=== PATIENT | male | born 1970 | race Two or more races ===

== ENCOUNTER 2016-09-02 17:13 | Inpatient (IN) | payer MEDICAID ==
[~2016-09-02] VITALS: Ht 170.2 cm; Wt 108.9 kg
[2016-09-02] MEDS ORDERED: NKM (17:30)
[2016-09-02] MEDS ORDERED: Albuterol ud Inhalation HHN ONE (17:30)
[2016-09-02] MEDS ORDERED: Nitroglycerin Subl 0.4mg tab (Bottle Of 25) SL ONE (17:45)
[2016-09-02 17:46] LABS: MEAN CORPUSCULAR HEMOGLOBIN 17.6 PG (27.0-31.0); MEAN CORPUSCULAR HGB CONC 27.9 G/DL (32.0-36.0); MEAN CORPUSCULAR VOLUME 63 FL (80-99); MEAN PLATELET VOLUME 7.3 FL (6.5-10.1); PLATELET COUNT 69 K/UL (150-450); RED BLOOD COUNT 3.93 M/UL (4.70-6.10); RED CELL DISTRIBUTION WIDTH 18.4 % (11.6-14.8); WHITE BLOOD COUNT 4.8 K/UL (4.8-10.8)
[2016-09-02] MEDS ORDERED: LORazepam Inj 2mg/ml 1ml IV ONE (18:00)
[2016-09-02 18:04] VITALS: BP 121/67
[2016-09-02 18:06] LABS: TROPONIN I < 0.30 ng/mL (<=0.30)
[2016-09-02 18:09] LABS: ALANINE AMINOTRANSFERASE 22 U/L (3-41); ALBUMIN/GLOBULIN RATIO 0.8 (1.0-2.7); ANION GAP 13 (5-15); ASPARTATE AMINO TRANSFERASE 83 U/L (5-40); CALCIUM 7.7 mg/dL (8.6-10.2); CARBON DIOXIDE 25 mEQ/L (20-30); CHLORIDE 103 mEQ/L (98-107); CREATININE 0.6 mg/dL (0.7-1.2); GLOMERULAR FILTRATION RATE > 60 mL/min (>60); HEMOLYSIS 0; POTASSIUM 3.7 mEQ/L (3.4-4.9); SODIUM 141 mEQ/L (135-145); TOTAL PROTEIN 7.1 g/dL (6.6-8.7)
[2016-09-02 18:19] LABS: CKMB 3.8 ng/mL (< 6.7)
--- NOTE | 2016-09-02 18:38 | Emergency Room Report ---
History of Present Illness General Chief Complaint: Chest Pain Source: Patient Present Illness HPI 46 y/o male c/o chest pain / tightness x 5 hours. States he was at home and started having heart palpitations, chest pressure, SOB, sweating and bilateral hand numbness. States that prior to onset of sxs he has been having blood from his rectum when he defecates. States there are no modifying factors and that he tried to relax at home w/o improvement of sxs. Patient admits he has hx of DMII that he was taking medication for but was told his A1C was normal and that he could stop using medication several months ago. Denies any cardiac hx or other comorbid conditions. Denies asthma. Currently not on medications of kind. Denies any current n/v/f/c/d, abd pain, back pain, neck pain, photophobia, phonophobia or headache. Allergies: Coded Allergies: NO KNOWN ALLERGIES (Verified Allergy, Unknown, 09/02/16) Patient History Limited by: language barrier Past Medical History: see triage record Pertinent Family History: none Immunizations: UTD Reviewed Nursing Documentation: PMH: Agreed, PSxH: Agreed Nursing Documentation-PMH Past Medical History: No History, Except For Hx Asthma: No - blood clot rt lung /anemia Hx Diabetes: Yes Review of Systems All Other Systems: negative except mentioned in HPI Physical Exam Vital Signs Date Time Temp Pulse Resp B/P Pulse Ox O2 Delivery O2 Flow Rate FiO2 09/02/16 17:20 98.8 93 12 154/81 99 Room Air 09/02/16 17:32 21 Sp02 EP Interpretation: reviewed, normal General Appearance: alert, GCS 15, non-toxic, moderate distress, obese Head: normocephalic, atraumatic Eyes: bilateral eye PERRL, bilateral eye normal inspection ENT: hearing grossly normal, normal pharynx, no angioedema, normal voice, other - oral mucosa pale Neck: full range of motion, supple/symm/no masses Respiratory: chest non-tender, crackles - left side, rales - left side, speaking full sentences Cardiovascular #1: regular rate, rhythm, no edema, normal capillary refill Gastrointestinal: non tender, soft Rectal: hemorrhoids - multiple large thrombosed hemorrhoids. no gross blood present Neurologic: alert, oriented x3, responsive, motor strength/tone normal, sensory intact, speech normal Psychiatric: judgement/insight normal, memory normal, no suicidal/homicidal ideation, anxious Skin: normal color, no rash, warm/dry, well hydrated Lymphatic: no adenopathy Medical Decision Making PA Attestation Dr. Vogel my supervising physician with whom patient management has been discussed with. Diagnostic Impression: Primary Impression: GI bleeding Qualified Codes: K92.2 - Gastrointestinal hemorrhage, unspecified Additional Impressions: Hemorrhoid thrombosis Chest pain at rest ANEMIA, UNSPECIFIED ER Course Pt. presents to the ED c/o chest pain Ddx considered but are not limited to Vital signs: are WNL, pt. is afebrile H&PE are most consistent with GI bleed with severe anemia secondary to blood loss ORDERS/ ED INTERVENTIONS: My Orders - ENMANUEL GIBSON Procedure Category Date Status Time Vital Signs CARE 09/02/16 Transmitted 17:23 Ekg Tracing Only CARD 09/02/16 Complete 17:23 Cardiac Monitoring CARE 09/02/16 Transmitted 17:23 Oxygen (Er Only) CARE 09/02/16 Transmitted 17:23 Ed Pulse Oximetry CARE 09/02/16 Transmitted 17:23 Iv Access / Saline CARE 09/02/16 Transmitted Lock 17:23 Activity / Weight CARE 09/02/16 Transmitted Bearing 17:23 Cbc W/ Differential LAB 09/02/16 Complete 17:23 CK MB LAB 09/02/16 Complete 17:23 CK LAB 09/02/16 Complete 17:23 CMP LAB 09/02/16 Complete 17:23 Troponin I LAB 09/02/16 Complete 17:23 Xray Chest 1v RAD 09/02/16 Resulted 17:23 Rhythm Strip CARE 09/02/16 Transmitted 17:23 Saline 10ml Flush PHA 09/02/16 In Process (Saline 10ml Flush) 17:30 Albuterol Hhn PHA 09/02/16 Complete (Proventil) 17:30 Hand Held Nebulizer RESP 09/02/16 Transmitted 17:23 B-Type Natriuretic LAB 09/02/16 Complete Peptide 17:42 Nitroglycerin (Ntg) PHA 09/02/16 Complete 17:45 Lorazepam (Ativan PHA 09/02/16 Complete 2mg/Ml 1ml) 18:00 Type (Abo/Rh) & Screen BBK 09/02/16 In Process 18:04 Packed Red Cells BBK 6/10/17 In Process 18:04 PTT LAB 09/02/16 Complete 18:04 PT LAB 09/02/16 Complete 18:04 Type (Abo/Rh) BBK 09/02/16 In Process 18:04 Ferritin LAB 09/02/16 Complete 18:06 Morphine Sulfate PHA 09/02/16 Complete (Morphine Sulfate) 20:15 Risks and benefits discussed with patient regarding blood transfusion and written consent form was signed by patient prior to administration of transfusion.Patient was then transfused with Packed RBCs. ADMISSION: Patient was admitted to Dr. Sauer who was on Panel for further evaluation of severe anemia and GI bleed. Laboratory Tests Test 09/02/16 17:25 09/02/16 17:55 09/03/16 07:08 09/03/16 10:30 White Blood Count 4.8 K/UL (4.8-10.8) 3.3 K/UL (4.8-10.8) L Red Blood Count 3.93 M/UL (4.70-6.10) L 4.44 M/UL (4.70-6.10) L Hemoglobin 6.9 G/DL (14.2-18.0) *L 7.9 G/DL (14.2-18.0) L Hematocrit 24.9 % (42.0-52.0) L 28.3 % (42.0-52.0) L Mean Corpuscular Volume 63 FL (80-99) L 64 FL (80-99) L Mean Corpuscular Hemoglobin 17.6 PG (27.0-31.0) L 17.7 PG (27.0-31.0) L Mean Corpuscular Hemoglobin Concent 27.9 G/DL (32.0-36.0) L 27.9 G/DL (32.0-36.0) L Red Cell Distribution Width 18.4 % (11.6-14.8) H 19.7 % (11.6-14.8) H Platelet Count 69 K/UL (150-450) L 68 K/UL (150-450) L Mean Platelet Volume 7.3 FL (6.5-10.1) 9.8 FL (6.5-10.1) Neutrophils (%) (Auto) % (45.0-75.0) % (45.0-75.0) Lymphocytes (%) (Auto) % (20.0-45.0) % (20.0-45.0) Monocytes (%) (Auto) % (1.0-10.0) % (1.0-10.0) Eosinophils (%) (Auto) % (0.0-3.0) % (0.0-3.0) Basophils (%) (Auto) % (0.0-2.0) % (0.0-2.0) Differential Total Cells Counted 100 100 Neutrophils % (Manual) 59 % (45-75) 76 % (45-75) H Lymphocytes % (Manual) 32 % (20-45) 14 % (20-45) L Monocytes % (Manual) 8 % (1-10) 9 % (1-10) Eosinophils % (Manual) 1 % (0-3) 1 % (0-3) Basophils % (Manual) 0 % (0-2) 0 % (0-2) Band Neutrophils 0 % (0-8) 0 % (0-8) Platelet Estimate Decreased L Decreased L Platelet Morphology Normal Normal Hypochromasia 2+ 1+ Poikilocytosis 1+ Anisocytosis 1+ 1+ Microcytosis 1+ 1+ Target Cells 1+ Occasional Ovalocytes 1+ Sodium Level 141 mEQ/L (135-145) Potassium Level 3.7 mEQ/L (3.4-4.9) Chloride Level 103 mEQ/L (98-107) Carbon Dioxide Level 25 mEQ/L (20-30) Anion Gap 13 (5-15) Blood Urea Nitrogen 6 mg/dL (7-23) L Creatinine 0.6 mg/dL (0.7-1.2) L Estimate Glomerular Filtration Rate > 60 mL/min (>60) Glucose Level 96 mg/dL (74-106) Calcium Level 7.7 mg/dL (8.6-10.2) L Total Bilirubin 0.8 mg/dL (0.0-1.2) Aspartate Amino Transferase (AST) 83 U/L (5-40) H Alanine Aminotransferase (ALT) 22 U/L (3-41) Alkaline Phosphatase 140 U/L (40-129) H Total Creatine Kinase 193 U/L (38-174) H Creatine Kinase MB 3.8 ng/mL (< 6.7) Creatine Kinase MB Relative Index 1.9 Troponin I < 0.30 ng/mL (<=0.30) < 0.30 ng/mL (<=0.30) Pro-B-Type Natriuretic Peptide 24 pg/mL (0-125) 20 pg/mL (0-125) 32 pg/mL (0-125) Total Protein 7.1 g/dL (6.6-8.7) Albumin 3.3 g/dL (3.5-5.2) L Globulin 3.8 g/dL Albumin/Globulin Ratio 0.8 (1.0-2.7) L Prothrombin Time 11.9 SEC (9.30-11.50) H Pending Prothrombin Time INR 1.1 (0.9-1.1) Pending PTT 32 SEC (23-33) Pending Ferritin 14 ng/mL (10-230) Iron Level 30 ug/dL (59-158) L Total Iron Binding Capacity 422 ug/dL (250-400) H Percent Iron Saturation 7 % (15-50) L Unsaturated Iron Binding 392 ug/dL (112-346) H Vitamin B12 Level 633 pg/mL (211-946) Folate Pending Thyroid Stimulating Hormone (TSH) 3.450 uIU/mL (0.300-4.500) EKG Diagnostic Results Rate: normal Rhythm: NSR ST Segments: no acute changes ASA given to the pt in ED: No Chest X-Ray Diagnostic Results Chest X-Ray Ordered: Yes # of Views/Limited/Complete: 1 View Interpretation: no consolidation, no effusion, no pneumothorax, no acute cardiopulmonary disease Indication: Chest Pain Impression: No acute disease Date Electronically Signed: Sep 02, 2016 Time Electronically Signed: 17:00 Other X-Ray Diagnostic Results # of Views/Limited Vs Complete: 1 View Last Vital Signs Date Time Temp Pulse Resp B/P Pulse Ox O2 Delivery O2 Flow Rate FiO2 09/03/16 11:20 78 09/03/16 08:00 98.1 18 152/97 Nasal Cannula 2.0 93 09/02/16 20:55 99 Status: unchanged Reevaluation Impression Patient sleeping comfortably at bedside with improvement of chest pain. Disposition: ADMITTED INPATIENT Condition: Stable Signed Out To: Dr. Sauer Referrals: NOT CHOSEN IPA/,REFERRING (PCP) ENMANUEL GIBSON Sep 02, 2016 18:38
[2016-09-02 18:40] LABS: ANISOCYTOSIS 1+; EOSINOPHILS % (MANUAL) 1 % (0-3); LYMPHOCYTES % (MANUAL) 32 % (20-45); NEUTROPHILS % (MANUAL) 59 % (45-75); TOTAL CELLS COUNTED 100
[2016-09-02 18:41] LABS: HYPOCHROMASIA 2+; MICROCYTES 1+; TARGET CELLS 1+
[2016-09-02 18:42] LABS: OVALOCYTES 1+; PLATELET MORPHOLOGY NORMAL; POIKILOCYTOSIS 1+
[2016-09-02 18:43] LABS: BAND NEUTROPHILS % (MANUAL) 0 % (0-8); BASOPHILS % (MANUAL) 0 % (0-2); PLATELET ESTIMATE DECREASED
[2016-09-02 18:53] LABS: INR 1.1 (0.9-1.1); PROTHROMBIN TIME 11.9 SEC (9.30-11.50)
[2016-09-02 19:30] VITALS: BP 122/69
[2016-09-02 19:38] LABS: FERRITIN 14 ng/mL (10-230)
[2016-09-02] MEDS ORDERED: Morphine Sulfate 4mg/ml Inj IVP ONE (20:15)
[2016-09-02 20:55] VITALS: BP 148/84
[2016-09-03] MEDS: LORazepam Inj 2mg/ml 1ml IV PRN ×2 (02:53→23:52)
--- NOTE | 2016-09-03 03:30 | History and Physical Report ---
DATE OF ADMISSION: 09/02/2016 REASON FOR ADMISSION: Severe anemia due to gastrointestinal bleeding. HISTORY OF PRESENT ILLNESS: This is a 46-year-old male. He is homeless and has been living in his car for the past two years. He states that he has had chest tightness and shortness of breath. He has had bleeding from his rectum for the past five days. He was seen in the emergency room significantly anemic. Troponin level was negative and the EKG repeated x2 reveals sinus rhythm with no acute abnormalities. The patient notes that he had GI bleeding about a year and a half ago. He was seen in [place] and had some kind of diagnostic studies, but does not know what was found. He notes that he has leg swelling, because he lives in the car and does not have any way to elevate his extremity. PAST MEDICAL HISTORY: Type 2 diabetes mellitus, now diet controlled, history of DVT, and clot to the right lung in 2004. MEDICATIONS: None. ALLERGIES: None. SOCIAL HISTORY: Moderate alcohol use of six beers a day. Nonsmoker. No substance abuse. FAMILY HISTORY: Noncontributory. REVIEW OF SYSTEMS: A 10-point review of systems performed. All systems negative other than noted above. PHYSICAL EXAMINATION: GENERAL: Awake and alert, no distress. VITAL SIGNS: Blood pressure is 165/90, pulse 93, respiratory rate 12, and afebrile. HEENT: Conjunctivae are pink. Sclerae are anicteric. Oropharynx is clear. NECK: Supple. LUNGS: Clear. CARDIAC: Regular rhythm and rate. Normal S1 and S2. ABDOMEN: Soft. No palpable ascites. EXTREMITIES: With 1 to 2+ dependent edema. LABORATORY AND DIAGNOSTIC STUDIES: Potassium is 3.7, BUN 6, and creatinine 0.6. Natriuretic peptide is 24. Troponin is negative. Albumin is 3.3. AST and ALT are 83 and 22. Alkaline phosphatase is 140. White count 4.8, hemoglobin 6.9, and platelet count 69,000. IMPRESSION: 1. Gastrointestinal bleeding. 2. Severe anemia. 3. Thrombocytopenia. 4. Alcohol abuse. 5. Transaminitis. 6. Angina precipitated by severe anemia. 7. History of pulmonary embolus. 8. Lower extremity edema. PLAN: 1. Cardiac monitoring. 2. Serial troponins. 3. Nasal oxygen. 4. Transfuse packed red blood cells. 5. No anti-platelet or anticoagulant therapy at this time. 6. Withdrawal precautions. 7. Abdominal ultrasound. 8. Venous Duplex scan of lower extremities. 9. Bedrest. Derrick Sauer M.D. DR: Kishor JOB#: [id number] CC:
[2016-09-03 08:00] VITALS: BP 152/97
[2016-09-03 08:19] LABS: MEAN CORPUSCULAR HEMOGLOBIN 17.7 PG (27.0-31.0); MEAN CORPUSCULAR HGB CONC 27.9 G/DL (32.0-36.0); MEAN CORPUSCULAR VOLUME 64 FL (80-99); MEAN PLATELET VOLUME 9.8 FL (6.5-10.1); PLATELET COUNT 68 K/UL (150-450); RED BLOOD COUNT 4.44 M/UL (4.70-6.10); RED CELL DISTRIBUTION WIDTH 19.7 % (11.6-14.8); WHITE BLOOD COUNT 3.3 K/UL (4.8-10.8)
[2016-09-03 08:44] LABS: TROPONIN I < 0.30 ng/mL (<=0.30)
[2016-09-03 08:48] LABS: ANISOCYTOSIS 1+; BAND NEUTROPHILS % (MANUAL) 0 % (0-8); BASOPHILS % (MANUAL) 0 % (0-2); EOSINOPHILS % (MANUAL) 1 % (0-3); HYPOCHROMASIA 1+; LYMPHOCYTES % (MANUAL) 14 % (20-45); MICROCYTES 1+; NEUTROPHILS % (MANUAL) 76 % (45-75); PLATELET ESTIMATE DECREASED; PLATELET MORPHOLOGY NORMAL; TOTAL CELLS COUNTED 100
[2016-09-03 08:49] LABS: TARGET CELLS OCCASIONAL
[2016-09-03] MEDS: cefTRIAXone 1 GM in D5W 55 ML IVPB SCH (09:30)
[2016-09-03] MEDS: Octreotide Acetate 500 MCG in Sodium Chloride 499 ML IV SCH ×2 (09:30→19:42)
[2016-09-03] MEDS: Pantoprazole Inj IVP SCH (09:30)
[2016-09-03 09:54] LABS: THYROID STIMULATING HORMONE 3.45 uIU/mL (0.300-4.500)
--- NOTE | 2016-09-03 10:50 | Diagnostic Imaging Report ---
Indication: Chest Pain Comparison: None A single view chest radiograph was obtained. Findings: Cardiomediastinal appearance is within normal limits for age. Pulmonary vascularity is appropriate. The diaphragmatic contour is smooth and costophrenic angles are sharp. No pleural effusions are identified. The bones are unremarkable. Impression: No acute findings
[2016-09-03 12:00] VITALS: BP 137/73
[2016-09-03 12:04] LABS: INR 1.1 (0.9-1.1)
[2016-09-03 16:00] VITALS: BP 129/80
[2016-09-03 20:07] VITALS: BP 129/85
[2016-09-03] MEDS: Iron Sucrose 100 MG in NS 55 ML IVPB SCH (21:44)
--- NOTE | 2016-09-03 23:00 | Consultation ---
DATE OF CONSULTATION: 09/03/2016 CHIEF COMPLAINT: Gastrointestinal bleeding. HISTORY OF PRESENT ILLNESS: This a 46-year-old male, came to the hospital having heart palpitation and chest pain. The patient was found to be profoundly anemic. The patient was thrombocytopenic. The patient is alcoholic and suspicious for liver disease and gastrointestinal bleeding. PAST MEDICAL HISTORY: Significant for history of alcoholic problems, history of asthma, diabetes, and anemia. MEDICATIONS: Please see medication reconciliation list. ALLERGIES: Unknown. SOCIAL HISTORY: The patient drinks heavily. Denies any IV drug abuse. FAMILY HISTORY: Noncontributory. REVIEW OF SYSTEMS: A 10-point review of systems was performed and pertinent positives in history of present illness. PHYSICAL EXAMINATION: VITAL SIGNS: Temperature 98.2 degrees, pulse is 107, respirations 20, and blood pressure is 140/84. HEENT: Normocephalic and atraumatic. Sclerae anicteric. NECK: Supple. No lymphadenopathy. CARDIOVASCULAR: Regular rhythm plus S1 and S2. No murmurs. LUNGS: Decreased breath sounds bilaterally based on the supine exam. ABDOMEN: Soft. Mildly distended. No rebound. No guarding. EXTREMITIES: No cyanosis. No clubbing. Trace edema. LABORATORY AND DIAGNOSTIC DATA: White count is 4.8, hemoglobin 6.9, hematocrit 24 and pleasant 69,000. INR is 1.1. BUN is 6 and creatinine 0.6. ASSESSMENT: This is a 46-year-old male with possible alcoholic liver disease with thrombocytopenia, anemia suspicious for variceal bleeding. PLAN: The patient to be NPO after midnight. Start on octreotide. Start on intravenous antibiotics for SBP prophylaxis. The patient to be scheduled for endoscopy tomorrow. The patient needs a blood transfusion. The patient to get an endoscopy tomorrow. Also, abdominal ultrasound has been ordered, which is pending. Ricardo Weber M.D. DR: EARNESTINE JOB#: [id number] CC:
[2016-09-04] VITALS (10 sets, daily range): BP systolic 115–146; BP diastolic 78–92
--- NOTE | 2016-09-04 03:30 | Progress Note ---
DATE: 09/03/2016 INTERNAL MEDICINE PROGRESS NOTE SUBJECTIVE: The patient is status post 2 units of packed red blood cells. He had an episode of hematemesis early this morning. OBJECTIVE: VITAL SIGNS: Blood pressure 137/73, pulse 79, and respirations 18. Afebrile. LUNGS: With diminished breath sounds. CARDIAC: Regular rhythm rate. Normal S1 and S2. ABDOMEN: Distended, but mildly tender. No ascites. EXTREMITIES: With 1+ edema. LABORATORY DATA: White count 3.3 and hemoglobin 7.9. Iron saturation is 7%. Troponin negative. B12 and TSH are normal. Folate level pending. IMPRESSION: 1. Acute gastrointestinal bleeding. 2. Severe anemia. 3. Acute myocardial ischemia. 4. Severe iron deficiency. 5. Chronic venous insufficiency. 6. History of pulmonary embolism. 7. Alcoholism. PLAN: 1. IV Venofer. 2. Transfuse for hemoglobin less than 8 g. 3. GI consultation for panendoscopy. 4. Venous duplex to assess for possible source of pulmonary emboli. 5. Alcohol withdrawal precautions. Derrick Sauer M.D. DR: RICO JOB#: [id number] CC:
[2016-09-04] MEDS: Octreotide Acetate 500 MCG in Sodium Chloride 499 ML IV SCH ×2 (04:44→17:02)
[2016-09-04 07:35] LABS: MEAN CORPUSCULAR HEMOGLOBIN 19.4 PG (27.0-31.0); MEAN CORPUSCULAR HGB CONC 29.7 G/DL (32.0-36.0); MEAN CORPUSCULAR VOLUME 65 FL (80-99); MEAN PLATELET VOLUME 10.1 FL (6.5-10.1); PLATELET COUNT 60 K/UL (150-450); RED BLOOD COUNT 4.19 M/UL (4.70-6.10); RED CELL DISTRIBUTION WIDTH 19.2 % (11.6-14.8); WHITE BLOOD COUNT 3.2 K/UL (4.8-10.8)
[2016-09-04 08:00] LABS: ALANINE AMINOTRANSFERASE 35 U/L (3-41); ALBUMIN/GLOBULIN RATIO 0.7 (1.0-2.7); ANION GAP 15 (5-15); ASPARTATE AMINO TRANSFERASE 174 U/L (5-40); CALCIUM 8.1 mg/dL (8.6-10.2); CARBON DIOXIDE 25 mEQ/L (20-30); CHLORIDE 96 mEQ/L (98-107); CREATININE 0.6 mg/dL (0.7-1.2); GLOMERULAR FILTRATION RATE > 60 mL/min (>60); HEMOLYSIS 4; POTASSIUM 4.1 mEQ/L (3.4-4.9); SODIUM 136 mEQ/L (135-145); TOTAL PROTEIN 7.5 g/dL (6.6-8.7)
[2016-09-04 08:05] LABS: INR 1.2 (0.9-1.1)
[2016-09-04 08:17] LABS: BILIRUBIN,DIRECT 0.8 mg/dL (0.1-0.3)
[2016-09-04] MEDS: Pantoprazole Inj IVP SCH (08:55)
[2016-09-04] MEDS: cefTRIAXone 1 GM in D5W 55 ML IVPB SCH (08:57)
[2016-09-04 09:36] LABS: BAND NEUTROPHILS % (MANUAL) 0 % (0-8); BASOPHILS % (MANUAL) 0 % (0-2); EOSINOPHILS % (MANUAL) 2 % (0-3); LYMPHOCYTES % (MANUAL) 19 % (20-45); NEUTROPHILS % (MANUAL) 77 % (45-75); NUCLEATED RED BLOOD CELLS 1 /100 WBC; PLATELET ESTIMATE DECREASED; TOTAL CELLS COUNTED 100
[2016-09-04 09:37] LABS: ANISOCYTOSIS 1+; HYPOCHROMASIA 1+; MICROCYTES 2+; PLATELET MORPHOLOGY NORMAL
[2016-09-04] MEDS ORDERED: NS 275ml ONE (11:03)
[2016-09-04] MEDS ORDERED: Tubing Blood Filter IV ONE (11:03)
[2016-09-04] MEDS ORDERED: 1/2 NS 1000ml IV ONE (11:03)
[2016-09-04] MEDS ORDERED: Propofol 10mg/ml 20ml IV ONE (11:30)
[2016-09-04] MEDS ORDERED: NS 550ML IV ONE (11:30)
[2016-09-04] MEDS ORDERED: Lidocaine 1% MPF 10mg/ml 5ml ONE (11:30)
--- NOTE | 2016-09-04 11:45 | Anethesia Preoperative Eval ---
Anesthesia Pre-op PMH/ROS General Date of Evaluation: Sep 04, 2016 Anesthesiologist: Wilfred ASA Score: ASA 4 Mallampati Score Class I : Soft palate, uvula, fauces, pillars visible Class II: Soft palate, uvula, fauces visible Class III: Soft palate, base of uvula visible Class IV: Only hard plate visible Mallampati Classification: Class IV Surgeon: Luh Diagnosis: GI bleed Surgical Procedure: EGD Anesthesia History: none Social History: alcohol use - alcohol abuse Family History: no anesthesia problems Allergies: Coded Allergies: NO KNOWN ALLERGIES (Verified Allergy, Unknown, 09/02/16) Medications: see eMAR Past Medical History Cardiovascular: Reports: HTN, Denies: CAD, MA, arrhythmia, other, valve dz Pulmonary: Reports: COURTNEY, asthma, other - h/o PE, Denies: COPD Gastrointestinal/Genitourinary: Reports: GERD, other - likely esophageal varices and portal hypertension, Denies: CRI, ESRD Neurologic/Psychiatric: Denies: CVA, TIA, dementia, depression/anxiety, other Endocrine: Reports: DM, Denies: hypothyroidism, other, steroids HEENT: Denies: S[place]ANE (L), S[place]ANE (R), cataract (L), cataract (R), glaucoma, other Hematology/Immune: Reports: anemia - acute on chronic, bleeding disorder - thrombocytopenia, Denies: DVT, other Musculoskeletal/Integumentary: Denies: DDD, DJD, OA, RA, edema, other Other: obesity - morbid PSxH Narrative: Denies Anesthesia Pre-op Phys. Exam Physician Exam Last Vital Signs Date Time Temp Pulse Resp B/P Pulse Ox O2 Delivery O2 Flow Rate FiO2 09/04/16 11:32 98.2 85 20 141/88 97 Room Air 09/03/16 12:00 2.0 93 Constitutional: NAD, other - bilateral lower extremity swelling Cardiovascular: RRR Respiratory: other - bilateral crackles Gastrointestinal: other - distended Airway Exam Mallampati Score: Class III MO: limited ROM: limited Teeth: missing, intact, loose Anesthesia Pre-op A/P Labs Hematology Test 09/04/16 06:00 White Blood Count 3.2 K/UL (4.8-10.8) L Red Blood Count 4.19 M/UL (4.70-6.10) L Hemoglobin 8.1 G/DL (14.2-18.0) L Hematocrit 27.3 % (42.0-52.0) L Mean Corpuscular Volume 65 FL (80-99) L Mean Corpuscular Hemoglobin 19.4 PG (27.0-31.0) L Mean Corpuscular Hemoglobin Concent 29.7 G/DL (32.0-36.0) L Red Cell Distribution Width 19.2 % (11.6-14.8) H Platelet Count 60 K/UL (150-450) L Mean Platelet Volume 10.1 FL (6.5-10.1) Neutrophils (%) (Auto) % (45.0-75.0) Lymphocytes (%) (Auto) % (20.0-45.0) Monocytes (%) (Auto) % (1.0-10.0) Eosinophils (%) (Auto) % (0.0-3.0) Basophils (%) (Auto) % (0.0-2.0) Differential Total Cells Counted 100 Neutrophils % (Manual) 77 % (45-75) H Lymphocytes % (Manual) 19 % (20-45) L Monocytes % (Manual) 2 % (1-10) Eosinophils % (Manual) 2 % (0-3) Basophils % (Manual) 0 % (0-2) Band Neutrophils 0 % (0-8) Nucleated Red Blood Cells 1 /100 WBC Platelet Estimate Decreased L Platelet Morphology Normal Hypochromasia 1+ Anisocytosis 1+ Microcytosis 2+ Coagulation Test 09/04/16 06:00 Prothrombin Time 13.0 SEC (9.30-11.50) H Prothromb Time International Ratio 1.2 (0.9-1.1) H Activated Partial Thromboplast Time 34 SEC (23-33) H Chemistry Test 09/04/16 06:00 Sodium Level 136 mEQ/L (135-145) Potassium Level 4.1 mEQ/L (3.4-4.9) Chloride Level 96 mEQ/L (98-107) L Carbon Dioxide Level 25 mEQ/L (20-30) Anion Gap 15 (5-15) Blood Urea Nitrogen 7 mg/dL (7-23) Creatinine 0.6 mg/dL (0.7-1.2) L Estimat Glomerular Filtration Rate > 60 mL/min (>60) Glucose Level 97 mg/dL (74-106) Calcium Level 8.1 mg/dL (8.6-10.2) L Total Bilirubin 2.2 mg/dL (0.0-1.2) H Direct Bilirubin 0.8 mg/dL (0.1-0.3) H Aspartate Amino Transf (AST/SGOT) 174 U/L (5-40) H Alanine Aminotransferase (ALT/SGPT) 35 U/L (3-41) Alkaline Phosphatase 126 U/L (40-129) Total Protein 7.5 g/dL (6.6-8.7) Albumin 3.3 g/dL (3.5-5.2) L Globulin 4.2 g/dL Albumin/Globulin Ratio 0.7 (1.0-2.7) L Studies Pre-op Studies: EKG Risk Assessment & Plan Assessment: ASA III Plan: MAC Status Change Before Surgery: No Pre-Antibiotics Drug: N/A SHYANN TERAN M.D. Sep 04, 2016 11:45
--- NOTE | 2016-09-04 11:51 | General Progress Note ---
Assessment/Plan Assessment/Plan Assessment - EtOH cirrhosis - EtOH hepatitis - coagulopathy / portal HTN - UGIB Recommendations - NPO IVF - PPI - octreotide - EGD today Subjective Allergies: Coded Allergies: NO KNOWN ALLERGIES (Verified Allergy, Unknown, 09/02/16) Subjective Feels OK NPO no abdominal pain Objective Last 24 Hour Vital Signs Date Time Temp Pulse Resp B/P Pulse Ox O2 Delivery O2 Flow Rate FiO2 09/04/16 11:32 98.2 85 20 141/88 97 Room Air 09/04/16 08:00 68 09/04/16 08:00 98.2 74 20 115/81 96 Room Air 09/04/16 04:37 99.3 74 20 130/78 93 Room Air 09/04/16 04:00 76 09/04/16 00:38 98.2 72 20 135/85 97 Room Air 09/04/16 00:00 68 09/03/16 20:07 99.0 76 20 129/85 94 Room Air 09/03/16 20:00 72 09/03/16 16:00 76 18 129/80 99 Room Air 09/03/16 16:00 72 09/03/16 12:00 79 18 137/73 Nasal Cannula 2.0 93 Intake and Output 09/03/16 09/04/16 19:00 07:00 Intake Total 1330 ml 1560 ml Output Total 1500 ml 1700 ml Balance -170 ml -140 ml IV Total 1330 ml 1560 ml Output Urine Total 1500 ml 1700 ml # Voids 1 3 Laboratory Tests 09/04/16 06:00: White Blood Count 3.2L, Red Blood Count 4.19L, Hemoglobin 8.1L, Hematocrit 27.3L , Mean Corpuscular Volume 65L, Mean Corpuscular Hemoglobin 19.4L, Mean Corpuscular Hemoglobin Concent 29.7L, Red Cell Distribution Width 19.2H, Platelet Count 60L, Mean Platelet Volume 10.1, Neutrophils (%) (Auto) , Lymphocytes (%) (Auto) , Monocytes (%) (Auto) , Eosinophils (%) (Auto) , Basophils (%) (Auto) , Differential Total Cells Counted 100, Neutrophils % ( Manual) 77H, Lymphocytes % (Manual) 19L, Monocytes % (Manual) 2, Eosinophils % ( Manual) 2, Basophils % (Manual) 0, Band Neutrophils 0, Nucleated Red Blood Cells 1, Platelet Estimate DecreasedL, Platelet Morphology Normal, Hypochromasia 1+, Anisocytosis 1+, Microcytosis 2+, Prothrombin Time 13.0H, Prothromb Time International Ratio 1.2H, Activated Partial Thromboplast Time 34H , Sodium Level 136, Potassium Level 4.1, Chloride Level 96L, Carbon Dioxide Level 25, Anion Gap 15, Blood Urea Nitrogen 7, Creatinine 0.6L, Estimat Glomerular Filtration Rate > 60, Glucose Level 97, Calcium Level 8.1L, Total Bilirubin 2.2H, Direct Bilirubin 0.8H, Aspartate Amino Transf (AST/SGOT) 174H, Alanine Aminotransferase (ALT/SGPT) 35, Alkaline Phosphatase 126, Total Protein 7.5, Albumin 3.3L, Globulin 4.2, Albumin/Globulin Ratio 0.7L, Hepatitis A IgM Antibody [Pending], Hepatitis B Surface Antigen [Pending], Hepatitis B Core IgM Antibody [Pending], Hepatitis C Antibody [Pending] Height (Feet): 5 Height (Inches): 7.00 Weight (Pounds): 240 Objective WD Obese WM NCAT supple CTA RRR soft NT ND no edema VERNON MARTI Sep 04, 2016 11:51
--- NOTE | 2016-09-04 11:52 | Pre-Procedure Note/Attestation ---
Pre-Procedure Note/Attestation Complete Prior to Procedure Planned Procedure: not applicable Procedure Narrative: EGD Indications for Procedure Pre-Operative Diagnosis: GIB Attestation I attest that I discussed the nature of the procedure; its benefits; risks and complications; and alternatives (and the risks and benefits of such alternatives ), prior to the procedure, with the patient (or the patient's legal phone representative). I attest that, if there was a reasonable possibility of needing a blood transfusion, the patient (or the patient's legal phone representative) was given the [facility] standardized written summary, pursuant to the [place] Blood Safety Act ([place] Health and Safety Code # 1645, as amended). I attest that I re-evaluated the patient just prior to the surgery and that there has been no change in the patient's H&P, except as documented below: VERNON MARTI Sep 04, 2016 11:52
--- NOTE | 2016-09-04 12:08 | Endoscopy Procedure Note ---
Endoscopy Procedure Note Indication for Procedure: GI Bleed Procedures Performed: EGD, PEG Operative Findings/Diagnosis: large varicies - s/p banding x 5 Specimen: none Pt Tolerated Procedure Well: Yes Estimated Blood Loss: none Anesthesiologist: see report Anesthesia: MAC Medication Given: see anesthesia record 50 yrs or older w/o bx or poly: Not Applicable 10yrs. F/U not recommended: Not Applicable If not recommended, why?: VERNON MARTI Sep 04, 2016 12:08
--- NOTE | 2016-09-04 12:09 | Brief Operative Note ---
Immediate Post Operative Note Operative Note Chief Complaint: GIB Pre-op Diagnosis: GIB Procedure: EGD - s/p banding x 5 Post-op Diagnosis: esophageal varicies - banded Surgeon: robinson Anesthesia: MAC Specimen: none Complications: none Condition: stable Estimated Blood Loss: none Drains: none Implant(s) used?: No VERNON MARTI Sep 04, 2016 12:09
--- NOTE | 2016-09-04 12:24 | Immediate Post-Op Evaluation ---
Immediate Post-Op Evalulation Immediate Post-Op Evalulation Procedure: EGD, clipping esophageal varices Date of Evaluation: Sep 04, 2016 Time of Evaluation: 12:23 IV Fluids: 200 Blood Products: 0 Estimated Blood Loss: 0 Urinary Output: 0 Blood Pressure Systolic: 143 Blood Pressure Diastolic: 92 Pulse Rate: 85 Respiratory Rate: 16 O2 Sat by Pulse Oximetry: 98 Temperature (Fahrenheit): 98 Pain Score (1-10): 0 Nausea: No Vomiting: No Complications 0 Patient Status: awake, reacts, patent, none Hydration Status: adequate Drug: N/A SHYANN TERAN M.D. Sep 04, 2016 12:24
[2016-09-04] MEDS: LORazepam Inj 2mg/ml 1ml IV PRN (21:31)
[2016-09-04] MEDS: Iron Sucrose 100 MG in NS 55 ML IVPB SCH (21:31)
[2016-09-05 00:07] VITALS: BP 140/80
[2016-09-05] MEDS ORDERED: Octreotide Acetate 500 MCG in Sodium Chloride 499 ML IV SCH ×2 (01:30→10:00)
[2016-09-05] MEDS ORDERED: LORazepam Inj 2mg/ml 1ml IV PRN (02:15)
[2016-09-05 04:00] VITALS: BP 139/80
--- NOTE | 2016-09-05 06:15 | Progress Note ---
DATE: 09/04/2016 INTERNAL MEDICINE PROGRESS NOTE SUBJECTIVE: The patient is status post endoscopy. He underwent banding x5 for varices bleeding and hemoptysis. His abdominal pain has diminished. OBJECTIVE: VITAL SIGNS: Stable. HEENT: Oropharynx is clear. NECK: Supple. LUNGS: Clear. CARDIAC: Regular. Normal S1 and S2. EXTREMITIES: Trace edema. LABORATORY AND DIAGNOSTIC DATA: Notable for hemoglobin of 8.1. Venous duplex scan is negative for DVT. IMPRESSION: 1. Alcoholism. 2. Upper gastrointestinal bleeding due to varices. 3. Anemia. 4. Iron deficiency. PLAN: NPO pending GI clearance for diet. Continue proton pump inhibitors, withdrawal precautions. Followup hemoglobin and transfuse if less than 8 g. Continue iron replacement. Derrick Sauer M.D. DR: Lyndsay JOB#: [id number] CC:
[2016-09-05 07:29] LABS: MEAN CORPUSCULAR HGB CONC 28.2 G/DL (32.0-36.0); MEAN CORPUSCULAR VOLUME 64 FL (80-99); MEAN PLATELET VOLUME 9.9 FL (6.5-10.1); PLATELET COUNT 69 K/UL (150-450); RED BLOOD COUNT 4.55 M/UL (4.70-6.10); RED CELL DISTRIBUTION WIDTH 20.2 % (11.6-14.8); WHITE BLOOD COUNT 3.2 K/UL (4.8-10.8)
[2016-09-05 07:54] LABS: ALANINE AMINOTRANSFERASE 38 U/L (3-41); ALBUMIN/GLOBULIN RATIO 0.7 (1.0-2.7); ANION GAP 15 (5-15); ASPARTATE AMINO TRANSFERASE 148 U/L (5-40); CALCIUM 7.9 mg/dL (8.6-10.2); CARBON DIOXIDE 24 mEQ/L (20-30); CHLORIDE 96 mEQ/L (98-107); CREATININE 0.6 mg/dL (0.7-1.2); GLOMERULAR FILTRATION RATE > 60 mL/min (>60); HEMOLYSIS 12; POTASSIUM 3.8 mEQ/L (3.4-4.9); SODIUM 135 mEQ/L (135-145); TOTAL PROTEIN 7.2 g/dL (6.6-8.7)
[2016-09-05 08:00] VITALS: BP 132/88
[2016-09-05 08:11] LABS: BILIRUBIN,DIRECT 0.8 mg/dL (0.1-0.3)
[2016-09-05 08:36] LABS: ANISOCYTOSIS 2+; BAND NEUTROPHILS % (MANUAL) 0 % (0-8); BASOPHILS % (MANUAL) 2 % (0-2); EOSINOPHILS % (MANUAL) 2 % (0-3); HYPOCHROMASIA 2+; LYMPHOCYTES % (MANUAL) 27 % (20-45); MICROCYTES 3+; NEUTROPHILS % (MANUAL) 61 % (45-75); NUCLEATED RED BLOOD CELLS 3 /100 WBC; PLATELET ESTIMATE DECREASED; PLATELET MORPHOLOGY NORMAL; POIKILOCYTOSIS 2+; POLYCHROMASIA 1+; TOTAL CELLS COUNTED 100
[2016-09-05] MEDS: Pantoprazole Inj IVP SCH (08:59)
[2016-09-05] MEDS ORDERED: cefTRIAXone 1 GM in D5W 55 ML IVPB SCH (09:00)
--- NOTE | 2016-09-05 09:31 | 48 Hour Post Anesthesia Eval ---
Post Anesthesia Evaluation Procedure: EGD, clipping esophageal varices Date of Evaluation: Sep 05, 2016 Time of Evaluation: 07:00 Blood Pressure Systolic: 139 0: 80 Pulse Rate: 71 Respiratory Rate: 20 Temperature (Fahrenheit): 98.4 O2 Sat by Pulse Oximetry: 93 Airway: patent Nausea: No Vomiting: No Pain Intensity: 0 Hydration Status: adequate Cardiopulmonary Status: at baseline Mental Status/LOC: patient returned to baseline Post-Anesthesia Complications: 0 Follow-up care needed: N/A - further care as per primary team SHYANN TERAN M.D. Sep 05, 2016 09:31
--- NOTE | 2016-09-05 11:49 | Diagnostic Imaging Report ---
Indication: Pain, vomiting, abnormal labs Technique: Rich-scale and duplex images of the upper abdomen were obtained Comparison: Findings: Gallbladder is unremarkable, without stones, wall thickening, nor pericholecystic fluid. Sonographic Schaffer's sign is negative. Common bile duct measures 5 mm in diameter. No intrahepatic biliary ductal dilatation. Liver demonstrates diffusely increased echogenicity, consistent with diffuse hepatocellular disease, most likely fatty change. Is diffusely enlarged. No focal abnormality. Portal vein and hepatic veins are patent. Pancreas is obscured by bowel gas. Spleen is enlarged, measuring 18.6 cm long axis dimension Left kidney measures 14.2 cm in length. Right kidney measures 14.1 cm length. Both kidneys demonstrate normal echogenicity. There is no hydronephrosis. No focal abnormality . Abdominal aorta is partially obscured by bowel gas, visualized portions are non-aneurysmal . Impression: Hepatosplenomegaly Liver demonstrates diffusely increased echogenicity, consistent with diffuse hepatocellular disease, most likely fatty change. Negative for gallstones or dilated ducts Note nonvisualization of the pancreas, suboptimal visualization of the abdominal aorta
[2016-09-05 12:30] VITALS: BP 117/80
[2016-09-05 13:59] LABS: OTHERS PATHOLOGIST COMMENT
[2016-09-05 16:00] VITALS: BP 125/74
[2016-09-05] MEDS ORDERED: LORazepam 1mg tab ORAL PRN (18:00)
[2016-09-05] MEDS ORDERED: OCTREOTIDE ACETATE IV SCH (18:00)
[2016-09-05] MEDS ORDERED: NS IV SCH (18:00)
--- NOTE | 2016-09-05 18:44 | General Progress Note ---
Assessment/Plan Assessment/Plan Assessment - EtOH cirrhosis - EtOH hepatitis - coagulopathy / portal HTN - UGIB - s/p EGD/EBL Recommendations - pureed diet today - soft diet tomorrow - d/c octreotide tonight - trental x 30 days - PPI x 60 days - d/c planning for tomorrow if stable Subjective Allergies: Coded Allergies: NO KNOWN ALLERGIES (Verified Allergy, Unknown, 09/02/16) Subjective Feels OK on pureed diet Objective Last 24 Hour Vital Signs Date Time Temp Pulse Resp B/P Pulse Ox O2 Delivery O2 Flow Rate FiO2 09/05/16 17:53 125/74 09/05/16 16:00 98.4 76 18 125/74 94 Room Air 76 09/05/16 13:55 118/78 09/05/16 12:30 76.0 76 20 117/80 94 Room Air 76 09/05/16 09:31 71 20 93 09/05/16 08:59 125/74 09/05/16 08:00 96.6 93 20 132/88 96 Room Air 09/05/16 04:00 98.4 71 20 139/80 93 Room Air 09/05/16 00:07 98.2 80 18 140/80 97 Room Air 09/04/16 20:08 98.1 75 18 146/86 95 Room Air 09/04/16 20:00 72 Intake and Output 09/04/16 09/05/16 19:00 07:00 Intake Total 1255 ml 600 ml Output Total 2100 ml 1000 ml Balance -845 ml -400 ml IV Total 1255 ml 600 ml Output Urine Total 2100 ml 1000 ml # Voids 2 Laboratory Tests 09/05/16 05:00: White Blood Count 3.2L, Red Blood Count 4.55L, Hemoglobin 8.2L, Hematocrit 29.1L , Mean Corpuscular Volume 64L, Mean Corpuscular Hemoglobin 18.0L, Mean Corpuscular Hemoglobin Concent 28.2L, Red Cell Distribution Width 20.2H, Platelet Count 69L, Mean Platelet Volume 9.9, Neutrophils (%) (Auto) , Lymphocytes (%) (Auto) , Monocytes (%) (Auto) , Eosinophils (%) (Auto) , Basophils (%) (Auto) , Differential Total Cells Counted 100, Neutrophils % ( Manual) 61, Lymphocytes % (Manual) 27, Monocytes % (Manual) 8, Eosinophils % ( Manual) 2, Basophils % (Manual) 2, Band Neutrophils 0, Nucleated Red Blood Cells 3, Platelet Estimate DecreasedL, Platelet Morphology Normal, Polychromasia 1+, Hypochromasia 2+, Poikilocytosis 2+, Anisocytosis 2+, Microcytosis 3+, Sodium Level 135, Potassium Level 3.8, Chloride Level 96L, Carbon Dioxide Level 24, Anion Gap 15, Blood Urea Nitrogen 8, Creatinine 0.6L, Estimat Glomerular Filtration Rate > 60, Glucose Level 82, Calcium Level 7.9L, Total Bilirubin 1.8H, Direct Bilirubin 0.8H, Aspartate Amino Transf (AST/SGOT) 148H, Alanine Aminotransferase (ALT/SGPT) 38, Alkaline Phosphatase 112, Total Protein 7.2, Albumin 3.1L, Globulin 4.1, Albumin/Globulin Ratio 0.7L Height (Feet): 5 Height (Inches): 7.00 Weight (Pounds): 240 Objective WD Obese WM NCAT supple CTA RRR soft NT ND no edema VERNON MARTI Sep 05, 2016 18:44
[2016-09-05 20:25] VITALS: BP 118/76
[2016-09-05] MEDS ORDERED: Iron Sucrose 100 MG in NS 55 ML IVPB SCH (21:00)
[2016-09-06] VITALS: BP 120/81
--- NOTE | 2016-09-06 00:15 | Progress Note ---
DATE: 09/05/2016 INTERNAL MEDICINE PROGRESS NOTE SUBJECTIVE: Diet has been initiated. No vomiting. Some hemoptysis, but decreased. Abdominal pain, diminished. OBJECTIVE: VITAL SIGNS: Stable. Afebrile. ABDOMEN: Slightly distended, but without focal tenderness. LABORATORY DATA: White count is 3.2 and hemoglobin 8.2. Chemistry panel within normal limits. Albumin 3.1. IMPRESSION: 1. Alcoholism. 2. Gastrointestinal bleeding secondary to varices, now status post banding. 3. Iron deficiency anemia due to gastrointestinal bleeding. 4. Mild protein-calorie malnutrition. PLAN: 1. Advance diet as tolerated. 2. Iron replacement. 3. Continue proton pump inhibitor. 4. Complete octreotide infusion today. 5. Maintain pentoxifylline for 30 days total. 6. Discharge planning in progress. Derrick Sauer M.D. DR: RICO JOB#: [id number] CC:
[2016-09-06 04:08] VITALS: BP 121/58
[2016-09-06 07:12] LABS: MEAN CORPUSCULAR HEMOGLOBIN 18.4 PG (27.0-31.0); MEAN CORPUSCULAR HGB CONC 29.4 G/DL (32.0-36.0); MEAN CORPUSCULAR VOLUME 63 FL (80-99); PLATELET COUNT 70 K/UL (150-450); RED BLOOD COUNT 4.79 M/UL (4.70-6.10); RED CELL DISTRIBUTION WIDTH 20.4 % (11.6-14.8); WHITE BLOOD COUNT 3.9 K/UL (4.8-10.8)
[2016-09-06 08:00] VITALS: BP 131/68
[2016-09-06] MEDS: Pantoprazole Inj IVP SCH (08:36)
[2016-09-06 08:38] VITALS: BP 131/68
[2016-09-06 08:54] LABS: ANISOCYTOSIS 2+; BAND NEUTROPHILS % (MANUAL) 0 % (0-8); BASOPHILS % (MANUAL) 1 % (0-2); EOSINOPHILS % (MANUAL) 3 % (0-3); HYPOCHROMASIA 2+; LYMPHOCYTES % (MANUAL) 18 % (20-45); MICROCYTES 4+; NEUTROPHILS % (MANUAL) 69 % (45-75); PLATELET ESTIMATE DECREASED; PLATELET MORPHOLOGY NORMAL; TOTAL CELLS COUNTED 100
[2016-09-06] MEDS ORDERED: PROTONIX40 MG ORAL (10:11)
[2016-09-06] MEDS ORDERED: PENTOXIFYLLINE400 MG ORAL (10:12)
[2016-09-06] MEDS ORDERED: FERROUS SULFAT325 MG ORAL (10:12)
[2016-09-06] MEDS ORDERED: 1/2 NS 1000ml IV ONE (12:39)
--- NOTE | 2016-09-06 17:44 | General Progress Note ---
Assessment/Plan Assessment/Plan Assessment - EtOH cirrhosis - EtOH hepatitis - coagulopathy / portal HTN - UGIB - s/p EGD/EBL Recommendations - soft diet - trental x 30 days - PPI x 60 days - d/c planning - pt advised to f/u with PMD w/i 1 week Subjective Allergies: Coded Allergies: NO KNOWN ALLERGIES (Verified Allergy, Unknown, 09/02/16) Subjective Feels OK tolerating po for d/c today Objective Last 24 Hour Vital Signs Date Time Temp Pulse Resp B/P Pulse Ox O2 Delivery O2 Flow Rate FiO2 09/06/16 08:38 131/68 09/06/16 08:00 98.0 84 20 131/68 96 Room Air 09/06/16 04:08 97.8 66 20 121/58 98 Room Air 09/06/16 00:00 98.1 72 19 120/81 94 Room Air 09/05/16 20:25 98.2 72 20 118/76 100 Room Air 09/05/16 17:53 125/74 Intake and Output 09/05/16 09/06/16 19:00 07:00 Intake Total 600 ml 420 ml Balance 600 ml 420 ml Intake Oral 600 ml 360 ml IV Total 60 ml # Voids 1 2 Laboratory Tests 09/06/16 06:20: White Blood Count 3.9L, Red Blood Count 4.79, Hemoglobin 8.8L, Hematocrit 29.9L , Mean Corpuscular Volume 63L, Mean Corpuscular Hemoglobin 18.4L, Mean Corpuscular Hemoglobin Concent 29.4L, Red Cell Distribution Width 20.4H, Platelet Count 70L, Mean Platelet Volume 7.0, Neutrophils (%) (Auto) , Lymphocytes (%) (Auto) , Monocytes (%) (Auto) , Eosinophils (%) (Auto) , Basophils (%) (Auto) , Differential Total Cells Counted 100, Neutrophils % ( Manual) 69, Lymphocytes % (Manual) 18L, Monocytes % (Manual) 9, Eosinophils % ( Manual) 3, Basophils % (Manual) 1, Band Neutrophils 0, Platelet Estimate DecreasedL, Platelet Morphology Normal, Hypochromasia 2+, Anisocytosis 2+, Microcytosis 4+ Height (Feet): 5 Height (Inches): 7.00 Weight (Pounds): 240 Objective WD Obese WM NCAT supple CTA RRR soft NT ND no edema KHORRAMI,PAYMAN Sep 06, 2016 17:44
--- NOTE | 2016-09-07 09:30 | Discharge Summary ---
Discharge Summary Hospital Course Date of Admission Sep 02, 2016 at 19:07 Date of Discharge Sep 06, 2016 at 12:40 Admitting Diagnosis anemia/chest pain YOVANNY Gleason is a 46 year old male who was admitted on Sep 02, 2016 at 19:07 for Anemia/Chest Pain Hospital Course [id number] Discharge Discharge Disposition Patient was discharged to Home (01) Discharge Diagnoses: Ansley Laughlin NP Sep 07, 2016 09:30
--- NOTE | 2016-09-07 22:15 | Discharge Summary 2 SIG ---
DATE OF ADMISSION: 09/02/2016 DATE OF DISCHARGE: 09/06/2016 STUDENT UNION CONSULTANT: Rajani Arvizu M.D. BRIEF HOSPITAL COURSE: The patient is a 46-year-old male who is homeless and has been living in his car for the past two years, presented with chest tightness and shortness of breath and bleeding from his rectum for the past five days. On evaluation at ED, he was significantly anemic, hemoglobin 6.9, platelet count was 69,000. Troponin level was negative and EKG x2 revealed sinus rhythm with no acute abnormalities. He was admitted for severe anemia, gastrointestinal bleed, and thrombocytopenia. Cardiac enzymes were monitored. He was given one unit packed RBC blood transfusion and was followed by Dr. Arvizu. He was given proton pump inhibitors and octreotide. He underwent esophagogastroduodenoscopy on 09/04/2016 and underwent banding x5 due to esophageal varices. Diet was slowly advanced. Octreotide drip was discontinued and was advised to continue proton pump inhibitors for 60 days and Trental for 30 days and to follow-up with PMD in a week. FINAL DIAGNOSES: 1. Acute gastrointestinal bleed, secondary to esophageal varices, status post banding. 2. Acute anemia requiring blood transfusion. 3. Iron-deficiency anemia due to gastrointestinal bleed. 4. Mild protein-calorie malnutrition. 5. Alcoholism. Derrick Sauer M.D. I have been assigned to dictate discharge summary on this account and I was not involved in the patient's management. Ansley Laughlin N.P. DR: JUANITA JOB#: [id number] CC: KEVIN
== END 2016-09-06 12:40 | disposition home or self-care (01) | DRG 229 ==
LOC: EMR 17:25 → 2E 19:07 → EDBEDREQ 19:21 → 2E 23:37 → 3E 09-05 02:39
PROC: 30230N1 Transfusion of Nonautologous Red Blood Cells into Peripheral Vein, Open Approach (ICD-10-PCS; 2016-09-02)
PROC: 06L34CZ Occlusion of Esophageal Vein with Extraluminal Device, Percutaneous Endoscopic Approach (ICD-10-PCS; principal; 2016-09-04 11:55)
DX: I85.01 Esophageal varices with bleeding (principal); D68.4 Acquired coagulation factor deficiency; K76.6 Portal hypertension; D69.6 Thrombocytopenia, unspecified; E44.1 Mild protein-calorie malnutrition; I51.3 Intracardiac thrombosis, not elsewhere classified; Z86.711 Personal history of pulmonary embolism; R60.9 Edema, unspecified; Z59.0 Homelessness; E11.9 Type 2 diabetes mellitus without complications; Z86.718 Personal history of other venous thrombosis and embolism; I20.8 Other forms of angina pectoris; D62 Acute posthemorrhagic anemia; F10.20 Alcohol dependence, uncomplicated; K70.30 Alcoholic cirrhosis of liver without ascites; K70.10 Alcoholic hepatitis without ascites
CPT/HCPCS: 36415; 71010; 76700; 80053; 82248; 82550; 82553; 82607; 82728; 82746; 82962; 83540; 83550; 83880; 84443; 84484; 85007; 85025; 85610; 85730; 86705; 86709; 86803; 86850; 86900; 86901; 86920; 87340; 93005; 93970; 94003; 94150; 94640; 94664; J2405

== ENCOUNTER 2016-11-29 02:33 | Inpatient (IN) | payer MEDICAID ==
[~2016-11-29] VITALS: Ht 170.2 cm; Wt 113.4 kg
[2016-11-29] VITALS (10 sets, daily range): BP systolic 131–158; BP diastolic 72–99
[~2016-11-29 02:33] MED LIST: FERROUS SULFAT325 MG ORAL; NKM; PENTOXIFYLLINE400 MG ORAL; PROTONIX40 MG ORAL
[2016-11-29 03:38] LABS: MEAN CORPUSCULAR HEMOGLOBIN 19.3 PG (27.0-31.0); MEAN CORPUSCULAR HGB CONC 28.2 G/DL (32.0-36.0); MEAN CORPUSCULAR VOLUME 68 FL (80-99); MEAN PLATELET VOLUME 7.1 FL (6.5-10.1); PLATELET COUNT 59 K/UL (150-450); RED BLOOD COUNT 5.09 M/UL (4.70-6.10); RED CELL DISTRIBUTION WIDTH 18.6 % (11.6-14.8); WHITE BLOOD COUNT 5.1 K/UL (4.8-10.8)
[2016-11-29] MEDS ORDERED: Dicyclomine HCl 10mg/5ml oral soln ORAL ONE (04:00)
[2016-11-29] MEDS ORDERED: Mylanta II UD 30ml ORAL ONE (04:00)
[2016-11-29] MEDS ORDERED: Famotidine 20 MG/ 2ML VIAL IVP ONE (04:00)
[2016-11-29 04:01] LABS: INR 1.1 (0.9-1.1)
[2016-11-29 04:09] LABS: ALANINE AMINOTRANSFERASE 27 U/L (3-41); ALBUMIN/GLOBULIN RATIO 0.7 (1.0-2.7); ANION GAP 16 (5-15); ASPARTATE AMINO TRANSFERASE 86 U/L (5-40); CALCIUM 7.7 mg/dL (8.6-10.2); CARBON DIOXIDE 21 mEQ/L (20-30); CHLORIDE 99 mEQ/L (98-107); CREATININE 0.7 mg/dL (0.7-1.2); GLOMERULAR FILTRATION RATE > 60 mL/min (>60); LIPASE 44 U/L (< 60); POTASSIUM 3.5 mEQ/L (3.4-4.9); SODIUM 136 mEQ/L (135-145)
[2016-11-29 04:12] LABS: TROPONIN I < 0.30 ng/mL (<=0.30)
[2016-11-29 04:20] LABS: CKMB 5.8 ng/mL (< 6.7)
[2016-11-29 04:40] LABS: BILIRUBIN,DIRECT 0.5 mg/dL (0.1-0.3); HEMOLYSIS 0
[2016-11-29] MEDS ORDERED: LORazepam Inj 2mg/ml 1ml IV ONE (05:00)
--- NOTE | 2016-11-29 05:55 | Emergency Room Report ---
History of Present Illness General Chief Complaint: Chest Pain Source: Patient Present Illness HPI Patient presents with complaints of midsternal chest pain However upon initial evaluation also complains of epigastric discomfort patient has had a cough feel generally weak Patient [facility], prior to arrival here he reports having blood drawn however was waiting in the waiting room for a long time and therefore presented here after calling 911 Pain is 6/10 midsternal is also burning radiation Denies any diarrhea however the patient has been nauseated and vomiting Patient did not provide much history and is a poor historian, however on review of medical records appears the patient was here this past year with significant GI bleeding, requiring banding and blood transfusions Allergies: Coded Allergies: NO KNOWN ALLERGIES (Verified Allergy, Unknown, 09/02/16) Patient History Past Medical History: see triage record Pertinent Family History: none Reviewed Nursing Documentation: PMH: Agreed, PSxH: Agreed Nursing Documentation-PMH Hx Cardiac Problems: No Hx Asthma: No - blood clot rt lung /anemia Hx Diabetes: Yes Hx Cancer: No Hx Gastrointestinal Problems: No Hx Neurological Problems: No Review of Systems All Other Systems: negative except mentioned in HPI Physical Exam Vital Signs Date Time Temp Pulse Resp B/P (MAP) Pulse Ox O2 Delivery O2 Flow Rate FiO2 11/29/16 02:50 98.1 95 16 158/82 99 Room Air Sp02 EP Interpretation: reviewed, normal General Appearance: mild distress - Actively nauseated Head: normocephalic, atraumatic, other - However the patient has a general edematous finding to his facial area including eyelids Eyes: bilateral eye PERRL, bilateral eye EOMI ENT: normal pharynx, no angioedema - However as noted above diffuse swelling nonspecific including eyelids Neck: full range of motion, supple Respiratory: crackles - Left lower lobe Cardiovascular #1: regular rate, rhythm, no murmur Gastrointestinal: non tender, soft Genitourinary: no CVA tenderness Musculoskeletal: normal inspection, back normal Neurologic: alert, oriented x3, responsive Skin: jaundice Lymphatic: no adenopathy Medical Decision Making Diagnostic Impression: Primary Impression: ACS (acute coronary syndrome) ER Course Patient is a fairly complex patient with multiple differential to consideration including but not limited to cardiac cardiopulmonary and vascular emergencies Patient's x-ray reveals a poor inspiratory efforts, poor technique Left lower lobe has atelectasis versus infiltrate versus other Patient's hemoglobin is better than previous not require any emergency transfusion Patient was not given aspirin at this time by is given his previous GI pathology And at this time pending further inpatient care Labs Test 11/29/16 02:52 11/29/16 03:25 11/29/16 04:30 White Blood Count 5.1 K/UL (4.8-10.8) Red Blood Count 5.09 M/UL (4.70-6.10) Hemoglobin 9.8 G/DL (14.2-18.0) Hematocrit 34.9 % (42.0-52.0) Mean Corpuscular Volume 68 FL (80-99) Mean Corpuscular Hemoglobin 19.3 PG (27.0-31.0) Mean Corpuscular Hemoglobin Concent 28.2 G/DL (32.0-36.0) Red Cell Distribution Width 18.6 % (11.6-14.8) Platelet Count 59 K/UL (150-450) Mean Platelet Volume 7.1 FL (6.5-10.1) Neutrophils (%) (Auto) % (45.0-75.0) Lymphocytes (%) (Auto) % (20.0-45.0) Monocytes (%) (Auto) % (1.0-10.0) Eosinophils (%) (Auto) % (0.0-3.0) Basophils (%) (Auto) % (0.0-2.0) Prothrombin Time 12.0 SEC (9.30-11.50) Prothromb Time International Ratio 1.1 (0.9-1.1) Activated Partial Thromboplast Time 31 SEC (23-33) Sodium Level 136 mEQ/L (135-145) Potassium Level 3.5 mEQ/L (3.4-4.9) Chloride Level 99 mEQ/L (98-107) Carbon Dioxide Level 21 mEQ/L (20-30) Anion Gap 16 (5-15) Blood Urea Nitrogen 9 mg/dL (7-23) Creatinine 0.7 mg/dL (0.7-1.2) Estimat Glomerular Filtration Rate > 60 mL/min (>60) Glucose Level 169 mg/dL (74-106) Calcium Level 7.7 mg/dL (8.6-10.2) Total Bilirubin 1.2 mg/dL (0.0-1.2) Direct Bilirubin 0.5 mg/dL (0.1-0.3) Aspartate Amino Transf (AST/SGOT) 86 U/L (5-40) Alanine Aminotransferase (ALT/SGPT) 27 U/L (3-41) Alkaline Phosphatase 179 U/L (40-129) Total Creatine Kinase 428 U/L (38-174) Creatine Kinase MB 5.8 ng/mL (< 6.7) Creatine Kinase MB Relative Index 1.3 Troponin I < 0.30 ng/mL (<=0.30) Pro-B-Type Natriuretic Peptide 25 pg/mL (0-125) Total Protein 8.0 g/dL (6.6-8.7) Albumin 3.4 g/dL (3.5-5.2) Globulin 4.6 g/dL Albumin/Globulin Ratio 0.7 (1.0-2.7) Lipase 44 U/L (< 60) EKG Diagnostic Results Rate: normal Rhythm: NSR ST Segments: other - Nonspecific ST and T-wave changes Rhythm Strip Diag. Results EP Interpretation: yes Rate: 66 Rhythm: NSR, no PVC's, no ectopy Chest X-Ray Diagnostic Results Chest X-Ray Diagnostic Results : Chest X-Ray Ordered: Yes # of Views/Limited/Complete: 1 View Indication: Chest Pain EP Interpretation: Yes Interpretation: no pneumothorax, other - Respiratory effort, left lower lobe atelectasis/effusion/infiltrate Impression: Other - Left lower lobe atelectasis versus infiltrate Electronically Signed by: Etta Johnson DO Last Vital Signs Date Time Temp Pulse Resp B/P (MAP) Pulse Ox O2 Delivery O2 Flow Rate FiO2 11/29/16 03:37 88 20 156/90 97 Room Air 11/29/16 03:30 98.1 Status: improved Disposition: ADMITTED INPATIENT Condition: Serious Referrals: NON PHYSICIAN (PCP) ETTA JOHNSON D.O. Nov 29, 2016 05:55
[2016-11-29 08:30] LABS: EOSINOPHILS % (MANUAL) 1 % (0-3); HYPOCHROMASIA 2+; LYMPHOCYTES % (MANUAL) 10 % (20-45); MICROCYTES 2+; NEUTROPHILS % (MANUAL) 87 % (45-75); TOTAL CELLS COUNTED 100
[2016-11-29 08:31] LABS: ANISOCYTOSIS 1+; BAND NEUTROPHILS % (MANUAL) 0 % (0-8); BASOPHILS % (MANUAL) 0 % (0-2); PLATELET ESTIMATE DECREASED; PLATELET MORPHOLOGY NORMAL
[2016-11-29 09:20] LABS: MEAN CORPUSCULAR HEMOGLOBIN 19.7 PG (27.0-31.0); MEAN CORPUSCULAR HGB CONC 28.7 G/DL (32.0-36.0); MEAN CORPUSCULAR VOLUME 69 FL (80-99); MEAN PLATELET VOLUME 5.5 FL (6.5-10.1); PLATELET COUNT 45 K/UL (150-450); RED BLOOD COUNT 4.54 M/UL (4.70-6.10); RED CELL DISTRIBUTION WIDTH 19.2 % (11.6-14.8); WHITE BLOOD COUNT 3.7 K/UL (4.8-10.8)
[2016-11-29 09:30] LABS: ALANINE AMINOTRANSFERASE 24 U/L (3-41); ALBUMIN/GLOBULIN RATIO 0.7 (1.0-2.7); ANION GAP 17 (5-15); ASPARTATE AMINO TRANSFERASE 82 U/L (5-40); CALCIUM 7.6 mg/dL (8.6-10.2); CARBON DIOXIDE 22 mEQ/L (20-30); CHLORIDE 100 mEQ/L (98-107); CREATININE 0.8 mg/dL (0.7-1.2); GLOMERULAR FILTRATION RATE > 60 mL/min (>60); HEMOLYSIS 0; POTASSIUM 3.7 mEQ/L (3.4-4.9); SODIUM 139 mEQ/L (135-145); TOTAL PROTEIN 7.8 g/dL (6.6-8.7)
[2016-11-29 09:47] LABS: BILIRUBIN,DIRECT 0.5 mg/dL (0.1-0.3)
--- NOTE | 2016-11-29 10:18 | Pre-Procedure Note/Attestation ---
Pre-Procedure Note/Attestation Complete Prior to Procedure Planned Procedure: not applicable Procedure Narrative: egd Indications for Procedure Pre-Operative Diagnosis: esoph varices Attestation I attest that I discussed the nature of the procedure; its benefits; risks and complications; and alternatives (and the risks and benefits of such alternatives ), prior to the procedure, with the patient (or the patient's legal outside dealer sales representative). I attest that, if there was a reasonable possibility of needing a blood transfusion, the patient (or the patient's legal outside dealer sales representative) was given the [facility] standardized written summary, pursuant to the Ignacio Bier Blood Safety Act ([place] Health and Safety Code # 1645, as amended). I attest that I re-evaluated the patient just prior to the surgery and that there has been no change in the patient's H&P, except as documented below: KAUR YUNG Nov 29, 2016 10:18
--- NOTE | 2016-11-29 10:19 | Short Stay Surgery H&P ---
History of Present Illness History of Present Illness Chief Complaint esoph varices HPI Darryl Gleason is a 46 year old male who was admitted on Nov 29, 2016 at 04:39 for Acute Coronary Syndrome Patient History Allergies: Coded Allergies: NO KNOWN ALLERGIES (Verified Allergy, Unknown, 09/02/16) PAST MEDICAL HISTORY: (1) Cirrhosis (2) ETOH abuse (3) Anemia Past Surgeries: Social History: Medication History Scheduled Ferrous Sulfate* (Ferrous Sulfate*), 325 MG ORAL THREE TIMES A DAY, (Reported) No Known Medications* (NKM - No Known Medications*), 0 ., (Reported) Pantoprazole* (Protonix*), 40 MG ORAL DAILY, (Reported) Pentoxifylline* (Trental*), 400 MG ORAL THREE TIMES A DAY, (Reported) Review of Systems Cardiovascular: Reports: no symptoms Gastrointestinal: Reports: gastro esophageal reflux disease Genitourinary: Reports: no symptoms Neurologic: Reports: no symptoms Endocrine: Reports: no symptoms Hematologic: Reports: anemia Physical Exam Vital Signs Last Vital Signs Date Time Temp Pulse Resp B/P (MAP) Pulse Ox O2 Delivery O2 Flow Rate FiO2 11/29/16 08:31 97.5 120 18 142/99 95 Room Air Labs Laboratory Tests Test 11/29/16 02:52 11/29/16 03:25 11/29/16 04:30 11/29/16 09:05 White Blood Count 5.1 K/UL (4.8-10.8) 3.7 K/UL (4.8-10.8) L Red Blood Count 5.09 M/UL (4.70-6.10) 4.54 M/UL (4.70-6.10) L Hemoglobin 9.8 G/DL (14.2-18.0) L 8.9 G/DL (14.2-18.0) L Hematocrit 34.9 % (42.0-52.0) L 31.2 % (42.0-52.0) L Mean Corpuscular Volume 68 FL (80-99) L 69 FL (80-99) L Mean Corpuscular Hemoglobin 19.3 PG (27.0-31.0) L 19.7 PG (27.0-31.0) L Mean Corpuscular Hemoglobin Concent 28.2 G/DL (32.0-36.0) L 28.7 G/DL (32.0-36.0) L Red Cell Distribution Width 18.6 % (11.6-14.8) H 19.2 % (11.6-14.8) H Platelet Count 59 K/UL (150-450) L 45 K/UL (150-450) L Mean Platelet Volume 7.1 FL (6.5-10.1) 5.5 FL (6.5-10.1) L Neutrophils (%) (Auto) % (45.0-75.0) % (45.0-75.0) Lymphocytes (%) (Auto) % (20.0-45.0) % (20.0-45.0) Monocytes (%) (Auto) % (1.0-10.0) % (1.0-10.0) Eosinophils (%) (Auto) % (0.0-3.0) % (0.0-3.0) Basophils (%) (Auto) % (0.0-2.0) % (0.0-2.0) Differential Total Cells Counted 100 Neutrophils % (Manual) 87 % (45-75) H Pending Lymphocytes % (Manual) 10 % (20-45) L Pending Monocytes % (Manual) 2 % (1-10) Eosinophils % (Manual) 1 % (0-3) Basophils % (Manual) 0 % (0-2) Band Neutrophils 0 % (0-8) Platelet Estimate Decreased L Pending Platelet Morphology Normal Pending Hypochromasia 2+ Anisocytosis 1+ Microcytosis 2+ Prothrombin Time 12.0 SEC (9.30-11.50) H Prothromb Time International Ratio 1.1 (0.9-1.1) Activated Partial Thromboplast Time 31 SEC (23-33) Sodium Level 136 mEQ/L (135-145) 139 mEQ/L (135-145) Potassium Level 3.5 mEQ/L (3.4-4.9) 3.7 mEQ/L (3.4-4.9) Chloride Level 99 mEQ/L (98-107) 100 mEQ/L (98-107) Carbon Dioxide Level 21 mEQ/L (20-30) 22 mEQ/L (20-30) Anion Gap 16 (5-15) H 17 (5-15) H Blood Urea Nitrogen 9 mg/dL (7-23) 9 mg/dL (7-23) Creatinine 0.7 mg/dL (0.7-1.2) 0.8 mg/dL (0.7-1.2) Estimat Glomerular Filtration Rate > 60 mL/min (>60) > 60 mL/min (>60) Glucose Level 169 mg/dL (74-106) H 130 mg/dL (74-106) H Calcium Level 7.7 mg/dL (8.6-10.2) L 7.6 mg/dL (8.6-10.2) L Total Bilirubin 1.2 mg/dL (0.0-1.2) 1.4 mg/dL (0.0-1.2) H Direct Bilirubin 0.5 mg/dL (0.1-0.3) H 0.5 mg/dL (0.1-0.3) H Aspartate Amino Transf (AST/SGOT) 86 U/L (5-40) H 82 U/L (5-40) H Alanine Aminotransferase (ALT/SGPT) 27 U/L (3-41) 24 U/L (3-41) Alkaline Phosphatase 179 U/L (40-129) H 167 U/L (40-129) H Total Creatine Kinase 428 U/L (38-174) H Creatine Kinase MB 5.8 ng/mL (< 6.7) Creatine Kinase MB Relative Index 1.3 Troponin I < 0.30 ng/mL (<=0.30) Pro-B-Type Natriuretic Peptide 25 pg/mL (0-125) Total Protein 8.0 g/dL (6.6-8.7) 7.8 g/dL (6.6-8.7) Albumin 3.4 g/dL (3.5-5.2) L 3.3 g/dL (3.5-5.2) L Globulin 4.6 g/dL 4.5 g/dL Albumin/Globulin Ratio 0.7 (1.0-2.7) L 0.7 (1.0-2.7) L Lipase 44 U/L (< 60) Urine Opiates Screen Negative (NEGATIVE) Urine Barbiturates Screen Negative (NEGATIVE) Phencyclidine (PCP) Screen Negative (NEGATIVE) Urine Amphetamines Screen Negative (NEGATIVE) Urine Benzodiazepines Screen Negative (NEGATIVE) Urine Cocaine Screen Negative (NEGATIVE) Urine Marijuana (THC) Screen Negative (NEGATIVE) Skin: normal HENT: normal Heart: normal Lungs: normal Abdomen: normal Extremities: normal Plan Plan of Care egd Final Diagnosis: Attestation Are the patient's medical conditions optimized for surgery? Attestation Response: yes KAUR YUNG Nov 29, 2016 10:19
[2016-11-29] MEDS ORDERED: NS 550ML IV ONE (10:20)
[2016-11-29] MEDS ORDERED: Lidocaine 1% MPF 10mg/ml 5ml ONE (10:30)
[2016-11-29] MEDS ORDERED: Propofol 200mg/20ml IV ONE (10:30)
--- NOTE | 2016-11-29 10:39 | Endoscopy Procedure Note ---
Endoscopy Procedure Note Indication for Procedure: esoph varices Procedures Performed: EGD Operative Findings/Diagnosis: same Specimen: yes Pt Tolerated Procedure Well: Yes Estimated Blood Loss: none Anesthesiologist: quoc Anesthesia: MAC Implant(s) used?: No 50 yrs or older w/o bx or poly: Not Applicable 10yrs. F/U not recommended: Not Applicable KAUR YUNG Nov 29, 2016 10:39
[2016-11-29 10:51] LABS: ANISOCYTOSIS 2+; BAND NEUTROPHILS % (MANUAL) 0 % (0-8); BASOPHILS % (MANUAL) 0 % (0-2); EOSINOPHILS % (MANUAL) 1 % (0-3); HYPOCHROMASIA 2+; LYMPHOCYTES % (MANUAL) 16 % (20-45); NEUTROPHILS % (MANUAL) 78 % (45-75); PLATELET ESTIMATE DECREASED; TOTAL CELLS COUNTED 100
[2016-11-29 10:52] LABS: MICROCYTES 2+; PLATELET MORPHOLOGY NORMAL; TARGET CELLS 1+
[2016-11-29] MEDS ORDERED: DiphenhydrAMINE 50mg/ml Inj IVP PRN (11:00)
[2016-11-29] MEDS ORDERED: Hydromorphone 0.5mg/0.5ml inj IVP PRN (11:00)
[2016-11-29] MEDS ORDERED: Midazolam 2mg/2ml Inj IVP PRN (11:00)
[2016-11-29] MEDS ORDERED: Atropine Inj 1mg/10ml Syr IV PRN (11:00)
--- NOTE | 2016-11-29 11:05 | Diagnostic Imaging Report ---
Indication: Chest pain Technique: One view of the chest Comparison: 09/02/2016 Findings: Body habitus limits evaluation. Heart is upper limits of normal in size. There is some atelectasis projected at the left lung base. The lungs and pleural spaces are otherwise clear. Impression: Left basilar atelectasis No acute process otherwise This agrees with the preliminary interpretation provided by the emergency room physician
[2016-11-29] MEDS ORDERED: Acetaminophen 500mg (ES) tab ORAL PRN (13:00)
--- NOTE | 2016-11-29 13:40 | Anethesia Preoperative Eval ---
Anesthesia Pre-op PMH/ROS General Date of Evaluation: Nov 29, 2016 Time of Evaluation: 10:30 Anesthesiologist: phuong ASA Score: ASA 3 Mallampati Score Class I : Soft palate, uvula, fauces, pillars visible Class II: Soft palate, uvula, fauces visible Class III: Soft palate, base of uvula visible Class IV: Only hard plate visible Mallampati Classification: Class II Surgeon: jeanne Diagnosis: ugib, anemia Surgical Procedure: egd w/banding Anesthesia History: none Family History: no anesthesia problems Allergies: Coded Allergies: NO KNOWN ALLERGIES (Verified Allergy, Unknown, 09/02/16) Medications: see eMAR Past Medical History Pulmonary: Reports: asthma Neurologic/Psychiatric: Reports: other - alcohol use Endocrine: Reports: DM Other: obesity Anesthesia Pre-op Phys. Exam Physician Exam Last Vital Signs Date Time Temp Pulse Resp B/P (MAP) Pulse Ox O2 Delivery O2 Flow Rate FiO2 11/29/16 12:00 100 11/29/16 08:31 97.5 18 142/99 95 Room Air Constitutional: NAD Neurologic: CN 2-12 intact Cardiovascular: RRR Respiratory: CTA Gastrointestinal: S/NT/ND Airway Exam Mallampati Score: Class II MO: full Neck: supple TMD: 2fb ROM: limited Teeth: missing Anesthesia Pre-op A/P Labs Hematology Test 11/29/16 02:52 11/29/16 09:05 White Blood Count 5.1 K/UL (4.8-10.8) 3.7 K/UL (4.8-10.8) L Red Blood Count 5.09 M/UL (4.70-6.10) 4.54 M/UL (4.70-6.10) L Hemoglobin 9.8 G/DL (14.2-18.0) L 8.9 G/DL (14.2-18.0) L Hematocrit 34.9 % (42.0-52.0) L 31.2 % (42.0-52.0) L Mean Corpuscular Volume 68 FL (80-99) L 69 FL (80-99) L Mean Corpuscular Hemoglobin 19.3 PG (27.0-31.0) L 19.7 PG (27.0-31.0) L Mean Corpuscular Hemoglobin Concent 28.2 G/DL (32.0-36.0) L 28.7 G/DL (32.0-36.0) L Red Cell Distribution Width 18.6 % (11.6-14.8) H 19.2 % (11.6-14.8) H Platelet Count 59 K/UL (150-450) L 45 K/UL (150-450) L Mean Platelet Volume 7.1 FL (6.5-10.1) 5.5 FL (6.5-10.1) L Neutrophils (%) (Auto) % (45.0-75.0) % (45.0-75.0) Lymphocytes (%) (Auto) % (20.0-45.0) % (20.0-45.0) Monocytes (%) (Auto) % (1.0-10.0) % (1.0-10.0) Eosinophils (%) (Auto) % (0.0-3.0) % (0.0-3.0) Basophils (%) (Auto) % (0.0-2.0) % (0.0-2.0) Differential Total Cells Counted 100 100 Neutrophils % (Manual) 87 % (45-75) H 78 % (45-75) H Lymphocytes % (Manual) 10 % (20-45) L 16 % (20-45) L Monocytes % (Manual) 2 % (1-10) 5 % (1-10) Eosinophils % (Manual) 1 % (0-3) 1 % (0-3) Basophils % (Manual) 0 % (0-2) 0 % (0-2) Band Neutrophils 0 % (0-8) 0 % (0-8) Platelet Estimate Decreased L Decreased L Platelet Morphology Normal Normal Hypochromasia 2+ 2+ Anisocytosis 1+ 2+ Microcytosis 2+ 2+ Target Cells 1+ Coagulation Test 11/29/16 03:25 Prothrombin Time 12.0 SEC (9.30-11.50) H Prothromb Time International Ratio 1.1 (0.9-1.1) Activated Partial Thromboplast Time 31 SEC (23-33) Chemistry Test 11/29/16 03:25 11/29/16 09:05 Sodium Level 136 mEQ/L (135-145) 139 mEQ/L (135-145) Potassium Level 3.5 mEQ/L (3.4-4.9) 3.7 mEQ/L (3.4-4.9) Chloride Level 99 mEQ/L (98-107) 100 mEQ/L (98-107) Carbon Dioxide Level 21 mEQ/L (20-30) 22 mEQ/L (20-30) Anion Gap 16 (5-15) H 17 (5-15) H Blood Urea Nitrogen 9 mg/dL (7-23) 9 mg/dL (7-23) Creatinine 0.7 mg/dL (0.7-1.2) 0.8 mg/dL (0.7-1.2) Estimat Glomerular Filtration Rate > 60 mL/min (>60) > 60 mL/min (>60) Glucose Level 169 mg/dL (74-106) H 130 mg/dL (74-106) H Calcium Level 7.7 mg/dL (8.6-10.2) L 7.6 mg/dL (8.6-10.2) L Total Bilirubin 1.2 mg/dL (0.0-1.2) 1.4 mg/dL (0.0-1.2) H Direct Bilirubin 0.5 mg/dL (0.1-0.3) H 0.5 mg/dL (0.1-0.3) H Aspartate Amino Transf (AST/SGOT) 86 U/L (5-40) H 82 U/L (5-40) H Alanine Aminotransferase (ALT/SGPT) 27 U/L (3-41) 24 U/L (3-41) Alkaline Phosphatase 179 U/L (40-129) H 167 U/L (40-129) H Total Creatine Kinase 428 U/L (38-174) H Creatine Kinase MB 5.8 ng/mL (< 6.7) Creatine Kinase MB Relative Index 1.3 Troponin I < 0.30 ng/mL (<=0.30) Pro-B-Type Natriuretic Peptide 25 pg/mL (0-125) Total Protein 8.0 g/dL (6.6-8.7) 7.8 g/dL (6.6-8.7) Albumin 3.4 g/dL (3.5-5.2) L 3.3 g/dL (3.5-5.2) L Globulin 4.6 g/dL 4.5 g/dL Albumin/Globulin Ratio 0.7 (1.0-2.7) L 0.7 (1.0-2.7) L Lipase 44 U/L (< 60) Risk Assessment & Plan Assessment: [email or web address] Plan: mac Status Change Before Surgery: No Pre-Antibiotics Drug: RADHA Reeder Nov 29, 2016 13:40
--- NOTE | 2016-11-29 13:42 | Immediate Post-Op Evaluation ---
Immediate Post-Op Evalulation Immediate Post-Op Evalulation Procedure: egd w/ banding Date of Evaluation: Nov 29, 2016 Time of Evaluation: 11:12 IV Fluids: 300ml 0.9ns Blood Products: none Estimated Blood Loss: negligible Blood Pressure Systolic: 131 Blood Pressure Diastolic: 72 Pulse Rate: 100 Respiratory Rate: 18 O2 Sat by Pulse Oximetry: 100 Temperature (Fahrenheit): 00.2 Pain Score (1-10): 0 Nausea: No Vomiting: No Complications none Patient Status: awake, reacts, patent Hydration Status: adequate Drug: RADHA Reeder Nov 29, 2016 13:42
--- NOTE | 2016-11-29 13:43 | 48 Hour Post Anesthesia Eval ---
Post Anesthesia Evaluation Procedure: egd w/ banding Date of Evaluation: Nov 29, 2016 Time of Evaluation: 13:42 Blood Pressure Systolic: 155 0: 74 Pulse Rate: 102 Respiratory Rate: 18 Temperature (Fahrenheit): 99.2 O2 Sat by Pulse Oximetry: 100 Airway: patent Nausea: No Vomiting: No Pain Intensity: 0 Hydration Status: adequate Cardiopulmonary Status: stable Mental Status/LOC: patient returned to baseline Post-Anesthesia Complications: none Follow-up care needed: N/A RADHA SCANLON Nov 29, 2016 13:43
--- NOTE | 2016-11-29 15:49 | Cardiology Report ---
APPROVED REPORT EKG Measurement Heart [id number] Normal sinus rhythm Prolonged QT Abnormal ECG
--- NOTE | 2016-11-29 19:09 | Cardiology Progress Note ---
Assessment/Plan Assessment/Plan The patient is seen and examined, full consult note will be dictated. Objective Last 24 Hour Vital Signs Date Time Temp Pulse Resp B/P (MAP) Pulse Ox O2 Delivery O2 Flow Rate FiO2 11/29/16 16:03 99.7 92 18 145/87 95 Room Air 11/29/16 16:00 92 11/29/16 13:43 102 18 100 11/29/16 13:42 100 18 100 11/29/16 12:00 100 11/29/16 11:30 98.2 98 17 139/98 98 Room Air 11/29/16 11:15 99 18 142/96 98 Room Air 11/29/16 11:00 105 20 145/99 98 Room Air 11/29/16 10:55 97.2 100 17 131/72 98 Room Air 11/29/16 08:31 97.5 120 18 142/99 95 Room Air 11/29/16 08:00 93 11/29/16 06:47 101 13 145/85 99 Room Air 11/29/16 06:35 97.8 101 13 145/85 99 Room Air 11/29/16 03:37 88 20 156/90 97 Room Air 11/29/16 03:30 98.1 16 158/82 99 Room Air 11/29/16 03:20 95 16 Room Air 11/29/16 02:50 98.1 95 16 158/82 99 Room Air Intake and Output 11/29/16 11/30/16 19:00 07:00 Intake Total 240 ml Balance 240 ml Intake Oral 240 ml # Voids 2 Laboratory Tests Test 11/29/16 02:52 11/29/16 03:25 11/29/16 04:30 11/29/16 09:05 White Blood Count 5.1 K/UL (4.8-10.8) 3.7 K/UL (4.8-10.8) L Red Blood Count 5.09 M/UL (4.70-6.10) 4.54 M/UL (4.70-6.10) L Hemoglobin 9.8 G/DL (14.2-18.0) L 8.9 G/DL (14.2-18.0) L Hematocrit 34.9 % (42.0-52.0) L 31.2 % (42.0-52.0) L Mean Corpuscular Volume 68 FL (80-99) L 69 FL (80-99) L Mean Corpuscular Hemoglobin 19.3 PG (27.0-31.0) L 19.7 PG (27.0-31.0) L Mean Corpuscular Hemoglobin Concent 28.2 G/DL (32.0-36.0) L 28.7 G/DL (32.0-36.0) L Red Cell Distribution Width 18.6 % (11.6-14.8) H 19.2 % (11.6-14.8) H Platelet Count 59 K/UL (150-450) L 45 K/UL (150-450) L Mean Platelet Volume 7.1 FL (6.5-10.1) 5.5 FL (6.5-10.1) L Neutrophils (%) (Auto) % (45.0-75.0) % (45.0-75.0) Lymphocytes (%) (Auto) % (20.0-45.0) % (20.0-45.0) Monocytes (%) (Auto) % (1.0-10.0) % (1.0-10.0) Eosinophils (%) (Auto) % (0.0-3.0) % (0.0-3.0) Basophils (%) (Auto) % (0.0-2.0) % (0.0-2.0) Differential Total Cells Counted 100 100 Neutrophils % (Manual) 87 % (45-75) H 78 % (45-75) H Lymphocytes % (Manual) 10 % (20-45) L 16 % (20-45) L Monocytes % (Manual) 2 % (1-10) 5 % (1-10) Eosinophils % (Manual) 1 % (0-3) 1 % (0-3) Basophils % (Manual) 0 % (0-2) 0 % (0-2) Band Neutrophils 0 % (0-8) 0 % (0-8) Platelet Estimate Decreased L Decreased L Platelet Morphology Normal Normal Hypochromasia 2+ 2+ Anisocytosis 1+ 2+ Microcytosis 2+ 2+ Prothrombin Time 12.0 SEC (9.30-11.50) H Prothromb Time International Ratio 1.1 (0.9-1.1) Activated Partial Thromboplast Time 31 SEC (23-33) Sodium Level 136 mEQ/L (135-145) 139 mEQ/L (135-145) Potassium Level 3.5 mEQ/L (3.4-4.9) 3.7 mEQ/L (3.4-4.9) Chloride Level 99 mEQ/L (98-107) 100 mEQ/L (98-107) Carbon Dioxide Level 21 mEQ/L (20-30) 22 mEQ/L (20-30) Anion Gap 16 (5-15) H 17 (5-15) H Blood Urea Nitrogen 9 mg/dL (7-23) 9 mg/dL (7-23) Creatinine 0.7 mg/dL (0.7-1.2) 0.8 mg/dL (0.7-1.2) Estimat Glomerular Filtration Rate > 60 mL/min (>60) > 60 mL/min (>60) Glucose Level 169 mg/dL (74-106) H 130 mg/dL (74-106) H Calcium Level 7.7 mg/dL (8.6-10.2) L 7.6 mg/dL (8.6-10.2) L Total Bilirubin 1.2 mg/dL (0.0-1.2) 1.4 mg/dL (0.0-1.2) H Direct Bilirubin 0.5 mg/dL (0.1-0.3) H 0.5 mg/dL (0.1-0.3) H Aspartate Amino Transf (AST/SGOT) 86 U/L (5-40) H 82 U/L (5-40) H Alanine Aminotransferase (ALT/SGPT) 27 U/L (3-41) 24 U/L (3-41) Alkaline Phosphatase 179 U/L (40-129) H 167 U/L (40-129) H Total Creatine Kinase 428 U/L (38-174) H Creatine Kinase MB 5.8 ng/mL (< 6.7) Creatine Kinase MB Relative Index 1.3 Troponin I < 0.30 ng/mL (<=0.30) Pro-B-Type Natriuretic Peptide 25 pg/mL (0-125) Total Protein 8.0 g/dL (6.6-8.7) 7.8 g/dL (6.6-8.7) Albumin 3.4 g/dL (3.5-5.2) L 3.3 g/dL (3.5-5.2) L Globulin 4.6 g/dL 4.5 g/dL Albumin/Globulin Ratio 0.7 (1.0-2.7) L 0.7 (1.0-2.7) L Lipase 44 U/L (< 60) Urine Opiates Screen Negative (NEGATIVE) Urine Barbiturates Screen Negative (NEGATIVE) Phencyclidine (PCP) Screen Negative (NEGATIVE) Urine Amphetamines Screen Negative (NEGATIVE) Urine Benzodiazepines Screen Negative (NEGATIVE) Urine Cocaine Screen Negative (NEGATIVE) Urine Marijuana (THC) Screen Negative (NEGATIVE) Target Cells 1+ JUAN BONE Nov 29, 2016 19:09
--- NOTE | 2016-11-29 21:45 | Procedure Note ---
DATE OF PROCEDURE: 11/29/2016 SURGEON: Ricardo Weber M.D. PROCEDURE: Upper endoscopy with biopsy and banding of esophageal varices. ANESTHESIOLOGIST: Kathy Parker M.D. INSTRUMENT: Olympus adult flexible upper endoscope. INDICATION: History of esophageal varices. REASON FOR PROCEDURE: The procedure, risks, benefits, and possible consequences, including hemorrhage, aspiration, perforation and infection, and alternative treatments, were explained to the patient/legal guardian by Dr. Ricardo Weber and the patient/legal guardian understood and accepted these risks. DESCRIPTION OF PROCEDURE: After informed consent was obtained and the patient was adequately sedated, Olympus upper endoscope was advanced from mouth into the second portion of the duodenum and retroflexion was performed in the stomach. The patient had evidence of four columns of grade 4 distal esophageal varices. In the stomach, there was evidence of portal hypertensive gastropathy. Random biopsy from antrum was obtained to rule out H. pylori infection. The patient had no evidence of gastric varices. At this time, the upper endoscope was retrieved. Banding device was placed and a total of five bands were placed in the distal esophagus. The patient tolerated procedure very well without any complication. SUMMARY OF FINDINGS: 1. Esophageal varices status post banding x5. 2. Portal hypertensive gastropathy, status post biopsy. RECOMMENDATIONS: Monitor laboratories. The patient needs another endoscopy in two weeks for banding the rest of the varices. The patient to be NPO until later tonight. We can start clear liquid diet if stable tonight. I want to thank, Dr. Etta Fang for this kind referral. Ricardo Weber M.D. DR: DIONY JOB#: [id number] CC: Etta Fang M.D.; Fax#: [phone]
[2016-11-29] MEDS ORDERED: Morphine Sulfate 4mg/ml Inj IVP PRN (22:45)
[2016-11-29] MEDS ORDERED: Esomeprazole sodium 40mg vial IVP ONE (23:00)
[2016-11-30] VITALS: BP 142/77
[2016-11-30 04:00] VITALS: BP 133/83
--- NOTE | 2016-11-30 04:00 | Consultation ---
DATE OF CONSULTATION: 11/29/2016 CARDIOLOGY CONSULTATION CONSULTING PHYSICIAN: Fred Arvizu M.D. REFERRING PHYSICIAN: Etta Fang M.D. REASON FOR CONSULTATION: Management of chest pain. HISTORY OF PRESENT ILLNESS: The patient is a very pleasant 46-year-old gentleman, who presents to the hospital with epigastric pain with some radiation to chest area. The patient had associated hematemesis. He decided to come to this hospital for further evaluation and management. He was initially seen at [facility] where he waited in the room to be seen. He called 911 and was brought into this facility. The pain is concerned about 6/10 burning and nausea as well. He has trouble with alcohol for many, many years and had been drinking more heavily in the past month. PAST MEDICAL HISTORY: 1. Portal hypertension due to liver cirrhosis. 2. Alcohol hepatitis. 3. Coagulopathy. 4. History of upper GI bleed. 5. History of esophageal varices, status post banding x5 varices, done in month of August [address] Arvizu. 6. Iron deficiency anemia due to GI bleed, status post blood transfusion. 7. Pulmonary embolism on the right in 2004. 8. Diabetes mellitus. ALLERGIES: No known drug allergies. FAMILY HISTORY: No premature coronary artery disease in first-degree relatives. REVIEW OF SYSTEMS: HEENT: Denies any headache, diplopia, or blurred vision. Constitutional: He is complaining of generalized weakness, but no fever, chills, or night sweats. Cardiovascular: Chest pain, which is a radiation from epigastric pain and not associated with shortness of breath. No PND or orthopnea. He has been having bilateral lower extremity edema, but no syncope or palpitation. Pulmonary: Denies any cough or hemoptysis. Gastrointestinal: Nausea and vomiting as well as hematemesis. History of GI bleed in the past. History of esophageal varices, status post banding x5 varices in August 2016. Genitourinary: Denies any hematuria, dysuria, or incontinence. Neurologic: Denies any motor dysfunction, sensory deficit, or altered speech. Musculoskeletal: Bilateral lower extremity edema with no arthritis or arthralgia. Hematology: History of low platelet counts. History of iron-deficiency anemia, status post blood transfusion. MEDICATIONS: List of medications at home includes ferrous sulfate 325 mg three times a day, Protonix 40 mg p.o. daily, and Trental 400 mg three times a day. PHYSICAL EXAMINATION: VITAL SIGNS: Blood pressure was 158/82, respirations 16, pulse 95, temperature 98.1 degrees Fahrenheit, and O2 saturation 99%. GENERAL: The patient is a very unfortunate 46-year-old gentleman, who was seen in Cardiology consultation in no apparent respiratory distress. HEENT: Atraumatic and normocephalic. Periorbital edema. Pupils are equal, round, and reactive to light and accommodation. Conjunctival pallor is seen. NECK: JVP is less than 5 cm. No carotid bruits. Carotid upstrokes 2+ bilaterally. CARDIOVASCULAR: Normal S1 and S2. Regular rate and rhythm. No murmurs, gallops, or rubs. PMI is at fourth intercostal space in the midclavicular line. LUNGS: Clear to auscultation bilaterally. ABDOMEN: Soft, nontender, and nondistended. No hepatosplenomegaly. Positive bowel sounds. EXTREMITIES: There is 1 to 2+ bilateral lower extremity edema. LABORATORY FINDINGS: WBC was 5.1, hemoglobin 9.8, hematocrit 34.9, and platelet count 59,000. Sodium 136, potassium 3.5, chloride 99, bicarbonate 21, BUN 9, creatinine 0.7, glucose 169, and calcium is 7.7. Troponin I less than 0.3. ProBNP was 25. Toxicology was negative. INR is 1.1. A 12-lead electrocardiogram shows sinus rhythm at a rate of 93 with normal axis, no acute prolonged QT interval, and no ST and T-wave abnormalities. ASSESSMENT AND PLAN: The patient is a very unfortunate 46-year-old gentleman, who is admitted to the hospital predominantly for upper GI bleed and history of chronic liver disease, most likely liver cirrhosis with portal hypertension including esophageal varices, status post banding. This patient's chest pain is noncardiac in origin and mostly a radiation from epigastric pain. A 12-lead electrocardiogram is benign and with no ischemic features. Beta-natriuretic peptide is normal. There is no heart failure clinically. The first troponin level is also negative. 1. The patient can be safely transferred to a non-telemetry bed. 2. Prolongation of QT interval on the EKG requires magnesium sulfate administration. We will check magnesium level on this patient. I would like to thank, Dr. Fang, for the courtesy of this consultation. Fred Arvizu M.D. DR: SUHAS JOB#: [id number] CC:
[2016-11-30] MEDS: Morphine Sulfate 4mg/ml Inj IVP PRN ×4 (04:33→20:09)
[2016-11-30 07:30] LABS: MEAN CORPUSCULAR HEMOGLOBIN 20.7 PG (27.0-31.0); MEAN CORPUSCULAR VOLUME 69 FL (80-99); PLATELET COUNT 41 K/UL (150-450); RED BLOOD COUNT 4.56 M/UL (4.70-6.10); RED CELL DISTRIBUTION WIDTH 18.4 % (11.6-14.8); WHITE BLOOD COUNT 4.3 K/UL (4.8-10.8)
[2016-11-30 07:56] LABS: ALANINE AMINOTRANSFERASE 24 U/L (3-41); ALBUMIN/GLOBULIN RATIO 0.7 (1.0-2.7); ANION GAP 9 (5-15); ASPARTATE AMINO TRANSFERASE 74 U/L (5-40); CARBON DIOXIDE 26 mEQ/L (20-30); CHLORIDE 96 mEQ/L (98-107); GLOMERULAR FILTRATION RATE > 60 mL/min (>60); POTASSIUM 3.6 mEQ/L (3.4-4.9); SODIUM 131 mEQ/L (135-145); TOTAL PROTEIN 7.7 g/dL (6.6-8.7)
[2016-11-30 08:08] LABS: HEMOLYSIS 0; IRON 117 ug/dL (59-158); TOTAL IRON BINDING CAPACITY 377 ug/dL (250-400)
[2016-11-30 08:10] LABS: FERRITIN 26 ng/mL (10-230)
[2016-11-30 08:11] LABS: THYROID STIMULATING HORMONE 1.06 uIU/mL (0.300-4.500)
[2016-11-30 08:24] VITALS: BP 131/79
[2016-11-30 08:27] LABS: BAND NEUTROPHILS % (MANUAL) 0 % (0-8); BASOPHILS % (MANUAL) 1 % (0-2); EOSINOPHILS % (MANUAL) 0 % (0-3); LYMPHOCYTES % (MANUAL) 8 % (20-45); NEUTROPHILS % (MANUAL) 86 % (45-75); PLATELET ESTIMATE DECREASED; PLATELET MORPHOLOGY NORMAL; TOTAL CELLS COUNTED 100
[2016-11-30 08:29] LABS: ANISOCYTOSIS 2+; HYPOCHROMASIA 3+
[2016-11-30 08:30] LABS: MICROCYTES 1+; TARGET CELLS OCCASIONAL
[2016-11-30 08:31] LABS: POLYCHROMASIA 1+
[2016-11-30] MEDS ORDERED: Thiamine 100mg tab ORAL SCH (09:00)
[2016-11-30] MEDS ORDERED: Propranolol 10mg tab ORAL SCH ×2 (09:00→22:00)
[2016-11-30] MEDS: Thiamine 100mg tab ORAL SCH (09:01)
[2016-11-30] MEDS: Propranolol 10mg tab ORAL SCH ×2 (09:01→20:08)
[2016-11-30 10:02] LABS: RETICULOCYTE COUNT 2.4 % (0.0-2.0)
[2016-11-30 10:44] LABS: PATH BLOOD SMEAR/OMC SENT TO PATHOLOGIST
--- NOTE | 2016-11-30 11:29 | GI Progress Note ---
Assessment/Plan Problems: (1) Esophageal varices determined by endoscopy ICD Codes: I85.00 - Esophageal varices without bleeding SNOMED: 53514527, 790739908 (2) Anemia ICD Codes: D64.9 - Anemia, unspecified SNOMED: 562212688 (3) Cirrhosis ICD Codes: K74.60 - Unspecified cirrhosis of liver SNOMED: 36087296 Status: progressing Status Narrative Discussed with Dr. Weber. Assessment/Plan s/p EGD - SUMMARY OF FINDINGS: 1. Esophageal varices status post banding x5. 2. Portal hypertensive gastropathy, status post biopsy. RECOMMENDATIONS: patient will require another EGD x 2 weeks for additional banding of varices propranolol 10mg BID, titrate as necessary ppi BID FLD, adv as tolerated monitor H&H, prn transfusion fu biopsy fu labs alcohol avoidance education given to patient Subjective Subjective c/o of esophageal pain hunger Objective Last 24 Hour Vital Signs Date Time Temp Pulse Resp B/P (MAP) Pulse Ox O2 Delivery O2 Flow Rate FiO2 11/30/16 09:01 88 131/79 11/30/16 08:24 99.0 88 20 131/79 96 Room Air 11/30/16 05:03 98.9 11/30/16 04:00 99.9 84 20 133/83 95 Room Air 11/30/16 00:00 98.9 83 20 142/77 95 Room Air 11/29/16 20:12 98.1 92 20 153/95 97 Room Air 11/29/16 16:03 99.7 92 18 145/87 95 Room Air 11/29/16 16:00 92 11/29/16 13:43 102 18 100 11/29/16 13:42 100 18 100 11/29/16 12:00 100 11/29/16 11:30 98.2 98 17 139/98 98 Room Air Intake and Output 11/30/16 12/01/16 19:00 07:00 Intake Total 320 ml Balance 320 ml Intake Oral 320 ml Laboratory Tests Test 11/30/16 06:50 White Blood Count 4.3 K/UL (4.8-10.8) L Red Blood Count 4.56 M/UL (4.70-6.10) L Hemoglobin 9.4 G/DL (14.2-18.0) L Hematocrit 31.5 % (42.0-52.0) L Mean Corpuscular Volume 69 FL (80-99) L Mean Corpuscular Hemoglobin 20.7 PG (27.0-31.0) L Mean Corpuscular Hemoglobin Concent 30.0 G/DL (32.0-36.0) L Red Cell Distribution Width 18.4 % (11.6-14.8) H Platelet Count 41 K/UL (150-450) L Mean Platelet Volume 9.0 FL (6.5-10.1) Neutrophils (%) (Auto) % (45.0-75.0) Lymphocytes (%) (Auto) % (20.0-45.0) Monocytes (%) (Auto) % (1.0-10.0) Eosinophils (%) (Auto) % (0.0-3.0) Basophils (%) (Auto) % (0.0-2.0) Differential Total Cells Counted 100 Neutrophils % (Manual) 86 % (45-75) H Lymphocytes % (Manual) 8 % (20-45) L Monocytes % (Manual) 5 % (1-10) Eosinophils % (Manual) 0 % (0-3) Basophils % (Manual) 1 % (0-2) Band Neutrophils 0 % (0-8) Platelet Estimate Decreased L Platelet Morphology Normal Polychromasia 1+ Hypochromasia 3+ Anisocytosis 2+ Microcytosis 1+ Target Cells Occasional Reticulocyte Count 2.4 % (0.0-2.0) H Sodium Level 131 mEQ/L (135-145) L Potassium Level 3.6 mEQ/L (3.4-4.9) Chloride Level 96 mEQ/L (98-107) L Carbon Dioxide Level 26 mEQ/L (20-30) Anion Gap 9 (5-15) Blood Urea Nitrogen 9 mg/dL (7-23) Creatinine 1.0 mg/dL (0.7-1.2) Estimat Glomerular Filtration Rate > 60 mL/min (>60) Glucose Level 124 mg/dL (74-106) H Calcium Level 8.0 mg/dL (8.6-10.2) L Iron Level 117 ug/dL (59-158) Total Iron Binding Capacity 377 ug/dL (250-400) Percent Iron Saturation 31 % (15-50) Unsaturated Iron Binding 260 ug/dL (112-346) Ferritin 26 ng/mL (10-230) Total Bilirubin 2.8 mg/dL (0.0-1.2) H Direct Bilirubin 1.0 mg/dL (0.1-0.3) H Aspartate Amino Transf (AST/SGOT) 74 U/L (5-40) H Alanine Aminotransferase (ALT/SGPT) 24 U/L (3-41) Alkaline Phosphatase 132 U/L (40-129) H Lactate Dehydrogenase 312 U/L (135-230) H Total Protein 7.7 g/dL (6.6-8.7) Albumin 3.3 g/dL (3.5-5.2) L Globulin 4.4 g/dL Albumin/Globulin Ratio 0.7 (1.0-2.7) L Carcinoembryonic Antigen 6.1 ng/mL H Vitamin B12 Level 762 pg/mL (211-946) Folate Pending Homocystine Pending Thyroid Stimulating Hormone (TSH) 1.060 uIU/mL (0.300-4.500) Height (Feet): 5 Height (Inches): 7.00 Weight (Pounds): 250 General Appearance: no apparent distress, alert, obese Cardiovascular: normal rate Respiratory/Chest: normal breath sounds, no respiratory distress Abdominal Exam: normal bowel sounds, non tender, soft Lorna Ridley N.P. Nov 30, 2016 11:29
[2016-11-30 11:41] VITALS: BP 144/81
--- NOTE | 2016-11-30 14:42 | Diagnostic Imaging Report ---
APPROVED REPORT CPT Code: 00200 Present Symptoms Lower Extremity Pain: Bilateral Lower Extremity Edema: Right Shortness of breath Comments: Hx chest pain, diabetes, ACS. Prior P.E. 2005. Prior venous duplex 09/03/2016. BILATERAL: Imaging reveals a patent deep venous system bilaterally. There is no evidence of thrombus within the femoral, popliteal or tibial segments. The greater saphenous veins are also within normal limits. Doppler indicates normal spontaneous flow within these segments.
--- NOTE | 2016-11-30 15:30 | Consultation ---
DATE OF CONSULTATION: 11/29/2016 HEMATOLOGY/ONCOLOGY CONSULTATION CONSULTING PHYSICIAN: Clark Cooper M.D. REQUESTING PHYSICIAN: Etta Fang M.D. REASON FOR CONSULTATION: Evaluation of pancytopenia as well as coagulopathy. IDENTIFICATION DATA: Dear Dr. Etta Fang, The patient is a pleasant 46-year-old male with past medical history significant for history of alcohol-induced cirrhosis, anemia, esophageal varices, has been here before as well. the patient's records from before in the past noted to have thrombocytopenia as well as anemia, which was worse 6.9 on prior admission in August and leukopenia, at this time presents with esophageal varices, had EGD with banding performed today. Hematology service was consulted for further evaluation and treatment. PAST MEDICAL HISTORY: Cirrhosis, alcohol abuse, and anemia. PAST SURGICAL HISTORY: None noted. MEDICATIONS: Ferrous sulfate, pantoprazole, and Trental. ALLERGIES: No known drug allergies. REVIEW OF SYSTEMS: Constitutional: No fever, chills, or night sweats. Skin: No rashes, bumps, or itching. HEENT: No headache, hearing or vision changes. Breasts: No lumps, pain, or discharge. Pulmonary: No cough, sputum, or shortness of breath. Gastrointestinal: Some GERD symptoms. Genitourinary: No dysuria, frequency, or urgency. Musculoskeletal: No joint swelling, muscle pain, or trauma. PHYSICAL EXAMINATION: GENERAL: The patient is in no acute distress. VITAL SIGNS: Temperature is 98 degrees Fahrenheit, pulse of 82, respiratory rate 12, and blood pressure 142/99. PULMONARY: Decreased breath sounds. CARDIOVASCULAR: Regular rate. No S3 or S4. ABDOMEN: Soft, nontender, and nondistended. EXTREMITIES: There is 1+ edema. LABORATORY DATA: WBC of 5.1, hemoglobin 9.8, hematocrit 35, and platelet count 59,000. ASSESSMENT AND PLAN: 1. Pancytopenia. We will get patient's from before as well. On prior admission a few months ago, pancytopenia stable. He does not require bone marrow biopsy. Hemoglobin goal above 7 and platelets goal above 20,000. 2. gastrointestinal bleed, occult blood is pending at this time. 3. Coagulopathy, likely secondary to underlying cirrhosis as well. Continue to closely monitor and administer vitamin K if the patient is bleeding. 4. Esophageal varices, status post banding. Ferritin is pending, consider to continue iron if ferritin low. I appreciate the consultation. Clark Cooper M.D. DR: RENNY JOB#: [id number] CC:
--- NOTE | 2016-11-30 15:30 | History and Physical Report ---
DATE OF ADMISSION: 11/29/2016 HISTORY OF PRESENT ILLNESS: The patient is admitted for chest pain. He has history of GI bleed. The patient also had low platelets and low potassium and elevated LFTs as well and likely rule out acute coronary syndrome. The patient is complaining of abdominal pain severe for one day and vomiting and sweating. The patient is consulted by Dr. Weber and has already had an EGD and the patient has esophageal varices and Dr. Weber banded the patient. The patient has alcoholic cirrhosis and is morbidly obese and complaining of vomiting, abdominal pain, diaphoresis, and chest pain since 1 day. Denies heartburn. Denies palpitations. Denies shortness of breath. Denies cough. Denies chills. PAST MEDICAL HISTORY: Significant for CAD, iron-deficiency anemia, GERD, peripheral vascular disease, as well as cirrhosis, alcohol abuse, and morbid obesity. PAST SURGICAL HISTORY: Status post esophageal banding today by Dr. Weber. MEDICATIONS: As mentioned, ferrous sulfate, . ALLERGIES: No known allergies. SOCIAL HISTORY: The patient has history of alcohol abuse. Denies history of drugs. Denies history of smoking. FAMILY HISTORY: Noncontributory. REVIEW OF SYSTEMS: HEENT: Denies headaches. Respiratory: Denies shortness of breath. Denies cough. Cardiovascular: He does have chest pain for 1 day. Denies radiation of chest pain. Denies orthopnea. Gastrointestinal: Denies nausea, vomiting, or diarrhea. Extremities: Denies . Central Nervous System: Denies change in vision or speech pattern. PHYSICAL EXAMINATION: VITAL SIGNS: Temperature is 97.5 degrees, pulse is 120, and blood pressure 132/99. HEENT: PERRLA. NECK: Supple. No lymphadenopathy. CHEST: Clear to auscultation. ABDOMEN: Soft and nontender. No organomegaly. The patient is morbidly obese. EXTREMITIES: Reflexes are equal on both sides. Moves all four extremities. NEUROLOGIC: Sensory intact to light touch. LABORATORY DATA: WBC of 5.1, hemoglobin 9.8, and platelets of 59,000. Sodium 136, potassium 3.5, BUN of 9, creatinine 0.7, and glucose of 169. AST of 186, ALT of 27, and alkaline phosphatase of 179. ASSESSMENT: 1. Chest pain. 2. History of gastrointestinal bleed. 3. Low platelets. 4. Low potassium. 5. Elevated liver function tests. 6. Alcohol abuse. 7. Cirrhosis. 8. Status post banding by Dr. Weber. 9. Status post abdominal pain and vomiting. PLAN: I have asked Dr. Weber, Dr. Arvizu, Dr. Modi, Dr. Rust, and Dr. Cooper to see the patient for the above-mentioned diagnoses and treatment as well as the GI bleeding, rule out pneumonia . Etta Fang M.D. DR: BLANCA JOB#: [id number] CC:
[2016-11-30 15:58] VITALS: BP 139/87
[2016-11-30] MEDS: Acetaminophen 500mg (ES) tab ORAL PRN (20:08)
[2016-11-30 20:14] VITALS: BP 157/91
--- NOTE | 2016-11-30 21:42 | General Progress Note ---
Assessment/Plan Problem List: (1) ACS (acute coronary syndrome) ICD Codes: I24.9 - Acute ischemic heart disease, unspecified SNOMED: 123190952 (2) Cirrhosis ICD Codes: K74.60 - Unspecified cirrhosis of liver SNOMED: 18615191 (3) Anemia ICD Codes: D64.9 - Anemia, unspecified SNOMED: 271126695 (4) Esophageal varices determined by endoscopy ICD Codes: I85.00 - Esophageal varices without bleeding SNOMED: 29831120, 501015577 Status: progressing Assessment/Plan cirrhosis s/p egd and banding for esophageal varices anemia no chest pain today Subjective ROS Limited/Unobtainable: Yes Constitutional: Reports: no symptoms Allergies: Coded Allergies: NO KNOWN ALLERGIES (Verified Allergy, Unknown, 09/02/16) Objective Last 24 Hour Vital Signs Date Time Temp Pulse Resp B/P (MAP) Pulse Ox O2 Delivery O2 Flow Rate FiO2 11/30/16 21:24 99.1 11/30/16 20:14 102.1 87 18 157/91 99 Room Air 11/30/16 20:08 87 157/91 11/30/16 15:58 98.1 79 20 139/87 98 Room Air 11/30/16 11:41 98.9 72 20 144/81 95 Room Air 11/30/16 09:01 88 131/79 11/30/16 08:24 99.0 88 20 131/79 96 Room Air 11/30/16 05:03 98.9 11/30/16 04:00 99.9 84 20 133/83 95 Room Air 11/30/16 00:00 98.9 83 20 142/77 95 Room Air Intake and Output 11/30/16 12/01/16 19:00 07:00 Intake Total 1110 ml Balance 1110 ml Intake Oral 1110 ml # Voids 2 Laboratory Tests 11/30/16 06:50: White Blood Count 4.3L, Red Blood Count 4.56L, Hemoglobin 9.4L, Hematocrit 31.5L , Mean Corpuscular Volume 69L, Mean Corpuscular Hemoglobin 20.7L, Mean Corpuscular Hemoglobin Concent 30.0L, Red Cell Distribution Width 18.4H, Platelet Count 41L, Mean Platelet Volume 9.0, Neutrophils (%) (Auto) , Lymphocytes (%) (Auto) , Monocytes (%) (Auto) , Eosinophils (%) (Auto) , Basophils (%) (Auto) , Differential Total Cells Counted 100, Neutrophils % ( Manual) 86H, Lymphocytes % (Manual) 8L, Monocytes % (Manual) 5, Eosinophils % ( Manual) 0, Basophils % (Manual) 1, Band Neutrophils 0, Platelet Estimate DecreasedL, Platelet Morphology Normal, Polychromasia 1+, Hypochromasia 3+, Anisocytosis 2+, Microcytosis 1+, Target Cells Occasional, Reticulocyte Count 2.4H, Sodium Level 131L, Potassium Level 3.6, Chloride Level 96L, Carbon Dioxide Level 26, Anion Gap 9, Blood Urea Nitrogen 9, Creatinine 1.0, Estimat Glomerular Filtration Rate > 60, Glucose Level 124H, Calcium Level 8.0L, Iron Level 117, Total Iron Binding Capacity 377, Percent Iron Saturation 31, Unsaturated Iron Binding 260, Ferritin 26, Total Bilirubin 2.8H, Direct Bilirubin 1.0H, Aspartate Amino Transf (AST/SGOT) 74H, Alanine Aminotransferase (ALT/SGPT) 24, Alkaline Phosphatase 132H, Lactate Dehydrogenase 312H, Total Protein 7.7, Albumin 3.3L, Globulin 4.4, Albumin/Globulin Ratio 0.7L, Carcinoembryonic Antigen 6.1H, Vitamin B12 Level 762, Folate [Pending], Homocystine [Pending], Thyroid Stimulating Hormone (TSH) 1.060 Height (Feet): 5 Height (Inches): 7.00 Weight (Pounds): 250 Cardiovascular: normal rate Respiratory/Chest: lungs clear, no accessory muscle use Etta Fang MD Nov 30, 2016 21:42
--- NOTE | 2016-11-30 21:49 | Cardiology Progress Note ---
Assessment/Plan Assessment/Plan 1. Non-cardiac chest pain, continue monitoring hemodynamics. Not a suitable candidate for ASA therapy. 2. HTN, increase propranolol. 3. Portal HTN. 4. GI bleed. 5. Alcohol liver disease Subjective Subjective Transferred to the med-surg unit. Denies chest pain or SOB. Objective Last 24 Hour Vital Signs Date Time Temp Pulse Resp B/P (MAP) Pulse Ox O2 Delivery O2 Flow Rate FiO2 11/30/16 21:24 99.1 11/30/16 20:14 102.1 87 18 157/91 99 Room Air 11/30/16 20:08 87 157/91 11/30/16 15:58 98.1 79 20 139/87 98 Room Air 11/30/16 11:41 98.9 72 20 144/81 95 Room Air 11/30/16 09:01 88 131/79 11/30/16 08:24 99.0 88 20 131/79 96 Room Air 11/30/16 05:03 98.9 11/30/16 04:00 99.9 84 20 133/83 95 Room Air 11/30/16 00:00 98.9 83 20 142/77 95 Room Air Intake and Output 11/30/16 12/01/16 19:00 07:00 Intake Total 1110 ml Balance 1110 ml Intake Oral 1110 ml # Voids 2 Laboratory Tests Test 11/30/16 06:50 White Blood Count 4.3 K/UL (4.8-10.8) L Red Blood Count 4.56 M/UL (4.70-6.10) L Hemoglobin 9.4 G/DL (14.2-18.0) L Hematocrit 31.5 % (42.0-52.0) L Mean Corpuscular Volume 69 FL (80-99) L Mean Corpuscular Hemoglobin 20.7 PG (27.0-31.0) L Mean Corpuscular Hemoglobin Concent 30.0 G/DL (32.0-36.0) L Red Cell Distribution Width 18.4 % (11.6-14.8) H Platelet Count 41 K/UL (150-450) L Mean Platelet Volume 9.0 FL (6.5-10.1) Neutrophils (%) (Auto) % (45.0-75.0) Lymphocytes (%) (Auto) % (20.0-45.0) Monocytes (%) (Auto) % (1.0-10.0) Eosinophils (%) (Auto) % (0.0-3.0) Basophils (%) (Auto) % (0.0-2.0) Differential Total Cells Counted 100 Neutrophils % (Manual) 86 % (45-75) H Lymphocytes % (Manual) 8 % (20-45) L Monocytes % (Manual) 5 % (1-10) Eosinophils % (Manual) 0 % (0-3) Basophils % (Manual) 1 % (0-2) Band Neutrophils 0 % (0-8) Platelet Estimate Decreased L Platelet Morphology Normal Polychromasia 1+ Hypochromasia 3+ Anisocytosis 2+ Microcytosis 1+ Target Cells Occasional Reticulocyte Count 2.4 % (0.0-2.0) H Sodium Level 131 mEQ/L (135-145) L Potassium Level 3.6 mEQ/L (3.4-4.9) Chloride Level 96 mEQ/L (98-107) L Carbon Dioxide Level 26 mEQ/L (20-30) Anion Gap 9 (5-15) Blood Urea Nitrogen 9 mg/dL (7-23) Creatinine 1.0 mg/dL (0.7-1.2) Estimat Glomerular Filtration Rate > 60 mL/min (>60) Glucose Level 124 mg/dL (74-106) H Calcium Level 8.0 mg/dL (8.6-10.2) L Iron Level 117 ug/dL (59-158) Total Iron Binding Capacity 377 ug/dL (250-400) Percent Iron Saturation 31 % (15-50) Unsaturated Iron Binding 260 ug/dL (112-346) Ferritin 26 ng/mL (10-230) Total Bilirubin 2.8 mg/dL (0.0-1.2) H Direct Bilirubin 1.0 mg/dL (0.1-0.3) H Aspartate Amino Transf (AST/SGOT) 74 U/L (5-40) H Alanine Aminotransferase (ALT/SGPT) 24 U/L (3-41) Alkaline Phosphatase 132 U/L (40-129) H Lactate Dehydrogenase 312 U/L (135-230) H Total Protein 7.7 g/dL (6.6-8.7) Albumin 3.3 g/dL (3.5-5.2) L Globulin 4.4 g/dL Albumin/Globulin Ratio 0.7 (1.0-2.7) L Carcinoembryonic Antigen 6.1 ng/mL H Vitamin B12 Level 762 pg/mL (211-946) Folate Pending Homocystine Pending Thyroid Stimulating Hormone (TSH) 1.060 uIU/mL (0.300-4.500) Microbiology Date/Time Source Procedure Growth Status 11/29/16 04:50 Blood Blood Culture - Preliminary NO GROWTH AFTER 24 HOURS Resulted 11/29/16 04:35 Blood Blood Culture - Preliminary NO GROWTH AFTER 24 HOURS Resulted Objective HEENT: Atraumatic and normocephalic. Periorbital edema. Pupils are equal, round, and reactive to light and accommodation. Conjunctival pallor is seen. NECK: JVP is less than 5 cm. No carotid bruits. Carotid upstrokes 2+ bilaterally. CARDIOVASCULAR: Normal S1 and S2. Regular rate and rhythm. No murmurs, gallops, or rubs. PMI is at fourth intercostal space in the midclavicular line. LUNGS: Clear to auscultation bilaterally. ABDOMEN: Soft, nontender, and nondistended. No hepatosplenomegaly. Positive bowel sounds. EXTREMITIES: There is 1 to 2+ bilateral lower extremity edema. JUAN BONE Nov 30, 2016 21:49
[2016-12-01] MEDS: Morphine Sulfate 4mg/ml Inj IVP PRN ×2 (00:09→05:04)
[2016-12-01 00:47] VITALS: BP 157/98
[2016-12-01 04:41] VITALS: BP 135/81
[2016-12-01] MEDS: Propranolol 10mg tab ORAL SCH ×3 (05:03→21:26)
[2016-12-01 05:46] LABS: MEAN CORPUSCULAR HEMOGLOBIN 20.3 PG (27.0-31.0); MEAN CORPUSCULAR HGB CONC 29.4 G/DL (32.0-36.0); MEAN CORPUSCULAR VOLUME 69 FL (80-99); MEAN PLATELET VOLUME 9.9 FL (6.5-10.1); PLATELET COUNT 92 K/UL (150-450); WHITE BLOOD COUNT 7.2 K/UL (4.8-10.8)
[2016-12-01 05:58] LABS: ALANINE AMINOTRANSFERASE 23 U/L (3-41); ALBUMIN/GLOBULIN RATIO 0.6 (1.0-2.7); ANION GAP 11 (5-15); ASPARTATE AMINO TRANSFERASE 67 U/L (5-40); CALCIUM 8.5 mg/dL (8.6-10.2); CARBON DIOXIDE 26 mEQ/L (20-30); CHLORIDE 95 mEQ/L (98-107); CREATININE 0.8 mg/dL (0.7-1.2); GLOMERULAR FILTRATION RATE > 60 mL/min (>60); HEMOLYSIS 0; POTASSIUM 3.8 mEQ/L (3.4-4.9); SODIUM 132 mEQ/L (135-145); TOTAL PROTEIN 8.6 g/dL (6.6-8.7)
--- NOTE | 2016-12-01 08:07 | General Progress Note ---
Assessment/Plan Assessment/Plan ASSESSMENT AND PLAN: 1. Pancytopenia. ---> Does not require bone marrow biopsy at this time. --->Hemoglobin goal above 7 and platelets goal above 20,000. 2. Rule out gastrointestinal bleed, occult blood is pending at this time. 3. Coagulopathy, likely secondary to underlying cirrhosis --->Continue to closely monitor and administer vitamin K if the patient is bleeding. 4. Esophageal varices, status post banding. --> Iron panel has been reviewed, pt's ferritin is low. Will start IV Iron. Subjective Date patient seen: Nov 30, 2016 Constitutional: Reports: no symptoms HEENT: Reports: no symptoms Cardiovascular: Reports: no symptoms Respiratory: Reports: no symptoms Gastrointestinal/Abdominal: Reports: no symptoms Genitourinary: Reports: no symptoms Neurologic/Psychiatric: Reports: no symptoms Endocrine: Reports: no symptoms Hematologic/Lymphatic: Reports: anemia Allergies: Coded Allergies: NO KNOWN ALLERGIES (Verified Allergy, Unknown, 09/02/16) Subjective abdominal pain Objective Last 24 Hour Vital Signs Date Time Temp Pulse Resp B/P (MAP) Pulse Ox O2 Delivery O2 Flow Rate FiO2 12/01/16 05:03 73 135/81 12/01/16 04:41 98.1 73 17 135/81 95 Room Air 12/01/16 00:47 98.5 76 18 157/98 94 Room Air 11/30/16 21:24 99.1 11/30/16 20:14 102.1 87 18 157/91 99 Room Air 11/30/16 20:08 87 157/91 11/30/16 15:58 98.1 79 20 139/87 98 Room Air 11/30/16 11:41 98.9 72 20 144/81 95 Room Air 11/30/16 09:01 88 131/79 11/30/16 08:24 99.0 88 20 131/79 96 Room Air Laboratory Tests 12/01/16 05:15: White Blood Count 7.2#, Red Blood Count 5.10, Hemoglobin 10.4L, Hematocrit 35.2L , Mean Corpuscular Volume 69L, Mean Corpuscular Hemoglobin 20.3L, Mean Corpuscular Hemoglobin Concent 29.4L, Red Cell Distribution Width 19.0H, Platelet Count 92#L, Mean Platelet Volume 9.9, Neutrophils (%) (Auto) , Lymphocytes (%) (Auto) , Monocytes (%) (Auto) , Eosinophils (%) (Auto) , Basophils (%) (Auto) , Sodium Level 132L, Potassium Level 3.8, Chloride Level 95L, Carbon Dioxide Level 26, Anion Gap 11, Blood Urea Nitrogen 14, Creatinine 0.8, Estimat Glomerular Filtration Rate > 60, Glucose Level 115H, Calcium Level 8.5L, Total Bilirubin 2.5H, Direct Bilirubin 1.0H, Aspartate Amino Transf (AST/ SGOT) 67H, Alanine Aminotransferase (ALT/SGPT) 23, Alkaline Phosphatase 141H, Total Protein 8.6, Albumin 3.5, Globulin 5.1, Albumin/Globulin Ratio 0.6L 12/01/16 07:25: Ammonia 39 Height (Feet): 5 Height (Inches): 7.00 Weight (Pounds): 250 General Appearance: no apparent distress EENT: normal ENT inspection Neck: normal alignment Abdomen: no organomegaly, no mass Edema: 1+ Pedal (L), 1+ Pedal (R) 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
[2016-12-01] MEDS: Lactulose 20gm/30ml UDC ORAL SCH ×3 (08:53→17:35)
[2016-12-01] MEDS: Thiamine 100mg tab ORAL SCH (08:54)
[2016-12-01 09:23] LABS: OTHERS PATHOLOGIST COMMENT
--- NOTE | 2016-12-01 11:10 | GI Progress Note ---
Assessment/Plan Problems: (1) Esophageal varices determined by endoscopy ICD Codes: I85.00 - Esophageal varices without bleeding SNOMED: 26000271, 014293577 (2) Anemia ICD Codes: D64.9 - Anemia, unspecified SNOMED: 591895649 (3) Cirrhosis ICD Codes: K74.60 - Unspecified cirrhosis of liver SNOMED: 55909107 Status: progressing Status Narrative Discussed with Dr. Weber. Assessment/Plan s/p EGD 11/29/16- SUMMARY OF FINDINGS: 1. Esophageal varices status post banding x5. 2. Portal hypertensive gastropathy, status post biopsy. RECOMMENDATIONS: patient will require another EGD x 2 weeks for additional banding of varices propranolol 10mg TID, titrate as necessary ppi BID soft cardiac diet monitor H&H, prn transfusion fu biopsy fu labs alcohol avoidance education given to patient Subjective Subjective c/o of esophageal pain hunger sleepy Objective Last 24 Hour Vital Signs Date Time Temp Pulse Resp B/P (MAP) Pulse Ox O2 Delivery O2 Flow Rate FiO2 12/01/16 05:03 73 135/81 12/01/16 04:41 98.1 73 17 135/81 95 Room Air 12/01/16 00:47 98.5 76 18 157/98 94 Room Air 11/30/16 21:24 99.1 11/30/16 20:14 102.1 87 18 157/91 99 Room Air 11/30/16 20:08 87 157/91 11/30/16 15:58 98.1 79 20 139/87 98 Room Air 11/30/16 11:41 98.9 72 20 144/81 95 Room Air Intake and Output 12/01/16 12/02/16 19:00 07:00 Intake Total 240 ml Balance 240 ml Intake Oral 240 ml # Voids 2 Laboratory Tests Test 12/01/16 05:15 12/01/16 07:25 White Blood Count 7.2 K/UL (4.8-10.8) # Red Blood Count 5.10 M/UL (4.70-6.10) Hemoglobin 10.4 G/DL (14.2-18.0) L Hematocrit 35.2 % (42.0-52.0) L Mean Corpuscular Volume 69 FL (80-99) L Mean Corpuscular Hemoglobin 20.3 PG (27.0-31.0) L Mean Corpuscular Hemoglobin Concent 29.4 G/DL (32.0-36.0) L Red Cell Distribution Width 19.0 % (11.6-14.8) H Platelet Count 92 K/UL (150-450) #L Mean Platelet Volume 9.9 FL (6.5-10.1) Neutrophils (%) (Auto) % (45.0-75.0) Lymphocytes (%) (Auto) % (20.0-45.0) Monocytes (%) (Auto) % (1.0-10.0) Eosinophils (%) (Auto) % (0.0-3.0) Basophils (%) (Auto) % (0.0-2.0) Sodium Level 132 mEQ/L (135-145) L Potassium Level 3.8 mEQ/L (3.4-4.9) Chloride Level 95 mEQ/L (98-107) L Carbon Dioxide Level 26 mEQ/L (20-30) Anion Gap 11 (5-15) Blood Urea Nitrogen 14 mg/dL (7-23) Creatinine 0.8 mg/dL (0.7-1.2) Estimat Glomerular Filtration Rate > 60 mL/min (>60) Glucose Level 115 mg/dL (74-106) H Calcium Level 8.5 mg/dL (8.6-10.2) L Total Bilirubin 2.5 mg/dL (0.0-1.2) H Direct Bilirubin 1.0 mg/dL (0.1-0.3) H Aspartate Amino Transf (AST/SGOT) 67 U/L (5-40) H Alanine Aminotransferase (ALT/SGPT) 23 U/L (3-41) Alkaline Phosphatase 141 U/L (40-129) H Total Protein 8.6 g/dL (6.6-8.7) Albumin 3.5 g/dL (3.5-5.2) Globulin 5.1 g/dL Albumin/Globulin Ratio 0.6 (1.0-2.7) L Ammonia 39 umol/L (16-60) Height (Feet): 5 Height (Inches): 7.00 Weight (Pounds): 250 General Appearance: no apparent distress, alert, obese Cardiovascular: normal rate Respiratory/Chest: normal breath sounds, no respiratory distress Abdominal Exam: normal bowel sounds, non tender, soft Extremities: normal range of motion Lorna Ridley N.P. Dec 01, 2016 11:10
[2016-12-01 12:00] VITALS: BP 124/77
--- NOTE | 2016-12-01 14:32 | Consultation ---
History of Present Illness General Chief Complaint: Chest Pain Present Illness HPI 46-year-old male with hx of alcohol dependence who presents to the hospital with epigastric pain with some radiation to chest area. The patient had associated hematemesis. the pt pw new onset of avh. the pt has been agitated and is delusional. this is was in the context of taking morphine. the pt was motivate to stop using. the pt was educated regarding Antabuse. Allergies: Coded Allergies: NO KNOWN ALLERGIES (Verified Allergy, Unknown, 09/02/16) Medication History Scheduled Ferrous Sulfate* (Ferrous Sulfate*), 325 MG ORAL THREE TIMES A DAY, (Reported) No Known Medications* (NKM - No Known Medications*), 0 ., (Reported) Pantoprazole* (Protonix*), 40 MG ORAL DAILY, (Reported) Pentoxifylline* (Trental*), 400 MG ORAL THREE TIMES A DAY, (Reported) Patient History History Provided By: Patient, Medical Record, PMD Healthcare decision maker Resuscitation status Advanced Directive on File Past Medical/Surgical History Past Medical/Surgical History: (1) Anemia (2) Cirrhosis (3) Esophageal varices determined by endoscopy (4) ACS (acute coronary syndrome) Review of Systems Psychiatric: Reports: prior hx, anxiety, depressed feelings, emotional problems , hallucinations Physical Exam General Appearance: no apparent distress, alert, obese Neurologic: alert, oriented x 3, responsive, normal mood/affect, depressed affect Last 24 Hour Vital Signs Date Time Temp Pulse Resp B/P (MAP) Pulse Ox O2 Delivery O2 Flow Rate FiO2 12/01/16 13:20 73 135/81 12/01/16 12:00 99.0 68 20 124/77 95 Room Air 12/01/16 05:03 73 135/81 12/01/16 04:41 98.1 73 17 135/81 95 Room Air 12/01/16 00:47 98.5 76 18 157/98 94 Room Air 11/30/16 21:24 99.1 11/30/16 20:14 102.1 87 18 157/91 99 Room Air 11/30/16 20:08 87 157/91 11/30/16 15:58 98.1 79 20 139/87 98 Room Air Intake and Output 12/01/16 12/02/16 19:00 07:00 Intake Total 480 ml Balance 480 ml Intake Oral 480 ml # Voids 2 Laboratory Tests Test 12/01/16 05:15 12/01/16 07:25 White Blood Count 7.2 K/UL (4.8-10.8) # Red Blood Count 5.10 M/UL (4.70-6.10) Hemoglobin 10.4 G/DL (14.2-18.0) L Hematocrit 35.2 % (42.0-52.0) L Mean Corpuscular Volume 69 FL (80-99) L Mean Corpuscular Hemoglobin 20.3 PG (27.0-31.0) L Mean Corpuscular Hemoglobin Concent 29.4 G/DL (32.0-36.0) L Red Cell Distribution Width 19.0 % (11.6-14.8) H Platelet Count 92 K/UL (150-450) #L Mean Platelet Volume 9.9 FL (6.5-10.1) Neutrophils (%) (Auto) % (45.0-75.0) Lymphocytes (%) (Auto) % (20.0-45.0) Monocytes (%) (Auto) % (1.0-10.0) Eosinophils (%) (Auto) % (0.0-3.0) Basophils (%) (Auto) % (0.0-2.0) Sodium Level 132 mEQ/L (135-145) L Potassium Level 3.8 mEQ/L (3.4-4.9) Chloride Level 95 mEQ/L (98-107) L Carbon Dioxide Level 26 mEQ/L (20-30) Anion Gap 11 (5-15) Blood Urea Nitrogen 14 mg/dL (7-23) Creatinine 0.8 mg/dL (0.7-1.2) Estimat Glomerular Filtration Rate > 60 mL/min (>60) Glucose Level 115 mg/dL (74-106) H Calcium Level 8.5 mg/dL (8.6-10.2) L Total Bilirubin 2.5 mg/dL (0.0-1.2) H Direct Bilirubin 1.0 mg/dL (0.1-0.3) H Aspartate Amino Transf (AST/SGOT) 67 U/L (5-40) H Alanine Aminotransferase (ALT/SGPT) 23 U/L (3-41) Alkaline Phosphatase 141 U/L (40-129) H Total Protein 8.6 g/dL (6.6-8.7) Albumin 3.5 g/dL (3.5-5.2) Globulin 5.1 g/dL Albumin/Globulin Ratio 0.6 (1.0-2.7) L Ammonia 39 umol/L (16-60) Height (Feet): 5 Height (Inches): 7.00 Weight (Pounds): 250 Medications Current Medications Medications (Trade) Dose Ordered Sig/Nikhil Route PRN Reason Start Time Stop Time Status Last Admin Dose Admin Acetaminophen (Tylenol) 500 mg Q6H PRN ORAL Pain/Temp > 100.5 11/29/16 23:39 12/29/16 23:38 11/30/16 20:08 Dextrose (Dextrose 50%) STAT PRN IV Hypoglycemia 11/29/16 23:39 12/29/16 23:38 Folic Acid (Folate) 1 mg DAILY ORAL 11/30/16 09:00 12/30/16 08:59 12/01/16 08:54 Lactulose (Cephulac) 30 gm THREE TIMES A DAY ORAL 12/01/16 09:00 12/31/16 08:59 12/01/16 13:20 Multivitamins (Multivitamins) 1 tab DAILY ORAL 11/30/16 09:00 12/30/16 08:59 12/01/16 08:53 Ondansetron HCl (Zofran) 4 mg Q6H PRN IVP Nausea & Vomiting 11/29/16 23:40 12/29/16 23:39 Propranolol HCl (Inderal) 20 mg TID@0600,1400,2200 ORAL 12/01/16 06:00 12/31/16 05:59 12/01/16 13:20 Thiamine HCl (Vitamin B1) 100 mg DAILY ORAL 11/30/16 09:00 12/30/16 08:59 12/01/16 08:54 Assessment/Plan Status: stable, progressing Assessment/Plan Alcohol dependence anxiety d/o -fluoxetine 20mg qam -consider Antabuse after Oliva Leslie M.D. Dec 01, 2016 14:32
[2016-12-01 16:00] VITALS: BP 118/79
[2016-12-01 20:00] VITALS: BP 129/78
[2016-12-01] MEDS ORDERED: Iron Sucrose 100 MG in NS 55 ML IV SCH (21:00)
[2016-12-02] VITALS: BP 120/65
[2016-12-02 04:00] VITALS: BP 136/75
[2016-12-02] MEDS: Propranolol 10mg tab ORAL SCH ×3 (06:06→21:27)
[2016-12-02 07:49] LABS: MEAN CORPUSCULAR HEMOGLOBIN 22.6 PG (27.0-31.0); MEAN CORPUSCULAR HGB CONC 32.6 G/DL (32.0-36.0); MEAN CORPUSCULAR VOLUME 69 FL (80-99); PLATELET COUNT 73 K/UL (150-450); RED CELL DISTRIBUTION WIDTH 19.9 % (11.6-14.8); WHITE BLOOD COUNT 4.6 K/UL (4.8-10.8)
[2016-12-02 08:00] VITALS: BP 124/73
[2016-12-02 08:01] LABS: ALANINE AMINOTRANSFERASE 24 U/L (3-41); ALBUMIN/GLOBULIN RATIO 0.7 (1.0-2.7); ANION GAP 11 (5-15); ASPARTATE AMINO TRANSFERASE 62 U/L (5-40); CALCIUM 8.4 mg/dL (8.6-10.2); CARBON DIOXIDE 27 mEQ/L (20-30); CHLORIDE 99 mEQ/L (98-107); CREATININE 0.8 mg/dL (0.7-1.2); GLOMERULAR FILTRATION RATE > 60 mL/min (>60); HEMOLYSIS 0; PHOSPHORUS 4.6 mg/dL (2.5-4.8); POTASSIUM 3.6 mEQ/L (3.4-4.9); SODIUM 137 mEQ/L (135-145); TOTAL PROTEIN 7.6 g/dL (6.6-8.7)
[2016-12-02 08:34] LABS: BILIRUBIN,DIRECT 0.6 mg/dL (0.1-0.3)
[2016-12-02] MEDS: Thiamine 100mg tab ORAL SCH (08:53)
[2016-12-02] MEDS: Lactulose 20gm/30ml UDC ORAL SCH ×3 (08:54→17:29)
[2016-12-02 09:40] LABS: BAND NEUTROPHILS % (MANUAL) 1 % (0-8); BASOPHILS % (MANUAL) 1 % (0-2); EOSINOPHILS % (MANUAL) 2 % (0-3); LYMPHOCYTES % (MANUAL) 25 % (20-45); NEUTROPHILS % (MANUAL) 58 % (45-75); TOTAL CELLS COUNTED 100
[2016-12-02 09:41] LABS: ANISOCYTOSIS 2+; HYPOCHROMASIA 2+; MICROCYTES 2+; PLATELET ESTIMATE DECREASED; PLATELET MORPHOLOGY NORMAL; POIKILOCYTOSIS 2+
[2016-12-02 09:42] LABS: TARGET CELLS 1+
[2016-12-02 09:43] LABS: OVALOCYTES 1+
[2016-12-02 12:00] VITALS: BP 119/69
--- NOTE | 2016-12-02 13:15 | General Progress Note ---
Assessment/Plan Assessment/Plan ASSESSMENT AND PLAN: 1. Pancytopenia. ---> Does not require bone marrow biopsy at this time. --->Hemoglobin goal above 7 and platelets goal above 20,000. Continue to monitor counts 2. Rule out gastrointestinal bleed, occult blood is pending at this time. --> iron panel has been reviewed 3. Coagulopathy, likely secondary to underlying cirrhosis --->Continue to closely monitor and administer vitamin K if the patient is bleeding. 4. Esophageal varices, status post banding. Subjective Date patient seen: Dec 01, 2016 Constitutional: Reports: no symptoms HEENT: Reports: no symptoms Cardiovascular: Reports: no symptoms Respiratory: Reports: no symptoms Gastrointestinal/Abdominal: Reports: no symptoms Genitourinary: Reports: no symptoms Neurologic/Psychiatric: Reports: no symptoms Endocrine: Reports: no symptoms Hematologic/Lymphatic: Reports: anemia Allergies: Coded Allergies: NO KNOWN ALLERGIES (Verified Allergy, Unknown, 09/02/16) Subjective afebrile, tired Objective Last 24 Hour Vital Signs Date Time Temp Pulse Resp B/P (MAP) Pulse Ox O2 Delivery O2 Flow Rate FiO2 12/02/16 12:00 97.9 65 17 119/69 98 Room Air 12/02/16 08:00 98.8 65 17 124/73 95 Room Air 12/02/16 06:06 71 131/90 12/02/16 04:00 98.0 59 18 136/75 96 Room Air 12/02/16 00:00 98.6 66 18 120/65 94 Room Air 12/01/16 21:26 64 129/78 12/01/16 20:00 98.6 64 18 129/78 96 Room Air 12/01/16 16:00 98.1 74 20 118/79 97 Room Air 12/01/16 13:20 73 135/81 Intake and Output 12/02/16 12/03/16 19:00 07:00 Intake Total 250 ml Balance 250 ml Intake Oral 250 ml # Voids 1 Laboratory Tests 12/02/16 05:55: White Blood Count 4.6L, Red Blood Count 4.50L, Hemoglobin 10.2L, Hematocrit 31.2L, Mean Corpuscular Volume 69L, Mean Corpuscular Hemoglobin 22.6L, Mean Corpuscular Hemoglobin Concent 32.6, Red Cell Distribution Width 19.9H, Platelet Count 73L, Mean Platelet Volume 8.0, Neutrophils (%) (Auto) , Lymphocytes (%) (Auto) , Monocytes (%) (Auto) , Eosinophils (%) (Auto) , Basophils (%) (Auto) , Differential Total Cells Counted 100, Neutrophils % ( Manual) 58, Lymphocytes % (Manual) 25, Monocytes % (Manual) 13H, Eosinophils % ( Manual) 2, Basophils % (Manual) 1, Band Neutrophils 1, Platelet Estimate DecreasedL, Platelet Morphology Normal, Hypochromasia 2+, Poikilocytosis 2+, Anisocytosis 2+, Microcytosis 2+, Target Cells 1+, Ovalocytes 1+, Sodium Level 137, Potassium Level 3.6, Chloride Level 99, Carbon Dioxide Level 27, Anion Gap 11, Blood Urea Nitrogen 14, Creatinine 0.8, Estimat Glomerular Filtration Rate > 60, Glucose Level 86, Calcium Level 8.4L, Phosphorus Level 4.6, Magnesium Level 2.0, Total Bilirubin 1.7H, Direct Bilirubin 0.6H, Aspartate Amino Transf ( AST/SGOT) 62H, Alanine Aminotransferase (ALT/SGPT) 24, Alkaline Phosphatase 133H , Total Protein 7.6, Albumin 3.2L, Globulin 4.4, Albumin/Globulin Ratio 0.7L Height (Feet): 5 Height (Inches): 7.00 Weight (Pounds): 250 General Appearance: no apparent distress EENT: normal ENT inspection Neck: normal alignment Cardiovascular: normal peripheral pulses Edema: no edema noted Pedal (L), no edema noted Pedal (R) 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
[2016-12-02 16:00] VITALS: BP 116/72
--- NOTE | 2016-12-02 16:45 | General Progress Note ---
Assessment/Plan Assessment/Plan Assessment (1) Esophageal varices determined by endoscopy ICD Codes: I85.00 - Esophageal varices without bleeding (2) Anemia ICD Codes: D64.9 - Anemia, unspecified (3) Cirrhosis ICD Codes: K74.60 - Unspecified cirrhosis of liver RECOMMENDATIONS: d/c planning per PMD patient will require another EGD x 2 weeks for additional banding of varices propranolol 10mg TID, titrate as necessary ppi BID soft cardiac diet monitor H&H, prn transfusion fu biopsy fu labs alcohol avoidance education given to patient Subjective Allergies: Coded Allergies: NO KNOWN ALLERGIES (Verified Allergy, Unknown, 09/02/16) Subjective Feels OK notes slight epigastric discomfort after eating POD #3 s/p EGD/EBL Objective Last 24 Hour Vital Signs Date Time Temp Pulse Resp B/P (MAP) Pulse Ox O2 Delivery O2 Flow Rate FiO2 12/02/16 16:00 97.9 65 18 116/72 96 Room Air 12/02/16 13:36 65 119/69 12/02/16 12:00 97.9 65 17 119/69 98 Room Air 12/02/16 08:00 98.8 65 17 124/73 95 Room Air 12/02/16 06:06 71 131/90 12/02/16 04:00 98.0 59 18 136/75 96 Room Air 12/02/16 00:00 98.6 66 18 120/65 94 Room Air 12/01/16 21:26 64 129/78 12/01/16 20:00 98.6 64 18 129/78 96 Room Air Intake and Output 12/02/16 12/03/16 19:00 07:00 Intake Total 550 ml Balance 550 ml Intake Oral 550 ml # Voids 2 Laboratory Tests 12/02/16 05:55: White Blood Count 4.6L, Red Blood Count 4.50L, Hemoglobin 10.2L, Hematocrit 31.2L, Mean Corpuscular Volume 69L, Mean Corpuscular Hemoglobin 22.6L, Mean Corpuscular Hemoglobin Concent 32.6, Red Cell Distribution Width 19.9H, Platelet Count 73L, Mean Platelet Volume 8.0, Neutrophils (%) (Auto) , Lymphocytes (%) (Auto) , Monocytes (%) (Auto) , Eosinophils (%) (Auto) , Basophils (%) (Auto) , Differential Total Cells Counted 100, Neutrophils % ( Manual) 58, Lymphocytes % (Manual) 25, Monocytes % (Manual) 13H, Eosinophils % ( Manual) 2, Basophils % (Manual) 1, Band Neutrophils 1, Platelet Estimate DecreasedL, Platelet Morphology Normal, Hypochromasia 2+, Poikilocytosis 2+, Anisocytosis 2+, Microcytosis 2+, Target Cells 1+, Ovalocytes 1+, Sodium Level 137, Potassium Level 3.6, Chloride Level 99, Carbon Dioxide Level 27, Anion Gap 11, Blood Urea Nitrogen 14, Creatinine 0.8, Estimat Glomerular Filtration Rate > 60, Glucose Level 86, Calcium Level 8.4L, Phosphorus Level 4.6, Magnesium Level 2.0, Total Bilirubin 1.7H, Direct Bilirubin 0.6H, Aspartate Amino Transf ( AST/SGOT) 62H, Alanine Aminotransferase (ALT/SGPT) 24, Alkaline Phosphatase 133H , Total Protein 7.6, Albumin 3.2L, Globulin 4.4, Albumin/Globulin Ratio 0.7L Height (Feet): 5 Height (Inches): 7.00 Weight (Pounds): 250 Objective WDWN NCAT supple CTA RRR soft ND NT no edema non focal VERNON MARTI Dec 02, 2016 16:45
--- NOTE | 2016-12-02 19:04 | Cardiology Progress Note ---
Assessment/Plan Assessment/Plan 1. Non-cardiac chest pain, Not a suitable candidate for ASA therapy. 2. HTN, increase propranolol to 20mg qid. 3. Portal HTN. 4. GI bleed. 5. Alcohol liver disease. Subjective Subjective Denies chest pain or SOB. Objective Last 24 Hour Vital Signs Date Time Temp Pulse Resp B/P (MAP) Pulse Ox O2 Delivery O2 Flow Rate FiO2 12/02/16 16:00 97.9 65 18 116/72 96 Room Air 12/02/16 13:36 65 119/69 12/02/16 12:00 97.9 65 17 119/69 98 Room Air 12/02/16 08:00 98.8 65 17 124/73 95 Room Air 12/02/16 06:06 71 131/90 12/02/16 04:00 98.0 59 18 136/75 96 Room Air 12/02/16 00:00 98.6 66 18 120/65 94 Room Air 12/01/16 21:26 64 129/78 12/01/16 20:00 98.6 64 18 129/78 96 Room Air Intake and Output 12/02/16 12/03/16 19:00 07:00 Intake Total 850 ml Balance 850 ml Intake Oral 850 ml # Voids 3 Laboratory Tests Test 12/02/16 05:55 White Blood Count 4.6 K/UL (4.8-10.8) L Red Blood Count 4.50 M/UL (4.70-6.10) L Hemoglobin 10.2 G/DL (14.2-18.0) L Hematocrit 31.2 % (42.0-52.0) L Mean Corpuscular Volume 69 FL (80-99) L Mean Corpuscular Hemoglobin 22.6 PG (27.0-31.0) L Mean Corpuscular Hemoglobin Concent 32.6 G/DL (32.0-36.0) Red Cell Distribution Width 19.9 % (11.6-14.8) H Platelet Count 73 K/UL (150-450) L Mean Platelet Volume 8.0 FL (6.5-10.1) Neutrophils (%) (Auto) % (45.0-75.0) Lymphocytes (%) (Auto) % (20.0-45.0) Monocytes (%) (Auto) % (1.0-10.0) Eosinophils (%) (Auto) % (0.0-3.0) Basophils (%) (Auto) % (0.0-2.0) Differential Total Cells Counted 100 Neutrophils % (Manual) 58 % (45-75) Lymphocytes % (Manual) 25 % (20-45) Monocytes % (Manual) 13 % (1-10) H Eosinophils % (Manual) 2 % (0-3) Basophils % (Manual) 1 % (0-2) Band Neutrophils 1 % (0-8) Platelet Estimate Decreased L Platelet Morphology Normal Hypochromasia 2+ Poikilocytosis 2+ Anisocytosis 2+ Microcytosis 2+ Target Cells 1+ Ovalocytes 1+ Sodium Level 137 mEQ/L (135-145) Potassium Level 3.6 mEQ/L (3.4-4.9) Chloride Level 99 mEQ/L (98-107) Carbon Dioxide Level 27 mEQ/L (20-30) Anion Gap 11 (5-15) Blood Urea Nitrogen 14 mg/dL (7-23) Creatinine 0.8 mg/dL (0.7-1.2) Estimat Glomerular Filtration Rate > 60 mL/min (>60) Glucose Level 86 mg/dL (74-106) Calcium Level 8.4 mg/dL (8.6-10.2) L Phosphorus Level 4.6 mg/dL (2.5-4.8) Magnesium Level 2.0 mg/dL (1.7-2.5) Total Bilirubin 1.7 mg/dL (0.0-1.2) H Direct Bilirubin 0.6 mg/dL (0.1-0.3) H Aspartate Amino Transf (AST/SGOT) 62 U/L (5-40) H Alanine Aminotransferase (ALT/SGPT) 24 U/L (3-41) Alkaline Phosphatase 133 U/L (40-129) H Total Protein 7.6 g/dL (6.6-8.7) Albumin 3.2 g/dL (3.5-5.2) L Globulin 4.4 g/dL Albumin/Globulin Ratio 0.7 (1.0-2.7) L Objective HEENT: Atraumatic and normocephalic. Periorbital edema. Pupils are equal, round, and reactive to light and accommodation. Conjunctival pallor is seen. NECK: JVP is less than 5 cm. No carotid bruits. Carotid upstrokes 2+ bilaterally. CARDIOVASCULAR: Normal S1 and S2. Regular rate and rhythm. No murmurs, gallops, or rubs. PMI is at fourth intercostal space in the midclavicular line. LUNGS: Clear to auscultation bilaterally. ABDOMEN: Soft, nontender, and nondistended. No hepatosplenomegaly. Positive bowel sounds. EXTREMITIES: There is 1 to 2+ bilateral lower extremity edema. JUAN BONE Dec 02, 2016 19:04
[2016-12-02 20:00] VITALS: BP 114/55
--- NOTE | 2016-12-02 22:42 | General Progress Note ---
Assessment/Plan Problem List: (1) ACS (acute coronary syndrome) ICD Codes: I24.9 - Acute ischemic heart disease, unspecified SNOMED: 406969085 (2) Cirrhosis ICD Codes: K74.60 - Unspecified cirrhosis of liver SNOMED: 97900515 (3) Anemia ICD Codes: D64.9 - Anemia, unspecified SNOMED: 946844352 (4) Esophageal varices determined by endoscopy ICD Codes: I85.00 - Esophageal varices without bleeding SNOMED: 15641389, 556746551 Status: progressing Assessment/Plan cirrhosis s/p egd and banding hallucination is improving psych consulted check ammonia level Subjective ROS Limited/Unobtainable: Yes Constitutional: Reports: no symptoms Allergies: Coded Allergies: NO KNOWN ALLERGIES (Verified Allergy, Unknown, 09/02/16) Objective Last 24 Hour Vital Signs Date Time Temp Pulse Resp B/P (MAP) Pulse Ox O2 Delivery O2 Flow Rate FiO2 12/02/16 21:27 77 112/59 12/02/16 20:00 98.0 78 18 114/55 96 Room Air 12/02/16 16:00 97.9 65 18 116/72 96 Room Air 12/02/16 13:36 65 119/69 12/02/16 12:00 97.9 65 17 119/69 98 Room Air 12/02/16 08:00 98.8 65 17 124/73 95 Room Air 12/02/16 06:06 71 131/90 12/02/16 04:00 98.0 59 18 136/75 96 Room Air 12/02/16 00:00 98.6 66 18 120/65 94 Room Air Intake and Output 12/02/16 12/03/16 19:00 07:00 Intake Total 850 ml Balance 850 ml Intake Oral 850 ml # Voids 3 Laboratory Tests 12/02/16 05:55: White Blood Count 4.6L, Red Blood Count 4.50L, Hemoglobin 10.2L, Hematocrit 31.2L, Mean Corpuscular Volume 69L, Mean Corpuscular Hemoglobin 22.6L, Mean Corpuscular Hemoglobin Concent 32.6, Red Cell Distribution Width 19.9H, Platelet Count 73L, Mean Platelet Volume 8.0, Neutrophils (%) (Auto) , Lymphocytes (%) (Auto) , Monocytes (%) (Auto) , Eosinophils (%) (Auto) , Basophils (%) (Auto) , Differential Total Cells Counted 100, Neutrophils % ( Manual) 58, Lymphocytes % (Manual) 25, Monocytes % (Manual) 13H, Eosinophils % ( Manual) 2, Basophils % (Manual) 1, Band Neutrophils 1, Platelet Estimate DecreasedL, Platelet Morphology Normal, Hypochromasia 2+, Poikilocytosis 2+, Anisocytosis 2+, Microcytosis 2+, Target Cells 1+, Ovalocytes 1+, Sodium Level 137, Potassium Level 3.6, Chloride Level 99, Carbon Dioxide Level 27, Anion Gap 11, Blood Urea Nitrogen 14, Creatinine 0.8, Estimat Glomerular Filtration Rate > 60, Glucose Level 86, Calcium Level 8.4L, Phosphorus Level 4.6, Magnesium Level 2.0, Total Bilirubin 1.7H, Direct Bilirubin 0.6H, Aspartate Amino Transf ( AST/SGOT) 62H, Alanine Aminotransferase (ALT/SGPT) 24, Alkaline Phosphatase 133H , Total Protein 7.6, Albumin 3.2L, Globulin 4.4, Albumin/Globulin Ratio 0.7L Height (Feet): 5 Height (Inches): 7.00 Weight (Pounds): 250 EENT: PERRL/EOMI Cardiovascular: normal rate, no JVD Etta Fang MD Dec 02, 2016 22:42
--- NOTE | 2016-12-02 22:47 | General Progress Note ---
Assessment/Plan Assessment/Plan ASSESSMENT AND PLAN: 1. Pancytopenia. ---> wbc count oscillating ---> Does not require bone marrow biopsy at this time. --->Hemoglobin goal above 7 and platelets goal above 20,000. Continue to monitor counts 2. Rule out gastrointestinal bleed, occult blood is pending at this time. --> iron panel has been reviewed 3. Coagulopathy, likely secondary to underlying cirrhosis --->Continue to closely monitor and administer vitamin K if the patient is bleeding. 4. Esophageal varices, status post banding. --> will require more banding in 2 weeks Subjective Constitutional: Reports: no symptoms HEENT: Reports: no symptoms Cardiovascular: Reports: no symptoms Respiratory: Reports: no symptoms Gastrointestinal/Abdominal: Reports: no symptoms Genitourinary: Reports: no symptoms Neurologic/Psychiatric: Reports: no symptoms Endocrine: Reports: no symptoms Hematologic/Lymphatic: Reports: no symptoms Allergies: Coded Allergies: NO KNOWN ALLERGIES (Verified Allergy, Unknown, 09/02/16) Subjective no major events Objective Last 24 Hour Vital Signs Date Time Temp Pulse Resp B/P (MAP) Pulse Ox O2 Delivery O2 Flow Rate FiO2 12/02/16 21:27 77 112/59 12/02/16 20:00 98.0 78 18 114/55 96 Room Air 12/02/16 16:00 97.9 65 18 116/72 96 Room Air 12/02/16 13:36 65 119/69 12/02/16 12:00 97.9 65 17 119/69 98 Room Air 12/02/16 08:00 98.8 65 17 124/73 95 Room Air 12/02/16 06:06 71 131/90 12/02/16 04:00 98.0 59 18 136/75 96 Room Air 12/02/16 00:00 98.6 66 18 120/65 94 Room Air Intake and Output 12/02/16 12/03/16 19:00 07:00 Intake Total 850 ml Balance 850 ml Intake Oral 850 ml # Voids 3 Laboratory Tests 12/02/16 05:55: White Blood Count 4.6L, Red Blood Count 4.50L, Hemoglobin 10.2L, Hematocrit 31.2L, Mean Corpuscular Volume 69L, Mean Corpuscular Hemoglobin 22.6L, Mean Corpuscular Hemoglobin Concent 32.6, Red Cell Distribution Width 19.9H, Platelet Count 73L, Mean Platelet Volume 8.0, Neutrophils (%) (Auto) , Lymphocytes (%) (Auto) , Monocytes (%) (Auto) , Eosinophils (%) (Auto) , Basophils (%) (Auto) , Differential Total Cells Counted 100, Neutrophils % ( Manual) 58, Lymphocytes % (Manual) 25, Monocytes % (Manual) 13H, Eosinophils % ( Manual) 2, Basophils % (Manual) 1, Band Neutrophils 1, Platelet Estimate DecreasedL, Platelet Morphology Normal, Hypochromasia 2+, Poikilocytosis 2+, Anisocytosis 2+, Microcytosis 2+, Target Cells 1+, Ovalocytes 1+, Sodium Level 137, Potassium Level 3.6, Chloride Level 99, Carbon Dioxide Level 27, Anion Gap 11, Blood Urea Nitrogen 14, Creatinine 0.8, Estimat Glomerular Filtration Rate > 60, Glucose Level 86, Calcium Level 8.4L, Phosphorus Level 4.6, Magnesium Level 2.0, Total Bilirubin 1.7H, Direct Bilirubin 0.6H, Aspartate Amino Transf ( AST/SGOT) 62H, Alanine Aminotransferase (ALT/SGPT) 24, Alkaline Phosphatase 133H , Total Protein 7.6, Albumin 3.2L, Globulin 4.4, Albumin/Globulin Ratio 0.7L Height (Feet): 5 Height (Inches): 7.00 Weight (Pounds): 250 General Appearance: no apparent distress EENT: normal ENT inspection Neck: normal alignment Cardiovascular: normal peripheral pulses Edema: no edema noted Pedal (L), no edema noted Pedal (R) 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
[2016-12-03] VITALS: BP 132/72
--- NOTE | 2016-12-03 00:15 | Progress Note ---
SUBJECTIVE: The patient is alert, oriented to person. The patient was found sitting in bed. No behavior issues. Compliant with medications. The patient is calm, still has episodes of hallucinations, improving. No anxiety. Motivated to self using. We discussed the pros and cons of Antabuse. MENTAL STATUS EXAMINATION: The patient is alert and oriented times self, place, and situation he is in. Mood is neutral. Affect is constricted. Congruent with mood. Thought process is concrete. Thought content, no suicidal or homicidal ideation. ASSESSMENT: 1. Alcohol dependence. 2. Anxiety disorder. PLAN: The patient will be continued on current medication, may need to prescribe Antabuse. Oliva Licona M.D. DR: Lazarus JOB#: [id number] CC:
[2016-12-03 04:00] VITALS: BP 142/71
[2016-12-03 08:10] VITALS: BP 128/85
[2016-12-03] MEDS: Lactulose 20gm/30ml UDC ORAL SCH ×3 (09:03→17:19)
[2016-12-03] MEDS: Propranolol 10mg tab ORAL SCH ×4 (09:05→22:17)
[2016-12-03] MEDS: Thiamine 100mg tab ORAL SCH (09:06)
[2016-12-03 12:00] VITALS: BP 124/70
[2016-12-03 16:00] VITALS: BP 117/69
--- NOTE | 2016-12-03 17:07 | General Progress Note ---
Assessment/Plan Assessment/Plan Assessment (1) Esophageal varices determined by endoscopy ICD Codes: I85.00 - Esophageal varices without bleeding (2) Anemia ICD Codes: D64.9 - Anemia, unspecified (3) Cirrhosis ICD Codes: K74.60 - Unspecified cirrhosis of liver RECOMMENDATIONS: d/c planning per PMD patient will require another EGD x 2 weeks for additional banding of varices propranolol 10mg TID, titrate as necessary ppi BID soft cardiac diet monitor H&H, prn transfusion fu biopsy fu labs alcohol avoidance education given to patient Subjective Allergies: Coded Allergies: NO KNOWN ALLERGIES (Verified Allergy, Unknown, 09/02/16) Subjective Feels OK POD #4 s/p EGD/EBL Objective Last 24 Hour Vital Signs Date Time Temp Pulse Resp B/P (MAP) Pulse Ox O2 Delivery O2 Flow Rate FiO2 12/03/16 16:00 97.7 95 19 117/69 95 Room Air 12/03/16 13:04 72 128/72 12/03/16 12:00 97.6 62 17 124/70 96 Room Air 12/03/16 09:05 72 128/72 12/03/16 08:10 98.8 72 20 128/85 96 Room Air 12/03/16 04:00 98.0 64 18 142/71 98 Room Air 12/03/16 00:00 97.3 61 18 132/72 98 Room Air 12/02/16 21:27 77 112/59 12/02/16 20:00 98.0 78 18 114/55 96 Room Air Intake and Output 12/03/16 12/04/16 19:00 07:00 Intake Total 350 ml Balance 350 ml Intake Oral 350 ml # Voids 1 Height (Feet): 5 Height (Inches): 7.00 Weight (Pounds): 250 Objective WDWN NCAT supple CTA RRR soft ND NT no edema non focal VERNON MARTI Dec 03, 2016 17:07
--- NOTE | 2016-12-03 20:35 | General Progress Note ---
Assessment/Plan Problem List: (1) ACS (acute coronary syndrome) ICD Codes: I24.9 - Acute ischemic heart disease, unspecified SNOMED: 663526952 (2) Cirrhosis ICD Codes: K74.60 - Unspecified cirrhosis of liver SNOMED: 18787402 (3) Anemia ICD Codes: D64.9 - Anemia, unspecified SNOMED: 526850463 (4) Esophageal varices determined by endoscopy ICD Codes: I85.00 - Esophageal varices without bleeding SNOMED: 04889622, 295297177 Status: progressing Assessment/Plan cirrhosis s/p egd and banding hallucination is improving reviewed chart and labs afebrile ams improving Subjective ROS Limited/Unobtainable: Yes Allergies: Coded Allergies: NO KNOWN ALLERGIES (Verified Allergy, Unknown, 09/02/16) Objective Last 24 Hour Vital Signs Date Time Temp Pulse Resp B/P (MAP) Pulse Ox O2 Delivery O2 Flow Rate FiO2 12/03/16 17:19 95 117/69 12/03/16 16:00 97.7 95 19 117/69 95 Room Air 12/03/16 13:04 72 128/72 12/03/16 12:00 97.6 62 17 124/70 96 Room Air 12/03/16 09:05 72 128/72 12/03/16 08:10 98.8 72 20 128/85 96 Room Air 12/03/16 04:00 98.0 64 18 142/71 98 Room Air 12/03/16 00:00 97.3 61 18 132/72 98 Room Air 12/02/16 21:27 77 112/59 Intake and Output 12/03/16 12/04/16 19:00 07:00 Intake Total 800 ml Balance 800 ml Intake Oral 800 ml # Voids 2 Height (Feet): 5 Height (Inches): 7.00 Weight (Pounds): 250 Cardiovascular: regular rhythm Abdomen: soft Etta Fang MD Dec 03, 2016 20:35
[2016-12-03 20:48] VITALS: BP 122/69
--- NOTE | 2016-12-03 22:28 | General Progress Note ---
Assessment/Plan Assessment/Plan ASSESSMENT AND PLAN: 1. Pancytopenia. ---> wbc count oscillating ---> Does not require bone marrow biopsy at this time. --->Hemoglobin goal above 7 and platelets goal above 20,000. Continue to monitor counts 2. Rule out gastrointestinal bleed, occult blood is pending at this time. --> iron panel has been reviewed 3. Coagulopathy, likely secondary to underlying cirrhosis --->Continue to closely monitor and administer vitamin K if the patient is bleeding. 4. Esophageal varices, status post banding. --> will require egd and more banding in 2 weeks Subjective Constitutional: Reports: no symptoms HEENT: Reports: no symptoms Cardiovascular: Reports: no symptoms Respiratory: Reports: no symptoms Gastrointestinal/Abdominal: Reports: no symptoms Genitourinary: Reports: no symptoms Neurologic/Psychiatric: Reports: no symptoms Endocrine: Reports: no symptoms Hematologic/Lymphatic: Reports: anemia Allergies: Coded Allergies: NO KNOWN ALLERGIES (Verified Allergy, Unknown, 09/02/16) Subjective more alert Objective Last 24 Hour Vital Signs Date Time Temp Pulse Resp B/P (MAP) Pulse Ox O2 Delivery O2 Flow Rate FiO2 12/03/16 22:17 71 122/69 12/03/16 20:48 97.9 71 18 122/69 99 Room Air 12/03/16 17:19 95 117/69 12/03/16 16:00 97.7 95 19 117/69 95 Room Air 12/03/16 13:04 72 128/72 12/03/16 12:00 97.6 62 17 124/70 96 Room Air 12/03/16 09:05 72 128/72 12/03/16 08:10 98.8 72 20 128/85 96 Room Air 12/03/16 04:00 98.0 64 18 142/71 98 Room Air 12/03/16 00:00 97.3 61 18 132/72 98 Room Air Intake and Output 12/03/16 12/04/16 19:00 07:00 Intake Total 800 ml Balance 800 ml Intake Oral 800 ml # Voids 2 Height (Feet): 5 Height (Inches): 7.00 Weight (Pounds): 250 General Appearance: no apparent distress EENT: normal ENT inspection Neck: supple Edema: no edema noted Pedal (L), no edema noted Pedal (R) Edema: trace edema Clark Cooper Dec 03, 2016 22:28
--- NOTE | 2016-12-03 22:29 | Cardiology Progress Note ---
Assessment/Plan Assessment/Plan 1. Non-cardiac chest pain, Not a suitable candidate for ASA therapy. 2. HTN, well controlled, continue propranolol. 3. Portal HTN. 4. GI bleed. 5. Alcohol liver disease. Subjective Subjective No cardiac events noted. Objective Last 24 Hour Vital Signs Date Time Temp Pulse Resp B/P (MAP) Pulse Ox O2 Delivery O2 Flow Rate FiO2 12/03/16 22:17 71 122/69 12/03/16 20:48 97.9 71 18 122/69 99 Room Air 12/03/16 17:19 95 117/69 12/03/16 16:00 97.7 95 19 117/69 95 Room Air 12/03/16 13:04 72 128/72 12/03/16 12:00 97.6 62 17 124/70 96 Room Air 12/03/16 09:05 72 128/72 12/03/16 08:10 98.8 72 20 128/85 96 Room Air 12/03/16 04:00 98.0 64 18 142/71 98 Room Air 12/03/16 00:00 97.3 61 18 132/72 98 Room Air Intake and Output 12/03/16 12/04/16 19:00 07:00 Intake Total 800 ml Balance 800 ml Intake Oral 800 ml # Voids 2 Objective HEENT: Atraumatic and normocephalic. Periorbital edema. Pupils are equal, round, and reactive to light and accommodation. Conjunctival pallor is seen. NECK: JVP is less than 5 cm. No carotid bruits. Carotid upstrokes 2+ bilaterally. CARDIOVASCULAR: Normal S1 and S2. Regular rate and rhythm. No murmurs, gallops, or rubs. PMI is at fourth intercostal space in the midclavicular line. LUNGS: Clear to auscultation bilaterally. ABDOMEN: Soft, nontender, and nondistended. No hepatosplenomegaly. Positive bowel sounds. EXTREMITIES: There is 1 to 2+ bilateral lower extremity edema. JUAN BONE Dec 03, 2016 22:29
--- NOTE | 2016-12-03 22:59 | General Progress Note ---
Assessment/Plan Status: stable, progressing Subjective Constitutional: Reports: malaise, weakness Neurologic/Psychiatric: Reports: anxiety, depressed Allergies: Coded Allergies: NO KNOWN ALLERGIES (Verified Allergy, Unknown, 09/02/16) Subjective Denied hallucination, endorses anxiety. Objective Last 24 Hour Vital Signs Date Time Temp Pulse Resp B/P (MAP) Pulse Ox O2 Delivery O2 Flow Rate FiO2 12/03/16 22:17 71 122/69 12/03/16 20:48 97.9 71 18 122/69 99 Room Air 12/03/16 17:19 95 117/69 12/03/16 16:00 97.7 95 19 117/69 95 Room Air 12/03/16 13:04 72 128/72 12/03/16 12:00 97.6 62 17 124/70 96 Room Air 12/03/16 09:05 72 128/72 12/03/16 08:10 98.8 72 20 128/85 96 Room Air 12/03/16 04:00 98.0 64 18 142/71 98 Room Air 12/03/16 00:00 97.3 61 18 132/72 98 Room Air Intake and Output 12/03/16 12/04/16 19:00 07:00 Intake Total 800 ml Balance 800 ml Intake Oral 800 ml # Voids 2 Height (Feet): 5 Height (Inches): 7.00 Weight (Pounds): 250 General Appearance: no apparent distress, alert, obese Neurologic: alert, oriented x 3, responsive, depressed affect Oliva Licona M.D. Dec 03, 2016 22:59
[2016-12-04] VITALS: BP 126/71
[2016-12-04 04:22] VITALS: BP 150/86
[2016-12-04 07:37] VITALS: BP 128/80
[2016-12-04] MEDS: Acetaminophen 500mg (ES) tab ORAL PRN (07:51)
[2016-12-04] MEDS: Lactulose 20gm/30ml UDC ORAL SCH ×2 (09:44→12:41)
[2016-12-04] MEDS: Propranolol 10mg tab ORAL SCH ×2 (09:51→12:45)
[2016-12-04] MEDS: Thiamine 100mg tab ORAL SCH (09:53)
--- NOTE | 2016-12-04 10:54 | GI Progress Note ---
Assessment/Plan Problems: (1) Esophageal varices determined by endoscopy ICD Codes: I85.00 - Esophageal varices without bleeding SNOMED: 13406678, 280345381 (2) Anemia ICD Codes: D64.9 - Anemia, unspecified SNOMED: 060214428 (3) Cirrhosis ICD Codes: K74.60 - Unspecified cirrhosis of liver SNOMED: 31391104 Status: stable Status Narrative Discussed with Dr. Weber. Assessment/Plan s/p EGD 11/29/16- SUMMARY OF FINDINGS: 1. Esophageal varices status post banding x5. 2. Portal hypertensive gastropathy, status post biopsy. RECOMMENDATIONS: d/c planning per PMD patient will require another EGD x 2 weeks for additional banding of varices propranolol 10mg TID, titrate as necessary ppi BID soft cardiac diet monitor H&H, prn transfusion fu biopsy >> negative for H. Pylori and negative for metaplasia fu labs alcohol avoidance education given to patient Subjective Subjective feels better wants to go home Objective Last 24 Hour Vital Signs Date Time Temp Pulse Resp B/P (MAP) Pulse Ox O2 Delivery O2 Flow Rate FiO2 12/04/16 09:51 73 128/80 12/04/16 07:37 98.2 73 18 128/80 95 Room Air 12/04/16 04:22 97.9 65 18 150/86 98 Room Air 12/04/16 00:00 97.7 66 19 126/71 100 Room Air 12/03/16 22:17 71 122/69 12/03/16 20:48 97.9 71 18 122/69 99 Room Air 12/03/16 17:19 95 117/69 12/03/16 16:00 97.7 95 19 117/69 95 Room Air 12/03/16 13:04 72 128/72 12/03/16 12:00 97.6 62 17 124/70 96 Room Air Height (Feet): 5 Height (Inches): 7.00 Weight (Pounds): 250 General Appearance: no apparent distress, alert Cardiovascular: normal rate Respiratory/Chest: normal breath sounds, no respiratory distress Abdominal Exam: normal bowel sounds, non tender, soft Extremities: normal range of motion Lorna Ridley N.P. Dec 04, 2016 10:54
[2016-12-04 12:00] VITALS: BP 129/82
[2016-12-04 12:45] VITALS: BP 129/82
--- NOTE | 2016-12-04 14:43 | General Progress Note ---
Assessment/Plan Status: doing well, stable, progressing Assessment/Plan the pt is stable does not understand the risks of Antabuse. the pt is going to be dc with meds Subjective Neurologic/Psychiatric: Reports: anxiety, depressed, emotional problems Allergies: Coded Allergies: NO KNOWN ALLERGIES (Verified Allergy, Unknown, 09/02/16) Subjective Denied hallucination, endorses anxiety. Objective Last 24 Hour Vital Signs Date Time Temp Pulse Resp B/P (MAP) Pulse Ox O2 Delivery O2 Flow Rate FiO2 12/04/16 12:45 77 129/82 12/04/16 12:00 98.6 77 20 129/82 99 Room Air 12/04/16 09:51 73 128/80 12/04/16 07:37 98.2 73 18 128/80 95 Room Air 12/04/16 04:22 97.9 65 18 150/86 98 Room Air 12/04/16 00:00 97.7 66 19 126/71 100 Room Air 12/03/16 22:17 71 122/69 12/03/16 20:48 97.9 71 18 122/69 99 Room Air 12/03/16 17:19 95 117/69 12/03/16 16:00 97.7 95 19 117/69 95 Room Air Height (Feet): 5 Height (Inches): 7.00 Weight (Pounds): 250 General Appearance: no apparent distress, alert Neurologic: alert, oriented x 3, responsive, depressed affect Oliva Licona M.D. Dec 04, 2016 14:43
--- NOTE | 2016-12-04 16:18 | Cardiology Progress Note ---
Assessment/Plan Assessment/Plan 1. Non-cardiac chest pain. 2. HTN, continue propranolol. 3. Portal HTN. 4. GI bleed. 5. Alcohol liver disease. 6. DC planning Subjective Subjective No cardiac events noted. Denies chest pain or SOB. Objective Last 24 Hour Vital Signs Date Time Temp Pulse Resp B/P (MAP) Pulse Ox O2 Delivery O2 Flow Rate FiO2 12/04/16 12:45 77 129/82 12/04/16 12:00 98.6 77 20 129/82 99 Room Air 12/04/16 09:51 73 128/80 12/04/16 07:37 98.2 73 18 128/80 95 Room Air 12/04/16 04:22 97.9 65 18 150/86 98 Room Air 12/04/16 00:00 97.7 66 19 126/71 100 Room Air 12/03/16 22:17 71 122/69 12/03/16 20:48 97.9 71 18 122/69 99 Room Air 12/03/16 17:19 95 117/69 Objective HEENT: Atraumatic and normocephalic. Periorbital edema. Pupils are equal, round, and reactive to light and accommodation. Conjunctival pallor is seen. NECK: JVP is less than 5 cm. No carotid bruits. Carotid upstrokes 2+ bilaterally. CARDIOVASCULAR: Normal S1 and S2. Regular rate and rhythm. No murmurs, gallops, or rubs. PMI is at fourth intercostal space in the midclavicular line. LUNGS: Clear to auscultation bilaterally. ABDOMEN: Soft, nontender, and nondistended. No hepatosplenomegaly. Positive bowel sounds. EXTREMITIES: There is 1 to 2+ bilateral lower extremity edema. JUAN BONE Dec 04, 2016 16:18
--- NOTE | 2016-12-04 20:53 | General Progress Note ---
Assessment/Plan Assessment/Plan ASSESSMENT AND PLAN: 1. Pancytopenia. ---> wbc count oscillating ---> Does not require bone marrow biopsy at this time. --->Hemoglobin goal above 7 and platelets goal above 20,000. Continue to monitor counts 2. Rule out gastrointestinal bleed, occult blood is pending at this time. --> iron panel has been reviewed 3. Coagulopathy, likely secondary to underlying cirrhosis --->Continue to closely monitor and administer vitamin K if the patient is bleeding. 4. Esophageal varices, status post banding. --> will require egd and more banding in 2 weeks Subjective Constitutional: Reports: no symptoms HEENT: Reports: no symptoms Cardiovascular: Reports: no symptoms Respiratory: Reports: no symptoms Gastrointestinal/Abdominal: Reports: no symptoms Genitourinary: Reports: no symptoms Neurologic/Psychiatric: Reports: no symptoms Endocrine: Reports: no symptoms Hematologic/Lymphatic: Reports: anemia Allergies: Coded Allergies: NO KNOWN ALLERGIES (Verified Allergy, Unknown, 09/02/16) Subjective feels good enough to go home no events overnight ambulating Objective Last 24 Hour Vital Signs Date Time Temp Pulse Resp B/P (MAP) Pulse Ox O2 Delivery O2 Flow Rate FiO2 12/04/16 12:45 77 129/82 12/04/16 12:00 98.6 77 20 129/82 99 Room Air 12/04/16 09:51 73 128/80 12/04/16 07:37 98.2 73 18 128/80 95 Room Air 12/04/16 04:22 97.9 65 18 150/86 98 Room Air 12/04/16 00:00 97.7 66 19 126/71 100 Room Air 12/03/16 22:17 71 122/69 Height (Feet): 5 Height (Inches): 7.00 Weight (Pounds): 250 General Appearance: no apparent distress EENT: normal ENT inspection Neck: normal inspection Cardiovascular: normal peripheral pulses Respiratory/Chest: chest wall non-tender Neurologic: button sewer II-XII grossly normal Skin: warm/dry Clark Cooper Dec 04, 2016 20:53
[2016-12-05] MEDS ORDERED: PROPRANOLOL HCL20 MG ORAL (12:01)
[2016-12-05] MEDS ORDERED: VITAMIN B-1100 MG ORAL (12:01)
--- NOTE | 2016-12-05 12:10 | Discharge Summary ---
Discharge Summary Hospital Course Date of Admission Nov 29, 2016 at 04:39 Date of Discharge Dec 04, 2016 at 15:27 Admitting Diagnosis ACUTE CORONARY SYNDROME HPI Darryl Gleason is a 46 year old male who was admitted on Nov 29, 2016 at 04:39 for Acute Coronary Syndrome Hospital Course dc summary #[id number] Discharge Medications New Medications: Propranolol Hcl* (Inderal*) 20 Mg Tablet 20 MG ORAL QID, #120 TAB 0 Refills Thiamine Hcl* (Vitamin B-1*) 100 Mg Tablet 100 MG ORAL DAILY, #30 TAB 0 Refills Continued Medications: Ferrous Sulfate* (Ferrous Sulfate*) 325 Mg Tablet 325 MG ORAL THREE TIMES A DAY, #90 TAB 0 Refills No Known Medications* (NKM - No Known Medications*) . 0 ., 0 Refills Pantoprazole* (Protonix*) 40 Mg Tablet.dr 40 MG ORAL DAILY, #90 TAB Pentoxifylline* (Trental*) 400 Mg Tablet.er 400 MG ORAL THREE TIMES A DAY, #90 TAB 0 Refills Discharge Condition Upon Discharge: stable Discharge Disposition Patient was discharged to Home () Discharge Diagnoses: Discharge Instructions Discharge Instructions Special Instructions I have been assigned to complete a D/C Summary on this account. I was not involved in the patient management Merna Zamudio NP (Vanchtein) Dec 05, 2016 12:10
--- NOTE | 2016-12-06 12:40 | Discharge Summary 2 SIG ---
DATE OF ADMISSION: 11/29/2016 DATE OF DISCHARGE: 12/04/2016 Reason For Admission: 46-year-old male with known history of alcohol abuse presented with complaints of epigastric pain radiating to midsternum and causing chest pain. The patient had cough and felt weak. He was at [facility] prior to arrival here. He reported waiting for a long time and presented in [place] ED after calling 911. Pain was described as epigastric, midsternal and burning. He denied any diarrhea, but felt nauseous and vomiting. The patient was a poor historian. Workup in the ER revealed stable vital signs. Pulse oximetry was stable on room air. No fever. Slightly elevated blood pressure -158/82. No leukocytosis. Anemia: hemoglobin- 9.8, hematocrit -34.9, and platelets- 59,000. INR -1.1. Electrolytes unremarkable. Total bilirubin -1.2. Direct bilirubin -0.5. AST- 86 and ALT -27. CK -428. Troponin was negative. ProBNP- 25. Lipase -44. EKG revealed normal sinus rhythm with nonspecific ST and T-wave changes. No PVC. No ectopy. Chest x-ray revealed no pneumothorax and left lower lobe atelectasis. The patient was admitted for further management. The patient with known history of alcohol abuse. ADMITTING DIAGNOSES: 1. Chest pain, 2. Epigastric pain 3. Thrombocytopenia. 4. History of gastrointestinal bleeding. 5. Transaminitis. 6. Alcohol abuse. Hospital Course: The patient was admitted. GI consult and Cardiology consult were requested urgently. The patient was initially on telemetry floor. Per Cardiology, chest pain was noncardiac. Pro BNP was within normal limits. No acute ischemic changes on EKG. First troponin was negative. The patient had no clinical evidence of heart failure. Chest pain was radiating from the epigastric area , area where the patient's pain and discomfort was. Cement Despatch Operator stated that the patient could be safely transferred to non-telemetry floor. The patient had some prolongation of QT interval on EKG. Magnesium level was checked and was within normal limits -1.8. GI consult subsequently was called. The patient had undergone upper endoscopy with banding of esophageal varices, which were found during the procedure and biopsy. The procedure findings included: esophageal varices demonstrated by endoscopy with banding of esophageal varices and portal hypertensive gastropathy, status post biopsy. The patient was started on propranolol and titrate further as needed. GI recommended repeat EGD in two weeks for additional banding. The patient was on PPI twice a day . Patient was started on soft diet as tolerated. Thiamine was started. Hemoglobin and hematocrit were closely monitored. Gastric biopsy revealed no evidence of H. pylori. No evidence of metaplasia. The patient was counseled on abstinence form alcohol. Ammonia level -39. CEA was elevated - 6.1. However, at this time, due to the esophageal banding and increased risk for bleeding, the patient was not a candidate for colonoscopy. Colonoscopy was advised in future . Telegraphic Typewriter Operator Chief seen the patient due to the pancytopenia with WBC- 3.7, hemoglobin-8.9, hematocrit -31.2, and platelets -45,000. He concluded that pancytopenia was probably likely due to the alcohol abuse. WBC was trending up. The patient did not require any bone marrow biopsy at that time as per lube technician. The goals were for hemoglobin to be above 7 and platelets above 20,000. The latest hemoglobin -10.2, hematocrit -31.2, and platelets- 73,000. The patient had some coagulopathy and it was likely secondary to underlying cirrhosis. Telegraphic Typewriter Operator Chief recommended to closely monitor and administer vitamin K if bleeding. The latest INR -1.1. Psychiatrist had seen and evaluated the patient, diagnosed him with anxiety disorder, alcohol dependency, and started him on Prozac. Psychiatrist recommended to strongly consider Antabuse after discharge. The patient was stable for discharge. DISCHARGE DIAGNOSES: 1. Esophageal varices, determined by endoscopy. 2. Status post esophagogastroduodenoscopy with biopsy and banding of esophageal varices. 3. Portal hypertensive gastropathy, status post biopsy. 4. Cirrhosis. 5. Anemia. 6. Alcohol dependency. 7. Anxiety disorder. 8. Pancytopenia. 9. Coagulopathy. DISCHARGE MEDICATIONS: See medication reconciliation list. Discharge Instructions: The patient was discharged home. Follow up with the primary medical doctor and GI. Etta Fang M.D. I have been assigned to dictate discharge summary on this account and I was not involved in the patient's management. Merna Zamudio N.P. (Vanchtein) DR: Ignacio JOB#: [id number] CC: KEVIN
== END 2016-12-04 15:27 | disposition home or self-care (01) | DRG 950 ==
LOC: EMR 02:52 → 2E 04:39 → EDBEDREQ 06:20 → 3E 23:13
PROC: 06L34CZ Occlusion of Esophageal Vein with Extraluminal Device, Percutaneous Endoscopic Approach (ICD-10-PCS; principal; 2016-11-29 10:30)
PROC: 0DB78ZX Excision of Stomach, Pylorus, Via Natural or Artificial Opening Endoscopic, Diagnostic (ICD-10-PCS; 2016-11-29 10:30)
DX: K76.6 Portal hypertension (principal); D61.818 Other pancytopenia; D68.4 Acquired coagulation factor deficiency; I85.10 Secondary esophageal varices without bleeding; K31.89 Other diseases of stomach and duodenum; K70.30 Alcoholic cirrhosis of liver without ascites; D64.9 Anemia, unspecified; R07.89 Other chest pain; I10 Essential (primary) hypertension; F10.20 Alcohol dependence, uncomplicated; F41.9 Anxiety disorder, unspecified
CPT/HCPCS: 36415; 71010; 80053; 80300; 82140; 82248; 82378; 82550; 82553; 82607; 82728; 82746; 83090; 83540; 83550; 83615; 83690; 83735; 83880; 84100; 84443; 84484; 85007; 85025; 85044; 85060; 85610; 85730; 87040; 93005; 93970; 94003; 94150; 99285; J2405

== ENCOUNTER 2017-01-25 00:02 | Emergency (ER) | payer MEDICAID ==
[~2017-01-25] VITALS: Ht 170.2 cm; Wt 113.4 kg
[~2017-01-25 00:02] MED LIST changes: +PROPRANOLOL HCL20 MG ORAL; +VITAMIN B-1100 MG ORAL
[2017-01-25 00:16] VITALS: BP 146/85
[2017-01-25] MEDS ORDERED: SILVADENE20 GM TP (00:30)
[2017-01-25] MEDS ORDERED: Norco 5mg/325mg tab ORAL ONE (00:30)
[2017-01-25] MEDS ORDERED: IBUPROFEN600 MG ORAL (00:30)
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
[2017-01-25 00:38] VITALS: BP 146/85
== END 2017-01-25 00:40 | disposition home or self-care (01) ==
LOC: EMR 00:22
DX: T23.231A Burn of second degree of multiple right fingers (nail), not including thumb, initial encounter (principal); X17.XXXA Contact with hot engines, machinery and tools, initial encounter; Y92.89 Other specified places as the place of occurrence of the external cause; E11.9 Type 2 diabetes mellitus without complications; I10 Essential (primary) hypertension
CPT/HCPCS: 16020; 99283; Z7502

== ENCOUNTER 2017-02-06 21:45 | Inpatient (IN) | payer MEDICAID ==
[~2017-02-06] VITALS: Ht 170.2 cm; Wt 112.9 kg
[~2017-02-06 21:45] MED LIST changes: +IBUPROFEN600 MG ORAL; +SILVADENE20 GM TP
[2017-02-06 22:09] VITALS: BP 157/81
[2017-02-06 22:59] LABS: MEAN CORPUSCULAR HEMOGLOBIN 19.8 PG (27.0-31.0); MEAN CORPUSCULAR HGB CONC 27.2 G/DL (32.0-36.0); MEAN CORPUSCULAR VOLUME 73 FL (80-99); MEAN PLATELET VOLUME 7.7 FL (6.5-10.1); PLATELET COUNT 66 K/UL (150-450); RED BLOOD COUNT 4.43 M/UL (4.70-6.10); RED CELL DISTRIBUTION WIDTH 19.4 % (11.6-14.8)
[2017-02-06] MEDS ORDERED: Aspirin Baby 81mg ORAL ONE (23:00)
[2017-02-06 23:05] LABS: ANION GAP 8 mmol/L (5-15); CARBON DIOXIDE 26 MMOL/L (21-32); CHLORIDE 106 MMOL/L (98-107); CREATININE 0.8 MG/DL (0.55-1.30); GLOMERULAR FILTRATION RATE > 60 mL/min (>60); POTASSIUM 3.6 MMOL/L (3.5-5.1); SODIUM 140 MMOL/L (136-145)
[2017-02-06 23:16] LABS: ANISOCYTOSIS 2+; BASOPHILS % (MANUAL) 1 % (0-2); EOSINOPHILS % (MANUAL) 3 % (0-3); HYPOCHROMASIA 2+; LYMPHOCYTES % (MANUAL) 32 % (20-45); NEUTROPHILS % (MANUAL) 53 % (45-75); TOTAL CELLS COUNTED 100
[2017-02-06 23:17] LABS: TARGET CELLS 1+
[2017-02-06 23:18] LABS: ALANINE AMINOTRANSFERASE 43 U/L (12-78); ALBUMIN/GLOBULIN RATIO 0.6 (1.0-2.7); ASPARTATE AMINO TRANSFERASE 90 U/L (15-37); BAND NEUTROPHILS % (MANUAL) 0 % (0-8); CKMB 4.8 NG/ML (0.0-3.6); DIGOXIN < 0.2 NG/ML (0.5-2.0); LIPASE 260 U/L (73-393); MICROCYTES 1+; PLATELET ESTIMATE DECREASED; PLATELET MORPHOLOGY NORMAL; TOTAL PROTEIN 8.2 G/DL (6.4-8.2)
[2017-02-06 23:44] VITALS: BP 143/84
[2017-02-07] VITALS (7 sets, daily range): BP systolic 115–149; BP diastolic 74–96
[2017-02-07] MEDS ORDERED: Pantoprazole Inj IVP ONE (01:15)
--- NOTE | 2017-02-07 03:27 | Emergency Room Report ---
History of Present Illness General Chief Complaint: Chest Pain Source: Patient Present Illness HPI Patient is a 46-year-old male brought in by self after increased chest pain. Patient prior history of cirrhosis. The patient had reportedly been drinking small amount of alcohol earlier in the day. The patient stated that he was having some chest pain associated with some difficulty breathing. He reported having sharp sensation in the center of his chest. He denies any fever or cough. The patient had prior history of esophageal varices as well as alcohol abuse. The patient been previously admitted Dr. Fang Allergies: Coded Allergies: NO KNOWN ALLERGIES (Verified Allergy, Unknown, 01/25/17) Patient History Past Medical History: see triage record Reviewed Nursing Documentation: PMH: Agreed, PSxH: Agreed Nursing Documentation-PMH Hx Cardiac Problems: No Hx Hypertension: Yes Hx Asthma: No - blood clot rt lung /anemia Hx Diabetes: Yes Hx Cancer: No Hx Gastrointestinal Problems: Yes - GI bleed Hx Neurological Problems: No Review of Systems All Other Systems: limited - by poor historian Physical Exam Vital Signs Date Time Temp Pulse Resp B/P (MAP) Pulse Ox O2 Delivery O2 Flow Rate FiO2 02/06/17 21:52 98.2 114 18 140/92 98 Room Air Sp02 EP Interpretation: reviewed, normal General Appearance: normal inspection, alert, GCS 15, mild distress, obese, Chronically Ill Head: atraumatic Eyes: bilateral eye EOMI ENT: normal ENT inspection, hearing grossly normal, normal voice Neck: normal inspection, full range of motion, supple, no bony tend Respiratory: normal inspection, lungs clear, normal breath sounds, no respiratory distress, no retraction, no wheezing Cardiovascular #1: regular rate, rhythm, edema - moderate Gastrointestinal: normal inspection, normal bowel sounds, non tender, soft, no guarding, no hernia Genitourinary: no CVA tenderness Musculoskeletal: normal inspection, back normal, normal range of motion Neurologic: normal inspection, alert, oriented x3, responsive, ruling technician III-XII nml as tested, speech normal Psychiatric: normal inspection, judgement/insight normal, mood/affect normal Skin: normal inspection, normal color, no rash Medical Decision Making Diagnostic Impression: Primary Impression: Cirrhosis Additional Impressions: Anemia Esophageal varices determined by endoscopy ER Course Patient presented for chest pain. Differential diagnosis included but was not limited to acute coronary syndrome, pulmonary embolism, pneumonia, aortic dissection, shingles, pneumothorax, aortic dissection, esophageal rupture, pericarditis. Because of complexity of patient's case laboratory testing and imaging studies were ordered. The patient was given aspirin on initial presentation due to character of chest pain. The patient subsequently noted be thrombocytopenic. laboratory testing was also notable for anemia. Patient recently hospitalized and noted to have hemoglobin which was somewhat higher than current levels. The patient was type and screened for blood. He was given IV Protonix. Dr. Etta Fang was contacted for inpatient management. EKG Diagnostic Results Rate: tachycardiac Rhythm: NSR ST Segments: no acute changes ASA given to the pt in ED: Yes Rhythm Strip Diag. Results EP Interpretation: yes Rhythm: NSR, no PVC's, no ectopy Chest X-Ray Diagnostic Results Chest X-Ray Diagnostic Results : Chest X-Ray Ordered: Yes # of Views/Limited/Complete: 1 View Indication: Chest Pain EP Interpretation: Yes Interpretation: no consolidation, no effusion, no pneumothorax, no acute cardiopulmonary disease Impression: No acute disease Electronically Signed by: Electronically signed by Dr. Jason Guevara M.D. Last Vital Signs Date Time Temp Pulse Resp B/P (MAP) Pulse Ox O2 Delivery O2 Flow Rate FiO2 02/07/17 03:14 98.2 89 19 130/88 99 Room Air Status: unchanged Disposition: ADMITTED INPATIENT Condition: Serious Referrals: NOT CHOSEN RUMA/,REFERRING (PCP) Jason Guevara Feb 07, 2017 03:27
--- NOTE | 2017-02-07 08:49 | Cardiology Progress Note ---
Assessment/Plan Assessment/Plan The patient is seen and examined, full consult note will be dictated. Objective Last 24 Hour Vital Signs Date Time Temp Pulse Resp B/P (MAP) Pulse Ox O2 Delivery O2 Flow Rate FiO2 02/07/17 08:00 97.5 91 20 149/80 96 Room Air 02/07/17 07:27 89 02/07/17 04:40 88 02/07/17 04:03 98.1 95 20 136/75 98 Room Air 02/07/17 03:14 98.2 89 19 130/88 99 Room Air 02/07/17 02:51 98.2 89 19 130/88 99 Room Air 02/07/17 01:47 98.2 84 28 128/75 95 Room Air 02/06/17 23:44 98.2 98 24 143/84 94 Room Air 02/06/17 22:09 98.2 104 18 157/81 96 Room Air 02/06/17 22:09 104 18 Room Air 02/06/17 21:52 98.2 114 18 140/92 98 Room Air Laboratory Tests Test 02/06/17 22:04 02/06/17 23:11 White Blood Count 4.0 K/UL (4.8-10.8) L Red Blood Count 4.43 M/UL (4.70-6.10) L Hemoglobin 8.8 G/DL (14.2-18.0) L Hematocrit 32.3 % (42.0-52.0) L Mean Corpuscular Volume 73 FL (80-99) L Mean Corpuscular Hemoglobin 19.8 PG (27.0-31.0) L Mean Corpuscular Hemoglobin Concent 27.2 G/DL (32.0-36.0) L Red Cell Distribution Width 19.4 % (11.6-14.8) H Platelet Count 66 K/UL (150-450) L Mean Platelet Volume 7.7 FL (6.5-10.1) Neutrophils (%) (Auto) % (45.0-75.0) Lymphocytes (%) (Auto) % (20.0-45.0) Monocytes (%) (Auto) % (1.0-10.0) Eosinophils (%) (Auto) % (0.0-3.0) Basophils (%) (Auto) % (0.0-2.0) Differential Total Cells Counted 100 Neutrophils % (Manual) 53 % (45-75) Lymphocytes % (Manual) 32 % (20-45) Monocytes % (Manual) 11 % (1-10) H Eosinophils % (Manual) 3 % (0-3) Basophils % (Manual) 1 % (0-2) Band Neutrophils 0 % (0-8) Platelet Estimate Decreased L Platelet Morphology Normal Hypochromasia 2+ Anisocytosis 2+ Microcytosis 1+ Target Cells 1+ Sodium Level 140 MMOL/L (136-145) Potassium Level 3.6 MMOL/L (3.5-5.1) Chloride Level 106 MMOL/L (98-107) Carbon Dioxide Level 26 MMOL/L (21-32) Anion Gap 8 mmol/L (5-15) Blood Urea Nitrogen 7 mg/dL (7-18) Creatinine 0.8 MG/DL (0.55-1.30) Estimat Glomerular Filtration Rate > 60 mL/min (>60) Glucose Level 120 MG/DL (74-106) H Calcium Level 8.0 MG/DL (8.5-10.1) L Total Bilirubin 0.5 MG/DL (0.2-1.0) Aspartate Amino Transf (AST/SGOT) 90 U/L (15-37) H Alanine Aminotransferase (ALT/SGPT) 43 U/L (12-78) Alkaline Phosphatase 153 U/L (46-116) H Total Creatine Kinase 497 U/L (26-308) H Creatine Kinase MB 4.8 NG/ML (0.0-3.6) H Creatine Kinase MB Relative Index 0.9 Troponin I 0.008 ng/mL (0.000-0.056) Pro-B-Type Natriuretic Peptide 15 pg/mL (0-125) Total Protein 8.2 G/DL (6.4-8.2) Albumin 3.0 G/DL (3.4-5.0) L Globulin 5.2 g/dL Albumin/Globulin Ratio 0.6 (1.0-2.7) L Lipase 260 U/L (73-393) Digoxin Level < 0.2 NG/ML (0.5-2.0) L Urine Opiates Screen Negative (NEGATIVE) Urine Barbiturates Screen Negative (NEGATIVE) Phencyclidine (PCP) Screen Negative (NEGATIVE) Urine Amphetamines Screen Negative (NEGATIVE) Urine Benzodiazepines Screen Negative (NEGATIVE) Urine Cocaine Screen Negative (NEGATIVE) Urine Marijuana (THC) Screen Negative (NEGATIVE) JUAN BONE Feb 07, 2017 08:49
--- NOTE | 2017-02-07 09:30 | Diagnostic Imaging Report ---
Clinical Indication: Abdominal pain Technique: No oral contrast utilized, per emergency room physician request IV administration nonionic contrast. Venous phase spiral acquisition obtained through the abdomen and pelvis. Multiplanar reconstructions were generated. Total dose length product 1086 mGycm. CTDIvol(s) 18 mGy. Dose reduction achieved using automated exposure control Comparison: None. Reference made to abdominal ultrasound dated 09/02/2016 Findings: The appendix is normal. There is colonic diverticulosis. No evidence of diverticulitis. No small bowel distention. No free or loculated intraperitoneal air or fluid is evident. The liver is hypoattenuating. It also demonstrates surface nodularity. No focal abnormalities. Anterior abdominal small varices are demonstrated, as well as questionable periesophageal varices. The gallbladder is nondistended. No biliary ductal dilatation. The pancreas is unremarkable. The spleen is enlarged, measuring 19 cm long axis dimension. The adrenals and kidneys are unremarkable. There are prominent but not frankly enlarged mesenteric root and retroperitoneal lymph nodes. The bladder is nondistended. No pelvic mass or adenopathy. Normal prostate. There is some scarring at the left lung base. There is a pleural-based 6 mm nodular opacity left lung base. There is some scarring at the right lung base as well. The bones are unremarkable. Impression: No acute abnormality Evidence of hepatic cirrhosis, with hepatomegaly, surface nodularity. Evidence of portal hypertension, with splenomegaly and small varices. Diverticulosis. No evidence of diverticulitis Prominent but not frankly enlarged mesenteric root and retroperitoneal lymph nodes 6 mm left pleural-based nodular opacity, nonspecific. Consider followup CT in 6-12 months Bilateral basilar pulmonary probable scarring This agrees with the preliminary interpretation provided overnight by [facility] teleradiology service. The CT scanner at [facility] is accredited by the [employer] and the scans are performed using protocols designed to limit radiation exposure to as low as reasonably achievable to attain images of sufficient resolution adequate for diagnostic evaluation.
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
[2017-02-07] MEDS: Thiamine 100mg tab ORAL SCH (09:52)
[2017-02-07] MEDS: Propranolol 40mg tab ORAL SCH ×2 (09:52→14:18)
--- NOTE | 2017-02-07 11:45 | Diagnostic Imaging Report ---
Indication: PAIN chest pain Technique: One view of the chest Comparison: 11/29/2016 Findings: Body habitus limits evaluation. The heart is enlarged. Lungs and pleural spaces are grossly clear. Previously demonstrated left lower lung opacity is no longer evident Impression: Cardiomegaly No definite acute process
--- NOTE | 2017-02-07 12:32 | GI Initial Consult Note ---
History of Present Illness General Date patient seen: Feb 07, 2017 Time patient seen: 12:12 Reason for Hospitalization: Chest Pain Referring physician: GEETHA Fang Reason for Consultation: CIRRHOSIS Present Illness HPI Patient is a 46-year-old male brought in by self after increased chest pain. Patient prior history of cirrhosis. The patient had reportedly been drinking small amount of alcohol earlier in the day. The patient stated that he was having some chest pain associated with some difficulty breathing. He reported having sharp sensation in the center of his chest. He denies any fever or cough. The patient had prior history of esophageal varices as well as alcohol abuse. The patient been previously admitted Dr. Fang. GI consulted for cirrhosis/hx of EV. HPI as noted above. Pt seen on floor, awake A&Ox4 NAD with no active s/sx of N/V/D. Patient had original complaint of chest/abdomen pain which has now subsided. Patient had upper endoscopy here at [place] in November with diagnosis of esophageal varices and needed rebanding in two weeks which was never done. He admits to having drank alcohol recently but will not admit to how much. Denies any hematemesis/coffee grounds/ melena or hematochezia. Denies any unintentional weight loss or changes in dietary habits. Home Meds Active Scripts Ibuprofen* (MOTRIN*) 600 Mg Tablet, 600 MG ORAL THREE TIMES A DAY, #30 TAB 0 Refills Prov:ARA NAM M.D. 01/25/17 Silver Sulfadiazine (SILVADENE) 20 Gm Cream..g., 20 GM TP BID, #20 GM Prov:ARA NAM M.D. 01/25/17 Thiamine Hcl* (VITAMIN B-1*) 100 Mg Tablet, 100 MG ORAL DAILY, #30 TAB 0 Refills Prov:Robb (Merna Chen NP 12/05/16 Propranolol Hcl* (INDERAL*) 20 Mg Tablet, 20 MG ORAL QID, #120 TAB 0 Refills Prov:Merna Zamudio NP (Vanchtein) 12/05/16 Reported Medications Ferrous Sulfate* (FERROUS SULFATE*) 325 Mg Tablet, 325 MG ORAL THREE TIMES A DAY , #90 TAB 0 Refills 09/06/16 Pentoxifylline* (TRENTAL*) 400 Mg Tablet.er, 400 MG ORAL THREE TIMES A DAY, #90 TAB 0 Refills 09/06/16 Pantoprazole* (PROTONIX*) 40 Mg Tablet.dr, 40 MG ORAL DAILY, #90 TAB 09/06/16 No Known Medications* (NKM - No Known Medications*) ., 0 ., 0 Refills 09/02/16 Med list reviewed/reconciled: Yes Allergies: Coded Allergies: NO KNOWN ALLERGIES (Verified Allergy, Unknown, 01/25/17) Patient History History Provided By: Patient, Medical Record PMH Narrative Past Medical History: see triage record Reviewed Nursing Documentation: PMH: Agreed, PSxH: Agreed Nursing Documentation-PMH Hx Cardiac Problems: No Hx Hypertension: Yes Hx Asthma: No - blood clot rt lung /anemia Hx Diabetes: Yes Hx Cancer: No Hx Gastrointestinal Problems: Yes - GI bleed Hx Neurological Problems: No Social History: Reports: alcohol use - abuse Review of Systems All Other Systems: limited Physical Exam Vital Signs Date Time Temp Pulse Resp B/P (MAP) Pulse Ox O2 Delivery O2 Flow Rate FiO2 02/06/17 21:52 98.2 114 18 140/92 98 Room Air Sp02 EP Interpretation: reviewed, normal Labs Laboratory Tests Test 02/06/17 22:04 02/06/17 23:11 02/07/17 10:45 White Blood Count 4.0 K/UL (4.8-10.8) L Red Blood Count 4.43 M/UL (4.70-6.10) L Hemoglobin 8.8 G/DL (14.2-18.0) L Hematocrit 32.3 % (42.0-52.0) L Mean Corpuscular Volume 73 FL (80-99) L Mean Corpuscular Hemoglobin 19.8 PG (27.0-31.0) L Mean Corpuscular Hemoglobin Concent 27.2 G/DL (32.0-36.0) L Red Cell Distribution Width 19.4 % (11.6-14.8) H Platelet Count 66 K/UL (150-450) L Mean Platelet Volume 7.7 FL (6.5-10.1) Neutrophils (%) (Auto) % (45.0-75.0) Lymphocytes (%) (Auto) % (20.0-45.0) Monocytes (%) (Auto) % (1.0-10.0) Eosinophils (%) (Auto) % (0.0-3.0) Basophils (%) (Auto) % (0.0-2.0) Differential Total Cells Counted 100 Neutrophils % (Manual) 53 % (45-75) Lymphocytes % (Manual) 32 % (20-45) Monocytes % (Manual) 11 % (1-10) H Eosinophils % (Manual) 3 % (0-3) Basophils % (Manual) 1 % (0-2) Band Neutrophils 0 % (0-8) Platelet Estimate Decreased L Platelet Morphology Normal Hypochromasia 2+ Anisocytosis 2+ Microcytosis 1+ Target Cells 1+ Sodium Level 140 MMOL/L (136-145) Potassium Level 3.6 MMOL/L (3.5-5.1) Chloride Level 106 MMOL/L (98-107) Carbon Dioxide Level 26 MMOL/L (21-32) Anion Gap 8 mmol/L (5-15) Blood Urea Nitrogen 7 mg/dL (7-18) Creatinine 0.8 MG/DL (0.55-1.30) Estimat Glomerular Filtration Rate > 60 mL/min (>60) Glucose Level 120 MG/DL (74-106) H Calcium Level 8.0 MG/DL (8.5-10.1) L Total Bilirubin 0.5 MG/DL (0.2-1.0) Aspartate Amino Transf (AST/SGOT) 90 U/L (15-37) H Alanine Aminotransferase (ALT/SGPT) 43 U/L (12-78) Alkaline Phosphatase 153 U/L (46-116) H Total Creatine Kinase 497 U/L (26-308) H Creatine Kinase MB 4.8 NG/ML (0.0-3.6) H Creatine Kinase MB Relative Index 0.9 Troponin I 0.008 ng/mL (0.000-0.056) 0.006 ng/mL (0.000-0.056) Pro-B-Type Natriuretic Peptide 15 pg/mL (0-125) Total Protein 8.2 G/DL (6.4-8.2) Albumin 3.0 G/DL (3.4-5.0) L Globulin 5.2 g/dL Albumin/Globulin Ratio 0.6 (1.0-2.7) L Lipase 260 U/L (73-393) Digoxin Level < 0.2 NG/ML (0.5-2.0) L Urine Opiates Screen Negative (NEGATIVE) Urine Barbiturates Screen Negative (NEGATIVE) Phencyclidine (PCP) Screen Negative (NEGATIVE) Urine Amphetamines Screen Negative (NEGATIVE) Urine Benzodiazepines Screen Negative (NEGATIVE) Urine Cocaine Screen Negative (NEGATIVE) Urine Marijuana (THC) Screen Negative (NEGATIVE) General Appearance: well appearing, no apparent distress, alert, obese Head: normocephalic EENT: PERRL/EOMI, normal ENT inspection Neck: supple Respiratory: normal breath sounds, no respiratory distress Cardiovascular: normal rate Gastrointestinal: normal inspection, non tender, soft, normal bowel sounds, non -distended Rectal: deferred Genitourinary: deferred Musculoskeletal: normal inspection, back normal Neurologic: normal inspection, alert, oriented x3, responsive Psychiatric: normal inspection, judgement/insight normal, memory normal Skin: normal inspection, normal color, no rash, warm/dry, palpation normal, well hydrated Lymphatic: normal inspection, no adenopathy Current Medications Current Medications Medications (Trade) Dose Ordered Sig/Nikhil Route PRN Reason Start Time Stop Time Status Last Admin Dose Admin Ferrous Sulfate (Feosol) 325 mg THREE TIMES A DAY ORAL 02/07/17 09:00 03/09/17 08:59 02/07/17 09:52 Ibuprofen (Advil) 600 mg THREE TIMES A DAY ORAL 02/07/17 09:00 03/09/17 08:59 Ondansetron HCl (Zofran) 4 mg EVERY 8 HOURS PRN IVP Nausea & Vomiting 02/07/17 09:15 03/09/17 09:14 Pantoprazole (Protonix) 40 mg DAILY ORAL 02/07/17 09:00 03/09/17 08:59 02/07/17 09:52 Pentoxifylline (TRENtal) 400 mg THREE TIMES A DAY ORAL 02/07/17 09:00 03/09/17 08:59 02/07/17 09:52 Propranolol HCl (Inderal) 20 mg QID ORAL 02/07/17 09:00 03/09/17 08:59 02/07/17 09:52 Thiamine HCl (Vitamin B1) 100 mg DAILY ORAL 02/07/17 09:00 03/09/17 08:59 02/07/17 09:52 GI: Plan Problems: (1) Chest pain (2) Cirrhosis (3) Esophageal varices determined by endoscopy (4) Anemia (5) ETOH abuse Plan SUMMARY OF FINDINGS: 1. Esophageal varices status post banding x5. 2. Portal hypertensive gastropathy, status post biopsy. RECOMMENDATIONS: EGD once cleared by cardiology monitor H&H, prn transfusions ppi propranolol, monitor parameters OB stool r/o GI bleed bowel regime adv to cardiac diet fu labs Discussed with Dr. Weber. Thank you for this patient referral, we will follow. Lorna Nam N.P. Feb 07, 2017 12:32
--- NOTE | 2017-02-07 15:56 | Cardiology Report ---
APPROVED REPORT EXAM: Two-dimensional and M-mode echocardiogram with Doppler and color Doppler. INDICATION Congestive Heart Failure M-Mode DIMENSIONS IVSd1.4 (0.7-1.1cm)Left Atrium (MM)4.1 (1.6-4.0cm) LVDd3.2 (3.5-5.6cm)Aortic Root3.5 (2.0-3.7cm) PWd1.2 (0.7-1.1cm)Aortic Cusp Exc.2.4 (1.5-2.0cm) LVDs1.1 (2.5-4.0cm) PWs1.8 cm Technically difficult study due to poor parasternal acoustical windows. Study quality precludes accurate assessment of regional wall motion. Normal left ventricular chamber size, systolic function and wall motion. Left ventricular ejection fraction estimated to be 55 %. Mild left ventricular hypertrophy. Anterior Echo-free space, may be due to pericardial fat or effusion. Moderate left atrial enlargement. Mild right atrial enlargement. Mild right ventricular enlargement. Mild focal aortic valve sclerosis with adequate cusp excursion. Thickened mitral valve leaflets with normal excursion. Mild mitral annulus and aortic root calcification. Pulmonic valve not well visualized. Normal tricuspid valve structure. Subcostal views not obtainable due to patient body habitus. A color flow and spectral Doppler study was performed and revealed: No aortic regurgitation. Mild mitral regurgitation. Mitral diastolic velocities suggest reduced left ventricular relaxation c/w mild LV diastolic dysfunction (Grade I ). Trace tricuspid regurgitation. Tricuspid systolic velocities suggests peak right ventricular systolic pressure of 11 mmHg. Trace pulmonic regurgitation present.
--- NOTE | 2017-02-07 16:24 | Cardiology Report ---
APPROVED REPORT EKG Measurement Heart [id number] Sinus tachycardia Otherwise normal ECG
[2017-02-07] MEDS: Propranolol 10mg tab ORAL SCH ×2 (17:54→20:56)
--- NOTE | 2017-02-07 21:00 | Consultation ---
Consult Note Consult Note DATE OF CONSULTATION: 02/07/17 HEMATOLOGY/ONCOLOGY CONSULTATION CONSULTING PHYSICIAN: Clark Cooper M.D. REQUESTING PHYSICIAN: Etta Fang M.D. REASON FOR CONSULTATION: Evaluation of pancytopenia as well as coagulopathy. IDENTIFICATION DATA: Dear Dr. Etta Fang, The patient is a pleasant 46-year-old male with past medical history significant for history of alcohol-induced cirrhosis, anemia, esophageal varices, has been here before as well. Here 2 mo ago, the patient's records from before in the past noted to have thrombocytopenia as well as anemia, which was worse 6.9 on prior admission in August and leukopenia, at this time presents with esophageal varices, had EGD with banding performed today. Hematology service was consulted for further evaluation and treatment. PAST MEDICAL HISTORY: Cirrhosis, alcohol abuse, and anemia. PAST SURGICAL HISTORY: None noted. MEDICATIONS: Ferrous sulfate, pantoprazole, and Trental. ALLERGIES: No known drug allergies. REVIEW OF SYSTEMS: Constitutional: No fever, chills, or night sweats. Skin: No rashes, bumps, or itching. HEENT: No headache, hearing or vision changes. Breasts: No lumps, pain, or discharge. Pulmonary: No cough, sputum, or shortness of breath. Gastrointestinal: Some GERD symptoms. Genitourinary: No dysuria, frequency, or urgency. Musculoskeletal: No joint swelling, muscle pain, or trauma. PHYSICAL EXAMINATION: GENERAL: The patient is in no acute distress. VITAL SIGNS: Temperature is 98 degrees Fahrenheit, pulse of 82, respiratory rate 12, and blood pressure 142/99. PULMONARY: Decreased breath sounds. CARDIOVASCULAR: Regular rate. No S3 or S4. ABDOMEN: Soft, nontender, and nondistended. EXTREMITIES: There is 1+ edema. LABORATORY DATA: WBC of 5.1, hemoglobin 9.8, hematocrit 35, and platelet count 59,000. ASSESSMENT AND PLAN: 1. Pancytopenia. Related to history of cirrhosis, may have iron deficiency component --> anemia w/u has been ordered --> does not require a bone marrow biopsy --> reviewed historical labs --> recommend alcohol cessation 2. Lower gastrointestinal bleed, occult blood is pending at this time. 3. Coagulopathy, likely secondary to underlying cirrhosis as well. Continue to closely monitor and administer vitamin K if the patient is bleeding. 4. Esophageal varices, status post banding. Ferritin is pending, consider to continue iron if ferritin low. --> Gi eval with egd/o Clark Cooper Feb 07, 2017 21:00
[2017-02-07 21:58] LABS: FOLIC ACID 8.3 NG/ML (3.1-17.5)
[2017-02-07 22:02] LABS: THYROID STIMULATING HORMONE 0.756 uiU/mL (0.360-3.740)
[2017-02-08] VITALS: BP 151/90
--- NOTE | 2017-02-08 00:27 | Consultation ---
History of Present Illness General Chief Complaint: Chest Pain Referring physician: GEETHA Martinez Reason for Consultation: CIRRHOSIS Present Illness HPI 46-year-old male with past medical history significant for history of alcohol- induced cirrhosis, anemia, esophageal varices, has been here before as well. the pt has alcohol dependence. His [place] is poor was unable to answer questions appropriately Allergies: Coded Allergies: NO KNOWN ALLERGIES (Verified Allergy, Unknown, 01/25/17) Medication History Scheduled Ferrous Sulfate* (Ferrous Sulfate*), 325 MG ORAL THREE TIMES A DAY, (Reported) Ibuprofen* (Motrin*), 600 MG ORAL THREE TIMES A DAY No Known Medications* (NKM - No Known Medications*), 0 ., (Reported) Pantoprazole* (Protonix*), 40 MG ORAL DAILY, (Reported) Pentoxifylline* (Trental*), 400 MG ORAL THREE TIMES A DAY, (Reported) Propranolol Hcl* (Inderal*), 20 MG ORAL QID Silver Sulfadiazine (Silvadene), 20 GM TP BID Thiamine Hcl* (Vitamin B-1*), 100 MG ORAL DAILY Patient History Limited by: language barrier History Provided By: Medical Record, PMD Healthcare decision maker Resuscitation status Full Code Advanced Directive on File No Past Medical/Surgical History Past Medical/Surgical History: (1) Anemia (2) Cirrhosis (3) Chest pain (4) ETOH abuse (5) Esophageal varices determined by endoscopy Review of Systems Psychiatric: Reports: prior hx, anxiety, depressed feelings, emotional problems Physical Exam General Appearance: no apparent distress, alert Neurologic: alert, oriented x 3, responsive, normal mood/affect Last 24 Hour Vital Signs Date Time Temp Pulse Resp B/P (MAP) Pulse Ox O2 Delivery O2 Flow Rate FiO2 02/07/17 20:56 68 146/96 02/07/17 20:00 58 02/07/17 20:00 96.8 64 20 146/96 97 Room Air 02/07/17 17:54 66 115/74 02/07/17 17:54 115/74 02/07/17 16:21 59 02/07/17 16:00 97.0 66 18 115/74 96 Room Air 02/07/17 14:18 74 140/84 02/07/17 14:18 140/84 02/07/17 12:00 97.2 74 18 140/84 96 Room Air 02/07/17 11:36 72 02/07/17 09:52 91 149/80 02/07/17 09:52 149/80 02/07/17 08:00 97.5 91 20 149/80 96 Room Air 02/07/17 07:27 89 02/07/17 04:40 88 02/07/17 04:03 98.1 95 20 136/75 98 Room Air 02/07/17 03:14 98.2 89 19 130/88 99 Room Air 02/07/17 02:51 98.2 89 19 130/88 99 Room Air 02/07/17 01:47 98.2 84 28 128/75 95 Room Air Laboratory Tests Test 02/07/17 10:43 02/07/17 10:45 02/07/17 12:10 Reticulocyte Count Pending Ferritin 10 NG/ML (8-388) Lactate Dehydrogenase 248 U/L (81-234) H Vitamin B12 Level 409 PG/ML (193-986) Folate 8.3 NG/ML (3.1-17.5) Thyroid Stimulating Hormone (TSH) 0.756 uiU/mL (0.360-3.740) Troponin I 0.006 ng/mL (0.000-0.056) Stool Occult Blood Pending Microbiology Date/Time Source Procedure Growth Status 02/07/17 03:40 Finger Left Middle Gram Stain - Final Resulted 02/07/17 03:40 Finger Left Middle Wound Culture Pending Resulted Height (Feet): 5 Height (Inches): 7.00 Weight (Pounds): 250 Medications Current Medications Medications (Trade) Dose Ordered Sig/Nikhil Route PRN Reason Start Time Stop Time Status Last Admin Dose Admin Ferrous Sulfate (Feosol) 325 mg THREE TIMES A DAY ORAL 02/07/17 09:00 03/09/17 08:59 02/07/17 17:54 Ibuprofen (Motrin) 600 mg THREE TIMES A DAY ORAL 02/07/17 14:30 03/09/17 14:29 02/07/17 17:54 Ondansetron HCl (Zofran) 4 mg EVERY 8 HOURS PRN IVP Nausea & Vomiting 02/07/17 09:15 03/09/17 09:14 02/07/17 13:20 Pantoprazole (Protonix) 40 mg DAILY ORAL 02/07/17 09:00 03/09/17 08:59 02/07/17 09:52 Pentoxifylline (TRENtal) 400 mg THREE TIMES A DAY ORAL 02/07/17 09:00 03/09/17 08:59 02/07/17 17:54 Propranolol HCl (Inderal) 20 mg QID ORAL 02/07/17 18:00 03/09/17 17:59 02/07/17 20:56 Thiamine HCl (Vitamin B1) 100 mg DAILY ORAL 02/07/17 09:00 03/09/17 08:59 02/07/17 09:52 Assessment/Plan Status: stable Assessment/Plan alcohol dependence -folate -thiamine -valium -prozac Oliva Licona M.D. Feb 08, 2017 00:27
--- NOTE | 2017-02-08 00:45 | Consultation ---
DATE OF CONSULTATION: 02/07/2017 CARDIOLOGY CONSULTATION CONSULTING PHYSICIAN: Fred Arvizu M.D. REFERRING PHYSICIAN: Etta Fang M.D. REASON FOR CONSULTATION: Management of shortness of breath. HISTORY OF PRESENT ILLNESS: The patient is a very unfortunate 46-year-old gentleman, who was brought in after complaining of chest pain and worsening of shortness of breath. The patient has a history of liver cirrhosis and recently underwent esophageal banding by Dr. Weber. The patient apparently had some small amount of alcohol intake earlier today and started to feel chest pain with shortness of breath. Chest pain was sharp, midsternal, and not associated with diaphoresis, nausea, and vomiting. Cardiology consultation was made at the request of Dr. Fang for evaluation and management of this condition. PAST MEDICAL HISTORY: Diabetes mellitus, liver cirrhosis, gastrointestinal bleed, status post esophageal varices banding, history of anemia, history of pulmonary embolism in the right lung in 2004, and history of hypertension. PAST SURGICAL HISTORY: Esophageal varices banding. MEDICATIONS: Ferrous sulfate 325 mg three times daily, ibuprofen 600 mg three times daily, Protonix 40 mg p.o. daily, Trental 400 mg three times daily, Inderal 20 mg p.o. four times daily, silver sulfadiazine 20 g to apply topically twice daily, and thiamine 100 mg p.o. daily. ALLERGIES: No known drug allergies. SOCIAL HISTORY: The patient is a heavy alcohol drinker. Denies any tobacco or illicit drug use. FAMILY HISTORY: No premature coronary artery disease in the first-degree relatives. REVIEW OF SYSTEMS: A 12-system review done is essentially negative except what is mentioned in the history of present illness. PHYSICAL EXAMINATION: VITAL SIGNS: Blood pressure is 140/92, respirations of 18, pulse of 114, temperature 98.2 degrees Fahrenheit, and O2 saturation 98% on room air. GENERAL: The patient is a very unfortunate 46-year-old gentleman, in no apparent respiratory distress, lying supine in bed, and obese. HEENT: Atraumatic and normocephalic. Anicteric. Pupils are equal, round, and reactive to light and accommodation. Conjunctival pallor present. NECK: JVP cannot be assessed due to obesity. No carotid bruit. Carotid upstroke is 2+ bilaterally. CARDIOVASCULAR: Normal S1 and S2. Regular rate and rhythm. No murmurs, gallops, or rubs. PMI is at fourth intercostal space at the midclavicular line. LUNGS: Clear to auscultation bilaterally. ABDOMEN: Distended. No hepatosplenomegaly. Positive bowel sounds. EXTREMITIES: No evidence of edema, clubbing, or cyanosis. LABORATORY DATA: WBC is 4.0, hemoglobin of 8.8, hematocrit 32.3, and platelet count 66,000. Chemistry showed sodium 140, potassium 3.6, chloride 106, bicarbonate 26, BUN 7, creatinine 0.8, glucose 120, and calcium is 8.0. AST 90. CK-MB was 498. Troponin I x2 negative. ProBNP was 15. A 12-lead electrocardiogram shows sinus tachycardia at the rate of 113, otherwise, no ST and T-wave abnormalities. Chest x-ray showed no acute cardiopulmonary disease and a large cardiac silhouette. ASSESSMENT AND PLAN: The patient is a very unfortunate 46-year-old gentleman seen in Cardiology consultation at the request of Dr. Fang. 1. Dyspnea. Possible etiologies would be interstitial edema/pulmonary edema due to heart failure, although the patient may have hypervolemia due to alcohol. 2. Sinus tachycardia, likely due to decreased intravascular oncotic pressure. 3. Liver cirrhosis. 4. Esophageal banding. I would like to thank, Dr. Fang, for the courtesy of this consultation. Fred Arvizu M.D. DR: DEON JOB#: [id number] CC:
--- NOTE | 2017-02-08 03:46 | History and Physical Report ---
DATE OF ADMISSION: 02/07/2017 REASON FOR ADMISSION: The patient is admitted for chest pain, alcohol abuse, and anemia. The patient also has a history of alcohol abuse, complains of chest pain, rule out acute coronary syndrome. The patient also has history of esophageal varices and had banding in the past. EKG normal sinus. Abdomen shows liver cirrhosis. The patient also has occasional heartburn. The patient also complained of chest pain for one day and mild abdominal pain, diaphoresis, and vomiting. The patient also has a history of alcohol abuse. Denies drug abuse. Denies constipation. Denies chills. Denies cough. Denies orthopnea. PAST MEDICAL HISTORY: Alcoholic cirrhosis, history of esophageal varices, history of anemia, history of GERD, and history of CVD. PAST SURGICAL HISTORY: None. MEDICATIONS: Protonix, Trental, . ALLERGIES: No known allergies. FAMILY HISTORY: Noncontributory. SOCIAL HISTORY: He does have a history of alcohol abuse. Denies drug abuse. Denies history of smoking. REVIEW OF SYSTEMS: HEENT: Denies headaches. RESPIRATORY: Denies shortness of breath. Denies cough. CARDIOVASCULAR: Denies chest pain. GASTROINTESTINAL: Did have vomiting x2 yesterday. There is no hematemesis. No constipation and no rectal bleeding. Mild abdominal pain. EXTREMITIES: Denies pain in the lower extremities. CENTRAL NERVOUS SYSTEM: No change in vision or speech pattern. PHYSICAL EXAMINATION: VITAL SIGNS: Temperature 97.6, pulse is 74, blood pressure 138/84. HEENT: PERRLA. NECK: Supple. No lymphadenopathy. CHEST: Clear to auscultation. GASTROINTESTINAL: Soft. Distended. Abdomen is soft, positive bowel sounds. No organomegaly. EXTREMITIES: There is 1+ edema. Reflexes are equal on both sides. Moves all four extremities. LABORATORY DATA: WBC of 4, hemoglobin 8.8, and platelets of 66,000. Sodium 140, potassium 3.6, BUN of 7, creatinine 0.8, and glucose of 120. Alkaline phosphatase of 153, AST of 90 and ALT of 43. Total albumin of 0.5. ASSESSMENT AND PLAN: 1. Hypokalemia. I have asked Dr. Modi to see the patient for that reason. 2. History of gastrointestinal bleed. I have asked Dr. Weber to see the patient status post banding. 3. Rule out alcohol DT. I have asked Dr. Licona to see the patient. I . The patient also has a history of chest pain and I have asked Dr. Arvizu to see the patient to rule out coronary syndrome. 4. Pancytopenia due to alcoholic cirrhosis most typically. 5. Low borderline potassium. I have asked Dr. Modi to see the patient. Etta Fang M.D. DR: BLANCA JOB#: [id number] CC:
[2017-02-08 04:00] VITALS: BP 144/88
[2017-02-08] MEDS ORDERED: Propofol 200mg/20ml IV ONE (07:00)
[2017-02-08] MEDS ORDERED: Lidocaine 1% MPF 10mg/ml 5ml ONE (07:00)
[2017-02-08 07:46] LABS: MEAN CORPUSCULAR HEMOGLOBIN 21.1 PG (27.0-31.0); MEAN CORPUSCULAR HGB CONC 29.3 G/DL (32.0-36.0); MEAN CORPUSCULAR VOLUME 72 FL (80-99); PLATELET COUNT 69 K/UL (150-450); RED BLOOD COUNT 4.78 M/UL (4.70-6.10); RED CELL DISTRIBUTION WIDTH 18.9 % (11.6-14.8); WHITE BLOOD COUNT 2.9 K/UL (4.8-10.8)
[2017-02-08 08:06] LABS: INR 1.2 (0.9-1.1); PROTHROMBIN TIME 12.7 SEC (9.30-11.50)
[2017-02-08 08:26] LABS: ALANINE AMINOTRANSFERASE 44 U/L (12-78); ALBUMIN/GLOBULIN RATIO 0.6 (1.0-2.7); ANION GAP 8 mmol/L (5-15); ASPARTATE AMINO TRANSFERASE 70 U/L (15-37); CALCIUM 8.2 MG/DL (8.5-10.1); CARBON DIOXIDE 26 MMOL/L (21-32); CHLORIDE 104 MMOL/L (98-107); CREATININE 0.7 MG/DL (0.55-1.30); GLOMERULAR FILTRATION RATE > 60 mL/min (>60); POTASSIUM 3.7 MMOL/L (3.5-5.1); SODIUM 138 MMOL/L (136-145); TOTAL PROTEIN 8.2 G/DL (6.4-8.2)
[2017-02-08 08:30] VITALS: BP 120/77
[2017-02-08 08:40] LABS: BAND NEUTROPHILS % (MANUAL) 0 % (0-8); BASOPHILS % (MANUAL) 0 % (0-2); EOSINOPHILS % (MANUAL) 3 % (0-3); LYMPHOCYTES % (MANUAL) 39 % (20-45); NEUTROPHILS % (MANUAL) 46 % (45-75); PLATELET ESTIMATE DECREASED; TOTAL CELLS COUNTED 100
[2017-02-08 08:41] LABS: ANISOCYTOSIS 2+; HYPOCHROMASIA 2+; MICROCYTES 1+; PLATELET MORPHOLOGY NORMAL
[2017-02-08 08:43] LABS: BILIRUBIN,DIRECT 0.5 MG/DL (0.0-0.3)
[2017-02-08] MEDS: Propranolol 10mg tab ORAL SCH ×4 (08:45→21:39)
[2017-02-08] MEDS: Thiamine 100mg tab ORAL SCH (08:45)
[2017-02-08 08:54] LABS: PATH BLOOD SMEAR/OMC SENT TO PATHOLOGIST
[2017-02-08 11:26] VITALS: BP 129/78
--- NOTE | 2017-02-08 11:40 | GI Progress Note ---
Assessment/Plan Problems: (1) Esophageal varices determined by endoscopy ICD Codes: I85.00 - Esophageal varices without bleeding SNOMED: 96390624, 277585920 (2) ETOH abuse ICD Codes: F10.10 - Alcohol abuse, uncomplicated SNOMED: 82957237 (3) Cirrhosis ICD Codes: K74.60 - Unspecified cirrhosis of liver SNOMED: 80655561 (4) Anemia ICD Codes: D64.9 - Anemia, unspecified SNOMED: 276021271 (5) ETOH abuse ICD Codes: F10.10 - Alcohol abuse, uncomplicated SNOMED: 32676736 Status: stable Status Narrative Discussed with Dr. Weber. Assessment/Plan EGD SUMMARY OF FINDINGS / 11-29-16: 1. Esophageal varices status post banding x5. 2. Portal hypertensive gastropathy, status post biopsy. stable H&H OB stool negative RECOMMENDATIONS: EGD scheduled for tomorrow pending clearance from cardiology, patient must be re -banded even if there are no s/sx of active bleed. - diet now, NPO @ CA. - hold all blood thinners ronight. monitor H&H, prn transfusions ppi propranolol, monitor parameters bowel regime adv to cardiac diet fu labs Subjective Gastrointestinal/Abdominal: Reports: no symptoms Subjective feels better Objective Last 24 Hour Vital Signs Date Time Temp Pulse Resp B/P (MAP) Pulse Ox O2 Delivery O2 Flow Rate FiO2 02/08/17 11:26 98.1 51 20 129/78 96 Room Air 02/08/17 09:45 98.1 02/08/17 08:45 69 120/77 02/08/17 08:45 120/77 02/08/17 08:30 98.1 69 20 120/77 96 Room Air 02/08/17 07:30 65 02/08/17 04:00 65 02/08/17 04:00 97.5 55 20 144/88 97 Room Air 02/08/17 00:00 52 02/08/17 00:00 97.0 60 20 151/90 95 Room Air 02/07/17 20:56 68 146/96 02/07/17 20:00 58 02/07/17 20:00 96.8 64 20 146/96 97 Room Air 02/07/17 17:54 66 115/74 02/07/17 17:54 115/74 02/07/17 16:21 59 02/07/17 16:00 97.0 66 18 115/74 96 Room Air 02/07/17 14:18 74 140/84 02/07/17 14:18 140/84 02/07/17 12:00 97.2 74 18 140/84 96 Room Air 02/07/17 11:36 72 Intake and Output 02/08/17 02/09/17 19:00 07:00 Intake Total 300 ml Output Total 375 ml Balance -75 ml Intake Oral 300 ml Output Urine Total 375 ml # Bowel Movements 1 Laboratory Tests Test 02/07/17 12:10 02/08/17 06:45 Stool Occult Blood Negative (NEGATIVE) White Blood Count 2.9 K/UL (4.8-10.8) L Red Blood Count 4.78 M/UL (4.70-6.10) Hemoglobin 10.1 G/DL (14.2-18.0) L Hematocrit 34.5 % (42.0-52.0) L Mean Corpuscular Volume 72 FL (80-99) L Mean Corpuscular Hemoglobin 21.1 PG (27.0-31.0) L Mean Corpuscular Hemoglobin Concent 29.3 G/DL (32.0-36.0) L Red Cell Distribution Width 18.9 % (11.6-14.8) H Platelet Count 69 K/UL (150-450) L Mean Platelet Volume 9.0 FL (6.5-10.1) Neutrophils (%) (Auto) % (45.0-75.0) Lymphocytes (%) (Auto) % (20.0-45.0) Monocytes (%) (Auto) % (1.0-10.0) Eosinophils (%) (Auto) % (0.0-3.0) Basophils (%) (Auto) % (0.0-2.0) Differential Total Cells Counted 100 Neutrophils % (Manual) 46 % (45-75) Lymphocytes % (Manual) 39 % (20-45) Monocytes % (Manual) 12 % (1-10) H Eosinophils % (Manual) 3 % (0-3) Basophils % (Manual) 0 % (0-2) Band Neutrophils 0 % (0-8) Platelet Estimate Decreased L Platelet Morphology Normal Hypochromasia 2+ Anisocytosis 2+ Microcytosis 1+ Reticulocyte Count 2.0 % (0.0-2.0) Prothrombin Time 12.7 SEC (9.30-11.50) H Prothromb Time International Ratio 1.2 (0.9-1.1) H Activated Partial Thromboplast Time 33 SEC (23-33) Sodium Level 138 MMOL/L (136-145) Potassium Level 3.7 MMOL/L (3.5-5.1) Chloride Level 104 MMOL/L (98-107) Carbon Dioxide Level 26 MMOL/L (21-32) Anion Gap 8 mmol/L (5-15) Blood Urea Nitrogen 8 mg/dL (7-18) Creatinine 0.7 MG/DL (0.55-1.30) Estimat Glomerular Filtration Rate > 60 mL/min (>60) Glucose Level 99 MG/DL (74-106) Calcium Level 8.2 MG/DL (8.5-10.1) L Total Bilirubin 1.4 MG/DL (0.2-1.0) H Direct Bilirubin 0.5 MG/DL (0.0-0.3) H Aspartate Amino Transf (AST/SGOT) 70 U/L (15-37) H Alanine Aminotransferase (ALT/SGPT) 44 U/L (12-78) Alkaline Phosphatase 121 U/L (46-116) H Total Protein 8.2 G/DL (6.4-8.2) Albumin 3.0 G/DL (3.4-5.0) L Globulin 5.2 g/dL Albumin/Globulin Ratio 0.6 (1.0-2.7) L Height (Feet): 5 Height (Inches): 7.00 Weight (Pounds): 250 General Appearance: no apparent distress, alert Cardiovascular: normal rate Respiratory/Chest: normal breath sounds, no respiratory distress Abdominal Exam: normal bowel sounds, non tender, soft Extremities: normal range of motion Lorna Ridley NKristin Feb 08, 2017 11:40
[2017-02-08 15:44] VITALS: BP 119/71
--- NOTE | 2017-02-08 16:16 | General Progress Note ---
Assessment/Plan Assessment/Plan 1. Pancytopenia. Related to history of cirrhosis --> anemia w/u has been reviewed, c/w iron deficiency. has been started on ferrous sulfate --> does not require a bone marrow biopsy --> reviewed historical labs --> recommend alcohol cessation 2. Lower gastrointestinal bleed, occult blood is pending at this time. 3. Coagulopathy, likely secondary to underlying cirrhosis as well. Continue to closely monitor and administer vitamin K if the patient is bleeding. 4. Esophageal varices, status post banding. --> Gi eval with egd/colo Subjective Allergies: Coded Allergies: NO KNOWN ALLERGIES (Verified Allergy, Unknown, 01/25/17) All Systems: reviewed and negative except above Subjective no complaints, awake Objective Last 24 Hour Vital Signs Date Time Temp Pulse Resp B/P (MAP) Pulse Ox O2 Delivery O2 Flow Rate FiO2 02/08/17 15:44 97.9 56 20 119/71 98 Room Air 02/08/17 14:16 98.1 02/08/17 13:17 51 129/78 02/08/17 13:17 129/78 02/08/17 11:39 56 02/08/17 11:26 98.1 51 20 129/78 96 Room Air 02/08/17 08:45 69 120/77 02/08/17 08:45 120/77 02/08/17 08:30 98.1 69 20 120/77 96 Room Air 02/08/17 07:30 65 02/08/17 04:00 65 02/08/17 04:00 97.5 55 20 144/88 97 Room Air 02/08/17 00:00 52 02/08/17 00:00 97.0 60 20 151/90 95 Room Air 02/07/17 20:56 68 146/96 02/07/17 20:00 58 02/07/17 20:00 96.8 64 20 146/96 97 Room Air 02/07/17 17:54 66 115/74 02/07/17 17:54 115/74 02/07/17 16:21 59 Intake and Output 02/08/17 02/09/17 19:00 07:00 Intake Total 540 ml Output Total 375 ml Balance 165 ml Intake Oral 540 ml Output Urine Total 375 ml # Voids 1 # Bowel Movements 2 Laboratory Tests 11/16/17 06:45: White Blood Count 2.9L, Red Blood Count 4.78, Hemoglobin 10.1L, Hematocrit 34.5L , Mean Corpuscular Volume 72L, Mean Corpuscular Hemoglobin 21.1L, Mean Corpuscular Hemoglobin Concent 29.3L, Red Cell Distribution Width 18.9H, Platelet Count 69L, Mean Platelet Volume 9.0, Neutrophils (%) (Auto) , Lymphocytes (%) (Auto) , Monocytes (%) (Auto) , Eosinophils (%) (Auto) , Basophils (%) (Auto) , Differential Total Cells Counted 100, Neutrophils % ( Manual) 46, Lymphocytes % (Manual) 39, Monocytes % (Manual) 12H, Eosinophils % ( Manual) 3, Basophils % (Manual) 0, Band Neutrophils 0, Platelet Estimate DecreasedL, Platelet Morphology Normal, Hypochromasia 2+, Anisocytosis 2+, Microcytosis 1+, Reticulocyte Count 2.0, Prothrombin Time 12.7H, Prothromb Time International Ratio 1.2H, Activated Partial Thromboplast Time 33, Sodium Level 138, Potassium Level 3.7, Chloride Level 104, Carbon Dioxide Level 26, Anion Gap 8, Blood Urea Nitrogen 8, Creatinine 0.7, Estimat Glomerular Filtration Rate > 60, Glucose Level 99, Calcium Level 8.2L, Total Bilirubin 1.4H, Direct Bilirubin 0.5H, Aspartate Amino Transf (AST/SGOT) 70H, Alanine Aminotransferase (ALT/SGPT) 44, Alkaline Phosphatase 121H, Total Protein 8.2, Albumin 3.0L, Globulin 5.2, Albumin/Globulin Ratio 0.6L Height (Feet): 5 Height (Inches): 7.00 Weight (Pounds): 250 General Appearance: no apparent distress EENT: normal ENT inspection Neck: normal alignment Cardiovascular: normal peripheral pulses Respiratory/Chest: chest wall non-tender Abdomen: non tender Extremities: non-tender Clark Cooper Feb 08, 2017 16:16
--- NOTE | 2017-02-08 16:48 | Diagnostic Imaging Report ---
APPROVED REPORT CPT Code: 21808 Present Symptoms Comments: R/O DVT RIGHT LEG: Venous imaging reveals a patent deep venous system. There is no evidence of thrombus within the femoral, popliteal or tibial segments. The greater saphenous vein is also within normal limits. Doppler indicates normal spontaneous flow within these segments. LEFT LEG: Venous imaging reveals a patent deep venous system. There is no evidence of thrombus within the femoral, popliteal or tibial segments. The greater saphenous vein is also within normal limits. Doppler indicates normal spontaneous flow within these segments.
[2017-02-08 19:57] VITALS: BP 132/85
--- NOTE | 2017-02-08 20:43 | General Progress Note ---
Assessment/Plan Problem List: (1) Cirrhosis ICD Codes: K74.60 - Unspecified cirrhosis of liver SNOMED: 73865612 (2) ETOH abuse ICD Codes: F10.10 - Alcohol abuse, uncomplicated SNOMED: 34543656 (3) Esophageal varices determined by endoscopy ICD Codes: I85.00 - Esophageal varices without bleeding SNOMED: 50684103, 088861758 (4) Anemia ICD Codes: D64.9 - Anemia, unspecified SNOMED: 054499330 Status: progressing Assessment/Plan afebrile vitals stable cirrhosis anemia etoh abuse Subjective Constitutional: Reports: no symptoms Allergies: Coded Allergies: NO KNOWN ALLERGIES (Verified Allergy, Unknown, 01/25/17) Objective Last 24 Hour Vital Signs Date Time Temp Pulse Resp B/P (MAP) Pulse Ox O2 Delivery O2 Flow Rate FiO2 02/08/17 19:57 98.4 64 20 132/85 96 Room Air 02/08/17 18:52 97.9 02/08/17 17:52 56 119/71 02/08/17 17:52 119/71 02/08/17 15:44 97.9 56 20 119/71 98 Room Air 02/08/17 15:22 58 02/08/17 13:17 51 129/78 02/08/17 13:17 129/78 02/08/17 11:39 56 02/08/17 11:26 98.1 51 20 129/78 96 Room Air 02/08/17 08:45 69 120/77 02/08/17 08:45 120/77 02/08/17 08:30 98.1 69 20 120/77 96 Room Air 02/08/17 07:30 65 02/08/17 04:00 65 02/08/17 04:00 97.5 55 20 144/88 97 Room Air 02/08/17 00:00 52 02/08/17 00:00 97.0 60 20 151/90 95 Room Air 02/07/17 20:56 68 146/96 Intake and Output 02/08/17 02/09/17 19:00 07:00 Intake Total 780 ml Output Total 375 ml Balance 405 ml Intake Oral 780 ml Output Urine Total 375 ml # Voids 2 # Bowel Movements 2 Laboratory Tests 02/08/17 06:45: White Blood Count 2.9L, Red Blood Count 4.78, Hemoglobin 10.1L, Hematocrit 34.5L , Mean Corpuscular Volume 72L, Mean Corpuscular Hemoglobin 21.1L, Mean Corpuscular Hemoglobin Concent 29.3L, Red Cell Distribution Width 18.9H, Platelet Count 69L, Mean Platelet Volume 9.0, Neutrophils (%) (Auto) , Lymphocytes (%) (Auto) , Monocytes (%) (Auto) , Eosinophils (%) (Auto) , Basophils (%) (Auto) , Differential Total Cells Counted 100, Neutrophils % ( Manual) 46, Lymphocytes % (Manual) 39, Monocytes % (Manual) 12H, Eosinophils % ( Manual) 3, Basophils % (Manual) 0, Band Neutrophils 0, Platelet Estimate DecreasedL, Platelet Morphology Normal, Hypochromasia 2+, Anisocytosis 2+, Microcytosis 1+, Reticulocyte Count 2.0, Prothrombin Time 12.7H, Prothromb Time International Ratio 1.2H, Activated Partial Thromboplast Time 33, Sodium Level 138, Potassium Level 3.7, Chloride Level 104, Carbon Dioxide Level 26, Anion Gap 8, Blood Urea Nitrogen 8, Creatinine 0.7, Estimat Glomerular Filtration Rate > 60, Glucose Level 99, Calcium Level 8.2L, Total Bilirubin 1.4H, Direct Bilirubin 0.5H, Aspartate Amino Transf (AST/SGOT) 70H, Alanine Aminotransferase (ALT/SGPT) 44, Alkaline Phosphatase 121H, Total Protein 8.2, Albumin 3.0L, Globulin 5.2, Albumin/Globulin Ratio 0.6L Height (Feet): 5 Height (Inches): 7.00 Weight (Pounds): 250 Cardiovascular: normal rate Abdomen: soft, no organomegaly Etta Fang MD Feb 08, 2017 20:43
--- NOTE | 2017-02-08 23:36 | Cardiology Progress Note ---
Assessment/Plan Assessment/Plan 1. Dyspnea. Possible etiologies would be interstitial edema/pulmonary edema due to heart failure, although the patient may have hypervolemia due to alcohol. 2. Sinus tachycardia, likely due to decreased intravascular oncotic pressure. 3. Liver cirrhosis. 4. Esophageal banding. Subjective Subjective Denies chest pain or SOB. Sinus rhythm at 67. Objective Last 24 Hour Vital Signs Date Time Temp Pulse Resp B/P (MAP) Pulse Ox O2 Delivery O2 Flow Rate FiO2 02/08/17 21:39 67 132/85 02/08/17 19:57 98.4 64 20 132/85 96 Room Air 02/08/17 18:52 97.9 02/08/17 17:52 56 119/71 02/08/17 17:52 119/71 02/08/17 15:44 97.9 56 20 119/71 98 Room Air 02/08/17 15:22 58 02/08/17 13:17 51 129/78 02/08/17 13:17 129/78 02/08/17 11:39 56 02/08/17 11:26 98.1 51 20 129/78 96 Room Air 02/08/17 08:45 69 120/77 02/08/17 08:45 120/77 02/08/17 08:30 98.1 69 20 120/77 96 Room Air 02/08/17 07:30 65 02/08/17 04:00 65 02/08/17 04:00 97.5 55 20 144/88 97 Room Air 02/08/17 00:00 52 02/08/17 00:00 97.0 60 20 151/90 95 Room Air Intake and Output 02/08/17 02/09/17 19:00 07:00 Intake Total 780 ml Output Total 375 ml Balance 405 ml Intake Oral 780 ml Output Urine Total 375 ml # Voids 2 # Bowel Movements 2 2D Echo: LVEF 55%, Mild LVH, Mild SANDRA/RVE, RVSP 11 mmHg, Mild MR Laboratory Tests Test 02/08/17 06:45 White Blood Count 2.9 K/UL (4.8-10.8) L Red Blood Count 4.78 M/UL (4.70-6.10) Hemoglobin 10.1 G/DL (14.2-18.0) L Hematocrit 34.5 % (42.0-52.0) L Mean Corpuscular Volume 72 FL (80-99) L Mean Corpuscular Hemoglobin 21.1 PG (27.0-31.0) L Mean Corpuscular Hemoglobin Concent 29.3 G/DL (32.0-36.0) L Red Cell Distribution Width 18.9 % (11.6-14.8) H Platelet Count 69 K/UL (150-450) L Mean Platelet Volume 9.0 FL (6.5-10.1) Neutrophils (%) (Auto) % (45.0-75.0) Lymphocytes (%) (Auto) % (20.0-45.0) Monocytes (%) (Auto) % (1.0-10.0) Eosinophils (%) (Auto) % (0.0-3.0) Basophils (%) (Auto) % (0.0-2.0) Differential Total Cells Counted 100 Neutrophils % (Manual) 46 % (45-75) Lymphocytes % (Manual) 39 % (20-45) Monocytes % (Manual) 12 % (1-10) H Eosinophils % (Manual) 3 % (0-3) Basophils % (Manual) 0 % (0-2) Band Neutrophils 0 % (0-8) Platelet Estimate Decreased L Platelet Morphology Normal Hypochromasia 2+ Anisocytosis 2+ Microcytosis 1+ Reticulocyte Count 2.0 % (0.0-2.0) Prothrombin Time 12.7 SEC (9.30-11.50) H Prothromb Time International Ratio 1.2 (0.9-1.1) H Activated Partial Thromboplast Time 33 SEC (23-33) Sodium Level 138 MMOL/L (136-145) Potassium Level 3.7 MMOL/L (3.5-5.1) Chloride Level 104 MMOL/L (98-107) Carbon Dioxide Level 26 MMOL/L (21-32) Anion Gap 8 mmol/L (5-15) Blood Urea Nitrogen 8 mg/dL (7-18) Creatinine 0.7 MG/DL (0.55-1.30) Estimat Glomerular Filtration Rate > 60 mL/min (>60) Glucose Level 99 MG/DL (74-106) Calcium Level 8.2 MG/DL (8.5-10.1) L Total Bilirubin 1.4 MG/DL (0.2-1.0) H Direct Bilirubin 0.5 MG/DL (0.0-0.3) H Aspartate Amino Transf (AST/SGOT) 70 U/L (15-37) H Alanine Aminotransferase (ALT/SGPT) 44 U/L (12-78) Alkaline Phosphatase 121 U/L (46-116) H Total Protein 8.2 G/DL (6.4-8.2) Albumin 3.0 G/DL (3.4-5.0) L Globulin 5.2 g/dL Albumin/Globulin Ratio 0.6 (1.0-2.7) L Microbiology Date/Time Source Procedure Growth Status 02/07/17 03:40 Finger Left Middle Gram Stain - Final Resulted 02/07/17 03:40 Finger Left Middle Wound Culture - Preliminary Resulted Objective HEENT: Atraumatic and normocephalic. Anicteric. Pupils are equal, round, and reactive to light and accommodation. Conjunctival pallor present. NECK: JVP cannot be assessed due to obesity. No carotid bruit. Carotid upstroke is 2+ bilaterally. CARDIOVASCULAR: Normal S1 and S2. Regular rate and rhythm. No murmurs, gallops, or rubs. PMI is at fourth intercostal space at the midclavicular line. LUNGS: Clear to auscultation bilaterally. ABDOMEN: Distended. No hepatosplenomegaly. Positive bowel sounds. EXTREMITIES: No evidence of edema, clubbing, or cyanosis. JUAN BONE Feb 08, 2017 23:36
[2017-02-09] VITALS (9 sets, daily range): BP systolic 97–126; BP diastolic 56–79
[2017-02-09] MEDS ORDERED: NS 500ML IV ONE (06:45)
--- NOTE | 2017-02-09 07:09 | Pre-Procedure Note/Attestation ---
Pre-Procedure Note/Attestation Complete Prior to Procedure Planned Procedure: not applicable Procedure Narrative: egd Indications for Procedure Pre-Operative Diagnosis: cirrhosis Attestation I attest that I discussed the nature of the procedure; its benefits; risks and complications; and alternatives (and the risks and benefits of such alternatives ), prior to the procedure, with the patient (or the patient's legal financial representative). I attest that, if there was a reasonable possibility of needing a blood transfusion, the patient (or the patient's legal financial representative) was given the [facility] standardized written summary, pursuant to the Ignacio Crugers Blood Safety Act ([place] Health and Safety Code # 1645, as amended). I attest that I re-evaluated the patient just prior to the surgery and that there has been no change in the patient's H&P, except as documented below: KAUR YUNG Feb 09, 2017 07:09
--- NOTE | 2017-02-09 07:17 | Endoscopy Procedure Note ---
Endoscopy Procedure Note Indication for Procedure: cirrhosis Procedures Performed: EGD Operative Findings/Diagnosis: gastritis Specimen: yes Pt Tolerated Procedure Well: Yes Estimated Blood Loss: none Anesthesiologist: celeste Anesthesia: MAC Implant(s) used?: No 50 yrs or older w/o bx or poly: Not Applicable 10yrs. F/U not recommended: Not Applicable KAUR YUNG Feb 09, 2017 07:17
--- NOTE | 2017-02-09 08:04 | 48 Hour Post Anesthesia Eval ---
Post Anesthesia Evaluation Procedure: EGD Date of Evaluation: Feb 09, 2017 Time of Evaluation: 08:04 Blood Pressure Systolic: 126 0: 67 Pulse Rate: 64 Respiratory Rate: 14 O2 Sat by Pulse Oximetry: 99 Airway: patent Nausea: No Vomiting: No Hydration Status: adequate Cardiopulmonary Status: stable Mental Status/LOC: patient returned to baseline Follow-up Care/Observations: na Post-Anesthesia Complications: none Follow-up care needed: N/A LAVINIA CONTEH CRNA Feb 09, 2017 08:04
--- NOTE | 2017-02-09 08:05 | Immediate Post-Op Evaluation ---
Immediate Post-Op Evalulation Immediate Post-Op Evalulation Procedure: EGD Date of Evaluation: Feb 09, 2017 Time of Evaluation: 07:25 IV Fluids: 500 Blood Pressure Systolic: 124 Blood Pressure Diastolic: 73 Pulse Rate: 71 Respiratory Rate: 14 O2 Sat by Pulse Oximetry: 100 Temperature (Fahrenheit): 99.0 Pain Score (1-10): 0 Nausea: No Vomiting: No Complications none Patient Status: awake, reacts, patent Hydration Status: adequate Drug: none LAVINIA CONTEH CRNA Feb 09, 2017 08:05
--- NOTE | 2017-02-09 08:08 | Anethesia Preoperative Eval ---
Anesthesia Pre-op PMH/ROS General Date of Evaluation: Feb 09, 2017 Time of Evaluation: 07:00 Anesthesiologist: gardenia ASA Score: ASA 3 Mallampati Score Class I : Soft palate, uvula, fauces, pillars visible Class II: Soft palate, uvula, fauces visible Class III: Soft palate, base of uvula visible Class IV: Only hard plate visible Mallampati Classification: Class II Surgeon: jeanne Diagnosis: anemia Surgical Procedure: egd Anesthesia History: none Social History: alcohol use Family History: no anesthesia problems Allergies: Coded Allergies: NO KNOWN ALLERGIES (Verified Allergy, Unknown, 01/25/17) Medications: see eMAR Past Medical History Cardiovascular: Reports: HTN, CAD Gastrointestinal/Genitourinary: Reports: GERD, other - esophageal varcies Neurologic/Psychiatric: Denies: dementia, CVA, depression/anxiety, TIA, other Endocrine: Denies: DM, hypothyroidism, steroids, other HEENT: Denies: cataract (L), cataract (R), glaucoma, TORRES MARTINEZ (L), TORRES MARTINEZ (R), other Hematology/Immune: Reports: anemia PMH Narrative: The patient is admitted for chest pain, alcohol abuse, and anemia. The patient also has a history of alcohol abuse, complains of chest pain, rule out acute coronary syndrome. The patient also has history of esophageal varices and had banding in the past. PSxH Narrative: EGD banding Anesthesia Pre-op Phys. Exam Physician Exam Last Vital Signs Date Time Temp Pulse Resp B/P (MAP) Pulse Ox O2 Delivery O2 Flow Rate FiO2 02/09/17 07:37 98.8 61 18 126/67 96 Room Air Constitutional: NAD Neurologic: CN 2-12 intact Cardiovascular: RRR Respiratory: CTA Gastrointestinal: S/NT/ND Airway Exam Mallampati Score: Class III MO: full Neck: thick ROM: full Dentures: no upper, no lower Anesthesia Pre-op A/P Studies Pre-op Studies: EKG - sr Risk Assessment & Plan Assessment: denies cp/sob/vss Plan: mac Status Change Before Surgery: No Pre-Antibiotics Drug: none LAVINIA CONTEH [employer] Feb 09, 2017 08:08
--- NOTE | 2017-02-09 09:03 | General Progress Note ---
Assessment/Plan Status: stable, progressing Assessment/Plan alcohol dependence anxiety cont current meds cont Valium prn Subjective Date patient seen: Feb 08, 2017 Neurologic/Psychiatric: Reports: anxiety, depressed, emotional problems Allergies: Coded Allergies: NO KNOWN ALLERGIES (Verified Allergy, Unknown, 01/25/17) Objective Last 24 Hour Vital Signs Date Time Temp Pulse Resp B/P (MAP) Pulse Ox O2 Delivery O2 Flow Rate FiO2 02/09/17 08:05 71 14 100 02/09/17 08:04 64 14 99 02/09/17 07:37 98.8 61 18 126/67 96 Room Air 02/09/17 07:30 59 17 123/72 97 Room Air 02/09/17 07:25 68 18 116/72 96 Room Air 02/09/17 07:21 99.0 71 22 124/73 96 Room Air 02/09/17 04:00 97.5 58 18 121/79 98 Room Air 02/09/17 04:00 63 02/09/17 00:00 98.2 56 20 124/74 97 Room Air 02/09/17 00:00 54 02/08/17 21:39 67 132/85 02/08/17 20:00 53 02/08/17 19:57 98.4 64 20 132/85 96 Room Air 02/08/17 18:52 97.9 02/08/17 17:52 56 119/71 02/08/17 17:52 119/71 02/08/17 15:44 97.9 56 20 119/71 98 Room Air 02/08/17 15:22 58 02/08/17 13:17 51 129/78 02/08/17 13:17 129/78 02/08/17 11:39 56 02/08/17 11:26 98.1 51 20 129/78 96 Room Air Intake and Output 02/09/17 02/10/17 19:00 07:00 Intake Total 250 ml Output Total 0 ml Balance 250 ml IV Total 250 ml Estimated Blood Loss 0 ml Height (Feet): 5 Height (Inches): 7.00 Weight (Pounds): 249 General Appearance: WD/WN, no apparent distress, alert Neurologic: alert, oriented x 3, responsive, depressed affect Oliva Licona M.D. Feb 09, 2017 09:03
[2017-02-09] MEDS: Thiamine 100mg tab ORAL SCH (09:15)
[2017-02-09] MEDS: Propranolol 10mg tab ORAL SCH ×3 (09:16→17:02)
--- NOTE | 2017-02-09 17:00 | Procedure Note ---
DATE OF PROCEDURE: 02/09/2017 SURGEON: Ricardo Weber M.D. REFERRING PHYSICIAN: Etta Fang M.D. PROCEDURE: Upper endoscopy with biopsy. ANESTHESIA: Per PLANISHER, Claudia Tarrillion INSTRUMENT: Olympus adult flexible upper endoscope. INDICATION: Prior history of esophageal varices with banding, here for followup. The procedure, risks, benefits, and possible consequences, including hemorrhage, aspiration, perforation and infection, and alternative treatments, were explained to the patient/legal guardian by Dr. Ricardo Weber and the patient/legal guardian understood and accepted these risks. DESCRIPTION OF PROCEDURE: After informed consent was obtained and the patient was adequately sedated, Olympus upper endoscope was advanced from mouth into the second portion of the duodenum and retroflexion was performed in the stomach. The patient had multiple scars in the distal esophagus from prior bandings. May be there was one or two small varices, but not big enough to be banded at this time. There were no more columns of large varices at this time, so no more banding was performed. In the stomach, there was diffuse gastritis. Random biopsies from antrum were obtained to rule out H. pylori infection. Also in the peripyloric region, there was a streak erythema looking like the watermelon shape, questionable for GAVE. The rest of the exam grossly within normal limits. The patient tolerated the procedure very well without complication. SUMMARY OF FINDINGS: 1. Prior history of esophageal banding with scar tissue in the distal esophagus without any significant large varices at this time. 2. Gastritis, status post biopsy. 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 RECOMMENDATIONS: Follow up biopsies and treat accordingly. I want to thank, Dr. Etta Fang, for this kind referral. Ricardo Weber M.D. DR: EARNESTINE JOB#: [id number] CC: Etta Fang M.D.; Fax#: [phone]
--- NOTE | 2017-02-09 17:08 | General Progress Note ---
Assessment/Plan Assessment/Plan 1. Pancytopenia. Related to history of cirrhosis --> anemia w/u has been reviewed, c/w iron deficiency. has been started on ferrous sulfate --> does not require a bone marrow biopsy --> reviewed historical labs --> recommend alcohol cessation 2. Lower gastrointestinal bleed, occult blood is pending at this time. 3. Coagulopathy, likely secondary to underlying cirrhosis as well. Continue to closely monitor and administer vitamin K if the patient is bleeding. 4. Esophageal varices, status post banding. --> GI eval with egd/colo Subjective Allergies: Coded Allergies: NO KNOWN ALLERGIES (Verified Allergy, Unknown, 01/25/17) All Systems: reviewed and negative except above Subjective no labs for today, egd today Objective Last 24 Hour Vital Signs Date Time Temp Pulse Resp B/P (MAP) Pulse Ox O2 Delivery O2 Flow Rate FiO2 02/09/17 17:02 60 97/64 02/09/17 16:00 97.8 60 20 97/64 98 Room Air 02/09/17 12:09 71 124/73 02/09/17 12:08 124/73 02/09/17 12:00 97.9 60 20 103/56 97 Room Air 02/09/17 12:00 56 02/09/17 09:16 71 124/73 02/09/17 09:15 124/73 02/09/17 08:05 71 14 100 02/09/17 08:04 64 14 99 02/09/17 07:37 98.8 61 18 126/67 96 Room Air 02/09/17 07:30 59 17 123/72 97 Room Air 02/09/17 07:25 68 18 116/72 96 Room Air 02/09/17 07:21 99.0 71 22 124/73 96 Room Air 02/09/17 04:00 97.5 58 18 121/79 98 Room Air 02/09/17 04:00 63 02/09/17 00:00 98.2 56 20 124/74 97 Room Air 02/09/17 00:00 54 02/08/17 21:39 67 132/85 02/08/17 20:00 53 02/08/17 19:57 98.4 64 20 132/85 96 Room Air 02/08/17 18:52 97.9 02/08/17 17:52 56 119/71 02/08/17 17:52 119/71 Intake and Output 02/09/17 02/10/17 19:00 07:00 Intake Total 250 ml Output Total 0 ml Balance 250 ml IV Total 250 ml Estimated Blood Loss 0 ml Height (Feet): 5 Height (Inches): 7.00 Weight (Pounds): 249 General Appearance: no apparent distress EENT: PERRL/EOMI Neck: normal alignment Cardiovascular: normal rate Respiratory/Chest: chest wall non-tender Abdomen: no organomegaly Extremities: normal range of motion Skin: normal pigmentation Clark Cooper Feb 09, 2017 17:08
--- NOTE | 2017-02-09 17:36 | General Progress Note ---
Assessment/Plan Status: stable Assessment/Plan alcohol dependence anxiety cont current meds cont Valium prn Subjective Date patient seen: Feb 09, 2017 Neurologic/Psychiatric: Reports: anxiety, depressed Allergies: Coded Allergies: NO KNOWN ALLERGIES (Verified Allergy, Unknown, 01/25/17) Objective Last 24 Hour Vital Signs Date Time Temp Pulse Resp B/P (MAP) Pulse Ox O2 Delivery O2 Flow Rate FiO2 02/09/17 17:09 97/64 02/09/17 17:02 60 97/64 02/09/17 16:00 97.8 60 20 97/64 98 Room Air 02/09/17 12:09 71 124/73 02/09/17 12:08 124/73 02/09/17 12:00 97.9 60 20 103/56 97 Room Air 02/09/17 12:00 56 02/09/17 09:16 71 124/73 02/09/17 09:15 124/73 02/09/17 08:05 71 14 100 02/09/17 08:04 64 14 99 02/09/17 07:37 98.8 61 18 126/67 96 Room Air 02/09/17 07:30 59 17 123/72 97 Room Air 02/09/17 07:25 68 18 116/72 96 Room Air 02/09/17 07:21 99.0 71 22 124/73 96 Room Air 02/09/17 04:00 97.5 58 18 121/79 98 Room Air 02/09/17 04:00 63 02/09/17 00:00 98.2 56 20 124/74 97 Room Air 02/09/17 00:00 54 02/08/17 21:39 67 132/85 02/08/17 20:00 53 02/08/17 19:57 98.4 64 20 132/85 96 Room Air 02/08/17 18:52 97.9 02/08/17 17:52 56 119/71 02/08/17 17:52 119/71 Intake and Output 02/09/17 02/10/17 19:00 07:00 Intake Total 250 ml Output Total 0 ml Balance 250 ml IV Total 250 ml Estimated Blood Loss 0 ml Height (Feet): 5 Height (Inches): 7.00 Weight (Pounds): 249 General Appearance: alert Neurologic: alert, oriented x 3, responsive Oliva Licona M.D. Feb 09, 2017 17:36
--- NOTE | 2017-02-09 17:55 | Cardiology Progress Note ---
Assessment/Plan Assessment/Plan 1. Dyspnea. Possible etiologies would be interstitial edema/pulmonary edema due to heart failure, pulmonary shunt, although the patient may have hypervolemia due to alcohol. 2. Sinus tachycardia, resolved, likely due to decreased oncotic pressure. 3. Liver cirrhosis. 4. Hx of portal HTN, s/p EGD revealing gastritis. Subjective Subjective Denies chest pain or SOB. Sinus rhythm at 60.. Objective Last 24 Hour Vital Signs Date Time Temp Pulse Resp B/P (MAP) Pulse Ox O2 Delivery O2 Flow Rate FiO2 02/09/17 17:09 97/64 02/09/17 17:02 60 97/64 02/09/17 16:00 97.8 60 20 97/64 98 Room Air 02/09/17 12:09 71 124/73 02/09/17 12:08 124/73 02/09/17 12:00 97.9 60 20 103/56 97 Room Air 02/09/17 12:00 56 02/09/17 09:16 71 124/73 02/09/17 09:15 124/73 02/09/17 08:05 71 14 100 02/09/17 08:04 64 14 99 02/09/17 07:37 98.8 61 18 126/67 96 Room Air 02/09/17 07:30 59 17 123/72 97 Room Air 02/09/17 07:25 68 18 116/72 96 Room Air 02/09/17 07:21 99.0 71 22 124/73 96 Room Air 02/09/17 04:00 97.5 58 18 121/79 98 Room Air 02/09/17 04:00 63 02/09/17 00:00 98.2 56 20 124/74 97 Room Air 02/09/17 00:00 54 02/08/17 21:39 67 132/85 02/08/17 20:00 53 02/08/17 19:57 98.4 64 20 132/85 96 Room Air 02/08/17 18:52 97.9 Intake and Output 02/09/17 02/10/17 19:00 07:00 Intake Total 250 ml Output Total 0 ml Balance 250 ml IV Total 250 ml Estimated Blood Loss 0 ml 2D Echo: LVEF 55%, Mild LVH, Mild SANDRA/RVE, RVSP 11 mmHg, Mild MR Microbiology Date/Time Source Procedure Growth Status 02/07/17 03:40 Finger Left Middle Gram Stain - Final Resulted 02/07/17 03:40 Finger Left Middle Wound Culture - Preliminary Resulted Objective HEENT: Atraumatic and normocephalic. Anicteric. Pupils are equal, round, and reactive to light and accommodation. Conjunctival pallor present. NECK: JVP cannot be assessed due to obesity. No carotid bruit. Carotid upstroke is 2+ bilaterally. CARDIOVASCULAR: Normal S1 and S2. Regular rate and rhythm. No murmurs, gallops, or rubs. PMI is at fourth intercostal space at the midclavicular line. LUNGS: Clear to auscultation bilaterally. ABDOMEN: Distended. No hepatosplenomegaly. Positive bowel sounds. EXTREMITIES: No evidence of edema, clubbing, or cyanosis. JUAN BONE Feb 09, 2017 17:55
[2017-02-09] MEDS ORDERED: D5 1/2NS 1000ml IV ONE (18:29)
[2017-02-12 09:09] LABS: OTHERS PATHOLOGIST COMMENT
--- NOTE | 2017-02-12 10:45 | Discharge Summary ---
Discharge Summary Hospital Course Date of Admission Feb 07, 2017 at 01:41 Date of Discharge Feb 09, 2017 at 18:30 Admitting Diagnosis chest pain, alcohol abuse anemia, esophageal varic HPI Darryl Gleason is a 46 year old male who was admitted on Feb 07, 2017 at 01:41 for Chest Pain,Alcohol Abuse Anemia,Esophageal Hospital Course dc summary #[id number] Discharge Medications Continued Medications: Ferrous Sulfate* (Ferrous Sulfate*) 325 Mg Tablet 325 MG ORAL THREE TIMES A DAY, #90 TAB 0 Refills Ibuprofen* (Motrin*) 600 Mg Tablet 600 MG ORAL THREE TIMES A DAY, #30 TAB 0 Refills Pantoprazole* (Protonix*) 40 Mg Tablet.dr 40 MG ORAL DAILY, #90 TAB Pentoxifylline* (Trental*) 400 Mg Tablet.er 400 MG ORAL THREE TIMES A DAY, #90 TAB 0 Refills Propranolol Hcl* (Inderal*) 20 Mg Tablet 20 MG ORAL QID, #120 TAB 0 Refills Silver Sulfadiazine (Silvadene) 20 Gm Cream..g. 20 GM TP BID, #20 GM Thiamine Hcl* (Vitamin B-1*) 100 Mg Tablet 100 MG ORAL DAILY, #30 TAB 0 Refills Discontinued Medications: No Known Medications* (NKM - No Known Medications*) . 0 ., 0 Refills Discharge Condition Upon Discharge: stable Discharge Disposition Patient was discharged to Home () Discharge Diagnoses: Discharge Instructions Discharge Instructions Special Instructions I have been assigned to complete a D/C Summary on this account. I was not involved in the patient management Merna Zamudio NP ([place]te[place]) Feb 12, 2017 10:45
--- NOTE | 2017-02-12 18:45 | Discharge Summary 2 SIG ---
DATE OF ADMISSION: 02/07/2017 DATE OF DISCHARGE: 02/09/2017 REASON FOR ADMISSION: 46-year-old male with history of cirrhosis, hypertension, gastrointestinal bleeding, esophageal varices, anemia, and history of alcohol abuse presented to the emergency department with chest pain. The patient reported drinking a small amount of alcohol earlier that day. He reported sharp sensation in the center of his chest, pointing to epigastric area. Epigastric discomfort was associated with shortness of breath. Denied fever. Denied cough, wheezing, and congestion. Vital signs revealed no fever, tachycardia -114, blood pressure- 140/92, and saturation 98% on the room air. Chest x-ray revealed no acute cardiopulmonary disease. EKG revealed sinus tachycardia. No PVC. No ectopy. The patient undergone CT of the abdomen and pelvis, which revealed no acute abnormality but showed evidence of hepatic cirrhosis with hepatomegaly, evidence of portal hypertension with splenomegaly and small varices. Diverticulosis without evidence of diverticulitis. Venous duplex of bilateral lower extremities revealed no evidence of acute DVT. The patient was admitted for further management. HOSPITAL COURSE: The patient was admitted. GI and Cardiology consults along with psychiatric consults were requested. GI seen and evaluated the patient. The patient previously had EGD , status post esophageal varices banding x5 , EGD revealed evidence of portal hypertensive gastropathy, status post biopsy. The patient was scheduled for EGD after clearance by hoe worker. Transcriber seen and evaluated the patient. Serial troponin x2 were negative. EKG revealed no acute ischemic changes. Echocardiogram revealed preserved ejection fraction of 55% and right ventricular systolic pressure of 11.According to hoe worker, dyspnea was possibly due to the hypervolemia secondary to alcohol and sinus tachycardia was likely due to decreased oncotic pressure, both resolved. Transcriber cleared the patient for EGD. The patient subsequently undergone EGD with biopsy on 02/09/2017. The patient was found to have scar tissue in the distal esophagus without any significant large varices at this time. 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 GI recommended to follow up with the biopsy and treat accordingly. Hemoglobin and hematocrit were closely monitored.. Anemia workup revealed iron deficiency anemia. Shipwright Supervisor followed. The patient was started on iron supplement. The patient was on PPI. Stool for OB was negative. Pancytopenia and coagulopathy were likely secondary to cirrhosis. Shipwright Supervisor recommended vitamin K as needed if the patient will bleed. Propranolol and Trental were continued. Bowel regimen instituted. Diet advanced, patient was able to tolerate diet. No further pain. Psychiatrist seen and evaluated the patient. Diagnosed the patient with alcohol dependency. Started the patient on folate and thiamine as well as Valium as needed. The patient was counseled on alcohol cessation. Urine tox screen was negative. The patient was stable for discharge home. FINAL DIAGNOSES: 1. Alcohol-induced cirrhosis. 2. Alcohol dependency. 3. Esophageal varices 4. Status post esophagogastroduodenoscopy with biopsy. 5. Gastritis, status post biopsy. 6. Pancytopenia secondary to cirrhosis. 7. Iron-deficiency anemia. 8. Coagulopathy secondary to underlying cirrhosis. 9. Sinus tachycardia likely secondary to decreased oncotic pressure, resolved. 10. Dyspnea likely secondary to hypervolemia from alcohol abuse, resolved. 11. Anxiety. DISCHARGE MEDICATIONS: See medication reconciliation list. DISCHARGE INSTRUCTIONS: The patient was discharged home. FOLLOWUP: Follow up with the primary medical doctor. Etta Fang M.D. I have been assigned to dictate discharge summary on this account and I was not involved in the patient's management. Merna MazariegosCapital District Psychiatric Centerjolynn N.P. DR: GE JOB#: [id number] CC: KEVIN
== END 2017-02-09 18:30 | disposition home or self-care (01) | DRG 280 ==
LOC: EMR 22:06 → 2W 02-07 01:41 → EDBEDREQ 02-07 02:32 → 2W 02-07 02:57 → 2E 02-07 18:06
PROC: 0DB78ZX Excision of Stomach, Pylorus, Via Natural or Artificial Opening Endoscopic, Diagnostic (ICD-10-PCS; principal; 2017-02-09 07:13)
DX: K70.30 Alcoholic cirrhosis of liver without ascites (principal); D61.818 Other pancytopenia; D68.4 Acquired coagulation factor deficiency; K76.6 Portal hypertension; I85.10 Secondary esophageal varices without bleeding; D50.9 Iron deficiency anemia, unspecified; E11.9 Type 2 diabetes mellitus without complications; I10 Essential (primary) hypertension; I50.9 Heart failure, unspecified; F10.20 Alcohol dependence, uncomplicated; E87.6 Hypokalemia; K31.89 Other diseases of stomach and duodenum; R06.00 Dyspnea, unspecified; R00.0 Tachycardia, unspecified; K29.70 Gastritis, unspecified, without bleeding; K21.9 Gastro-esophageal reflux disease without esophagitis; K57.90 Diverticulosis of intestine, part unspecified, without perforation or abscess without bleeding; R07.89 Other chest pain; F41.9 Anxiety disorder, unspecified; Z86.711 Personal history of pulmonary embolism; K92.2 Gastrointestinal hemorrhage, unspecified
CPT/HCPCS: 36415; 71010; 74177; 80053; 80162; 80307; 82248; 82270; 82550; 82553; 82607; 82728; 82746; 83615; 83690; 83880; 84443; 84484; 85007; 85025; 85044; 85060; 85610; 85730; 86850; 86900; 86901; 87070; 87181; 87205; 93005; 93306; 93970; 94003; 94150; 99285; J2405

== ENCOUNTER 2017-04-01 20:50 | Inpatient (IN) | payer MEDICAID ==
[~2017-04-01] VITALS: Ht 170.2 cm; Wt 113.4 kg
[2017-04-01 20:57] VITALS: BP 120/78
--- NOTE | 2017-04-01 21:34 | Emergency Room Report ---
History of Present Illness General Chief Complaint: Chest Pain Source: Patient Present Illness HPI Patient is a 46-year-old male brought in by self after increased chest discomfort. Patient had prior history of recent alcohol abuse. The patient states he been drinking heavily since March 18. He reports having some rectal bleeding and hematemesis. He reports having some burning epigastric sensation.The patient denies any prior history of cardiac disease. Allergies: Coded Allergies: NO KNOWN ALLERGIES (Verified Allergy, Unknown, 01/25/17) Patient History Past Medical History: see triage record Reviewed Nursing Documentation: PMH: Agreed, PSxH: Agreed Nursing Documentation-PMH Past Medical History: No History, Except For Hx Cardiac Problems: Yes Hx Hypertension: Yes Hx Asthma: No - blood clot rt lung 2005/anemia Hx Diabetes: Yes - Patient denies taking medication for DM Hx Cancer: No Hx Gastrointestinal Problems: Yes - GI bleed Hx Neurological Problems: No Review of Systems All Other Systems: negative except mentioned in HPI Physical Exam Vital Signs Date Time Temp Pulse Resp B/P (MAP) Pulse Ox O2 Delivery O2 Flow Rate FiO2 04/01/17 20:53 98.1 94 17 120/78 99 Room Air Sp02 EP Interpretation: reviewed, normal General Appearance: normal inspection, well appearing, no apparent distress, alert, GCS 15, obese Head: atraumatic ENT: normal ENT inspection, hearing grossly normal, normal voice Neck: normal inspection, full range of motion, supple, no bony tend Respiratory: normal inspection, lungs clear, normal breath sounds, no respiratory distress, no retraction, no wheezing Cardiovascular #1: regular rate, rhythm, no edema Gastrointestinal: normal inspection, normal bowel sounds, non tender, soft, no guarding, no hernia Genitourinary: no CVA tenderness Musculoskeletal: normal inspection, back normal, normal range of motion Neurologic: normal inspection, alert, oriented x3, responsive, general duty nurse III-XII nml as tested, speech normal Psychiatric: normal inspection, judgement/insight normal, mood/affect normal Skin: normal inspection, normal color, no rash Medical Decision Making Diagnostic Impression: Primary Impression: ETOH abuse Additional Impression: Anemia ER Course Patient presented for alcohol abuse. Differential diagnosis included wasn't limited to the GI bleed, anemia, among other. Because of complexity of patient' s case laboratory testing and imaging studies were ordered. Patient was given IV acid blockers as well as type and screen for blood. The patient was given IV thiamine. He was noted to be somewhat thrombocytopenic. The patient's hemoglobin was noted be lower than his baseline have previous visit. Dr. Etta Fang was contacted for inpatient management due to prior admission. Laboratory Tests Test 04/01/17 21:30 04/02/17 02:10 White Blood Count 5.8 K/UL (4.8-10.8) Pending Red Blood Count 4.78 M/UL (4.70-6.10) Pending Hemoglobin 9.1 G/DL (14.2-18.0) L Pending Hematocrit 34.8 % (42.0-52.0) L Pending Mean Corpuscular Volume 73 FL (80-99) L Pending Mean Corpuscular Hemoglobin 19.1 PG (27.0-31.0) L Pending Mean Corpuscular Hemoglobin Concent 26.2 G/DL (32.0-36.0) L Pending Red Cell Distribution Width 22.4 % (11.6-14.8) H Pending Platelet Count 80 K/UL (150-450) L Pending Mean Platelet Volume 8.0 FL (6.5-10.1) Pending Neutrophils (%) (Auto) % (45.0-75.0) Pending Lymphocytes (%) (Auto) % (20.0-45.0) Pending Monocytes (%) (Auto) % (1.0-10.0) Pending Eosinophils (%) (Auto) % (0.0-3.0) Pending Basophils (%) (Auto) % (0.0-2.0) Pending Differential Total Cells Counted 100 Neutrophils % (Manual) 55 % (45-75) Lymphocytes % (Manual) 35 % (20-45) Monocytes % (Manual) 7 % (1-10) Eosinophils % (Manual) 3 % (0-3) Basophils % (Manual) 0 % (0-2) Band Neutrophils 0 % (0-8) Platelet Estimate Decreased L Platelet Morphology Normal Hypochromasia 1+ Anisocytosis 1+ Prothrombin Time 12.2 SEC (9.30-11.50) H Prothrombin Time INR 1.2 (0.9-1.1) H PTT 34 SEC (23-33) H Total Creatine Kinase 420 U/L (26-308) H Troponin I 0.016 ng/mL (0.000-0.056) Pro-B-Type Natriuretic Peptide 64 pg/mL (0-125) Serum Alcohol 355 mg/dL EKG Diagnostic Results Rate: normal - 98 Rhythm: NSR ST Segments: no acute changes Rhythm Strip Diag. Results EP Interpretation: yes Rhythm: NSR, no PVC's, no ectopy Last Vital Signs Date Time Temp Pulse Resp B/P (MAP) Pulse Ox O2 Delivery O2 Flow Rate FiO2 04/01/17 20:53 98.1 94 17 120/78 99 Room Air Status: unchanged Disposition: ADMITTED INPATIENT Condition: Serious Referrals: NON PHYSICIAN (PCP) Jason Guevara Apr 01, 2017 21:34
[2017-04-01 21:49] LABS: HEMATOCRIT 34.8 % (42.0-52.0); HEMOGLOBIN 9.1 G/DL (14.2-18.0); MEAN CORPUSCULAR VOLUME 73 FL (80-99); PLATELET COUNT 80 K/UL (150-450); RED BLOOD COUNT 4.78 M/UL (4.70-6.10); RED CELL DISTRIBUTION WIDTH 22.4 % (11.6-14.8); WHITE BLOOD COUNT 5.8 K/UL (4.8-10.8)
[2017-04-01 22:18] LABS: INR 1.2 (0.9-1.1)
[2017-04-01 22:20] LABS: CREATINE KINASE 420 U/L (26-308)
[2017-04-01] MEDS ORDERED: Thiamine HCl 100 MG in D5W 55 ML IVPB ONE (22:45)
[2017-04-01 22:57] VITALS: BP 130/74
[2017-04-01] MEDS ORDERED: Thiamine HCl 100mg/ml 2 ml Inj ONE (22:59)
[2017-04-01] MEDS ORDERED: UNOBMED (23:17)
[2017-04-02] VITALS (9 sets, daily range): BP systolic 117–156; BP diastolic 61–104
[2017-04-02 02:35] LABS: HEMATOCRIT 31.6 % (42.0-52.0); HEMOGLOBIN 8.9 G/DL (14.2-18.0); MEAN CORPUSCULAR VOLUME 73 FL (80-99); PLATELET COUNT 61 K/UL (150-450); RED BLOOD COUNT 4.32 M/UL (4.70-6.10); RED CELL DISTRIBUTION WIDTH 22.1 % (11.6-14.8); WHITE BLOOD COUNT 3.4 K/UL (4.8-10.8)
[2017-04-02 09:52] LABS: HEMATOCRIT 33.7 % (42.0-52.0); HEMOGLOBIN 9.3 G/DL (14.2-18.0); MEAN CORPUSCULAR VOLUME 74 FL (80-99); PLATELET COUNT 69 K/UL (150-450); RED BLOOD COUNT 4.54 M/UL (4.70-6.10); RED CELL DISTRIBUTION WIDTH 22.8 % (11.6-14.8); WHITE BLOOD COUNT 3.7 K/UL (4.8-10.8)
[2017-04-02 10:04] LABS: ANION GAP 6 mmol/L (5-15); BLOOD UREA NITROGEN 6 mg/dL (7-18); CALCIUM 6.5 MG/DL (8.5-10.1); CARBON DIOXIDE 28 MMOL/L (21-32); CHLORIDE 107 MMOL/L (98-107); CREATININE 0.8 MG/DL (0.55-1.30); POTASSIUM 3.6 MMOL/L (3.5-5.1); SODIUM 141 MMOL/L (136-145)
[2017-04-02 10:21] LABS: ALANINE AMINOTRANSFERASE 36 U/L (12-78); ALBUMIN 2.6 G/DL (3.4-5.0); ALBUMIN/GLOBULIN RATIO 0.4 (1.0-2.7); ALKALINE PHOSPHATASE 172 U/L (46-116); ASPARTATE AMINO TRANSFERASE 104 U/L (15-37); BILIRUBIN,TOTAL 1.2 MG/DL (0.2-1.0); FERRITIN 18 NG/ML (8-388); PHOSPHORUS 3.8 MG/DL (2.5-4.9)
[2017-04-02 10:22] LABS: BILIRUBIN,DIRECT 0.6 MG/DL (0.0-0.3)
[2017-04-02 10:35] LABS: % IRON SATURATION 6 % (15-50); IRON 21 ug/dL (50-175); TOTAL IRON BINDING CAPACITY 362 ug/dL (250-450)
[2017-04-02] MEDS ORDERED: Thiamine HCl 100 MG, Folic Acid 1 MG, Magnesium Sulfate 2,000 MG, Multivitamin - 12 Inj... IV SCH ×5 (11:30)
[2017-04-02] MEDS ORDERED: Morphine Sulfate 2mg/ml Inj IM PRN (11:45)
[2017-04-02] MEDS ORDERED: Flu Vaccine Quadrivalent 0.5ml IM ONE (14:00)
[2017-04-02] MEDS ORDERED: chlordiazePOXIDE 25mg Cap ORAL PRN ×2 (15:30→16:30)
--- NOTE | 2017-04-02 16:50 | GI Initial Consult Note ---
History of Present Illness General Date patient seen: Apr 02, 2017 Time patient seen: 16:45 Reason for Hospitalization: Chest Pain Referring physician: GEETHA Martinez Reason for Consultation: GI BLEED Present Illness HPI Patient is a 46-year-old male brought in by self after increased chest discomfort. Patient had prior history of recent alcohol abuse. The patient states he been drinking heavily since March 18. He reports having some rectal bleeding and hematemesis. He reports having some burning epigastric sensation.The patient denies any prior history of cardiac disease. GI consulted for GI bleed. HPI noted above. Pt seen on floor, awake A&Ox4 NAD with no active s/sx of N/V/D. Per patient, he did not have any hematemesis, but has had recent rectal bleeding. The patient admits to have been drinking heavily, but will not state the amount. He has been admitted for the same condition last year and has had 2 EGD performed to r/o GI bleed, see summary below. The patient presents today with ETOH levels of 355, anemia, and low platelet counts. Endoscopy Procedure Note Indication for Procedure: cirrhosis Procedures Performed: EGD Operative Findings/Diagnosis: gastritis KAUR YUNG - Feb 09, 2017 07:17 Endoscopy Procedure Note Indication for Procedure: esoph varices Procedures Performed: EGD Operative Findings/Diagnosis: same KAUR YUNG - Nov 29, 2016 10:39 Home Meds Active Scripts Ibuprofen* (MOTRIN*) 600 Mg Tablet, 600 MG ORAL THREE TIMES A DAY, #30 TAB 0 Refills Prov:ARA NAM M.D. 01/25/17 Silver Sulfadiazine (SILVADENE) 20 Gm Cream..g., 20 GM TP BID, #20 GM Prov:ARA NAM M.D. 01/25/17 Thiamine Hcl* (VITAMIN B-1*) 100 Mg Tablet, 100 MG ORAL DAILY, #30 TAB 0 Refills Prov:Robb (Merna Chen NP 12/05/16 Propranolol Hcl* (INDERAL*) 20 Mg Tablet, 20 MG ORAL QID, #120 TAB 0 Refills Prov:Merna Zamudio NP (Vanchtein) 12/05/16 Reported Medications Unable to Obtain Medications (UNABLE TO OBTAIN MEDS) 1 Ea Ea 1/7/18 Ferrous Sulfate* (FERROUS SULFATE*) 325 Mg Tablet, 325 MG ORAL THREE TIMES A DAY , #90 TAB 0 Refills 09/06/16 Pentoxifylline* (TRENTAL*) 400 Mg Tablet.er, 400 MG ORAL THREE TIMES A DAY, #90 TAB 0 Refills 09/06/16 Pantoprazole* (PROTONIX*) 40 Mg Tablet.dr, 40 MG ORAL DAILY, #90 TAB 09/06/16 Med list reviewed/reconciled: Yes Allergies: Coded Allergies: NO KNOWN ALLERGIES (Verified Allergy, Unknown, 01/25/17) Patient History History Provided By: Patient, Medical Record PMH Narrative Past Medical History: No History, Except For Hx Cardiac Problems: Yes Hx Hypertension: Yes Hx Asthma: No - blood clot rt lung 2005/anemia Hx Diabetes: Yes - Patient denies taking medication for DM Hx Cancer: No Hx Gastrointestinal Problems: Yes - GI bleed Hx Neurological Problems: No Social History: Reports: alcohol use - abuse Review of Systems All Other Systems: negative except mentioned in HPI Physical Exam Vital Signs Date Time Temp Pulse Resp B/P (MAP) Pulse Ox O2 Delivery O2 Flow Rate FiO2 04/01/17 20:53 98.1 94 17 120/78 99 Room Air Sp02 EP Interpretation: reviewed, normal Labs Laboratory Tests Test 04/01/17 21:30 04/02/17 02:10 04/02/17 09:35 White Blood Count 5.8 K/UL (4.8-10.8) 3.4 K/UL (4.8-10.8) L 3.7 K/UL (4.8-10.8) L Red Blood Count 4.78 M/UL (4.70-6.10) 4.32 M/UL (4.70-6.10) L 4.54 M/UL (4.70-6.10) L Hemoglobin 9.1 G/DL (14.2-18.0) L 8.9 G/DL (14.2-18.0) L 9.3 G/DL (14.2-18.0) L Hematocrit 34.8 % (42.0-52.0) L 31.6 % (42.0-52.0) L 33.7 % (42.0-52.0) L Mean Corpuscular Volume 73 FL (80-99) L 73 FL (80-99) L 74 FL (80-99) L Mean Corpuscular Hemoglobin 19.1 PG (27.0-31.0) L 20.6 PG (27.0-31.0) L 20.5 PG (27.0-31.0) L Mean Corpuscular Hemoglobin Concent 26.2 G/DL (32.0-36.0) L 28.2 G/DL (32.0-36.0) L 27.7 G/DL (32.0-36.0) L Red Cell Distribution Width 22.4 % (11.6-14.8) H 22.1 % (11.6-14.8) H 22.8 % (11.6-14.8) H Platelet Count 80 K/UL (150-450) L 61 K/UL (150-450) L 69 K/UL (150-450) L Mean Platelet Volume 8.0 FL (6.5-10.1) 8.1 FL (6.5-10.1) 8.2 FL (6.5-10.1) Neutrophils (%) (Auto) % (45.0-75.0) % (45.0-75.0) % (45.0-75.0) Lymphocytes (%) (Auto) % (20.0-45.0) % (20.0-45.0) % (20.0-45.0) Monocytes (%) (Auto) % (1.0-10.0) % (1.0-10.0) % (1.0-10.0) Eosinophils (%) (Auto) % (0.0-3.0) % (0.0-3.0) % (0.0-3.0) Basophils (%) (Auto) % (0.0-2.0) % (0.0-2.0) % (0.0-2.0) Differential Total Cells Counted 100 100 Neutrophils % (Manual) 55 % (45-75) 57 % (45-75) Lymphocytes % (Manual) 35 % (20-45) 30 % (20-45) Monocytes % (Manual) 7 % (1-10) 9 % (1-10) Eosinophils % (Manual) 3 % (0-3) 3 % (0-3) Basophils % (Manual) 0 % (0-2) 1 % (0-2) Band Neutrophils 0 % (0-8) 0 % (0-8) Platelet Estimate Decreased L Decreased L Platelet Morphology Normal Normal Hypochromasia 1+ 2+ Anisocytosis 1+ 3+ Prothrombin Time 12.2 SEC (9.30-11.50) H Prothromb Time International Ratio 1.2 (0.9-1.1) H Activated Partial Thromboplast Time 34 SEC (23-33) H Total Creatine Kinase 420 U/L (26-308) H Troponin I 0.016 ng/mL (0.000-0.056) Pro-B-Type Natriuretic Peptide 64 pg/mL (0-125) Serum Alcohol 355 mg/dL Microcytosis 1+ Sodium Level 141 MMOL/L (136-145) Potassium Level 3.6 MMOL/L (3.5-5.1) Chloride Level 107 MMOL/L (98-107) Carbon Dioxide Level 28 MMOL/L (21-32) Anion Gap 6 mmol/L (5-15) Blood Urea Nitrogen 6 mg/dL (7-18) L Creatinine 0.8 MG/DL (0.55-1.30) Estimat Glomerular Filtration Rate > 60 mL/min (>60) Glucose Level 114 MG/DL (74-106) H Uric Acid 4.4 MG/DL (2.6-7.2) Calcium Level 6.5 MG/DL (8.5-10.1) L Phosphorus Level 3.8 MG/DL (2.5-4.9) Magnesium Level 1.8 MG/DL (1.8-2.4) Iron Level 21 ug/dL (50-175) L Total Iron Binding Capacity 362 ug/dL (250-450) Percent Iron Saturation 6 % (15-50) L Unsaturated Iron Binding 341 ug/dL (112-346) Ferritin 18 NG/ML (8-388) Total Bilirubin 1.2 MG/DL (0.2-1.0) H Direct Bilirubin 0.6 MG/DL (0.0-0.3) H Aspartate Amino Transf (AST/SGOT) 104 U/L (15-37) H Alanine Aminotransferase (ALT/SGPT) 36 U/L (12-78) Alkaline Phosphatase 172 U/L (46-116) H C-Reactive Protein, Quantitative 0.8 mg/dL (0.00-0.90) Total Protein 9.4 G/DL (6.4-8.2) H Albumin 2.6 G/DL (3.4-5.0) L Globulin 6.8 g/dL Albumin/Globulin Ratio 0.4 (1.0-2.7) L Vitamin B12 Level 732 PG/ML (193-986) Folate 9.0 NG/ML (8.6-58.9) General Appearance: well appearing, no apparent distress, alert, obese Head: normocephalic EENT: PERRL/EOMI, normal ENT inspection Neck: supple Respiratory: normal breath sounds, no respiratory distress Cardiovascular: normal rate Gastrointestinal: normal inspection, non tender, soft, normal bowel sounds, non -distended Rectal: deferred Genitourinary: deferred Musculoskeletal: normal inspection, back normal Neurologic: normal inspection, alert, oriented x3, responsive Psychiatric: normal inspection, judgement/insight normal, memory normal Skin: normal inspection, normal color, no rash, warm/dry, palpation normal, well hydrated Lymphatic: normal inspection, no adenopathy Current Medications Current Medications Medications (Trade) Dose Ordered Sig/Nikhil Route PRN Reason Start Time Stop Time Status Last Admin Dose Admin Chlordiazepoxide (Librium) 25 mg Q8HR PRN ORAL Agitation 04/02/17 16:30 04/09/17 16:29 UNV Ferrous Sulfate (Feosol) 325 mg THREE TIMES A DAY ORAL 04/02/17 13:00 05/02/17 12:59 04/02/17 13:34 Folic Acid (Folate) 1 mg DAILY ORAL 04/03/17 09:00 05/03/17 08:59 Morphine Sulfate (Morphine Sulfate) 2 mg Q4H PRN IM For Pain 04/02/17 11:45 04/09/17 11:44 Octreotide Acetate 500 mcg/ Sodium Chloride 500 ml @ 50 mls/hr Q10H IV 04/02/17 16:30 05/02/17 16:29 UNV Ondansetron HCl (Zofran) 4 mg Q6H PRN IVP Nausea & Vomiting 04/02/17 15:30 05/02/17 15:29 04/02/17 16:04 Pantoprazole 80 mg/Sodium Chloride 250 ml @ 25 mls/hr Q10H IV 04/02/17 16:30 05/02/17 16:29 UNV Pentoxifylline (TRENtal) 400 mg THREE TIMES A DAY ORAL 04/02/17 13:00 05/02/17 12:59 04/02/17 13:34 Propranolol HCl (Inderal) 20 mg Q6HR ORAL 04/02/17 18:00 05/02/17 17:59 Thiamine HCl (Vitamin B1) 100 mg DAILY ORAL 04/03/17 09:00 05/03/17 08:59 GI: Plan Problems: (1) GI bleed (2) ETOH abuse (3) Anemia (4) Esophageal varices determined by endoscopy (5) Cirrhosis (6) ETOH abuse Plan Endoscopy Procedure Note Indication for Procedure: cirrhosis Procedures Performed: EGD Operative Findings/Diagnosis: gastritis KARU YUNG - Feb 09, 2017 07:17 Endoscopy Procedure Note Indication for Procedure: esoph varices Procedures Performed: EGD Operative Findings/Diagnosis: same KAUR YUNG - Nov 29, 2016 10:39 RECOMMENDATIONS: will consider EGD if necessary given his recent history of multiple procedures. maintain CLD + banana bag octreotide gtt + ppi gtt prn transfusions goal for Hgb > 7. Librium OB stool r/o GI bleed pain mgmt fu labs Discussed with Dr. Yung. Thank you for this patient referral, we will follow. Lorna Nam N.P. Apr 02, 2017 16:50
[2017-04-02] MEDS: Propranolol 10mg tab ORAL SCH ×2 (17:58→23:15)
--- NOTE | 2017-04-02 18:30 | Cardiology Progress Note ---
Assessment/Plan Assessment/Plan The patient is seen and examined, full consult note is dictated. Objective Last 24 Hour Vital Signs Date Time Temp Pulse Resp B/P (MAP) Pulse Ox O2 Delivery O2 Flow Rate FiO2 04/02/17 17:58 100 151/87 04/02/17 17:57 151/87 04/02/17 16:00 98.1 107 20 156/104 96 Room Air 04/02/17 13:34 151/87 04/02/17 12:00 98.2 100 20 151/87 93 Room Air 04/02/17 09:30 97.7 85 20 140/94 94 Room Air 04/02/17 09:10 98.5 98 18 133/71 95 Room Air 04/02/17 06:57 98.5 98 18 133/71 95 Room Air 04/02/17 04:57 97.8 92 18 124/66 97 Room Air 04/02/17 02:57 97.8 99 15 117/61 97 Room Air 04/02/17 00:57 97.9 96 17 133/65 97 Room Air 04/01/17 22:57 98.1 93 15 130/74 97 Room Air 04/01/17 20:57 98.1 94 17 120/78 99 Room Air 04/01/17 20:57 94 17 Room Air 04/01/17 20:53 98.1 94 17 120/78 99 Room Air Intake and Output 04/01/17 04/02/17 19:00 07:00 Intake Total 50 ml Balance 50 ml Intake IV Total 50 ml # Voids 1 Laboratory Tests Test 04/01/17 21:30 04/02/17 02:10 04/02/17 09:35 White Blood Count 5.8 K/UL (4.8-10.8) 3.4 K/UL (4.8-10.8) L 3.7 K/UL (4.8-10.8) L Red Blood Count 4.78 M/UL (4.70-6.10) 4.32 M/UL (4.70-6.10) L 4.54 M/UL (4.70-6.10) L Hemoglobin 9.1 G/DL (14.2-18.0) L 8.9 G/DL (14.2-18.0) L 9.3 G/DL (14.2-18.0) L Hematocrit 34.8 % (42.0-52.0) L 31.6 % (42.0-52.0) L 33.7 % (42.0-52.0) L Mean Corpuscular Volume 73 FL (80-99) L 73 FL (80-99) L 74 FL (80-99) L Mean Corpuscular Hemoglobin 19.1 PG (27.0-31.0) L 20.6 PG (27.0-31.0) L 20.5 PG (27.0-31.0) L Mean Corpuscular Hemoglobin Concent 26.2 G/DL (32.0-36.0) L 28.2 G/DL (32.0-36.0) L 27.7 G/DL (32.0-36.0) L Red Cell Distribution Width 22.4 % (11.6-14.8) H 22.1 % (11.6-14.8) H 22.8 % (11.6-14.8) H Platelet Count 80 K/UL (150-450) L 61 K/UL (150-450) L 69 K/UL (150-450) L Mean Platelet Volume 8.0 FL (6.5-10.1) 8.1 FL (6.5-10.1) 8.2 FL (6.5-10.1) Neutrophils (%) (Auto) % (45.0-75.0) % (45.0-75.0) % (45.0-75.0) Lymphocytes (%) (Auto) % (20.0-45.0) % (20.0-45.0) % (20.0-45.0) Monocytes (%) (Auto) % (1.0-10.0) % (1.0-10.0) % (1.0-10.0) Eosinophils (%) (Auto) % (0.0-3.0) % (0.0-3.0) % (0.0-3.0) Basophils (%) (Auto) % (0.0-2.0) % (0.0-2.0) % (0.0-2.0) Differential Total Cells Counted 100 100 Neutrophils % (Manual) 55 % (45-75) 57 % (45-75) Lymphocytes % (Manual) 35 % (20-45) 30 % (20-45) Monocytes % (Manual) 7 % (1-10) 9 % (1-10) Eosinophils % (Manual) 3 % (0-3) 3 % (0-3) Basophils % (Manual) 0 % (0-2) 1 % (0-2) Band Neutrophils 0 % (0-8) 0 % (0-8) Platelet Estimate Decreased L Decreased L Platelet Morphology Normal Normal Hypochromasia 1+ 2+ Anisocytosis 1+ 3+ Prothrombin Time 12.2 SEC (9.30-11.50) H Prothromb Time International Ratio 1.2 (0.9-1.1) H Activated Partial Thromboplast Time 34 SEC (23-33) H Total Creatine Kinase 420 U/L (26-308) H Troponin I 0.016 ng/mL (0.000-0.056) Pro-B-Type Natriuretic Peptide 64 pg/mL (0-125) Serum Alcohol 355 mg/dL Microcytosis 1+ Sodium Level 141 MMOL/L (136-145) Potassium Level 3.6 MMOL/L (3.5-5.1) Chloride Level 107 MMOL/L (98-107) Carbon Dioxide Level 28 MMOL/L (21-32) Anion Gap 6 mmol/L (5-15) Blood Urea Nitrogen 6 mg/dL (7-18) L Creatinine 0.8 MG/DL (0.55-1.30) Estimat Glomerular Filtration Rate > 60 mL/min (>60) Glucose Level 114 MG/DL (74-106) H Uric Acid 4.4 MG/DL (2.6-7.2) Calcium Level 6.5 MG/DL (8.5-10.1) L Phosphorus Level 3.8 MG/DL (2.5-4.9) Magnesium Level 1.8 MG/DL (1.8-2.4) Iron Level 21 ug/dL (50-175) L Total Iron Binding Capacity 362 ug/dL (250-450) Percent Iron Saturation 6 % (15-50) L Unsaturated Iron Binding 341 ug/dL (112-346) Ferritin 18 NG/ML (8-388) Total Bilirubin 1.2 MG/DL (0.2-1.0) H Direct Bilirubin 0.6 MG/DL (0.0-0.3) H Aspartate Amino Transf (AST/SGOT) 104 U/L (15-37) H Alanine Aminotransferase (ALT/SGPT) 36 U/L (12-78) Alkaline Phosphatase 172 U/L (46-116) H C-Reactive Protein, Quantitative 0.8 mg/dL (0.00-0.90) Total Protein 9.4 G/DL (6.4-8.2) H Albumin 2.6 G/DL (3.4-5.0) L Globulin 6.8 g/dL Albumin/Globulin Ratio 0.4 (1.0-2.7) L Vitamin B12 Level 732 PG/ML (193-986) Folate 9.0 NG/ML (8.6-58.9) JUAN BONE Apr 02, 2017 18:30
[2017-04-02] MEDS: Pantoprazole 80 MG in NS 250 ML IV SCH (18:50)
--- NOTE | 2017-04-02 19:38 | Consultation ---
Consult Note Consult Note DATE OF CONSULTATION: 04/02/17 HEMATOLOGY/ONCOLOGY CONSULTATION CONSULTING PHYSICIAN: Clark Cooper M.D. REQUESTING PHYSICIAN: Etta Fang M.D. REASON FOR CONSULTATION: Evaluation of pancytopenia as well as coagulopathy. IDENTIFICATION DATA: Dear Dr. Etta Fang, The patient is a pleasant 46-year-old male with past medical history significant for history of alcohol-induced cirrhosis, anemia, esophageal varices, has been here before as well. Here 2 mo ago, the patient's records from before in the past noted to have thrombocytopenia as well as anemia, has been heavily drinking ofr past 3 weeks, has been admitted before and had gi w/u which showed esophageal varices, had EGD with banding performed today. Hematology service was consulted for further evaluation and treatment. PAST MEDICAL HISTORY: Cirrhosis, alcohol abuse, and anemia. PAST SURGICAL HISTORY: None noted. MEDICATIONS: Ferrous sulfate, pantoprazole, and Trental. ALLERGIES: No known drug allergies. REVIEW OF SYSTEMS: Constitutional: No fever, chills, or night sweats. Skin: No rashes, bumps, or itching. HEENT: No headache, hearing or vision changes. Breasts: No lumps, pain, or discharge. Pulmonary: No cough, sputum, or shortness of breath. Gastrointestinal: Some GERD symptoms. Genitourinary: No dysuria, frequency, or urgency. Musculoskeletal: No joint swelling, muscle pain, or trauma. PHYSICAL EXAMINATION: GENERAL: The patient is in no acute distress. VITAL SIGNS: reviewed PULMONARY: Decreased breath sounds. CARDIOVASCULAR: Regular rate. No S3 or S4. ABDOMEN: Soft, nontender, and nondistended. EXTREMITIES: There is 1+ edema. LABORATORY DATA: reviewed and historical labs reviewed as ew;; ASSESSMENT AND PLAN: #. Pancytopenia. Related to history of cirrhosis, may have iron deficiency component --> anemia w/u has been ordered --> does NOT require a bone marrow biopsy --> reviewed historical labs --> recommend alcohol cessation #. Anemia of iron deficiency - on ferrous sulfate tid, ferritin was ONLY 18 #. Lower gastrointestinal bleed, occult blood is pending at this time. #. Coagulopathy, likely secondary to underlying cirrhosis as well. Continue to closely monitor and administer vitamin K if the patient is bleeding. #. Esophageal varices, status post banding on prior admission Clark Cooper Apr 02, 2017 19:38
[2017-04-02] MEDS: Octreotide Acetate 500 MCG in Sodium Chloride 500ML 499 ML IV SCH (20:25)
--- NOTE | 2017-04-02 21:49 | Cardiology Report ---
APPROVED REPORT EKG Measurement Heart [id number] Normal sinus rhythm Prolonged QT Abnormal ECG
[2017-04-03] VITALS (7 sets, daily range): BP systolic 119–145; BP diastolic 76–93
[2017-04-03] MEDS: Propranolol 10mg tab ORAL SCH ×3 (05:19→18:24)
[2017-04-03] MEDS: Octreotide Acetate 500 MCG in Sodium Chloride 500ML 499 ML IV SCH (05:19)
[2017-04-03] MEDS: Pantoprazole 80 MG in NS 250 ML IV SCH (05:20)
[2017-04-03 07:44] LABS: ALANINE AMINOTRANSFERASE 44 U/L (12-78); ALBUMIN 2.4 G/DL (3.4-5.0); ALBUMIN/GLOBULIN RATIO 0.4 (1.0-2.7); ALKALINE PHOSPHATASE 158 U/L (46-116); ANION GAP 5 mmol/L (5-15); ASPARTATE AMINO TRANSFERASE 92 U/L (15-37); BILIRUBIN,TOTAL 2.3 MG/DL (0.2-1.0); BLOOD UREA NITROGEN 5 mg/dL (7-18); CALCIUM 6.9 MG/DL (8.5-10.1); CARBON DIOXIDE 28 MMOL/L (21-32); CHLORIDE 102 MMOL/L (98-107); CREATININE 0.7 MG/DL (0.55-1.30); POTASSIUM 3.9 MMOL/L (3.5-5.1); SODIUM 135 MMOL/L (136-145)
[2017-04-03 07:46] LABS: BILIRUBIN,DIRECT 0.9 MG/DL (0.0-0.3)
[2017-04-03 07:49] LABS: HEMATOCRIT 33.7 % (42.0-52.0); HEMOGLOBIN 9.8 G/DL (14.2-18.0); MEAN CORPUSCULAR VOLUME 73 FL (80-99); PLATELET COUNT 67 K/UL (150-450); RED CELL DISTRIBUTION WIDTH 22.3 % (11.6-14.8); WHITE BLOOD COUNT 3.6 K/UL (4.8-10.8)
[2017-04-03] MEDS: Thiamine 100mg tab ORAL SCH (08:53)
--- NOTE | 2017-04-03 14:51 | GI Progress Note ---
Assessment/Plan Problems: (1) Esophageal varices determined by endoscopy ICD Codes: I85.00 - Esophageal varices without bleeding SNOMED: 55904139, 569142337 (2) ETOH abuse ICD Codes: F10.10 - Alcohol abuse, uncomplicated SNOMED: 08320276 (3) GI bleed ICD Codes: K92.2 - Gastrointestinal hemorrhage, unspecified SNOMED: 76000522 (4) Cirrhosis ICD Codes: K74.60 - Unspecified cirrhosis of liver SNOMED: 89529932 (5) Anemia ICD Codes: D64.9 - Anemia, unspecified SNOMED: 012834282 Status: unchanged Status Narrative Discussed with Dr. Weber. Assessment/Plan Endoscopy Procedure Note Indication for Procedure: cirrhosis Procedures Performed: EGD Operative Findings/Diagnosis: gastritis KAUR WEBER - Feb 09, 2017 07:17 Endoscopy Procedure Note Indication for Procedure: esoph varices Procedures Performed: EGD Operative Findings/Diagnosis: same KAUR WEBER - Nov 29, 2016 10:39 RECOMMENDATIONS: EGD if necessary >> defer at this time given recent history of multiple endoscopies, stable H&H. adv to low sodium diet dc octreotide gtt + ppi gtt prn transfusions goal for Hgb > 7. Librium OB stool r/o GI bleed pain mgmt fu labs Subjective Gastrointestinal/Abdominal: Reports: no symptoms Objective Last 24 Hour Vital Signs Date Time Temp Pulse Resp B/P (MAP) Pulse Ox O2 Delivery O2 Flow Rate FiO2 04/03/17 13:20 133/91 04/03/17 12:04 64 133/91 04/03/17 12:00 97.3 64 20 129/76 94 04/03/17 08:53 133/91 04/03/17 08:00 97.3 64 18 139/93 94 Room Air 04/03/17 05:19 65 133/91 04/03/17 04:00 98.8 65 21 133/91 98 04/03/17 00:00 98.4 58 22 145/89 100 04/02/17 23:15 78 144/91 04/02/17 20:00 98.8 73 21 149/97 98 04/02/17 18:40 145/92 04/02/17 17:58 100 151/87 04/02/17 17:57 151/87 04/02/17 16:00 98.1 107 20 156/104 96 Room Air Intake and Output 04/02/17 04/03/17 19:00 07:00 Intake Total 1085 ml Balance 1085 ml Intake Oral 360 ml IV Total 725 ml # Voids 2 3 # Bowel Movements 1 Laboratory Tests Test 04/03/17 05:55 White Blood Count 3.6 K/UL (4.8-10.8) L Red Blood Count 4.60 M/UL (4.70-6.10) L Hemoglobin 9.8 G/DL (14.2-18.0) L Hematocrit 33.7 % (42.0-52.0) L Mean Corpuscular Volume 73 FL (80-99) L Mean Corpuscular Hemoglobin 21.2 PG (27.0-31.0) L Mean Corpuscular Hemoglobin Concent 29.0 G/DL (32.0-36.0) L Red Cell Distribution Width 22.3 % (11.6-14.8) H Platelet Count 67 K/UL (150-450) L Mean Platelet Volume 7.8 FL (6.5-10.1) Neutrophils (%) (Auto) % (45.0-75.0) Lymphocytes (%) (Auto) % (20.0-45.0) Monocytes (%) (Auto) % (1.0-10.0) Eosinophils (%) (Auto) % (0.0-3.0) Basophils (%) (Auto) % (0.0-2.0) Differential Total Cells Counted 100 Neutrophils % (Manual) 70 % (45-75) Lymphocytes % (Manual) 17 % (20-45) L Monocytes % (Manual) 10 % (1-10) Eosinophils % (Manual) 3 % (0-3) Basophils % (Manual) 0 % (0-2) Band Neutrophils 0 % (0-8) Platelet Estimate Decreased L Platelet Morphology Normal Hypochromasia 2+ Anisocytosis 3+ Microcytosis 2+ Sodium Level 135 MMOL/L (136-145) L Potassium Level 3.9 MMOL/L (3.5-5.1) Chloride Level 102 MMOL/L (98-107) Carbon Dioxide Level 28 MMOL/L (21-32) Anion Gap 5 mmol/L (5-15) Blood Urea Nitrogen 5 mg/dL (7-18) L Creatinine 0.7 MG/DL (0.55-1.30) Estimat Glomerular Filtration Rate > 60 mL/min (>60) Glucose Level 105 MG/DL (74-106) Calcium Level 6.9 MG/DL (8.5-10.1) L Total Bilirubin 2.3 MG/DL (0.2-1.0) H Direct Bilirubin 0.9 MG/DL (0.0-0.3) H Aspartate Amino Transf (AST/SGOT) 92 U/L (15-37) H Alanine Aminotransferase (ALT/SGPT) 44 U/L (12-78) Alkaline Phosphatase 158 U/L (46-116) H Total Protein 9.2 G/DL (6.4-8.2) H Albumin 2.4 G/DL (3.4-5.0) L Globulin 6.8 g/dL Albumin/Globulin Ratio 0.4 (1.0-2.7) L Height (Feet): 5 Height (Inches): 7.00 Weight (Pounds): 250 General Appearance: WD/WN, no apparent distress, alert, obese Cardiovascular: normal rate Respiratory/Chest: normal breath sounds, no respiratory distress Abdominal Exam: normal bowel sounds, non tender, soft Extremities: normal range of motion, non-tender Lorna Ridley N.P. Apr 03, 2017 14:51
--- NOTE | 2017-04-03 18:58 | Cardiology Progress Note ---
Assessment/Plan Assessment/Plan 1. Atypical chest pain likely non-cardiac in origin, no ECG changes, will obtain 2D echo to assess wall motion and LVEF. 2. Sinus tachycardia, continue propranolol. 3. Hx of PE 4. Hx of GI bleed 5. Liver cirrhosis due to of ETOH abuse, Mg, Po4 replacement. Subjective Subjective Not on telemetry unit. No cardiac events. Objective Last 24 Hour Vital Signs Date Time Temp Pulse Resp B/P (MAP) Pulse Ox O2 Delivery O2 Flow Rate FiO2 04/03/17 18:24 62 126/79 04/03/17 18:24 126/79 04/03/17 16:00 98.8 62 20 126/79 96 04/03/17 13:20 133/91 04/03/17 12:04 64 133/91 04/03/17 12:00 97.3 64 20 129/76 94 04/03/17 08:53 133/91 04/03/17 08:00 97.3 64 18 139/93 94 Room Air 04/03/17 05:19 65 133/91 04/03/17 04:00 98.8 65 21 133/91 98 04/03/17 00:00 98.4 58 22 145/89 100 04/02/17 23:15 78 144/91 04/02/17 20:00 98.8 73 21 149/97 98 Intake and Output 04/02/17 04/03/17 19:00 07:00 Intake Total 1085 ml Balance 1085 ml Intake Oral 360 ml IV Total 725 ml # Voids 2 3 # Bowel Movements 1 Laboratory Tests Test 04/03/17 05:55 White Blood Count 3.6 K/UL (4.8-10.8) L Red Blood Count 4.60 M/UL (4.70-6.10) L Hemoglobin 9.8 G/DL (14.2-18.0) L Hematocrit 33.7 % (42.0-52.0) L Mean Corpuscular Volume 73 FL (80-99) L Mean Corpuscular Hemoglobin 21.2 PG (27.0-31.0) L Mean Corpuscular Hemoglobin Concent 29.0 G/DL (32.0-36.0) L Red Cell Distribution Width 22.3 % (11.6-14.8) H Platelet Count 67 K/UL (150-450) L Mean Platelet Volume 7.8 FL (6.5-10.1) Neutrophils (%) (Auto) % (45.0-75.0) Lymphocytes (%) (Auto) % (20.0-45.0) Monocytes (%) (Auto) % (1.0-10.0) Eosinophils (%) (Auto) % (0.0-3.0) Basophils (%) (Auto) % (0.0-2.0) Differential Total Cells Counted 100 Neutrophils % (Manual) 70 % (45-75) Lymphocytes % (Manual) 17 % (20-45) L Monocytes % (Manual) 10 % (1-10) Eosinophils % (Manual) 3 % (0-3) Basophils % (Manual) 0 % (0-2) Band Neutrophils 0 % (0-8) Platelet Estimate Decreased L Platelet Morphology Normal Hypochromasia 2+ Anisocytosis 3+ Microcytosis 2+ Sodium Level 135 MMOL/L (136-145) L Potassium Level 3.9 MMOL/L (3.5-5.1) Chloride Level 102 MMOL/L (98-107) Carbon Dioxide Level 28 MMOL/L (21-32) Anion Gap 5 mmol/L (5-15) Blood Urea Nitrogen 5 mg/dL (7-18) L Creatinine 0.7 MG/DL (0.55-1.30) Estimat Glomerular Filtration Rate > 60 mL/min (>60) Glucose Level 105 MG/DL (74-106) Calcium Level 6.9 MG/DL (8.5-10.1) L Total Bilirubin 2.3 MG/DL (0.2-1.0) H Direct Bilirubin 0.9 MG/DL (0.0-0.3) H Aspartate Amino Transf (AST/SGOT) 92 U/L (15-37) H Alanine Aminotransferase (ALT/SGPT) 44 U/L (12-78) Alkaline Phosphatase 158 U/L (46-116) H Total Protein 9.2 G/DL (6.4-8.2) H Albumin 2.4 G/DL (3.4-5.0) L Globulin 6.8 g/dL Albumin/Globulin Ratio 0.4 (1.0-2.7) L Objective HEENT: atraumatic, normocephalic, PERRLA, EOMI. Neck: no JVD, no carotid bruit. Respiratory: lungs clear Cardiovascular: regular rate, rhythm, no murmurs, gallops or rubs. Gastrointestinal: normal inspection, normal bowel sounds, non tender, soft, no guarding, no hernia Musculoskeletal: no edema, clubbing or cyanosis. JUAN BONE Apr 03, 2017 18:58
--- NOTE | 2017-04-03 20:59 | General Progress Note ---
Assessment/Plan Problem List: (1) Chest pain ICD Codes: R07.9 - Chest pain, unspecified SNOMED: 39934938 (2) Anemia ICD Codes: D64.9 - Anemia, unspecified SNOMED: 898240707 (3) Cirrhosis ICD Codes: K74.60 - Unspecified cirrhosis of liver SNOMED: 75907155 (4) ETOH abuse ICD Codes: F10.10 - Alcohol abuse, uncomplicated SNOMED: 18771878 (5) Esophageal varices determined by endoscopy ICD Codes: I85.00 - Esophageal varices without bleeding SNOMED: 85940431, 889749327 Status: stable Assessment/Plan chest pain treatment and diagnosis per cardiology cirrhosis etoh afebrile reviewed chart and labs Subjective ROS Limited/Unobtainable: Yes Allergies: Coded Allergies: NO KNOWN ALLERGIES (Verified Allergy, Unknown, 01/25/17) Objective Last 24 Hour Vital Signs Date Time Temp Pulse Resp B/P (MAP) Pulse Ox O2 Delivery O2 Flow Rate FiO2 04/03/17 19:59 97.7 55 20 123/85 93 04/03/17 18:24 62 126/79 04/03/17 18:24 126/79 04/03/17 16:00 98.8 62 20 126/79 96 04/03/17 13:20 133/91 04/03/17 12:04 64 133/91 04/03/17 12:00 97.3 64 20 129/76 94 04/03/17 08:53 133/91 04/03/17 08:00 97.3 64 18 139/93 94 Room Air 04/03/17 05:19 65 133/91 04/03/17 04:00 98.8 65 21 133/91 98 04/03/17 00:00 98.4 58 22 145/89 100 04/02/17 23:15 78 144/91 Intake and Output 04/02/17 04/03/17 19:00 07:00 Intake Total 1085 ml Balance 1085 ml Intake Oral 360 ml IV Total 725 ml # Voids 2 3 # Bowel Movements 1 Laboratory Tests 04/03/17 05:55: White Blood Count 3.6L, Red Blood Count 4.60L, Hemoglobin 9.8L, Hematocrit 33.7L , Mean Corpuscular Volume 73L, Mean Corpuscular Hemoglobin 21.2L, Mean Corpuscular Hemoglobin Concent 29.0L, Red Cell Distribution Width 22.3H, Platelet Count 67L, Mean Platelet Volume 7.8, Neutrophils (%) (Auto) , Lymphocytes (%) (Auto) , Monocytes (%) (Auto) , Eosinophils (%) (Auto) , Basophils (%) (Auto) , Differential Total Cells Counted 100, Neutrophils % ( Manual) 70, Lymphocytes % (Manual) 17L, Monocytes % (Manual) 10, Eosinophils % ( Manual) 3, Basophils % (Manual) 0, Band Neutrophils 0, Platelet Estimate DecreasedL, Platelet Morphology Normal, Hypochromasia 2+, Anisocytosis 3+, Microcytosis 2+, Sodium Level 135L, Potassium Level 3.9, Chloride Level 102, Carbon Dioxide Level 28, Anion Gap 5, Blood Urea Nitrogen 5L, Creatinine 0.7, Estimat Glomerular Filtration Rate > 60, Glucose Level 105, Calcium Level 6.9L, Total Bilirubin 2.3H, Direct Bilirubin 0.9H, Aspartate Amino Transf (AST/SGOT) 92H, Alanine Aminotransferase (ALT/SGPT) 44, Alkaline Phosphatase 158H, Total Protein 9.2H, Albumin 2.4L, Globulin 6.8, Albumin/Globulin Ratio 0.4L Height (Feet): 5 Height (Inches): 7.00 Weight (Pounds): 250 Respiratory/Chest: lungs clear Abdomen: tender Etta Fang MD Apr 03, 2017 20:59
--- NOTE | 2017-04-03 23:13 | General Progress Note ---
Assessment/Plan Status: not improved, unchanged Assessment/Plan #. Pancytopenia. Related to history of cirrhosis, may have iron deficiency component --> anemia w/u completed and reviewed --> does NOT require a bone marrow biopsy --> reviewed historical labs --> recommend alcohol cessation --> plt goal >20k --> hgb goal >7 #. Anemia of iron deficiency - on ferrous sulfate tid, ferritin was ONLY 18 --> Monitor closely. #. Lower gastrointestinal bleed, occult blood is pending at this time. #. Coagulopathy, likely secondary to underlying cirrhosis as well. Continue to closely monitor and administer vitamin K if the patient is bleeding. #. Esophageal varices, status post banding on prior admission Subjective Date patient seen: Apr 03, 2017 Constitutional: Denies: no symptoms, chills, diaphoresis, fever, malaise, weakness, other HEENT: Denies: no symptoms, eye pain, blurred vision, tearing, double vision, ear pain, ear discharge, nose pain, nose congestion, throat pain, throat swelling, mouth pain, mouth swelling, other Cardiovascular: Denies: no symptoms, chest pain, edema, irregular heart rate, lightheadedness, palpitations, syncope, other Gastrointestinal/Abdominal: Denies: no symptoms, abdomen distended, abdominal pain, black stools, tarry stools, blood in stool, constipated, diarrhea, difficulty swallowing, nausea, poor appetite, poor fluid intake, rectal bleeding , vomiting, other Allergies: Coded Allergies: NO KNOWN ALLERGIES (Verified Allergy, Unknown, 01/25/17) Subjective On pain management for cp. Pancytopenia due to cirrhosis. Objective Last 24 Hour Vital Signs Date Time Temp Pulse Resp B/P (MAP) Pulse Ox O2 Delivery O2 Flow Rate FiO2 04/03/17 19:59 97.7 55 20 123/85 93 04/03/17 18:24 62 126/79 04/03/17 18:24 126/79 04/03/17 16:00 98.8 62 20 126/79 96 04/03/17 13:20 133/91 04/03/17 12:04 64 133/91 04/03/17 12:00 97.3 64 20 129/76 94 04/03/17 08:53 133/91 04/03/17 08:00 97.3 64 18 139/93 94 Room Air 04/03/17 05:19 65 133/91 04/03/17 04:00 98.8 65 21 133/91 98 04/03/17 00:00 98.4 58 22 145/89 100 04/02/17 23:15 78 144/91 Intake and Output 04/02/17 04/03/17 19:00 07:00 Intake Total 1085 ml Balance 1085 ml Intake Oral 360 ml IV Total 725 ml # Voids 2 3 # Bowel Movements 1 Labs Test 04/01/17 21:30 04/02/17 02:10 04/02/17 09:35 04/03/17 05:55 White Blood Count 5.8 K/UL (4.8-10.8) 3.4 K/UL (4.8-10.8) 3.7 K/UL (4.8-10.8) 3.6 K/UL (4.8-10.8) Red Blood Count 4.78 M/UL (4.70-6.10) 4.32 M/UL (4.70-6.10) 4.54 M/UL (4.70-6.10) 4.60 M/UL (4.70-6.10) Hemoglobin 9.1 G/DL (14.2-18.0) 8.9 G/DL (14.2-18.0) 9.3 G/DL (14.2-18.0) 9.8 G/DL (14.2-18.0) Hematocrit 34.8 % (42.0-52.0) 31.6 % (42.0-52.0) 33.7 % (42.0-52.0) 33.7 % (42.0-52.0) Mean Corpuscular Volume 73 FL (80-99) 73 FL (80-99) 74 FL (80-99) 73 FL (80- 99) Mean Corpuscular Hemoglobin 19.1 PG (27.0-31.0) 20.6 PG (27.0-31.0) 20.5 PG (27.0-31.0) 21.2 PG (27.0-31.0) Mean Corpuscular Hemoglobin Concent 26.2 G/DL (32.0-36.0) 28.2 G/DL (32.0-36.0) 27.7 G/DL (32.0-36.0) 29.0 G/DL (32.0-36.0) Red Cell Distribution Width 22.4 % (11.6-14.8) 22.1 % (11.6-14.8) 22.8 % (11.6-14.8) 22.3 % (11.6-14.8) Platelet Count 80 K/UL (150-450) 61 K/UL (150-450) 69 K/UL (150-450) 67 K/UL (150-450) Mean Platelet Volume 8.0 FL (6.5-10.1) 8.1 FL (6.5-10.1) 8.2 FL (6.5-10.1) 7.8 FL (6.5-10.1) Neutrophils (%) (Auto) % (45.0-75.0) % (45.0-75.0) % (45.0-75.0) % (45.0- 75.0) Lymphocytes (%) (Auto) % (20.0-45.0) % (20.0-45.0) % (20.0-45.0) % (20.0- 45.0) Monocytes (%) (Auto) % (1.0-10.0) % (1.0-10.0) % (1.0-10.0) % (1.0-10.0) Eosinophils (%) (Auto) % (0.0-3.0) % (0.0-3.0) % (0.0-3.0) % (0.0-3.0) Basophils (%) (Auto) % (0.0-2.0) % (0.0-2.0) % (0.0-2.0) % (0.0-2.0) Differential Total Cells Counted 100 100 100 Neutrophils % (Manual) 55 % (45-75) 57 % (45-75) 70 % (45-75) Lymphocytes % (Manual) 35 % (20-45) 30 % (20-45) 17 % (20-45) Monocytes % (Manual) 7 % (1-10) 9 % (1-10) 10 % (1-10) Eosinophils % (Manual) 3 % (0-3) 3 % (0-3) 3 % (0-3) Basophils % (Manual) 0 % (0-2) 1 % (0-2) 0 % (0-2) Band Neutrophils 0 % (0-8) 0 % (0-8) 0 % (0-8) Platelet Estimate Decreased Decreased Decreased Platelet Morphology Normal Normal Normal Hypochromasia 1+ 2+ 2+ Anisocytosis 1+ 3+ 3+ Prothrombin Time 12.2 SEC (9.30-11.50) Prothromb Time International Ratio 1.2 (0.9-1.1) Activated Partial Thromboplast Time 34 SEC (23-33) Total Creatine Kinase 420 U/L (26-308) Troponin I 0.016 ng/mL (0.000-0.056) Pro-B-Type Natriuretic Peptide 64 pg/mL (0-125) Serum Alcohol 355 mg/dL Microcytosis 1+ 2+ Sodium Level 141 MMOL/L (136-145) 135 MMOL/L (136-145) Potassium Level 3.6 MMOL/L (3.5-5.1) 3.9 MMOL/L (3.5-5.1) Chloride Level 107 MMOL/L (98-107) 102 MMOL/L (98-107) Carbon Dioxide Level 28 MMOL/L (21-32) 28 MMOL/L (21-32) Anion Gap 6 mmol/L (5-15) 5 mmol/L (5-15) Blood Urea Nitrogen 6 mg/dL (7-18) 5 mg/dL (7-18) Creatinine 0.8 MG/DL (0.55-1.30) 0.7 MG/DL (0.55-1.30) Estimat Glomerular Filtration Rate > 60 mL/min (>60) > 60 mL/min (>60) Glucose Level 114 MG/DL (74-106) 105 MG/DL (74-106) Uric Acid 4.4 MG/DL (2.6-7.2) Calcium Level 6.5 MG/DL (8.5-10.1) 6.9 MG/DL (8.5-10.1) Phosphorus Level 3.8 MG/DL (2.5-4.9) Magnesium Level 1.8 MG/DL (1.8-2.4) Iron Level 21 ug/dL (50-175) Total Iron Binding Capacity 362 ug/dL (250-450) Percent Iron Saturation 6 % (15-50) Unsaturated Iron Binding 341 ug/dL (112-346) Ferritin 18 NG/ML (8-388) Total Bilirubin 1.2 MG/DL (0.2-1.0) 2.3 MG/DL (0.2-1.0) Direct Bilirubin 0.6 MG/DL (0.0-0.3) 0.9 MG/DL (0.0-0.3) Aspartate Amino Transf (AST/SGOT) 104 U/L (15-37) 92 U/L (15-37) Alanine Aminotransferase (ALT/SGPT) 36 U/L (12-78) 44 U/L (12-78) Alkaline Phosphatase 172 U/L (46-116) 158 U/L (46-116) C-Reactive Protein, Quantitative 0.8 mg/dL (0.00-0.90) Total Protein 9.4 G/DL (6.4-8.2) 9.2 G/DL (6.4-8.2) Albumin 2.6 G/DL (3.4-5.0) 2.4 G/DL (3.4-5.0) Globulin 6.8 g/dL 6.8 g/dL Albumin/Globulin Ratio 0.4 (1.0-2.7) 0.4 (1.0-2.7) Vitamin B12 Level 732 PG/ML (193-986) Folate 9.0 NG/ML (8.6-58.9) Laboratory Tests 04/03/17 05:55: White Blood Count 3.6L, Red Blood Count 4.60L, Hemoglobin 9.8L, Hematocrit 33.7L , Mean Corpuscular Volume 73L, Mean Corpuscular Hemoglobin 21.2L, Mean Corpuscular Hemoglobin Concent 29.0L, Red Cell Distribution Width 22.3H, Platelet Count 67L, Mean Platelet Volume 7.8, Neutrophils (%) (Auto) , Lymphocytes (%) (Auto) , Monocytes (%) (Auto) , Eosinophils (%) (Auto) , Basophils (%) (Auto) , Differential Total Cells Counted 100, Neutrophils % ( Manual) 70, Lymphocytes % (Manual) 17L, Monocytes % (Manual) 10, Eosinophils % ( Manual) 3, Basophils % (Manual) 0, Band Neutrophils 0, Platelet Estimate DecreasedL, Platelet Morphology Normal, Hypochromasia 2+, Anisocytosis 3+, Microcytosis 2+, Sodium Level 135L, Potassium Level 3.9, Chloride Level 102, Carbon Dioxide Level 28, Anion Gap 5, Blood Urea Nitrogen 5L, Creatinine 0.7, Estimat Glomerular Filtration Rate > 60, Glucose Level 105, Calcium Level 6.9L, Total Bilirubin 2.3H, Direct Bilirubin 0.9H, Aspartate Amino Transf (AST/SGOT) 92H, Alanine Aminotransferase (ALT/SGPT) 44, Alkaline Phosphatase 158H, Total Protein 9.2H, Albumin 2.4L, Globulin 6.8, Albumin/Globulin Ratio 0.4L Height (Feet): 5 Height (Inches): 7.00 Weight (Pounds): 250 EENT: normal ENT inspection Neck: supple Respiratory/Chest: decreased breath sounds Abdomen: non tender, soft Edema: trace edema Clark Cooper Apr 03, 2017 23:13
[2017-04-04] MEDS: Propranolol 10mg tab ORAL SCH ×3 (00:47→12:32)
[2017-04-04 04:00] VITALS: BP 134/80
[2017-04-04 07:29] LABS: HEMOGLOBIN 10.2 G/DL (14.2-18.0); MEAN CORPUSCULAR VOLUME 74 FL (80-99); PLATELET COUNT 83 K/UL (150-450); RED BLOOD COUNT 4.84 M/UL (4.70-6.10); RED CELL DISTRIBUTION WIDTH 22.6 % (11.6-14.8); WHITE BLOOD COUNT 4.1 K/UL (4.8-10.8)
[2017-04-04 07:44] LABS: ALANINE AMINOTRANSFERASE 45 U/L (12-78); ALBUMIN 2.4 G/DL (3.4-5.0); ALBUMIN/GLOBULIN RATIO 0.3 (1.0-2.7); ALKALINE PHOSPHATASE 149 U/L (46-116); ANION GAP 5 mmol/L (5-15); ASPARTATE AMINO TRANSFERASE 111 U/L (15-37); BILIRUBIN,TOTAL 1.5 MG/DL (0.2-1.0); BLOOD UREA NITROGEN 7 mg/dL (7-18); CARBON DIOXIDE 30 MMOL/L (21-32); CHLORIDE 105 MMOL/L (98-107); CREATININE 0.9 MG/DL (0.55-1.30); POTASSIUM 3.7 MMOL/L (3.5-5.1); SODIUM 140 MMOL/L (136-145)
[2017-04-04 07:49] LABS: BILIRUBIN,DIRECT 0.6 MG/DL (0.0-0.3)
[2017-04-04 08:00] VITALS: BP 117/78
[2017-04-04] MEDS: Thiamine 100mg tab ORAL SCH (08:43)
--- NOTE | 2017-04-04 09:42 | History and Physical Report ---
DATE OF ADMISSION: 04/01/2017 NOTE: POOR AUDIO HISTORY OF PRESENT ILLNESS: The patient is a poor historian. He is admitted for hematemesis and GI bleed. The patient has alcohol abuse. He has history of alcoholic cirrhosis, admitted for that reason and anemia. The patient nausea, vomiting poor historian. PAST MEDICAL HISTORY: Significant for alcoholic cirrhosis, history of anemia, and history of esophageal varices as well. FAMILY HISTORY: Noncontributory. SOCIAL HISTORY: History of alcohol abuse. REVIEW OF SYSTEMS: HEENT: Denies headaches. RESPIRATORY: Denies shortness of breath. Denies cough. CARDIOVASCULAR: chest pain. GASTROINTESTINAL: , hematemesis . NEUROLOGIC: Denies change in vision or speech pattern. PHYSICAL EXAMINATION: VITAL SIGNS: Temperature 98.2, pulse is 100, and blood pressure 151/87. HEENT: PERRLA. NECK: Supple. No lymphadenopathy. CHEST: Clear to auscultation. GASTROINTESTINAL: Distended. tenderness. Positive bowel sounds. EXTREMITIES: A 1+ edema. Reflexes are equal on both sides. Moves all four extremities. LABORATORY DATA: WBC of 5.8, hemoglobin 9.1, and platelets of 80,000. Sodium 141, potassium 3.6, BUN of 6, creatinine 0.8, and glucose of 140. Total bilirubin of 1.2. AST of 104 and ALT of . ASSESSMENT AND PLAN: 1. Alcoholic cirrhosis . 2. History of esophageal varices . 3. The patient also has been having chest pains and also low platelets. 4. For the above-mentioned diagnoses and treatment, the patient is going to be seen by Dr. Arvizu as well as by Dr. Modi as well as by Dr. Cooper, Dr. Weber, and Dr. Licona to rule out and for the above-mentioned diagnoses and treatment. Etta Fang M.D. DR: SANDY :07 JOB#: [id number] CC:
--- NOTE | 2017-04-04 09:42 | Consultation ---
DATE OF CONSULTATION: 04/02/2017 CARDIOLOGY CONSULTATION CONSULTING PHYSICIAN: Fred Arvizu M.D. ATTENDING/REFERRING PHYSICIAN: Etta Fang M.D. REASON FOR CONSULTATION: Management of chest pain. HISTORY OF PRESENT ILLNESS: The patient is a very unfortunate 46-year-old gentleman, who presents to the hospital with increased chest discomfort. The patient has trouble with alcoholism, has history of, and has been drinking heavily on a daily basis since 03/18/2017. He had also noticed some rectal bleeding and also hematemesis. At the time of evaluation in the emergency department, he had some burning epigastric sensation and chest pain in the midsternal area. His initial blood pressure was 120/78 and heart rate of 94. A 12-lead electrocardiogram was significant for sinus rhythm with no ST and T-wave abnormality. He was admitted to Med/Surg unit for further evaluation and management of GI bleed as well as the chest pain. PAST MEDICAL HISTORY: History of hypertension, history of pulmonary embolism of right lung in 2004, history of anemia, and history of diabetes mellitus. PAST SURGICAL HISTORY: None. MEDICATIONS: List of medications includes ferrous sulfate 325 mg 3 times a day, Motrin 600 mg 3 times a day, Protonix 40 mg daily, Trental 400 mg 3 times a day, Inderal 20 mg p.o. 4 times a day, Silvadene 20 g twice daily, and thiamine 100 mg p.o. daily. ALLERGIES: No known drug allergies. SOCIAL HISTORY: Denies any tobacco. Daily alcohol use. Denies any illicit drug use. FAMILY HISTORY: No premature coronary artery disease in the first-degree relatives. REVIEW OF SYSTEMS: HEENT: Denies any headache, diplopia, or blurred vision. CONSTITUTIONAL: Feeling generalized weakness, but no fever, chills, or night sweats. CARDIOVASCULAR: He has chest pain as mentioned above. Denies any shortness of breath. Denies any PND, orthopnea, leg swelling, syncope, or palpitation. PULMONARY: Denies any cough, hemoptysis, or wheezing. GASTROINTESTINAL: He had rectal bleeding as well as hematemesis and abdominal pain mostly in the epigastric area. GENITOURINARY: Denies any hematuria, dysuria, or incontinence. NEUROLOGIC: Denies any motor dysfunction, sensory deficit, or altered speech. MUSCULOSKELETAL: Denies any gait imbalance. He complains of tremors. PHYSICAL EXAMINATION: VITAL SIGNS: Blood pressure was 120/78, respirations of 17, pulse of 94, temperature 98.1 degrees Fahrenheit, and O2 saturation 99% on room air. GENERAL: The patient is a very unfortunate 46-year-old gentleman, in no apparent respiratory distress. Slightly tremulous in upper extremities. HEENT: Atraumatic, normocephalic. Anicteric. Pupils are equal, round, and reactive to light and accommodation. Extraocular muscles intact. NECK: JVP less than 5 cm. No carotid bruit. Carotid upstrokes 2+ bilaterally. CARDIOVASCULAR: Normal S1, S2. Regular rate and rhythm. No murmurs, gallops, or rubs. PMI is at fourth intercostal space at the midclavicular line. LUNGS: Clear to auscultation bilaterally. ABDOMEN: Soft, nontender, nondistended. No hepatosplenomegaly. Positive bowel sounds. EXTREMITIES: No evidence of edema, clubbing, or cyanosis. LABORATORY AND DIAGNOSTIC FINDINGS: WBC was 5.8, hemoglobin 9.1, hematocrit of 34.8, and platelet count 80,000. Sodium was 141, potassium was 3.6, chloride was 107, bicarbonate 28, BUN of 6, creatinine 0.8, and glucose is 114. Uric acid was 4.4. Calcium 6.5. Magnesium 1.8. Troponin I was 0.016. ProBNP was 64. INR was 1.2. Serum alcohol was 355. A 12-lead electrocardiogram shows sinus rhythm at rate of [address] and T-wave abnormalities. A 2D echocardiography from 02/07/2017 had shown normal LV systolic function with LVEF of approximately 55%, mild LVH, moderate left atrial enlargement, mild right atrial enlargement, mild right ventricular enlargement, grade 1 LV diastolic dysfunction, mild mitral regurgitation, and right ventricular systolic pressure measured at 11 mmHg. ASSESSMENT AND PLAN: The patient is a very unfortunate 46-year-old gentleman seen in cardiology consultation at request of Dr. Fang. 1. Chest pain. This is a nonspecific symptom of alcohol abuse. This could be possibility of acute pancreatitis associated with alcohol abuse. The pain is mainly in the epigastric area. The serum amylase and lipase will be checked. Gastrointestinal consultation. A 12-lead electrocardiogram does not show any ischemic features. First troponin I level is negative. Beta-natriuretic peptide does not show any evidence of ischemia. This chest pain is most likely noncoronary artery disease-related. I would continue with conservative management. No ischemic workup is required at this time. 2. A recent 2D echocardiography has revealed normal LV systolic function with left ventricular ejection fraction of approximately 55%. 3. Sinus tachycardia due to hypovolemia, volume expansion with normal saline. Continue measuring hemoglobin and hematocrit and if drop is below 10 g/dL or 30%, consider blood transfusion. 4. Alcohol abuse, Anonymous, social science manager consultation. I would like to thank Dr. Fang for allowing me to participate in the care of this patient. Fred Arvizu M.D. DR: ARNIE JOB#: [id number] CC:
--- NOTE | 2017-04-04 09:43 | Progress Note ---
DATE: 04/02/2017 SUBJECTIVE: The patient is a 46-year-old male with a history of alcohol dependence, who has been admitted to the hospital for medical stabilization. The patient has a history of cirrhosis, anemia, and esophageal varices. During evaluation, the patient is presenting with anxiety, depressed mood, alcohol withdrawal, has been covered with Librium, folate, and thiamine. He is having poor insight and judgment into his mental condition. MENTAL STATUS EXAMINATION: The patient is alert, oriented times self, place, and situation he is in. Mood is dysphoric. Affect is constricted. Congruent mood. Thought process is concrete. Thought content, no suicidal or homicidal ideation. ASSESSMENT: [place] I Alcohol dependence and alcohol withdrawal. [place] II Deferred. [place] III As above. [place] IV Low. [place] V Global assessment of functioning is 20. PLAN: 1. The patient will be continued on thiamine, folate, and Librium. 2. We will start fluoxetine. 3. Provide the patient with supportive therapy and reality orientation. Oliva Licona M.D. DR: Moe JOB#: [id number] CC:
[2017-04-04 12:00] VITALS: BP 121/84
[2017-04-04 12:32] VITALS: BP 134/80
--- NOTE | 2017-04-04 14:32 | GI Progress Note ---
Assessment/Plan Problems: (1) Esophageal varices determined by endoscopy ICD Codes: I85.00 - Esophageal varices without bleeding SNOMED: 00091652, 663440313 (2) ETOH abuse ICD Codes: F10.10 - Alcohol abuse, uncomplicated SNOMED: 07780100 (3) GI bleed ICD Codes: K92.2 - Gastrointestinal hemorrhage, unspecified SNOMED: 96593614 (4) Cirrhosis ICD Codes: K74.60 - Unspecified cirrhosis of liver SNOMED: 82864642 (5) Anemia ICD Codes: D64.9 - Anemia, unspecified SNOMED: 644036279 Status: stable Status Narrative Discussed with Dr. Weber. Assessment/Plan Endoscopy Procedure Note Indication for Procedure: cirrhosis Procedures Performed: EGD Operative Findings/Diagnosis: gastritis KAUR WEBER - Feb 09, 2017 07:17 Endoscopy Procedure Note Indication for Procedure: esoph varices Procedures Performed: EGD Operative Findings/Diagnosis: same KA[facility] WEBER - Nov 29, 2016 10:39 RECOMMENDATIONS: okay for DC per GI standpoint defer at this time given recent history of multiple endoscopies, stable H&H. adv to low sodium diet dc octreotide gtt + ppi gtt prn transfusions goal for Hgb > 7. Librium prn OB stool r/o GI bleed pain mgmt fu labs avoid alcohol Subjective Gastrointestinal/Abdominal: Reports: no symptoms Objective Last 24 Hour Vital Signs Date Time Temp Pulse Resp B/P (MAP) Pulse Ox O2 Delivery O2 Flow Rate FiO2 04/04/17 12:32 66 134/80 04/04/17 12:32 134/80 04/04/17 12:00 97.2 57 20 121/84 98 04/04/17 08:43 134/80 04/04/17 08:00 98.1 66 20 117/78 95 04/04/17 06:14 63 134/80 04/04/17 04:00 97.0 63 20 134/80 94 Room Air 04/04/17 00:47 64 119/78 04/03/17 23:59 98.2 64 20 119/78 96 Room Air 04/03/17 19:59 97.7 55 20 123/85 93 04/03/17 18:24 62 126/79 04/03/17 18:24 126/79 04/03/17 16:00 98.8 62 20 126/79 96 Intake and Output 04/03/17 04/04/17 19:00 07:00 Intake Total 1117 ml Output Total 300 ml Balance 817 ml Intake Oral 440 ml IV Total 677 ml Output Urine Total 300 ml # Voids 4 # Bowel Movements 1 Laboratory Tests Test 04/04/17 04:10 White Blood Count 4.1 K/UL (4.8-10.8) L Red Blood Count 4.84 M/UL (4.70-6.10) Hemoglobin 10.2 G/DL (14.2-18.0) L Hematocrit 36.0 % (42.0-52.0) L Mean Corpuscular Volume 74 FL (80-99) L Mean Corpuscular Hemoglobin 21.0 PG (27.0-31.0) L Mean Corpuscular Hemoglobin Concent 28.3 G/DL (32.0-36.0) L Red Cell Distribution Width 22.6 % (11.6-14.8) H Platelet Count 83 K/UL (150-450) L Mean Platelet Volume 8.6 FL (6.5-10.1) Neutrophils (%) (Auto) % (45.0-75.0) Lymphocytes (%) (Auto) % (20.0-45.0) Monocytes (%) (Auto) % (1.0-10.0) Eosinophils (%) (Auto) % (0.0-3.0) Basophils (%) (Auto) % (0.0-2.0) Differential Total Cells Counted 100 Neutrophils % (Manual) 71 % (45-75) Lymphocytes % (Manual) 19 % (20-45) L Monocytes % (Manual) 7 % (1-10) Eosinophils % (Manual) 3 % (0-3) Basophils % (Manual) 0 % (0-2) Band Neutrophils 0 % (0-8) Platelet Estimate Decreased L Platelet Morphology Normal Sodium Level 140 MMOL/L (136-145) Potassium Level 3.7 MMOL/L (3.5-5.1) Chloride Level 105 MMOL/L (98-107) Carbon Dioxide Level 30 MMOL/L (21-32) Anion Gap 5 mmol/L (5-15) Blood Urea Nitrogen 7 mg/dL (7-18) Creatinine 0.9 MG/DL (0.55-1.30) Estimat Glomerular Filtration Rate > 60 mL/min (>60) Glucose Level 96 MG/DL (74-106) Calcium Level 8.0 MG/DL (8.5-10.1) L Total Bilirubin 1.5 MG/DL (0.2-1.0) H Direct Bilirubin 0.6 MG/DL (0.0-0.3) H Aspartate Amino Transf (AST/SGOT) 111 U/L (15-37) H Alanine Aminotransferase (ALT/SGPT) 45 U/L (12-78) Alkaline Phosphatase 149 U/L (46-116) H Total Protein 9.4 G/DL (6.4-8.2) H Albumin 2.4 G/DL (3.4-5.0) L Globulin 7.0 g/dL Albumin/Globulin Ratio 0.3 (1.0-2.7) L Height (Feet): 5 Height (Inches): 7.00 Weight (Pounds): 250 General Appearance: WD/WN, no apparent distress, alert, obese Cardiovascular: normal rate Respiratory/Chest: normal breath sounds, no respiratory distress Abdominal Exam: normal bowel sounds, non tender, soft Extremities: normal range of motion, non-tender Lorna Ridley N.P. Apr 04, 2017 14:32
[2017-04-04] MEDS ORDERED: NS 275ml ONE (15:28)
[2017-04-04] MEDS ORDERED: Tubing IV Secondary IV ONE (15:28)
--- NOTE | 2017-04-04 23:28 | General Progress Note ---
Assessment/Plan Status: not improved Assessment/Plan #. Pancytopenia. Related to history of cirrhosis, may have iron deficiency component --> anemia w/u completed and reviewed --> does NOT require a bone marrow biopsy --> reviewed historical labs --> recommend alcohol cessation --> plt goal >20k --> hgb goal >7 #. Anemia of iron deficiency - on ferrous sulfate tid, ferritin was ONLY 18 --> Monitor closely. #. Lower gastrointestinal bleed, occult blood is pending at this time. #. Coagulopathy, likely secondary to underlying cirrhosis as well. Continue to closely monitor and administer vitamin K if the patient is bleeding. #. Esophageal varices, status post banding on prior admission Subjective Date patient seen: Apr 04, 2017 Constitutional: Denies: no symptoms, chills, diaphoresis, fever, malaise, weakness, other HEENT: Denies: no symptoms, eye pain, blurred vision, tearing, double vision, ear pain, ear discharge, nose pain, nose congestion, throat pain, throat swelling, mouth pain, mouth swelling, other Cardiovascular: Denies: no symptoms, chest pain, edema, irregular heart rate, lightheadedness, palpitations, syncope, other Respiratory: Denies: no symptoms, cough, orthopnea, shortness of breath, SOB with excertion, SOB at rest, sputum, stridor, wheezing, other Gastrointestinal/Abdominal: Denies: no symptoms, abdomen distended, abdominal pain, black stools, tarry stools, blood in stool, constipated, diarrhea, difficulty swallowing, nausea, poor appetite, poor fluid intake, rectal bleeding , vomiting, other Genitourinary: Denies: no symptoms, burning, discharge, frequency, flank pain, hematuria, incontinence, pain, urgency, other Hematologic/Lymphatic: Reports: other - pancytopenia Allergies: Coded Allergies: NO KNOWN ALLERGIES (Verified Allergy, Unknown, 01/25/17) Subjective On pain management for cp. Pancytopenia due to cirrhosis. No fevers or chills. No new events. Objective Last 24 Hour Vital Signs Date Time Temp Pulse Resp B/P (MAP) Pulse Ox O2 Delivery O2 Flow Rate FiO2 04/04/17 12:32 66 134/80 04/04/17 12:32 134/80 04/04/17 12:00 97.2 57 20 121/84 98 04/04/17 08:43 134/80 04/04/17 08:00 98.1 66 20 117/78 95 04/04/17 06:14 63 134/80 04/04/17 04:00 97.0 63 20 134/80 94 Room Air 04/04/17 00:47 64 119/78 04/03/17 23:59 98.2 64 20 119/78 96 Room Air Intake and Output 04/03/17 04/04/17 19:00 07:00 Intake Total 1117 ml Output Total 300 ml Balance 817 ml Intake Oral 440 ml IV Total 677 ml Output Urine Total 300 ml # Voids 4 # Bowel Movements 1 Laboratory Tests 04/04/17 04:10: White Blood Count 4.1L, Red Blood Count 4.84, Hemoglobin 10.2L, Hematocrit 36.0L , Mean Corpuscular Volume 74L, Mean Corpuscular Hemoglobin 21.0L, Mean Corpuscular Hemoglobin Concent 28.3L, Red Cell Distribution Width 22.6H, Platelet Count 83L, Mean Platelet Volume 8.6, Neutrophils (%) (Auto) , Lymphocytes (%) (Auto) , Monocytes (%) (Auto) , Eosinophils (%) (Auto) , Basophils (%) (Auto) , Differential Total Cells Counted 100, Neutrophils % ( Manual) 71, Lymphocytes % (Manual) 19L, Monocytes % (Manual) 7, Eosinophils % ( Manual) 3, Basophils % (Manual) 0, Band Neutrophils 0, Platelet Estimate DecreasedL, Platelet Morphology Normal, Sodium Level 140, Potassium Level 3.7, Chloride Level 105, Carbon Dioxide Level 30, Anion Gap 5, Blood Urea Nitrogen 7 , Creatinine 0.9, Estimat Glomerular Filtration Rate > 60, Glucose Level 96, Calcium Level 8.0L, Total Bilirubin 1.5H, Direct Bilirubin 0.6H, Aspartate Amino Transf (AST/SGOT) 111H, Alanine Aminotransferase (ALT/SGPT) 45, Alkaline Phosphatase 149H, Total Protein 9.4H, Albumin 2.4L, Globulin 7.0, Albumin/ Globulin Ratio 0.3L Height (Feet): 5 Height (Inches): 7.00 Weight (Pounds): 250 Clark Cooper Apr 04, 2017 23:28
--- NOTE | 2017-04-04 23:53 | Cardiology Progress Note ---
Assessment/Plan Assessment/Plan 1. Atypical chest pain likely non-cardiac in origin, no ECG changes, 2D echo reveals LVEF 0f ~55%. 2. Sinus tachycardia, continue propranolol. 3. Hx of PE 4. Hx of GI bleed 5. Liver cirrhosis due to of ETOH abuse, Mg, Po4 replacement. Subjective Subjective Not on telemetry unit. No cardiac eventsreported . Objective Last 24 Hour Vital Signs Date Time Temp Pulse Resp B/P (MAP) Pulse Ox O2 Delivery O2 Flow Rate FiO2 04/04/17 12:32 66 134/80 04/04/17 12:32 134/80 04/04/17 12:00 97.2 57 20 121/84 98 04/04/17 08:43 134/80 04/04/17 08:00 98.1 66 20 117/78 95 04/04/17 06:14 63 134/80 04/04/17 04:00 97.0 63 20 134/80 94 Room Air 04/04/17 00:47 64 119/78 04/03/17 23:59 98.2 64 20 119/78 96 Room Air Intake and Output 04/03/17 04/04/17 19:00 07:00 Intake Total 1117 ml Output Total 300 ml Balance 817 ml Intake Oral 440 ml IV Total 677 ml Output Urine Total 300 ml # Voids 4 # Bowel Movements 1 2D Echo: LVEF ~55% Laboratory Tests Test 04/04/17 04:10 White Blood Count 4.1 K/UL (4.8-10.8) L Red Blood Count 4.84 M/UL (4.70-6.10) Hemoglobin 10.2 G/DL (14.2-18.0) L Hematocrit 36.0 % (42.0-52.0) L Mean Corpuscular Volume 74 FL (80-99) L Mean Corpuscular Hemoglobin 21.0 PG (27.0-31.0) L Mean Corpuscular Hemoglobin Concent 28.3 G/DL (32.0-36.0) L Red Cell Distribution Width 22.6 % (11.6-14.8) H Platelet Count 83 K/UL (150-450) L Mean Platelet Volume 8.6 FL (6.5-10.1) Neutrophils (%) (Auto) % (45.0-75.0) Lymphocytes (%) (Auto) % (20.0-45.0) Monocytes (%) (Auto) % (1.0-10.0) Eosinophils (%) (Auto) % (0.0-3.0) Basophils (%) (Auto) % (0.0-2.0) Differential Total Cells Counted 100 Neutrophils % (Manual) 71 % (45-75) Lymphocytes % (Manual) 19 % (20-45) L Monocytes % (Manual) 7 % (1-10) Eosinophils % (Manual) 3 % (0-3) Basophils % (Manual) 0 % (0-2) Band Neutrophils 0 % (0-8) Platelet Estimate Decreased L Platelet Morphology Normal Sodium Level 140 MMOL/L (136-145) Potassium Level 3.7 MMOL/L (3.5-5.1) Chloride Level 105 MMOL/L (98-107) Carbon Dioxide Level 30 MMOL/L (21-32) Anion Gap 5 mmol/L (5-15) Blood Urea Nitrogen 7 mg/dL (7-18) Creatinine 0.9 MG/DL (0.55-1.30) Estimat Glomerular Filtration Rate > 60 mL/min (>60) Glucose Level 96 MG/DL (74-106) Calcium Level 8.0 MG/DL (8.5-10.1) L Total Bilirubin 1.5 MG/DL (0.2-1.0) H Direct Bilirubin 0.6 MG/DL (0.0-0.3) H Aspartate Amino Transf (AST/SGOT) 111 U/L (15-37) H Alanine Aminotransferase (ALT/SGPT) 45 U/L (12-78) Alkaline Phosphatase 149 U/L (46-116) H Total Protein 9.4 G/DL (6.4-8.2) H Albumin 2.4 G/DL (3.4-5.0) L Globulin 7.0 g/dL Albumin/Globulin Ratio 0.3 (1.0-2.7) L Objective HEENT: Atraumatic, normocephalic. Anicteric. Pupils are equal, round, and reactive to light and accommodation. Extraocular muscles intact. NECK: JVP less than 5 cm. No carotid bruit. Carotid upstrokes 2+ bilaterally. CARDIOVASCULAR: Normal S1, S2. Regular rate and rhythm. No murmurs, gallops, or rubs. PMI is at fourth intercostal space at the midclavicular line. LUNGS: Clear to auscultation bilaterally. ABDOMEN: Soft, nontender, nondistended. No hepatosplenomegaly. Positive bowel sounds. EXTREMITIES: No evidence of edema, clubbing, or cyanosis. JUAN BONE Apr 04, 2017 23:53
--- NOTE | 2017-04-05 12:19 | Discharge Summary ---
Discharge Summary Hospital Course Date of Admission Apr 01, 2017 at 22:32 Date of Discharge Apr 04, 2017 at 17:13 Admitting Diagnosis upper gi bleeding, anemia, alcohol abuse HPI Darryl Gleason is a 46 year old male who was admitted on Apr 01, 2017 at 22:32 for Upper Gastrointestinal Bleed,Anemia, Alcohol Abuse Hospital Course [id number] Discharge Discharge Disposition Patient left AMA Discharge Diagnoses: Ansley Laughlin NP Apr 05, 2017 12:19
--- NOTE | 2017-04-06 02:30 | Discharge Summary 2 SIG ---
DATE OF ADMISSION: 04/01/2017 DATE OF DISCHARGE: 04/04/2017 CONSULTANTS: 1. Fred Arvizu M.D. 2. Clark Cooper M.D. 3. Ricardo Weber M.D. 4. Oliva Licona M.D. BRIEF HOSPITAL COURSE: The patient is a 46-year-old male with history of hypertension, pulmonary embolism on the right lung in 2004, history of anemia and diabetes mellitus with problems with alcoholism presented to ED for rectal bleed and hematemesis. He was also complaining of burning epigastric pain. On evaluation at ED, hemoglobin was 9.1, hematocrit was 34, and platelets was 80. Serum alcohol level was 255. He was given H2 blockers and IV thiamine. He was admitted to medical floor. He was placed on octreotide drip and Protonix drip and was given banana bag. He was initially started on clear liquid diet. He was given Librium as needed. He had pancytopenia, which was related to history of cirrhosis. The patient has iron deficiency and was given ferrous sulfate 3 times a day. A 12-lead electrocardiogram showed sinus rhythm with no ST to T-wave abnormalities. An echocardiogram done on 02/07/2017 showed normal LV systolic function with LVEF of approximately 55%, mild LVH, moderate left atrial enlargement, mild right atrial enlargement, mild right ventricular enlargement, grade 1 left ventricular diastolic dysfunction, mild mitral regurgitation, and right ventricular systolic pressure measured at 11 mmHg. Chest pain was assessed to be nonischemic in origin most likely noncoronary artery disease related. The patient presented with anxiety, depressed mood and has poor insight and judgment into his medical condition. He was started on fluoxetine. He had sinus tachycardia and was continued on propranolol. Full treatment was not carried out as he signed out against medical advise. FINAL DIAGNOSES: 1. Chest pain non ischemic in origin. 2. Liver cirrhosis. 3. Anemia of iron deficiency. 4. Pancytopenia. 5. Lower gastrointestinal bleed. 6. Liver cirrhosis due to ethanol abuse. 7. Sinus tachycardia. 8. Alcoholic cirrhosis. 9. History of esophageal varices. DISPOSITION: The patient left against medical advice. Etta Fang M.D. I have been assigned to dictate discharge summary on this account and I was not involved in the patient's management. Ansley Laughlin N.P. DR: MINA JOB#: [id number] CC: KEVIN
== END 2017-04-04 17:13 | disposition left against medical advice (07) | DRG 253 ==
LOC: EMR 21:05 → 4E 22:32 → EDBEDREQSVC 04-02 07:03 → EDBEDREQ 04-02 08:13
DX: K92.2 Gastrointestinal hemorrhage, unspecified (principal); D61.818 Other pancytopenia; D68.9 Coagulation defect, unspecified; I10 Essential (primary) hypertension; E11.9 Type 2 diabetes mellitus without complications; D50.9 Iron deficiency anemia, unspecified; F10.10 Alcohol abuse, uncomplicated; K70.30 Alcoholic cirrhosis of liver without ascites; I85.00 Esophageal varices without bleeding; R07.89 Other chest pain; R00.0 Tachycardia, unspecified; Z86.711 Personal history of pulmonary embolism
CPT/HCPCS: 36415; 80053; 80329; 82248; 82550; 82607; 82728; 82746; 83540; 83550; 83735; 83880; 84100; 84484; 84550; 85007; 85025; 85610; 85730; 86140; 86850; 86900; 86901; 90630; 93005; 99285; J2405

== ENCOUNTER 2017-07-30 23:30 | Inpatient (IN) | payer MEDICAID ==
[~2017-07-30] VITALS: Ht 170.2 cm; Wt 113.4 kg
[~2017-07-30 23:30] MED LIST changes: +UNOBMED
[2017-07-30] MEDS ORDERED: NKM (23:49)
[2017-07-31] VITALS (8 sets, daily range): BP systolic 117–159; BP diastolic 66–98
[2017-07-31] MEDS ORDERED: Mylanta II UD 30ml ORAL ONE
[2017-07-31] MEDS ORDERED: Pantoprazole Inj IV ONE
[2017-07-31] MEDS ORDERED: Mylanta II UD 30ml ONE (00:22)
[2017-07-31 00:38] LABS: APPEARANCE,URINE CLEAR; BILIRUBIN, URINE NEGATIVE (NEGATIVE); GLUCOSE, URINE (UA) NEGATIVE (NEGATIVE); KETONES,URINE NEGATIVE (NEGATIVE); LEUKOCYTE ESTERASE ,URINE NEGATIVE (NEGATIVE); NITRITE,URINE NEGATIVE (NEGATIVE); PH,URINE 7 (4.5-8.0); UROBILINOGEN,URINE 1 MG/DL (0.0-1.0)
[2017-07-31 00:47] LABS: COLOR,URINE YELLOW; PROTEIN,URINE NEGATIVE (NEGATIVE)
[2017-07-31 00:48] LABS: HEMATOCRIT 26.3 % (42.0-52.0); HEMOGLOBIN 7.9 G/DL (14.2-18.0); MEAN CORPUSCULAR VOLUME 71 FL (80-99); PLATELET COUNT 40 K/UL (150-450); RED BLOOD COUNT 3.72 M/UL (4.70-6.10); RED CELL DISTRIBUTION WIDTH 21.2 % (11.6-14.8); WHITE BLOOD COUNT 3.5 K/UL (4.8-10.8)
[2017-07-31 00:50] LABS: ANION GAP 7 mmol/L (5-15); BLOOD UREA NITROGEN 4 mg/dL (7-18); CALCIUM 7.4 MG/DL (8.5-10.1); CARBON DIOXIDE 27 MMOL/L (21-32); CHLORIDE 104 MMOL/L (98-107); CREATININE 0.7 MG/DL (0.55-1.30); POTASSIUM 3.4 MMOL/L (3.5-5.1); SODIUM 138 MMOL/L (136-145)
[2017-07-31 00:53] LABS: AMMONIA 76 umol/L (11-32)
[2017-07-31 00:56] LABS: INR 1.4 (0.9-1.1)
[2017-07-31 01:00] LABS: ALANINE AMINOTRANSFERASE 48 U/L (12-78); ALBUMIN 2.3 G/DL (3.4-5.0); ALBUMIN/GLOBULIN RATIO 0.4 (1.0-2.7); ALKALINE PHOSPHATASE 304 U/L (46-116); ASPARTATE AMINO TRANSFERASE 172 U/L (15-37); BILIRUBIN,TOTAL 3.4 MG/DL (0.2-1.0); CREATINE KINASE 236 U/L (26-308)
[2017-07-31 01:34] LABS: BILIRUBIN,DIRECT 2.5 MG/DL (0.0-0.3)
--- NOTE | 2017-07-31 01:44 | Emergency Room Report ---
History of Present Illness General Chief Complaint: Chest Pain Source: Patient Present Illness HPI Patient presents with right leg swelling and chest pain. The patient has a history of bleeding varices. He states he's been having loose stools recently. He denies any vomiting. He's been more lethargic recently. He has a history of cirrhosis. He admits to drinking alcohol. The chest pain is constant, R sided and rated 8/10, somewhat pleuritic. Denies cough or fever. He had a pulmonary embolus in 2004. He has been admitted for chest pain with negative cardiac studies in the recent past. No recent trauma noted. He has decreased hearing. No h/o seizures. No headache. Some recent confusion. He was admitted 3 days in March. Discharge dx: 1. Chest pain non ischemic in origin. 2. Liver cirrhosis. 3. Anemia of iron deficiency. 4. Pancytopenia. 5. Lower gastrointestinal bleed. 6. Liver cirrhosis due to ethanol abuse. 7. Sinus tachycardia. 8. Alcoholic cirrhosis. 9. History of esophageal varices. Apparently he had esophageal banding in the past. He received transfusions last year. Allergies: Coded Allergies: NO KNOWN ALLERGIES (Verified Allergy, Unknown, 01/25/17) Patient History Past Medical History: see triage record, old chart reviewed Social History: Reports: alcohol use; Denies: smoking Social History Narrative with brother Reviewed Nursing Documentation: PMH: Agreed; PSxH: Agreed Nursing Documentation-PMH Hx Asthma: No - blood clot rt lung 2005/anemia Hx Diabetes: Yes Hx Cancer: No Hx Gastrointestinal Problems: Yes - GI bleed Hx Neurological Problems: No Review of Systems All Other Systems: negative except mentioned in HPI Physical Exam Vital Signs Date Time Temp Pulse Resp B/P (MAP) Pulse Ox O2 Delivery O2 Flow Rate FiO2 07/30/17 23:46 98.0 108 17 135/96 94 Room Air 98.1 07/31/17 00:46 2.0 Sp02 EP Interpretation: reviewed, normal General Appearance: no apparent distress, lethargic, obese, Chronically Ill Head: normocephalic, atraumatic Eyes: bilateral eye PERRL, bilateral eye conjunctivae pale ENT: moist mucus membranes, other - decreased hearing Neck: supple Respiratory: lungs clear, normal breath sounds Cardiovascular #1: regular rate, rhythm, edema - bilaterally, more on R Cardiovascular #2: 2+ radial (R) Gastrointestinal: normal bowel sounds, non tender, no mass, distended, overweight Rectal: heme positive stool - yellow Genitourinary: no CVA tenderness Musculoskeletal: back normal, normal range of motion, no calf tenderness, Arpan 's Sign negative Neurologic: other - lethargic, but responds to commands and questions Psychiatric: depressed affect Skin: warm/dry, other - sallo Medical Decision Making Diagnostic Impression: Primary Impression: GI bleed Qualified Codes: K92.2 - Gastrointestinal hemorrhage, unspecified Additional Impressions: Hepatic encephalopathy Anemia Qualified Codes: D50.8 - Other iron deficiency anemias Alcohol intoxication Qualified Codes: F10.929 - Alcohol use, unspecified with intoxication, unspecified Cirrhosis Qualified Codes: K70.30 - Alcoholic cirrhosis of liver without ascites ER Course The patient presents with right leg swelling and chest pain. He also appears lethargic and pale. Differential includes DVT, cirrhosis with anasarca, GI bleed (possible esophageal varices), acute myocardial infarction, pulmonary embolus, amongst others. We need to exclude occult infection. The patient has guaiac positive stools. He'll be evaluated with hepatic workup including coags and a type and's Rh. Venous duplex has been ordered to however my suspicion is low for DVT based on his exam. He smells of alcohol however he also is at risk for hepatic encephalopathy. EKG shows no injury, chest x-ray no infiltrates. Labs are significant for critical anemia the floor then in March. He also has evidence of liver failure with coagulopathy and elevated LFTs. Ammonia is elevated. The patient is treated with Protonix, vitamin K and lactulose. Octreotide was ordered. (This was not available.) As the patient has evidence of active GI bleeding blood is ordered. Due to the fact that the INR is elevated, DVT is less likely. Difficult to determine if lethargy due to alcohol and/or elevated ammonia. Transfusion begun in ED. The patient is admitted to telemetry under the care of Dr. Jefferson. Laboratory Tests Test 07/30/17 23:59 White Blood Count 3.5 K/UL (4.8-10.8) L Red Blood Count 3.72 M/UL (4.70-6.10) L Hemoglobin 7.9 G/DL (14.2-18.0) L Hematocrit 26.3 % (42.0-52.0) L Mean Corpuscular Volume 71 FL (80-99) L Mean Corpuscular Hemoglobin 21.2 PG (27.0-31.0) L Mean Corpuscular Hemoglobin Concent 30.0 G/DL (32.0-36.0) L Red Cell Distribution Width 21.2 % (11.6-14.8) H Platelet Count 40 K/UL (150-450) L Mean Platelet Volume 7.9 FL (6.5-10.1) Neutrophils (%) (Auto) % (45.0-75.0) Lymphocytes (%) (Auto) % (20.0-45.0) Monocytes (%) (Auto) % (1.0-10.0) Eosinophils (%) (Auto) % (0.0-3.0) Basophils (%) (Auto) % (0.0-2.0) Prothrombin Time 14.7 SEC (9.30-11.50) H Prothrombin Time INR 1.4 (0.9-1.1) H PTT 39 SEC (23-33) H Urine Color Yellow Urine Appearance Clear Urine pH 7 (4.5-8.0) Urine Specific [place] 1.010 (1.005-1.035) Urine Protein Negative (NEGATIVE) Urine Glucose (UA) Negative (NEGATIVE) Urine Ketones Negative (NEGATIVE) Urine Occult Blood Negative (NEGATIVE) Urine Nitrite Negative (NEGATIVE) Urine Bilirubin Negative (NEGATIVE) Urine Urobilinogen 1 MG/DL (0.0-1.0) H Urine Leukocyte Esterase Negative (NEGATIVE) Sodium Level 138 MMOL/L (136-145) Potassium Level 3.4 MMOL/L (3.5-5.1) L Chloride Level 104 MMOL/L (98-107) Carbon Dioxide Level 27 MMOL/L (21-32) Anion Gap 7 mmol/L (5-15) Blood Urea Nitrogen 4 mg/dL (7-18) L Creatinine 0.7 MG/DL (0.55-1.30) Estimate Glomerular Filtration Rate > 60 mL/min (>60) Glucose Level 117 MG/DL (74-106) H Calcium Level 7.4 MG/DL (8.5-10.1) L Total Bilirubin 3.4 MG/DL (0.2-1.0) H Direct Bilirubin 2.5 MG/DL (0.0-0.3) H Aspartate Amino Transferase (AST) 172 U/L (15-37) H Alanine Aminotransferase (ALT) 48 U/L (12-78) Alkaline Phosphatase 304 U/L (46-116) H Ammonia 76 umol/L (11-32) H Total Creatine Kinase 236 U/L (26-308) Troponin I 0.009 ng/mL (0.000-0.056) Total Protein 8.5 G/DL (6.4-8.2) H Albumin 2.3 G/DL (3.4-5.0) L Globulin 6.2 g/dL Albumin/Globulin Ratio 0.4 (1.0-2.7) L Lipase 154 U/L (73-393) Urine Opiates Screen Negative (NEGATIVE) Urine Barbiturates Screen Negative (NEGATIVE) Phencyclidine (PCP) Screen Negative (NEGATIVE) Urine Amphetamines Screen Negative (NEGATIVE) Urine Benzodiazepines Screen Positive (NEGATIVE) H Urine Cocaine Screen Negative (NEGATIVE) Urine Marijuana (THC) Screen Negative (NEGATIVE) Serum Alcohol 273 mg/dL EKG Diagnostic Results Rate: normal Rhythm: NSR ST Segments: no acute changes Rhythm Strip Diag. Results EP Interpretation: yes Rhythm: NSR, no PVC's, no ectopy Chest X-Ray Diagnostic Results Chest X-Ray Diagnostic Results : Chest X-Ray Ordered: Yes # of Views/Limited/Complete: 1 View Indication: Other Interpretation: no consolidation, no effusion, no pneumothorax Impression: No acute disease Electronically Signed by: Electronically signed by Derrick Green MD Last Vital Signs Date Time Temp Pulse Resp B/P (MAP) Pulse Ox O2 Delivery O2 Flow Rate FiO2 07/31/17 16:00 97.2 91 21 130/81 99 Nasal Cannula 3.0 97.2 Status: improved Disposition: ADMITTED INPATIENT Condition: Serious Referrals: NON PHYSICIAN (PCP) Derirck Green M.D. July 31, 2017 01:44
[2017-07-31] MEDS ORDERED: Lactulose 20gm/30ml UDC ORAL ONE (01:45)
[2017-07-31] MEDS ORDERED: Phytonadione 10 mg/mL 1ml amp SUBQ ONE (01:45)
[2017-07-31] MEDS: SandoSTATIN 50mcg Inj IVP ONE ×2 (02:15→08:26)
[2017-07-31] MEDS ORDERED: Pantoprazole Inj IVP SCH (09:00)
--- NOTE | 2017-07-31 10:33 | Diagnostic Imaging Report ---
Indication: Chest pain Comparison: 02/06/2017 A single view chest radiograph was obtained. Findings: There is platelike atelectasis at the right lung base. Heart is normal in size. Lung volumes are low bilaterally. Bones are unremarkable. IMPRESSION: Mild right basal atelectasis
[2017-07-31] MEDS: Morphine Sulfate 4mg/ml Inj IVP PRN ×2 (13:32→20:04)
[2017-07-31] MEDS ORDERED: Lidocaine 1% Plain 30 ml INJ SCH (14:30)
--- NOTE | 2017-07-31 14:36 | Diagnostic Imaging Report ---
Indication:Abdominal pain Technique: Grayscale and duplex Doppler imaging of the abdomen performed. Comparison: None Findings: Study is limited by body habitus. The liver is only partially seen. There is suggestion of micronodularity along the surface. The gallbladder wall appears thickened. The pancreas aorta and IVC are not visualized. Portions of the kidneys are obscured. The spleen is enlarged measuring 19 cm. The liver is prominent measuring 17 cm. There is a small amount of ascites. There is no hydronephrosis. Portal vein interrogation attempted but not well visualized. IMPRESSION: Hepatosplenomegaly. Probable nodularity of the liver surface suggestive of liver chronic disease. Correlate clinically. Mild ascites. Limited study due to body habitus and gas
[2017-07-31 15:19] LABS: HEMATOCRIT 30.8 % (42.0-52.0); HEMOGLOBIN 8.8 G/DL (14.2-18.0); MEAN CORPUSCULAR VOLUME 74 FL (80-99); PLATELET COUNT 39 K/UL (150-450); RED BLOOD COUNT 4.17 M/UL (4.70-6.10); RED CELL DISTRIBUTION WIDTH 21.2 % (11.6-14.8); WHITE BLOOD COUNT 2.8 K/UL (4.8-10.8)
--- NOTE | 2017-07-31 16:05 | GI Initial Consult Note ---
History of Present Illness General Date patient seen: July 31, 2017 Time patient seen: 10:00 Reason for Hospitalization: Chest Pain Referring physician: DEBORA Reason for Consultation: CIRRHOSIS Present Illness HPI Patient presents with right leg swelling and chest pain. The patient has a history of bleeding varices. He states he's been having loose stools recently. He denies any vomiting. He's been more lethargic recently. He has a history of cirrhosis. GI consulted for history of varices/cirrhosis. This is a patient known to us with multiple re admissions within the last year. The patient has a history of ETOH abuse, s/p EGD back in january of 2017 noted with small varices that did not require banding at the time. Pt seen, awake A&Ox4 NAD with no active s/sx of N/V/D. He did not have any hematemesis. Patient admits to still have been drinking alcohol. The patient presents today with ETOH levels of 273 and pancytopenia. Jan 2017 - EGD SUMMARY OF FINDINGS: 1. Prior history of esophageal banding with scar tissue in the distal esophagus without any significant large varices at this time. 2. Gastritis, status post biopsy. 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 Home Meds Active Scripts Ibuprofen* (MOTRIN*) 600 Mg Tablet, 600 MG ORAL THREE TIMES A DAY, #30 TAB 0 Refills Prov:ARA NAM M.D. 01/25/17 Silver Sulfadiazine (SILVADENE) 20 Gm Cream..g., 20 GM TP BID, #20 GM Prov:ARA NAM M.D. 01/25/17 Thiamine Hcl* (VITAMIN B-1*) 100 Mg Tablet, 100 MG ORAL DAILY, #30 TAB 0 Refills Prov:Robb (Merna Chen NP 12/05/16 Propranolol Hcl* (INDERAL*) 20 Mg Tablet, 20 MG ORAL QID, #120 TAB 0 Refills Prov:Merna Zamudio NP (Vanchtein) 12/05/16 Reported Medications No Known Medications* (NKM - No Known Medications*) ., 0 ., 0 Refills 07/30/17 Unable to Obtain Medications (UNABLE TO OBTAIN MEDS) 1 Ea Ea 04/01/17 Ferrous Sulfate* (FERROUS SULFATE*) 325 Mg Tablet, 325 MG ORAL THREE TIMES A DAY , #90 TAB 0 Refills 09/06/16 Pentoxifylline* (TRENTAL*) 400 Mg Tablet.er, 400 MG ORAL THREE TIMES A DAY, #90 TAB 0 Refills 09/06/16 Pantoprazole* (PROTONIX*) 40 Mg Tablet.dr, 40 MG ORAL DAILY, #90 TAB 09/06/16 Med list reviewed/reconciled: Yes Allergies: Coded Allergies: NO KNOWN ALLERGIES (Verified Allergy, Unknown, 01/25/17) Patient History History Provided By: Patient, Medical Record PMH Narrative Hx Asthma: No - blood clot rt lung 2005/anemia Hx Diabetes: Yes Hx Cancer: No Hx Gastrointestinal Problems: Yes - GI bleed Hx Neurological Problems: No Social History: Reports: alcohol use Review of Systems All Other Systems: negative except mentioned in HPI Physical Exam Vital Signs Date Time Temp Pulse Resp B/P (MAP) Pulse Ox O2 Delivery O2 Flow Rate FiO2 07/30/17 23:46 98.0 108 17 135/96 94 Room Air 98.1 07/31/17 00:46 2.0 Sp02 EP Interpretation: reviewed, normal Labs Laboratory Tests Test 07/30/17 23:59 07/31/17 12:25 07/31/17 15:05 White Blood Count 3.5 K/UL (4.8-10.8) L 2.8 K/UL (4.8-10.8) L Red Blood Count 3.72 M/UL (4.70-6.10) L 4.17 M/UL (4.70-6.10) L Hemoglobin 7.9 G/DL (14.2-18.0) L 8.8 G/DL (14.2-18.0) L Hematocrit 26.3 % (42.0-52.0) L 30.8 % (42.0-52.0) L Mean Corpuscular Volume 71 FL (80-99) L 74 FL (80-99) L Mean Corpuscular Hemoglobin 21.2 PG (27.0-31.0) L 21.2 PG (27.0-31.0) L Mean Corpuscular Hemoglobin Concent 30.0 G/DL (32.0-36.0) L 28.7 G/DL (32.0-36.0) L Red Cell Distribution Width 21.2 % (11.6-14.8) H 21.2 % (11.6-14.8) H Platelet Count 40 K/UL (150-450) L 39 K/UL (150-450) L Mean Platelet Volume 7.9 FL (6.5-10.1) 8.4 FL (6.5-10.1) Neutrophils (%) (Auto) % (45.0-75.0) % (45.0-75.0) Lymphocytes (%) (Auto) % (20.0-45.0) % (20.0-45.0) Monocytes (%) (Auto) % (1.0-10.0) % (1.0-10.0) Eosinophils (%) (Auto) % (0.0-3.0) % (0.0-3.0) Basophils (%) (Auto) % (0.0-2.0) % (0.0-2.0) Prothrombin Time 14.7 SEC (9.30-11.50) H Prothromb Time International Ratio 1.4 (0.9-1.1) H Activated Partial Thromboplast Time 39 SEC (23-33) H Urine Color Yellow Urine Appearance Clear Urine pH 7 (4.5-8.0) Urine Specific [place] 1.010 (1.005-1.035) Urine Protein Negative (NEGATIVE) Urine Glucose (UA) Negative (NEGATIVE) Urine Ketones Negative (NEGATIVE) Urine Occult Blood Negative (NEGATIVE) Urine Nitrite Negative (NEGATIVE) Urine Bilirubin Negative (NEGATIVE) Urine Urobilinogen 1 MG/DL (0.0-1.0) H Urine Leukocyte Esterase Negative (NEGATIVE) Sodium Level 138 MMOL/L (136-145) Potassium Level 3.4 MMOL/L (3.5-5.1) L Chloride Level 104 MMOL/L (98-107) Carbon Dioxide Level 27 MMOL/L (21-32) Anion Gap 7 mmol/L (5-15) Blood Urea Nitrogen 4 mg/dL (7-18) L Creatinine 0.7 MG/DL (0.55-1.30) Estimat Glomerular Filtration Rate > 60 mL/min (>60) Glucose Level 117 MG/DL (74-106) H Calcium Level 7.4 MG/DL (8.5-10.1) L Total Bilirubin 3.4 MG/DL (0.2-1.0) H Direct Bilirubin 2.5 MG/DL (0.0-0.3) H Aspartate Amino Transf (AST/SGOT) 172 U/L (15-37) H Alanine Aminotransferase (ALT/SGPT) 48 U/L (12-78) Alkaline Phosphatase 304 U/L (46-116) H Ammonia 76 umol/L (11-32) H Total Creatine Kinase 236 U/L (26-308) Troponin I 0.009 ng/mL (0.000-0.056) Total Protein 8.5 G/DL (6.4-8.2) H Albumin 2.3 G/DL (3.4-5.0) L Globulin 6.2 g/dL Albumin/Globulin Ratio 0.4 (1.0-2.7) L Lipase 154 U/L (73-393) Urine Opiates Screen Negative (NEGATIVE) Urine Barbiturates Screen Negative (NEGATIVE) Phencyclidine (PCP) Screen Negative (NEGATIVE) Urine Amphetamines Screen Negative (NEGATIVE) Urine Benzodiazepines Screen Positive (NEGATIVE) H Urine Cocaine Screen Negative (NEGATIVE) Urine Marijuana (THC) Screen Negative (NEGATIVE) Serum Alcohol 273 mg/dL Stool Occult Blood Negative (NEGATIVE) General Appearance: well appearing, no apparent distress, alert Head: normocephalic EENT: PERRL/EOMI, normal ENT inspection Neck: supple Respiratory: normal breath sounds, no respiratory distress Cardiovascular: normal rate Gastrointestinal: normal inspection, non tender, normal bowel sounds, distended , ascites Rectal: deferred Genitourinary: deferred Musculoskeletal: normal inspection, back normal Neurologic: normal inspection, alert, oriented x3, responsive Psychiatric: normal inspection, judgement/insight normal, memory normal Skin: normal inspection, normal color, no rash, warm/dry, palpation normal, well hydrated Lymphatic: normal inspection, no adenopathy Current Medications Current Medications Medications (Trade) Dose Ordered Sig/Nikhil Route PRN Reason Start Time Stop Time Status Last Admin Dose Admin Lactulose (Cephulac) 30 gm BID ORAL 07/31/17 18:00 08/30/17 17:59 Lidocaine HCl (Xylocaine 1% 30ml) 30 ml ONCE INJ 07/31/17 14:30 08/02/17 23:00 Morphine Sulfate (Morphine Sulfate) 2 mg Q4H PRN IVP PAIN 4-10 07/31/17 13:00 5/15/18 12:59 07/31/17 13:32 Pantoprazole (Protonix) 40 mg EVERY 12 HOURS IVP 07/31/17 21:00 08/30/17 20:59 Rifaximin (Xifaxan) 550 mg EVERY 12 HOURS ORAL 07/31/17 21:00 08/07/17 20:59 Sodium Chloride 1,000 ml @ 75 mls/hr [id number] IV 07/31/17 08:00 08/30/17 07:59 07/31/17 08:26 GI: Plan Problems: (1) ETOH abuse (2) Cirrhosis (3) Anemia (4) Alcohol intoxication (5) Hepatic encephalopathy Plan OB stool negative defer GI procedures at this time given recent history of EGD monitor H&H, prn transfusions ppi BID MVI/folate/thiamine paracentesis >> r/o SBP low sodium diet trend LFTs 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 Weber. Thank you for this patient referral, we will follow. The patient was seen and examined at bedside and all new and available data was reviewed in the patients chart. I agree with the above findings, impression and plan. (Patient seen earlier today. Signature stamp does not reflect patient encounter time.). - MD Keyana Perkins Anh Inocencio Shanks July 31, 2017 16:05
--- NOTE | 2017-07-31 16:42 | Cardiology Report ---
APPROVED REPORT EKG Measurement Heart [id number] Normal sinus rhythm Normal ECG
[2017-07-31] MEDS: Lactulose 20gm/30ml UDC ORAL SCH (18:00)
[2017-07-31] MEDS ORDERED: LORazepam 1mg tab ORAL PRN (18:15)
--- NOTE | 2017-07-31 18:30 | History and Physical Report ---
DATE OF ADMISSION: 07/31/2017 HISTORY OF PRESENT ILLNESS: The patient is a 47-year-old male with a history of hypertension, previous pulmonary embolism, anemia, diabetes mellitus, chronic alcoholism. He was last seen in this hospital for rectal bleeding and hematemesis. At that time, he was admitted to the hospital, placed on octreotide and Protonix drip. He was found to have liver cirrhosis as well. He was given Librium. His cardiac function was normal. The patient at that time left against medical advice. I also noted in the past he has had evidence of gastric varices and had been banded in the past in January 2017. PAST MEDICAL HISTORY: Notable for liver cirrhosis, chronic alcohol abuse, pulmonary embolism as discussed above, and psych disorder. HOME MEDICATIONS: Ferrous sulfate, Protonix, and Trental. SOCIAL HISTORY: He admits to alcohol usage. Denies substance abuse. REVIEW OF SYSTEMS: The patient denies any headaches, hematemesis, melena, or hematochezia. PHYSICAL EXAMINATION: GENERAL: An obese male. VITAL SIGNS: Blood pressure is 140/80, heart rate 84, respiratory rate 18, he is afebrile, and O2 saturation 98% on 2 liters of oxygen. HEENT: Unremarkable. CHEST: Clear breath sounds bilaterally. ABDOMEN: Soft. EXTREMITIES: Trace edema. NEUROLOGIC: The patient is tremulous, however, he does not appear to be confused. LABORATORY DATA: Lab testing shows hemoglobin 7.9, white count 3.5, and platelet count is 40,000. Potassium 3.4. Bilirubin 3.4, direct is 2.5. AST 172, ALT 48, alkaline phosphatase 304. Ammonia 76. INR 1.4. IMPRESSION: 1. Hepatic encephalopathy. 2. Gastrointestinal bleed. 3. Anemia. 4. Thrombocytopenia. 5. Psychiatric disorder. DISCUSSION: Admitted to the hospital. We will start lactulose, Protonix, and rifaximin. We will also add Librium. GI consult obtained. We will follow carefully. Stephen Jefferson M.D. DR: Tiffany JOB#: [id number] CC:
[2017-07-31] MEDS: Pantoprazole Inj IVP SCH (21:44)
[2017-08-01] VITALS: BP 146/100
[2017-08-01] MEDS ORDERED: LORazepam Inj 2mg/ml 1ml IV PRN
[2017-08-01 04:00] VITALS: BP 138/94
[2017-08-01 08:00] VITALS: BP 117/63
[2017-08-01] MEDS: Pantoprazole Inj IVP SCH ×2 (08:28→20:42)
[2017-08-01] MEDS: Lactulose 20gm/30ml UDC ORAL SCH ×2 (08:30→17:15)
--- NOTE | 2017-08-01 08:40 | Pulmonology Progress Note ---
Assessment/Plan Assessment/Plan 1. Hepatic encephalopathy. 2. Gastrointestinal bleed. 3. Anemia. 4. Thrombocytopenia. 5. Psychiatric disorder. DISCUSSION: Admitted to the hospital. Continue lactulose, Protonix, and rifaximin. Continue Ativan for ETOH withdrawl. GI consult obtained. I will follow carefully. Subjective Interval Events: Seen by GI; for paracentesis today Constitutional: Reports: no symptoms HEENT: Repors: no symptoms Respiratory: Reports: no symptoms Cardiovascular: Reports: no symptoms Gastrointestinal/Abdominal: Reports: no symptoms Allergies: Coded Allergies: NO KNOWN ALLERGIES (Verified Allergy, Unknown, 01/25/17) Objective Last 24 Hour Vital Signs Date Time Temp Pulse Resp B/P (MAP) Pulse Ox O2 Delivery O2 Flow Rate FiO2 08/01/17 04:12 134 08/01/17 04:00 99.3 128 22 138/94 94 Nasal Cannula 3.0 99.3 08/01/17 00:00 99.5 127 24 146/100 94 Nasal Cannula 3.0 99.5 07/31/17 23:39 139 07/31/17 20:04 112 07/31/17 20:00 98.6 109 20 159/98 94 Nasal Cannula 3.0 98.6 07/31/17 16:00 97.2 91 21 130/81 99 Nasal Cannula 3.0 97.2 07/31/17 16:00 95 07/31/17 12:00 98.7 66 21 117/66 99 Nasal Cannula 3.0 98.7 07/31/17 12:00 97 Intake and Output 07/31/17 08/01/17 19:00 07:00 Intake Total 1157 ml 400 ml Balance 1157 ml 400 ml Intake Oral 600 ml 400 ml IV Total 557 ml # Voids 6 # Bowel Movements 1 1 General Appearance: no acute distress HEENT: normocephalic Respiratory/Chest: chest wall non-tender, lungs clear Cardiovascular: normal peripheral pulses, normal rate Abdomen: normal bowel sounds Laboratory Tests 07/31/17 12:25: Stool Occult Blood Negative 07/31/17 15:05: White Blood Count 2.8L, Red Blood Count 4.17L, Hemoglobin 8.8L, Hematocrit 30.8L , Mean Corpuscular Volume 74L, Mean Corpuscular Hemoglobin 21.2L, Mean Corpuscular Hemoglobin Concent 28.7L, Red Cell Distribution Width 21.2H, Platelet Count 39L, Mean Platelet Volume 8.4, Neutrophils (%) (Auto) , Lymphocytes (%) (Auto) , Monocytes (%) (Auto) , Eosinophils (%) (Auto) , Basophils (%) (Auto) , Differential Total Cells Counted 50, Neutrophils % ( Manual) 78H, Lymphocytes % (Manual) 14L, Monocytes % (Manual) 8, Eosinophils % ( Manual) 0, Basophils % (Manual) 0, Band Neutrophils 0, Nucleated Red Blood Cells 1, Platelet Estimate DecreasedL, Platelet Morphology Normal, Polychromasia 1+, Hypochromasia 3+, Anisocytosis 3+, Microcytosis 2+ Current Medications Medications (Trade) Dose Ordered Sig/Nikhil Route PRN Reason Start Time Stop Time Status Last Admin Dose Admin Lactulose (Cephulac) 30 gm BID ORAL 07/31/17 18:00 08/30/17 17:59 08/01/17 08:30 Lidocaine HCl (Xylocaine 1% 30ml) 30 ml ONCE INJ 07/31/17 14:30 08/01/17 21:00 Lorazepam (Ativan 2mg/ml 1ml) 1 mg Q4H PRN IV For Anxiety 08/01/17 00:00 08/08/17 00:00 08/01/17 00:47 Morphine Sulfate (Morphine Sulfate) 2 mg Q4H PRN IVP PAIN 4-10 07/31/17 13:00 08/07/17 12:59 07/31/17 20:04 Ondansetron HCl (Zofran) 4 mg Q6H PRN IVP Nausea & Vomiting 07/31/17 19:30 08/30/17 19:29 Pantoprazole (Protonix) 40 mg EVERY 12 HOURS IVP 07/31/17 21:00 08/30/17 20:59 08/01/17 08:28 Rifaximin (Xifaxan) 550 mg EVERY 12 HOURS ORAL 07/31/17 21:00 08/07/17 20:59 08/01/17 08:30 Sodium Chloride 1,000 ml @ 75 mls/hr [id number] IV 07/31/17 08:00 08/30/17 07:59 07/31/17 21:46 Stephen Jefferson MD August 01, 2017 08:40
[2017-08-01 09:24] LABS: HEMATOCRIT 29.5 % (42.0-52.0); HEMOGLOBIN 8.7 G/DL (14.2-18.0); MEAN CORPUSCULAR VOLUME 75 FL (80-99); PLATELET COUNT 29 K/UL (150-450); RED BLOOD COUNT 3.95 M/UL (4.70-6.10); RED CELL DISTRIBUTION WIDTH 21.3 % (11.6-14.8); WHITE BLOOD COUNT 3.2 K/UL (4.8-10.8)
[2017-08-01 10:00] LABS: ALANINE AMINOTRANSFERASE 36 U/L (12-78); ALBUMIN 2.2 G/DL (3.4-5.0); ALBUMIN/GLOBULIN RATIO 0.4 (1.0-2.7); ALKALINE PHOSPHATASE 254 U/L (46-116); ANION GAP 4 mmol/L (5-15); ASPARTATE AMINO TRANSFERASE 124 U/L (15-37); BILIRUBIN,TOTAL 5.5 MG/DL (0.2-1.0); BLOOD UREA NITROGEN 4 mg/dL (7-18); CALCIUM 7.5 MG/DL (8.5-10.1); CARBON DIOXIDE 29 MMOL/L (21-32); CHLORIDE 104 MMOL/L (98-107); CREATININE 0.7 MG/DL (0.55-1.30); POTASSIUM 3.2 MMOL/L (3.5-5.1); SODIUM 137 MMOL/L (136-145)
[2017-08-01 10:06] LABS: BILIRUBIN,DIRECT 3.5 MG/DL (0.0-0.3)
--- NOTE | 2017-08-01 10:23 | GI Progress Note ---
Assessment/Plan Problems: (1) Anemia ICD Codes: D64.9 - Anemia, unspecified SNOMED: 591792539 Qualifiers: Qualified Codes: D50.8 - Other iron deficiency anemias (2) Cirrhosis ICD Codes: K74.60 - Unspecified cirrhosis of liver SNOMED: 75767255 Qualifiers: Qualified Codes: K70.30 - Alcoholic cirrhosis of liver without ascites (3) Alcohol intoxication ICD Codes: F10.929 - Alcohol use, unspecified with intoxication, unspecified SNOMED: 43003537 Qualifiers: Qualified Codes: F10.929 - Alcohol use, unspecified with intoxication, unspecified (4) Hepatic encephalopathy ICD Codes: K72.90 - Hepatic failure, unspecified without coma SNOMED: 19238341 (5) ETOH abuse ICD Codes: F10.10 - Alcohol abuse, uncomplicated SNOMED: 82908093 (6) ETOH abuse ICD Codes: F10.10 - Alcohol abuse, uncomplicated SNOMED: 64435989 Status: stable Status Narrative Discussed with Dr. Weber. 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 I agree with the above findings, impression and plan. (Patient seen earlier today. Signature stamp does not reflect patient encounter time.). - Ricardo Weber MD Subjective Gastrointestinal/Abdominal: Reports: abdomen distended, abdominal pain Objective Last 24 Hour Vital Signs Date Time Temp Pulse Resp B/P (MAP) Pulse Ox O2 Delivery O2 Flow Rate FiO2 08/01/17 08:00 108 08/01/17 04:12 134 08/01/17 04:00 99.3 128 22 138/94 94 Nasal Cannula 3.0 99.3 08/01/17 00:00 99.5 127 24 146/100 94 Nasal Cannula 3.0 99.5 07/31/17 23:39 139 07/31/17 20:04 112 07/31/17 20:00 98.6 109 20 159/98 94 Nasal Cannula 3.0 98.6 07/31/17 16:00 97.2 91 21 130/81 99 Nasal Cannula 3.0 97.2 07/31/17 16:00 95 07/31/17 12:00 98.7 66 21 117/66 99 Nasal Cannula 3.0 98.7 07/31/17 12:00 97 Intake and Output 07/31/17 08/01/17 19:00 07:00 Intake Total 1157 ml 400 ml Balance 1157 ml 400 ml Intake Oral 600 ml 400 ml IV Total 557 ml # Voids 6 # Bowel Movements 1 1 Laboratory Tests Test 07/31/17 12:25 07/31/17 15:05 08/01/17 08:35 Stool Occult Blood Negative (NEGATIVE) White Blood Count 2.8 K/UL (4.8-10.8) L 3.2 K/UL (4.8-10.8) L Red Blood Count 4.17 M/UL (4.70-6.10) L 3.95 M/UL (4.70-6.10) L Hemoglobin 8.8 G/DL (14.2-18.0) L 8.7 G/DL (14.2-18.0) L Hematocrit 30.8 % (42.0-52.0) L 29.5 % (42.0-52.0) L Mean Corpuscular Volume 74 FL (80-99) L 75 FL (80-99) L Mean Corpuscular Hemoglobin 21.2 PG (27.0-31.0) L 22.0 PG (27.0-31.0) L Mean Corpuscular Hemoglobin Concent 28.7 G/DL (32.0-36.0) L 29.5 G/DL (32.0-36.0) L Red Cell Distribution Width 21.2 % (11.6-14.8) H 21.3 % (11.6-14.8) H Platelet Count 39 K/UL (150-450) L 29 K/UL (150-450) L Mean Platelet Volume 8.4 FL (6.5-10.1) 7.7 FL (6.5-10.1) Neutrophils (%) (Auto) % (45.0-75.0) % (45.0-75.0) Lymphocytes (%) (Auto) % (20.0-45.0) % (20.0-45.0) Monocytes (%) (Auto) % (1.0-10.0) % (1.0-10.0) Eosinophils (%) (Auto) % (0.0-3.0) % (0.0-3.0) Basophils (%) (Auto) % (0.0-2.0) % (0.0-2.0) Differential Total Cells Counted 50 100 Neutrophils % (Manual) 78 % (45-75) H 78 % (45-75) H Lymphocytes % (Manual) 14 % (20-45) L 13 % (20-45) L Monocytes % (Manual) 8 % (1-10) 8 % (1-10) Eosinophils % (Manual) 0 % (0-3) 0 % (0-3) Basophils % (Manual) 0 % (0-2) 0 % (0-2) Band Neutrophils 0 % (0-8) 1 % (0-8) Nucleated Red Blood Cells 1 /100 WBC 3 /100 WBC Platelet Estimate Decreased L Decreased L Platelet Morphology Normal Normal Polychromasia 1+ 1+ Hypochromasia 3+ 3+ Anisocytosis 3+ 2+ Microcytosis 2+ 1+ Target Cells Occasional Sodium Level 137 MMOL/L (136-145) Potassium Level 3.2 MMOL/L (3.5-5.1) L Chloride Level 104 MMOL/L (98-107) Carbon Dioxide Level 29 MMOL/L (21-32) Anion Gap 4 mmol/L (5-15) L Blood Urea Nitrogen 4 mg/dL (7-18) L Creatinine 0.7 MG/DL (0.55-1.30) Estimat Glomerular Filtration Rate > 60 mL/min (>60) Glucose Level 116 MG/DL (74-106) H Calcium Level 7.5 MG/DL (8.5-10.1) L Total Bilirubin 5.5 MG/DL (0.2-1.0) H Direct Bilirubin 3.5 MG/DL (0.0-0.3) H Aspartate Amino Transf (AST/SGOT) 124 U/L (15-37) H Alanine Aminotransferase (ALT/SGPT) 36 U/L (12-78) Alkaline Phosphatase 254 U/L (46-116) H Ammonia 91 umol/L (11-32) H Total Protein 8.4 G/DL (6.4-8.2) H Albumin 2.2 G/DL (3.4-5.0) L Globulin 6.2 g/dL Albumin/Globulin Ratio 0.4 (1.0-2.7) L Height (Feet): 5 Height (Inches): 7.00 Weight (Pounds): 250 General Appearance: WD/WN, no apparent distress, alert Cardiovascular: normal rate Respiratory/Chest: normal breath sounds, no respiratory distress Abdominal Exam: normal bowel sounds, non tender, soft Extremities: normal range of motion, non-tender Lorna Ridley N.P. August 01, 2017 10:23
[2017-08-01 12:00] VITALS: BP 136/80
[2017-08-01] MEDS: Folic Acid 1 MG, Magnesium Sulfate 2,000 MG, Multivitamin - 12 Injection 10 ML in NS w/... IV SCH (12:12)
[2017-08-01] MEDS: Thiamine HCl 100 MG in D5W 55 ML IV SCH (12:12)
[2017-08-01 16:00] VITALS: BP 120/70
[2017-08-01 20:40] VITALS: BP 137/84
[2017-08-02 00:15] VITALS: BP 140/85
[2017-08-02 04:00] VITALS: BP 133/86
[2017-08-02 08:00] VITALS: BP 123/93
[2017-08-02] MEDS: Lactulose 20gm/30ml UDC ORAL SCH (08:22)
[2017-08-02] MEDS: Pantoprazole Inj IVP SCH (08:22)
[2017-08-02 08:53] LABS: HEMATOCRIT 31.1 % (42.0-52.0); HEMOGLOBIN 8.8 G/DL (14.2-18.0); MEAN CORPUSCULAR VOLUME 75 FL (80-99); PLATELET COUNT 48 K/UL (150-450); RED BLOOD COUNT 4.12 M/UL (4.70-6.10); RED CELL DISTRIBUTION WIDTH 21.7 % (11.6-14.8); WHITE BLOOD COUNT 2.6 K/UL (4.8-10.8)
--- NOTE | 2017-08-02 09:48 | Pulmonology Progress Note ---
Assessment/Plan Assessment/Plan 1. Hepatic encephalopathy. 2. Gastrointestinal bleed. 3. Anemia. 4. Thrombocytopenia. 5. Psychiatric disorder. DISCUSSION: Admitted to the hospital. Continue lactulose, Protonix, and rifaximin. Continue Ativan for ETOH withdrawal. GI consult obtained. I will follow carefully. Plans noted for paracentesis ?EGD Subjective Interval Events: none; more awake and comfortable Constitutional: Reports: no symptoms HEENT: Repors: no symptoms Respiratory: Reports: no symptoms Cardiovascular: Reports: no symptoms Gastrointestinal/Abdominal: Reports: no symptoms Allergies: Coded Allergies: NO KNOWN ALLERGIES (Verified Allergy, Unknown, 01/25/17) Objective Last 24 Hour Vital Signs Date Time Temp Pulse Resp B/P (MAP) Pulse Ox O2 Delivery O2 Flow Rate FiO2 08/02/17 08:00 98.7 88 22 123/93 100 98.7 08/02/17 04:20 87 08/02/17 04:00 98.5 88 19 133/86 92 98.5 08/02/17 00:15 99.1 94 18 140/85 92 99.1 08/01/17 23:40 97 08/01/17 20:40 99.5 99 19 137/84 92 99.5 08/01/17 19:14 101 08/01/17 16:00 98.8 104 20 120/70 94 Nasal Cannula 3.0 98.8 08/01/17 16:00 102 08/01/17 12:00 98.6 109 20 136/80 94 Nasal Cannula 3.0 98.6 08/01/17 12:00 106 Intake and Output 08/01/17 08/02/17 19:00 07:00 Intake Total 625 ml Balance 625 ml IV Total 625 ml # Voids 4 General Appearance: no acute distress HEENT: normocephalic Respiratory/Chest: chest wall non-tender, lungs clear Cardiovascular: normal peripheral pulses Abdomen: distended Laboratory Tests 08/02/17 07:00: White Blood Count 2.6L, Red Blood Count 4.12L, Hemoglobin 8.8L, Hematocrit 31.1L , Mean Corpuscular Volume 75L, Mean Corpuscular Hemoglobin 21.4L, Mean Corpuscular Hemoglobin Concent 28.4L, Red Cell Distribution Width 21.7H, Platelet Count 48#L, Mean Platelet Volume 12.6H, Neutrophils (%) (Auto) , Lymphocytes (%) (Auto) , Monocytes (%) (Auto) , Eosinophils (%) (Auto) , Basophils (%) (Auto) , Neutrophils % (Manual) [Pending], Lymphocytes % (Manual) [Pending], Platelet Estimate [Pending], Platelet Morphology [Pending], Sodium Level [Pending], Potassium Level [Pending], Chloride Level [Pending], Carbon Dioxide Level [Pending], Blood Urea Nitrogen [Pending], Creatinine [Pending], Estimat Glomerular Filtration Rate [Pending], Glucose Level [Pending], Calcium Level [Pending], Total Bilirubin [Pending], Aspartate Amino Transf (AST/SGOT) [ Pending], Alanine Aminotransferase (ALT/SGPT) [Pending], Alkaline Phosphatase [ Pending], Ammonia [Pending], Total Protein [Pending], Albumin [Pending], Globulin [Pending] Current Medications Medications (Trade) Dose Ordered Sig/Nikhil Route PRN Reason Start Time Stop Time Status Last Admin Dose Admin Folic Acid 1 mg/ Magnesium Sulfate 2000 mg/ Multivitamins 10 ml/Sodium Chloride 1,014.2 ml @ 125 mls/ hr Q24H IV 08/01/17 12:00 08/31/17 11:59 08/01/17 12:12 Lactulose (Cephulac) 30 gm BID ORAL 07/31/17 18:00 08/30/17 17:59 08/02/17 08:22 Lorazepam (Ativan 2mg/ml 1ml) 1 mg Q4H PRN IV For Anxiety 08/01/17 00:00 08/08/17 00:00 08/01/17 00:47 Morphine Sulfate (Morphine Sulfate) 2 mg Q4H PRN IVP PAIN 4-10 07/31/17 13:00 08/07/17 12:59 07/31/17 20:04 Ondansetron HCl (Zofran) 4 mg Q6H PRN IVP Nausea & Vomiting 07/31/17 19:30 08/30/17 19:29 Pantoprazole (Protonix) 40 mg EVERY 12 HOURS IVP 07/31/17 21:00 08/30/17 20:59 08/02/17 08:22 Rifaximin (Xifaxan) 550 mg EVERY 12 HOURS ORAL 07/31/17 21:00 08/07/17 20:59 08/02/17 08:22 Sodium Chloride 1,000 ml @ 125 mls/hr Q8H IV 08/01/17 20:00 08/31/17 19:59 08/02/17 04:12 Thiamine HCl 100 mg/Dextrose 56 ml @ 56 mls/hr Q24H IV 08/01/17 12:00 08/31/17 11:59 08/01/17 12:12 Stephen Jefferson MD August 02, 2017 09:48
[2017-08-02 09:50] LABS: ALANINE AMINOTRANSFERASE 40 U/L (12-78); ALBUMIN 2.1 G/DL (3.4-5.0); ALBUMIN/GLOBULIN RATIO 0.4 (1.0-2.7); ALKALINE PHOSPHATASE 241 U/L (46-116); ANION GAP 7 mmol/L (5-15); ASPARTATE AMINO TRANSFERASE 126 U/L (15-37); BLOOD UREA NITROGEN 6 mg/dL (7-18); CALCIUM 7.4 MG/DL (8.5-10.1); CARBON DIOXIDE 27 MMOL/L (21-32); CHLORIDE 104 MMOL/L (98-107); CREATININE 0.6 MG/DL (0.55-1.30); POTASSIUM 3.3 MMOL/L (3.5-5.1); SODIUM 138 MMOL/L (136-145)
[2017-08-02 09:53] LABS: AMMONIA 120 umol/L (11-32)
[2017-08-02 10:03] LABS: BILIRUBIN,DIRECT 3.6 MG/DL (0.0-0.3)
--- NOTE | 2017-08-02 10:08 | GI Progress Note ---
Assessment/Plan Problems: (1) Anemia ICD Codes: D64.9 - Anemia, unspecified SNOMED: 383630712 Qualifiers: Qualified Codes: D50.8 - Other iron deficiency anemias (2) Cirrhosis ICD Codes: K74.60 - Unspecified cirrhosis of liver SNOMED: 17972062 Qualifiers: Qualified Codes: K70.30 - Alcoholic cirrhosis of liver without ascites (3) Alcohol intoxication ICD Codes: F10.929 - Alcohol use, unspecified with intoxication, unspecified SNOMED: 13815303 Qualifiers: Qualified Codes: F10.929 - Alcohol use, unspecified with intoxication, unspecified (4) Hepatic encephalopathy ICD Codes: K72.90 - Hepatic failure, unspecified without coma SNOMED: 56464208 (5) ETOH abuse ICD Codes: F10.10 - Alcohol abuse, uncomplicated SNOMED: 62944702 (6) ETOH abuse ICD Codes: F10.10 - Alcohol abuse, uncomplicated SNOMED: 79545716 Status: unchanged Status Narrative Discussed with Dr. Weber. 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 I agree with the above findings, impression and plan. (Patient seen earlier today. Signature stamp does not reflect patient encounter time.). - Ricardo Weber MD Subjective Gastrointestinal/Abdominal: Reports: abdomen distended Objective Last 24 Hour Vital Signs Date Time Temp Pulse Resp B/P (MAP) Pulse Ox O2 Delivery O2 Flow Rate FiO2 08/02/17 08:00 98.7 88 22 123/93 100 98.7 08/02/17 04:20 87 08/02/17 04:00 98.5 88 19 133/86 92 98.5 08/02/17 00:15 99.1 94 18 140/85 92 99.1 08/01/17 23:40 97 08/01/17 20:40 99.5 99 19 137/84 92 99.5 08/01/17 19:14 101 08/01/17 16:00 98.8 104 20 120/70 94 Nasal Cannula 3.0 98.8 08/01/17 16:00 102 08/01/17 12:00 98.6 109 20 136/80 94 Nasal Cannula 3.0 98.6 08/01/17 12:00 106 Intake and Output 08/01/17 08/02/17 19:00 07:00 Intake Total 625 ml Balance 625 ml IV Total 625 ml # Voids 4 Laboratory Tests Test 08/02/17 07:00 White Blood Count 2.6 K/UL (4.8-10.8) L Red Blood Count 4.12 M/UL (4.70-6.10) L Hemoglobin 8.8 G/DL (14.2-18.0) L Hematocrit 31.1 % (42.0-52.0) L Mean Corpuscular Volume 75 FL (80-99) L Mean Corpuscular Hemoglobin 21.4 PG (27.0-31.0) L Mean Corpuscular Hemoglobin Concent 28.4 G/DL (32.0-36.0) L Red Cell Distribution Width 21.7 % (11.6-14.8) H Platelet Count 48 K/UL (150-450) #L Mean Platelet Volume 12.6 FL (6.5-10.1) H Neutrophils (%) (Auto) % (45.0-75.0) Lymphocytes (%) (Auto) % (20.0-45.0) Monocytes (%) (Auto) % (1.0-10.0) Eosinophils (%) (Auto) % (0.0-3.0) Basophils (%) (Auto) % (0.0-2.0) Neutrophils % (Manual) Pending Lymphocytes % (Manual) Pending Platelet Estimate Pending Platelet Morphology Pending Sodium Level 138 MMOL/L (136-145) Potassium Level 3.3 MMOL/L (3.5-5.1) L Chloride Level 104 MMOL/L (98-107) Carbon Dioxide Level 27 MMOL/L (21-32) Anion Gap 7 mmol/L (5-15) Blood Urea Nitrogen 6 mg/dL (7-18) L Creatinine 0.6 MG/DL (0.55-1.30) Estimat Glomerular Filtration Rate > 60 mL/min (>60) Glucose Level 86 MG/DL (74-106) Calcium Level 7.4 MG/DL (8.5-10.1) L Total Bilirubin 5.0 MG/DL (0.2-1.0) H Direct Bilirubin 3.6 MG/DL (0.0-0.3) H Aspartate Amino Transf (AST/SGOT) 126 U/L (15-37) H Alanine Aminotransferase (ALT/SGPT) 40 U/L (12-78) Alkaline Phosphatase 241 U/L (46-116) H Ammonia 120 umol/L (11-32) H Total Protein 8.0 G/DL (6.4-8.2) Albumin 2.1 G/DL (3.4-5.0) L Globulin 5.9 g/dL Albumin/Globulin Ratio 0.4 (1.0-2.7) L Height (Feet): 5 Height (Inches): 7.00 Weight (Pounds): 250 General Appearance: WD/WN, no apparent distress, alert Cardiovascular: normal rate Respiratory/Chest: normal breath sounds, no respiratory distress Abdominal Exam: normal bowel sounds, non tender, soft, distended Extremities: normal range of motion, non-tender Aj Ridley NP August 02, 2017 10:08
[2017-08-02 12:00] VITALS: BP 138/86
[2017-08-02] MEDS: Thiamine HCl 100 MG in D5W 55 ML IV SCH (12:50)
[2017-08-02] MEDS: Folic Acid 1 MG, Magnesium Sulfate 2,000 MG, Multivitamin - 12 Injection 10 ML in NS w/... IV SCH (12:50)
[2017-08-02 16:00] VITALS: BP 139/68
[2017-08-02] MEDS ORDERED: Lidocaine 1% Plain 30 ml INJ SCH (16:30)
--- NOTE | 2017-08-02 16:48 | Diagnostic Imaging Report ---
Indications: Ascites Procedure: Informed consent obtained including the added risk of significant bleeding given the coagulopathy present, low platelets etc. Patient was given platelet transfusion today. Ultrasound used to localize optimal puncture site. Sterile prepping and draping over the optimum site. Local anesthesia with 1% lidocaine. Under real-time ultrasound guidance, puncture of the peritoneal space performed using paracentesis needle. Digital image was saved and archived. Stylet removed. Catheter placed to vacuum bottle suction. Fluid was aspirated. Patient tolerated procedure well, without immediate complication. Diagnostic study also done with fluid sent for studies as requested Findings: Followup sonography demonstrates complete resolution of peritoneal fluid Impression: Successful ultrasound-guided paracentesis, yielding 2.4 liters of fluid
[2017-08-02] MEDS ORDERED: Tubing IV Secondary IV ONE (18:49)
[2017-08-02] MEDS ORDERED: NS 500ML ONE (18:49)
[2017-08-02] MEDS ORDERED: Tubing Blood Filter IV ONE (18:49)
--- NOTE | 2017-08-03 13:25 | Discharge Summary ---
Discharge Summary Discharge Summary Discharge Summary DATE OF ADMISSION: 07/31/2017 DATE OF DISCHARGE: 08/02/2017 CONSULTANTS: Dr. Ricardo Weber BRIEF HOSPITAL COURSE: Patient is a 47-year-old male, with history of hypertension, previous pulmonary embolism, anemia, diabetes mellitus, and chronic alcoholism, history of gastric peristalsis that is post banding. He was last seen in the hospital for rectal bleed and hematemesis. At that time he was admitted and was placed on octreotide and Protonix drip. He was also found to have liver cirrhosis. At that time he left AGAINST MEDICAL ADVICE. He presented to ED complaining of chest pain. Patient appeared lethargic and pale. Blood work showed anemia, hemoglobin of 7.9, hematocrit 26.3. He also had evidence of liver failure with coagulopathy and elevated LFTs. Ammonia level 76. Bilirubin 3.4, direct bilirubin 2.5, AST 172, AST 48, alkaline phosphatase 304. INR was 1.4. EtOH level 273. He was admitted for hepatic encephalopathy and GI bleed with anemia. He was started on lactulose and rifaximin. He was given Protonix twice a day. He was given multivitamin/folate/thiamine. He was given Ativan prn withdrawal symptoms. There was a drop in hemoglobin, he was given 2 units packed RBC blood transfusion. Stool OB was negative. Abdominal ultrasound showed hepatosplenomegaly. Liver nodularity suggestive of liver chronic disease. He had ascites and underwent paracenteses on 08/02/2017, yielding 2.4 L of fluid. He was eventually discharged home. FINAL DIAGNOSES: Hepatic encephalopathy with liver cirrhosis GI bleed Drop in hemoglobin with anemia requiring blood transfusion Thrombocytopenia Psychiatric disorder Alcohol intoxication EtOH abuse DISPOSITION: Patient was discharged home. DISCHARGE MEDICATIONS: Refer to Discharge Medication List. DISCHARGE INSTRUCTIONS: Follow up with PCP in a week. I have been assigned to dictate discharge summary on this account, and I was not involved in the patient's management. Ansley Laughlin NP August 03, 2017 13:25
== END 2017-08-02 18:50 | disposition home or self-care (01) | DRG 280 ==
LOC: EMR 23:49 → 2E 07-31 01:28 → EDBEDREQ 07-31 02:06 → EDBEDREQSVC 07-31 02:06 → EDBEDREQ 07-31 03:54
PROC: 30233N1 Transfusion of Nonautologous Red Blood Cells into Peripheral Vein, Percutaneous Approach (ICD-10-PCS; 2017-07-31)
PROC: 0W9G3ZZ Drainage of Peritoneal Cavity, Percutaneous Approach (ICD-10-PCS; principal; 2017-08-02)
DX: K70.31 Alcoholic cirrhosis of liver with ascites (principal); D69.6 Thrombocytopenia, unspecified; D68.4 Acquired coagulation factor deficiency; K72.90 Hepatic failure, unspecified without coma; K92.2 Gastrointestinal hemorrhage, unspecified; I10 Essential (primary) hypertension; E11.9 Type 2 diabetes mellitus without complications; D50.0 Iron deficiency anemia secondary to blood loss (chronic); F99 Mental disorder, not otherwise specified; Z86.711 Personal history of pulmonary embolism; F10.229 Alcohol dependence with intoxication, unspecified; E66.9 Obesity, unspecified
CPT/HCPCS: 36415; 71045; 76700; 76942; 80053; 80307; 80329; 81003; 82140; 82248; 82270; 82550; 83690; 84484; 85007; 85025; 85610; 85730; 86850; 86900; 86901; 86920; 88104; 93005; 93970; 99285; J2405

== ENCOUNTER 2017-08-13 20:07 | Emergency (ER) | payer MEDICAID ==
[~2017-08-13] VITALS: Ht 170.2 cm; Wt 113.4 kg
[2017-08-13] MEDS ORDERED: Aspirin Baby 81mg ORAL ONE (20:30)
[2017-08-13 21:02] VITALS: BP 138/83
[2017-08-13 21:08] LABS: BASOPHILS % (AUTO) 1.9 % (0.0-2.0); EOSINOPHILS % (AUTO) 1.7 % (0.0-3.0); HEMATOCRIT 30.1 % (42.0-52.0); LYMPHOCYTES % (AUTO) 16.9 % (20.0-45.0); MEAN CORPUSCULAR VOLUME 74 FL (80-99); MONOCYTES % (AUTO) 8.7 % (1.0-10.0); NEUTROPHILS % (AUTO) 70.7 % (45.0-75.0); PLATELET COUNT 121 K/UL (150-450); RED BLOOD COUNT 4.04 M/UL (4.70-6.10); RED CELL DISTRIBUTION WIDTH 24.4 % (11.6-14.8); WHITE BLOOD COUNT 5.4 K/UL (4.8-10.8)
[2017-08-13 21:12] LABS: ANION GAP 8 mmol/L (5-15); BLOOD UREA NITROGEN 7 mg/dL (7-18); CALCIUM 7.3 MG/DL (8.5-10.1); CARBON DIOXIDE 23 MMOL/L (21-32); CHLORIDE 104 MMOL/L (98-107); CREATININE 0.7 MG/DL (0.55-1.30); POTASSIUM 3.9 MMOL/L (3.5-5.1); SODIUM 135 MMOL/L (136-145)
[2017-08-13 21:14] LABS: INR 1.2 (0.9-1.1)
[2017-08-13 21:25] LABS: ALANINE AMINOTRANSFERASE 70 U/L (12-78); ALBUMIN 2.2 G/DL (3.4-5.0); ALBUMIN/GLOBULIN RATIO 0.3 (1.0-2.7); ALKALINE PHOSPHATASE 311 U/L (46-116); ASPARTATE AMINO TRANSFERASE 226 U/L (15-37); BILIRUBIN,TOTAL 4.9 MG/DL (0.2-1.0); CKMB 1.6 NG/ML (0.0-3.6); CREATINE KINASE 234 U/L (26-308)
--- NOTE | 2017-08-13 22:59 | Emergency Room Report ---
History of Present Illness General Chief Complaint: Chest Pain Source: Patient Present Illness HPI Patient has a history of cirrhosis and all these. He complains of abdominal pain and an enlarged abdomen that has progressed over the past 3 days. He admits to continued drinking heavily. He denies fever or chills. He denies nausea or vomiting. He has no other complaints. He has no other complaints. Allergies: Coded Allergies: NO KNOWN ALLERGIES (Verified Allergy, Unknown, 01/25/17) Patient History Past Medical History: see triage record, DM, other - cirrhosis, GI bleed, esophageal varices Social History: Reports: alcohol use; Denies: smoking, drug use Reviewed Nursing Documentation: PMH: Agreed; PSxH: Agreed Nursing Documentation-PMH Hx Asthma: No - blood clot rt lung 2005/anemia Hx Diabetes: Yes Hx Cancer: No Hx Gastrointestinal Problems: Yes - GI bleed Hx Neurological Problems: No Review of Systems All Other Systems: negative except mentioned in HPI Physical Exam Vital Signs Date Time Temp Pulse Resp B/P (MAP) Pulse Ox O2 Delivery O2 Flow Rate FiO2 08/13/17 20:14 98.3 105 16 138/83 90 Room Air 98.2 Sp02 EP Interpretation: reviewed, normal General Appearance: no apparent distress, alert, GCS 15, non-toxic Head: normocephalic, atraumatic Eyes: bilateral eye normal inspection, bilateral eye PERRL ENT: hearing grossly normal, normal pharynx, no angioedema, normal voice Neck: full range of motion, supple/symm/no masses Respiratory: chest non-tender, lungs clear, normal breath sounds, no respiratory distress, no retraction, no accessory muscle use, speaking full sentences Cardiovascular #1: regular rate, rhythm, no edema Gastrointestinal: normal bowel sounds, no guarding, no rebound, distended, tenderness Rectal: deferred Musculoskeletal: back normal, gait/station normal, normal range of motion, non- tender, calf tenderness Neurologic: alert, oriented x3, responsive, motor strength/tone normal, sensory intact, speech normal Psychiatric: judgement/insight normal, memory normal, mood/affect normal, no suicidal/homicidal ideation Skin: warm/dry, well hydrated, jaundice Lymphatic: no adenopathy Medical Decision Making Diagnostic Impression: Primary Impression: Ascites Additional Impressions: Cirrhosis ETOH abuse ER Course This patient has a known cirrhosis. He also has a history of GI bleed. Laboratory findings are at his baseline. He has obvious ascites on examination. He will need a paracentesis. The patient is turned over to Dr. Whittaker for further management. It would be appropriate to do paracentesis and send the patient home versus admission for ultrasound-guided paracentesis. Anticipate DC home after paracentesis. The patient was educated that he will from his alcohol use and that he should never drink again. Laboratory Tests Test 08/13/17 20:42 White Blood Count 5.4 K/UL (4.8-10.8) Red Blood Count 4.04 M/UL (4.70-6.10) L Hemoglobin 9.0 G/DL (14.2-18.0) L Hematocrit 30.1 % (42.0-52.0) L Mean Corpuscular Volume 74 FL (80-99) L Mean Corpuscular Hemoglobin 22.2 PG (27.0-31.0) L Mean Corpuscular Hemoglobin Concent 29.8 G/DL (32.0-36.0) L Red Cell Distribution Width 24.4 % (11.6-14.8) H Platelet Count 121 K/UL (150-450) L Mean Platelet Volume 7.7 FL (6.5-10.1) Neutrophils (%) (Auto) 70.7 % (45.0-75.0) Lymphocytes (%) (Auto) 16.9 % (20.0-45.0) L Monocytes (%) (Auto) 8.7 % (1.0-10.0) Eosinophils (%) (Auto) 1.7 % (0.0-3.0) Basophils (%) (Auto) 1.9 % (0.0-2.0) Prothrombin Time 12.5 SEC (9.30-11.50) H Prothrombin Time INR 1.2 (0.9-1.1) H PTT 31 SEC (23-33) Sodium Level 135 MMOL/L (136-145) L Potassium Level 3.9 MMOL/L (3.5-5.1) Chloride Level 104 MMOL/L (98-107) Carbon Dioxide Level 23 MMOL/L (21-32) Anion Gap 8 mmol/L (5-15) Blood Urea Nitrogen 7 mg/dL (7-18) Creatinine 0.7 MG/DL (0.55-1.30) Estimate Glomerular Filtration Rate > 60 mL/min (>60) Glucose Level 117 MG/DL (74-106) H Calcium Level 7.3 MG/DL (8.5-10.1) L Total Bilirubin 4.9 MG/DL (0.2-1.0) H Direct Bilirubin 4.0 MG/DL (0.0-0.3) H Aspartate Amino Transferase (AST) 226 U/L (15-37) H Alanine Aminotransferase (ALT) 70 U/L (12-78) Alkaline Phosphatase 311 U/L (46-116) H Total Creatine Kinase 234 U/L (26-308) Creatine Kinase MB 1.6 NG/ML (0.0-3.6) Creatine Kinase MB Relative Index 0.6 Troponin I 0.004 ng/mL (0.000-0.056) Total Protein 8.7 G/DL (6.4-8.2) H Albumin 2.2 G/DL (3.4-5.0) L Globulin 6.5 g/dL Albumin/Globulin Ratio 0.3 (1.0-2.7) L EKG Diagnostic Results Rate: tachycardiac Rhythm: other - S.tachycardia ST Segments: no acute changes Rhythm Strip Diag. Results EP Interpretation: yes Rate: 90's Rhythm: NSR, no PVC's, no ectopy Chest X-Ray Diagnostic Results Chest X-Ray Diagnostic Results : Chest X-Ray Ordered: Yes # of Views/Limited/Complete: 1 View Indication: Chest Pain EP Interpretation: Yes Interpretation: other - Limited secondary to technique/abdomen shadow. Impression: No acute disease Electronically Signed by: Roxy Last Vital Signs Date Time Temp Pulse Resp B/P (MAP) Pulse Ox O2 Delivery O2 Flow Rate FiO2 08/13/17 21:02 105 16 Room Air 08/13/17 21:02 98.2 138/83 90 98.2 Referrals: NOT CHOSEN RUMA/,REFERRING (PCP) MIGUEL ANGEL MCCOLLUM D.O. August 13, 2017 22:59
[2017-08-13] MEDS ORDERED: Morphine Sulfate 4mg/ml Inj IVP ONE (23:15)
[2017-08-13 23:36] VITALS: BP 127/76
[2017-08-14] MEDS ORDERED: TRAMADOL HCL50 MG ORAL (01:16)
[2017-08-14] MEDS ORDERED: LEVAQUIN500 MG ORAL (01:16)
--- NOTE | 2017-08-14 01:17 | Emergency Room Report ---
History of Present Illness General Chief Complaint: Chest Pain Source: Patient Present Illness HPI Patient signout to me. He is an alcoholic with his this liver disease with ascites. He came in with abdominal pain similar to previous. Labs showed inflammation of the liver. I did a paracentesis and drained 8 L of fluid. Patient felt better. Allergies: Coded Allergies: NO KNOWN ALLERGIES (Verified Allergy, Unknown, 01/25/17) Nursing Documentation-PMH Hx Asthma: No - blood clot rt lung 2005/anemia Hx Diabetes: Yes Hx Cancer: No Hx Gastrointestinal Problems: Yes - GI bleed Hx Neurological Problems: No Physical Exam Vital Signs Date Time Temp Pulse Resp B/P (MAP) Pulse Ox O2 Delivery O2 Flow Rate FiO2 08/13/17 20:14 98.3 105 16 138/83 90 Room Air 98.2 Procedures Additional Procedure Procedure Narrative Procedure: Paracentesis Indication: Tense ascites Description: Under sterile condition, I injected the right lower quadrant with 1 % lidocaine with epinephrine. Using a paracentesis kit, and certain the catheter into the peritoneal cavity. Yellowish fluid moved. I put it to gravity into a bag and drained about 8 L. Patient tolerated procedure without a problem. Location. Medical Decision Making Diagnostic Impression: Primary Impression: Ascites Qualified Codes: K70.31 - Alcoholic cirrhosis of liver with ascites Additional Impressions: ETOH abuse Cirrhosis Qualified Codes: K70.31 - Alcoholic cirrhosis of liver with ascites Last Vital Signs Date Time Temp Pulse Resp B/P (MAP) Pulse Ox O2 Delivery O2 Flow Rate FiO2 08/13/17 23:36 99.0 16 127/76 90 Room Air 99.0 08/13/17 21:02 105 Status: improved Disposition: HOME, SELF-CARE Condition: Stable Scripts Tramadol Hcl* (ULTRAM*) 50 Mg Tablet 50 MG ORAL Q6H PRN for For Pain, #20 TAB 0 Refills Prov: ARA NAM M.D. 08/14/17 Levofloxacin* (LEVAQUIN*) 500 Mg Tablet 500 MG ORAL DAILY, #7 TAB Prov: ARA NAM M.D. 08/14/17 Referrals: NOT CHOSEN RUMA/,REFERRING (PCP) Additional Instructions: Stop drinking alcohol. Follow-up with your doctor or [place] see [facility] for referral see a liver specialist. Return if symptom worsen. ARA NAM M.D. August 14, 2017 01:17
[2017-08-14 01:33] VITALS: BP 134/78
--- NOTE | 2017-08-14 10:49 | Diagnostic Imaging Report ---
Indication: Chest pain Technique: One view of the chest Comparison: 07/31/2017 Findings: Inspiration is suboptimal. Body habitus limits evaluation The right hemidiaphragm is elevated. There is atelectasis at the right lung base. There is also some left basilar atelectasis. The heart size is upper limits of normal. Impression: Limited exam, as described Bibasilar atelectasis. No definite acute process otherwise
--- NOTE | 2017-08-15 17:08 | Cardiology Report ---
APPROVED REPORT EKG Measurement Heart [id number] Sinus tachycardia Otherwise normal ECG
== END 2017-08-14 01:36 | disposition home or self-care (01) ==
LOC: EMR 21:15
DX: K70.31 Alcoholic cirrhosis of liver with ascites (principal); F10.10 Alcohol abuse, uncomplicated; E11.9 Type 2 diabetes mellitus without complications
CPT/HCPCS: 36415; 71045; 80053; 82248; 82550; 82553; 84484; 85025; 85610; 85730; 87070; 87205; 93005; J2270

== ENCOUNTER 2017-08-28 19:20 | Inpatient (IN) | payer MEDICAID ==
[~2017-08-28] VITALS: Ht 170.2 cm; Wt 122.5 kg
[~2017-08-28 19:20] MED LIST changes: +LEVAQUIN500 MG ORAL; +TRAMADOL HCL50 MG ORAL
[2017-08-28] MEDS ORDERED: Sodium Chloride 500ML 500 ML IV ONE (20:01)
[2017-08-28] MEDS ORDERED: FUROSEMIDE20 M1 ORAL (20:29)
[2017-08-28 20:30] LABS: APPEARANCE,URINE CLOUDY; BILIRUBIN, URINE 2+ (NEGATIVE); COLOR,URINE YELLOW; GLUCOSE, URINE (UA) NEGATIVE (NEGATIVE); KETONES,URINE NEGATIVE (NEGATIVE); LEUKOCYTE ESTERASE ,URINE 1+ (NEGATIVE); NITRITE,URINE NEGATIVE (NEGATIVE); PH,URINE 6 (4.5-8.0); PROTEIN,URINE 2+ (NEGATIVE); UROBILINOGEN,URINE 4 MG/DL (0.0-1.0)
[2017-08-28 20:32] LABS: HEMATOCRIT 27.4 % (42.0-52.0); MEAN CORPUSCULAR VOLUME 79 FL (80-99); PLATELET COUNT 91 K/UL (150-450); RED BLOOD COUNT 3.47 M/UL (4.70-6.10); RED CELL DISTRIBUTION WIDTH 24.3 % (11.6-14.8); WHITE BLOOD COUNT 5.7 K/UL (4.8-10.8)
[2017-08-28 20:33] LABS: BASOPHILS % (AUTO) 1.5 % (0.0-2.0); EOSINOPHILS % (AUTO) 1.9 % (0.0-3.0); MONOCYTES % (AUTO) 10.6 % (1.0-10.0)
[2017-08-28 20:40] LABS: INR 1.4 (0.9-1.1)
[2017-08-28 20:45] LABS: ANION GAP 9 mmol/L (5-15); BLOOD UREA NITROGEN 21 mg/dL (7-18); CALCIUM 7.4 MG/DL (8.5-10.1); CARBON DIOXIDE 24 MMOL/L (21-32); CHLORIDE 106 MMOL/L (98-107); CREATININE 1.4 MG/DL (0.55-1.30); POTASSIUM 3.4 MMOL/L (3.5-5.1); SODIUM 139 MMOL/L (136-145)
[2017-08-28 20:55] LABS: ALANINE AMINOTRANSFERASE 75 U/L (12-78); ALBUMIN 1.6 G/DL (3.4-5.0); ALBUMIN/GLOBULIN RATIO 0.3 (1.0-2.7); ALKALINE PHOSPHATASE 196 U/L (46-116); ASPARTATE AMINO TRANSFERASE 179 U/L (15-37); BILIRUBIN,DIRECT 3.1 MG/DL (0.0-0.3); BILIRUBIN,TOTAL 3.6 MG/DL (0.2-1.0)
[2017-08-28] MEDS ORDERED: cefTRIAXone 1 GM in NS 55 ML IVPB ONE (21:15)
[2017-08-28 21:35] VITALS: BP 126/71
[2017-08-28] MEDS ORDERED: Pantoprazole Inj IVP ONE (21:45)
[2017-08-28] MEDS ORDERED: SandoSTATIN 50mcg Inj IVP ONE (21:45)
--- NOTE | 2017-08-28 22:13 | Emergency Room Report ---
History of Present Illness General Chief Complaint: Abdominal Pain Source: Patient Present Illness HPI 47-year-old male presents to ED for evaluation. Patient complaining of abdominal pain and distention. History of ascites and cirrhosis. States that on 08/18 he had paracentesis done at [facility]. States that the swelling has since returned. Pain is sharp, 10 out of 10, nonradiating. Also complaining of blood in stool for the last few days. States he was admitted here last month for GI bleed. denies take blood thinners. No other aggravating relieving factors. Denies any other associated symptoms Allergies: Coded Allergies: NO KNOWN ALLERGIES (Verified Allergy, Unknown, 01/25/17) Patient History Past Medical History: DM, GI bleed, other - ascites Past Surgical History: none Pertinent Family History: none Social History: Denies: smoking, alcohol use, drug use Immunizations: UTD Reviewed Nursing Documentation: PMH: Agreed; PSxH: Agreed Nursing Documentation-PMH Hx Asthma: No - blood clot rt lung 2005/anemia Hx Diabetes: Yes Hx Cancer: No Hx Gastrointestinal Problems: Yes - GI bleed Hx Neurological Problems: No Review of Systems All Other Systems: negative except mentioned in HPI Physical Exam Vital Signs Date Time Temp Pulse Resp B/P (MAP) Pulse Ox O2 Delivery O2 Flow Rate FiO2 08/28/17 19:50 98.2 95 16 134/77 97 Room Air 98.2 Sp02 EP Interpretation: reviewed, normal General Appearance: no apparent distress, alert, GCS 15, non-toxic Head: normocephalic, atraumatic Eyes: bilateral eye normal inspection, bilateral eye PERRL ENT: hearing grossly normal, normal pharynx, no angioedema, normal voice Neck: full range of motion, supple/symm/no masses Respiratory: chest non-tender, lungs clear, normal breath sounds, speaking full sentences Cardiovascular #1: regular rate, rhythm, no edema Cardiovascular #2: 2+ carotid (R), 2+ carotid (L), 2+ radial (R), 2+ radial (L) , 2+ dorsalis pedis (R), 2+ dorsalis pedis (L) Gastrointestinal: normal bowel sounds, distended Rectal: deferred Genitourinary: normal inspection, no CVA tenderness Musculoskeletal: back normal, gait/station normal, normal range of motion, non- tender Neurologic: alert, oriented x3, responsive, motor strength/tone normal, sensory intact, speech normal Psychiatric: judgement/insight normal, memory normal, mood/affect normal, no suicidal/homicidal ideation Reflexes: 3+ bicep (R), 3+ bicep (L), 3+ tricep (R), 3+ tricep (L), 3+ knee (R) , 3+ knee (L) Skin: normal color, no rash, warm/dry, well hydrated Lymphatic: no adenopathy Medical Decision Making Diagnostic Impression: Primary Impression: Esophageal varices determined by endoscopy Additional Impressions: GI bleed Qualified Codes: K92.2 - Gastrointestinal hemorrhage, unspecified Cirrhosis Qualified Codes: K70.31 - Alcoholic cirrhosis of liver with ascites Ascites Qualified Codes: K70.11 - Alcoholic hepatitis with ascites Anemia Qualified Codes: D64.9 - Anemia, unspecified ER Course Hospital Course 47-year-old M presents to ED with rectal bleeding. ascites Differential diagnoses include: UGIB, LGIB, hemorrhoids Clinical course Patient placed on stretcher. front desk monitor. After initial history and physical I ordered labs, IV fluids, UA Labs - no leukocytosis, Hb 8.0. electrolytes ok, LFTS markedly elevated, coags ok Patient is not hypotensive, without respiratory distress. Does not require emergent paracentesis. Can be performed by IR. On previous admission patient had varices which likely contributed to his GI bleed. patient given Protonix, octreotide here. PRBCs ordered. EKGnormal sinus rhythm no acute ischemic changes interpreted by me Case discussed with Dr. Fang and he agreed to accept the patient to his service for further care and support I feel this is a highly complex case requiring extensive working including EKG/ Rhythm strip, Xray/CT/US, Blood/urine lab work, repeat exams while in ED, and administration of strong opiates/narcotics for pain control, admission to hospital or close patient follow up. Diagnosis - LGIB, esophageal varicies, cirrhosis, ascites, anemia Patient admitted to telemetry in serious condition Labs Test 08/28/17 20:15 White Blood Count 5.7 K/UL (4.8-10.8) Red Blood Count 3.47 M/UL (4.70-6.10) Hemoglobin 8.0 G/DL (14.2-18.0) Hematocrit 27.4 % (42.0-52.0) Mean Corpuscular Volume 79 FL (80-99) Mean Corpuscular Hemoglobin 23.1 PG (27.0-31.0) Mean Corpuscular Hemoglobin Concent 29.3 G/DL (32.0-36.0) Red Cell Distribution Width 24.3 % (11.6-14.8) Platelet Count 91 K/UL (150-450) Mean Platelet Volume 6.3 FL (6.5-10.1) Neutrophils (%) (Auto) 73.0 % (45.0-75.0) Lymphocytes (%) (Auto) 13.0 % (20.0-45.0) Monocytes (%) (Auto) 10.6 % (1.0-10.0) Eosinophils (%) (Auto) 1.9 % (0.0-3.0) Basophils (%) (Auto) 1.5 % (0.0-2.0) Prothrombin Time 14.3 SEC (9.30-11.50) Prothromb Time International Ratio 1.4 (0.9-1.1) Activated Partial Thromboplast Time 35 SEC (23-33) Urine Color Yellow Urine Appearance Cloudy Urine pH 6 (4.5-8.0) Urine Specific [place] 1.010 (1.005-1.035) Urine Protein 2+ (NEGATIVE) Urine Glucose (UA) Negative (NEGATIVE) Urine Ketones Negative (NEGATIVE) Urine Occult Blood 3+ (NEGATIVE) Urine Nitrite Negative (NEGATIVE) Urine Bilirubin 2+ (NEGATIVE) Urine Ictotest Positive Urine Urobilinogen 4 MG/DL (0.0-1.0) Urine Leukocyte Esterase 1+ (NEGATIVE) Urine RBC 2-4 /HPF (0 - 0) Urine WBC 15-20 /HPF (0 - 0) Urine Squamous Epithelial Cells Many /LPF (NONE/OCC) Urine Bacteria Moderate /HPF (NONE) Urine Yeast Few /HPF (NONE) Sodium Level 139 MMOL/L (136-145) Potassium Level 3.4 MMOL/L (3.5-5.1) Chloride Level 106 MMOL/L (98-107) Carbon Dioxide Level 24 MMOL/L (21-32) Anion Gap 9 mmol/L (5-15) Blood Urea Nitrogen 21 mg/dL (7-18) Creatinine 1.4 MG/DL (0.55-1.30) Estimat Glomerular Filtration Rate 54.6 mL/min (>60) Glucose Level 113 MG/DL (74-106) Calcium Level 7.4 MG/DL (8.5-10.1) Total Bilirubin 3.6 MG/DL (0.2-1.0) Direct Bilirubin 3.1 MG/DL (0.0-0.3) Aspartate Amino Transf (AST/SGOT) 179 U/L (15-37) Alanine Aminotransferase (ALT/SGPT) 75 U/L (12-78) Alkaline Phosphatase 196 U/L (46-116) Total Protein 7.6 G/DL (6.4-8.2) Albumin 1.6 G/DL (3.4-5.0) Globulin 6.0 g/dL Albumin/Globulin Ratio 0.3 (1.0-2.7) Lipase 195 U/L (73-393) EKG Diagnostic Results Rate: normal Rhythm: NSR ST Segments: no acute changes ASA given to the pt in ED: No Rhythm Strip Diag. Results EP Interpretation: yes Rhythm: NSR, no PVC's, no ectopy Last Vital Signs Date Time Temp Pulse Resp B/P (MAP) Pulse Ox O2 Delivery O2 Flow Rate FiO2 08/28/17 21:35 98.2 95 22 126/71 99 Room Air 98.2 Status: improved Disposition: ADMITTED INPATIENT Condition: Serious Referrals: NOT CHOSEN IPA/,REFERRING (PCP) Sergio Vogel MD Aug 28, 2017 22:13
[2017-08-28 23:14] VITALS: BP 128/71
[2017-08-28 23:40] VITALS: BP 124/74
[2017-08-28 23:55] VITALS: BP 133/74
[2017-08-29] VITALS (8 sets, daily range): BP systolic 113–139; BP diastolic 69–81
[2017-08-29] MEDS: Morphine Sulfate 4mg/ml Inj IVP PRN ×5 (01:16→21:28)
--- NOTE | 2017-08-29 06:47 | Consultation ---
Consult Note Consult Note DATE OF CONSULTATION: 08/29/17 HEMATOLOGY/ONCOLOGY CONSULTATION CONSULTING PHYSICIAN: Clark Cooper M.D. REQUESTING PHYSICIAN: Etta Fang M.D. REASON FOR CONSULTATION: Evaluation of pancytopenia as well as coagulopathy. IDENTIFICATION DATA: Dear Dr. Etta Fang, The patient is a pleasant 47-year-old male with past medical history (I have seen him before) significant for history of alcohol-induced cirrhosis, anemia, esophageal varices, has been here before as well. Here 2 mo ago, the patient's records from before in the past noted to have thrombocytopenia as well as anemia , has been heavily drinking ofr past 3 weeks, has been admitted before and had gi w/u which showed esophageal varices, had EGD with banding performed in prior , has had multiple paracentesis performed as well Hematology service was consulted for further evaluation and treatment. He now has a lower gi bleed, gi has been consulted, he has received 2 units prbc thus far PAST MEDICAL HISTORY: Cirrhosis, alcohol abuse, and anemia. PAST SURGICAL HISTORY: None noted. MEDICATIONS: Ferrous sulfate, pantoprazole, and Trental. ALLERGIES: No known drug allergies. REVIEW OF SYSTEMS: Constitutional: No fever, chills, or night sweats. Skin: No rashes, bumps, or itching. HEENT: No headache, hearing or vision changes. Breasts: No lumps, pain, or discharge. Pulmonary: No cough, sputum, or shortness of breath. Gastrointestinal: Some GERD symptoms. Genitourinary: No dysuria, frequency, or urgency. Musculoskeletal: No joint swelling, muscle pain , or trauma. PHYSICAL EXAMINATION: GENERAL: The patient is in no acute distress. VITAL SIGNS: reviewed PULMONARY: Decreased breath sounds. CARDIOVASCULAR: Regular rate. No S3 or S4. ABDOMEN: Soft, nontender, and nondistended. EXTREMITIES: There is 1+ edema. LABORATORY DATA: hgb 8, plt 91k, inr 1.4 ASSESSMENT AND PLAN: #. Pancytopenia. Related to history of cirrhosis, may have iron deficiency component, current wbc is wnl, but usually is low and has a history of pancytopenia related to cirrhosis, portal HTN, splenomegaly --> anemia w/u has been ordered --> does NOT require a bone marrow biopsy --> reviewed historical labs --> recommend alcohol cessation --> Gi to consult in regards to lactulose/rafaximin #. Anemia of iron deficiency - on ferrous sulfate tid, ferritin was ONLY 18 --> begin on 4 doses of iv iron #. Anemia of Gi bleed ==> gi eval #. Lower gastrointestinal bleed, occult blood is pending at this time. #. Coagulopathy, likely secondary to underlying cirrhosis as well. Continue to closely monitor and administer vitamin K if the patient is bleeding. #. Esophageal varices, status post banding on prior admission Clark Cooper MD Aug 29, 2017 06:47
--- NOTE | 2017-08-29 10:15 | GI Initial Consult Note ---
History of Present Illness General Date patient seen: Aug 29, 2017 Time patient seen: 10:00 Reason for Hospitalization: Abdominal Pain Referring physician: GEETHA MONSIVAIS Reason for Consultation: CIRRHOSIS Present Illness HPI 47-year-old male presents to ED for evaluation. Patient complaining of abdominal pain and distention. History of ascites and cirrhosis. States that on 08/18 he had paracentesis done at [facility]. States that the swelling has since returned. Pain is sharp, 10 out of 10, nonradiating. Also complaining of blood in stool for the last few days. States he was admitted here last month for GI bleed. denies take blood thinners. No other aggravating relieving factors. Denies any other associated symptoms. GI consulted for history of varices/cirrhosis. This is a patient known to us with multiple re admissions within the last year. The patient has a history of ETOH abuse, s/p EGD back in january of 2017 noted with small varices that did not require banding at the time. Pt seen, awake A&Ox4 NAD with no active s/sx of N/V/D. He did not have any hematemesis. Patient states he has not drank any alcohol since his last admission. Jan 2017 - EGD SUMMARY OF FINDINGS: 1. Prior history of esophageal banding with scar tissue in the distal esophagus without any significant large varices at this time. 2. Gastritis, status post biopsy. 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 Home Meds Active Scripts Tramadol Hcl* (ULTRAM*) 50 Mg Tablet, 50 MG ORAL Q6H PRN for For Pain, #20 TAB 0 Refills Prov:ARA NAM M.D. 08/14/17 Levofloxacin* (LEVAQUIN*) 500 Mg Tablet, 500 MG ORAL DAILY, #7 TAB Prov:ARA NAM M.D. 08/14/17 Ibuprofen* (MOTRIN*) 600 Mg Tablet, 600 MG ORAL THREE TIMES A DAY, #30 TAB 0 Refills Prov:ARA NAM M.D. 01/25/17 Silver Sulfadiazine (SILVADENE) 20 Gm Cream..g., 20 GM TP BID, #20 GM Prov:ARA NAM M.D. 01/25/17 Thiamine Hcl* (VITAMIN B-1*) 100 Mg Tablet, 100 MG ORAL DAILY, #30 TAB 0 Refills Prov:Merna Zamudio [employer] 12/05/16 Propranolol Hcl* (INDERAL*) 20 Mg Tablet, 20 MG ORAL QID, #120 TAB 0 Refills Prov:Merna Zamudio [employer] 12/05/16 Reported Medications Furosemide* (LASIX*) 20 Mg Tablet, 20 MG ORAL DAILY, TAB 08/28/17 No Known Medications* (NKM - No Known Medications*) ., 0 ., 0 Refills 07/30/17 Unable to Obtain Medications (UNABLE TO OBTAIN MEDS) 1 Ea Ea 04/01/17 Ferrous Sulfate* (FERROUS SULFATE*) 325 Mg Tablet, 325 MG ORAL THREE TIMES A DAY , #90 TAB 0 Refills 09/06/16 Pentoxifylline* (TRENTAL*) 400 Mg Tablet.er, 400 MG ORAL THREE TIMES A DAY, #90 TAB 0 Refills 09/06/16 Pantoprazole* (PROTONIX*) 40 Mg Tablet.dr, 40 MG ORAL DAILY, #90 TAB 09/06/16 Med list reviewed/reconciled: Yes Allergies: Coded Allergies: NO KNOWN ALLERGIES (Verified Allergy, Unknown, 01/25/17) Patient History PMH Narrative Past Medical History: DM, GI bleed, other - ascites Past Surgical History: none Pertinent Family History: none Social History: Denies: smoking, alcohol use, drug use Immunizations: UTD Reviewed Nursing Documentation: PMH: Agreed; PSxH: Agreed Nursing Documentation-PMH Hx Asthma: No - blood clot rt lung 2005/anemia Hx Diabetes: Yes Hx Cancer: No Hx Gastrointestinal Problems: Yes - GI bleed Hx Neurological Problems: No Social History: Reports: alcohol use - quit Review of Systems All Other Systems: negative except mentioned in HPI Physical Exam Vital Signs Date Time Temp Pulse Resp B/P (MAP) Pulse Ox O2 Delivery O2 Flow Rate FiO2 08/28/17 19:50 98.2 95 16 134/77 97 Room Air 98.2 Sp02 EP Interpretation: reviewed, normal Labs Laboratory Tests Test 08/28/17 20:15 White Blood Count 5.7 K/UL (4.8-10.8) Red Blood Count 3.47 M/UL (4.70-6.10) L Hemoglobin 8.0 G/DL (14.2-18.0) L Hematocrit 27.4 % (42.0-52.0) L Mean Corpuscular Volume 79 FL (80-99) L Mean Corpuscular Hemoglobin 23.1 PG (27.0-31.0) L Mean Corpuscular Hemoglobin Concent 29.3 G/DL (32.0-36.0) L Red Cell Distribution Width 24.3 % (11.6-14.8) H Platelet Count 91 K/UL (150-450) L Mean Platelet Volume 6.3 FL (6.5-10.1) L Neutrophils (%) (Auto) 73.0 % (45.0-75.0) Lymphocytes (%) (Auto) 13.0 % (20.0-45.0) L Monocytes (%) (Auto) 10.6 % (1.0-10.0) H Eosinophils (%) (Auto) 1.9 % (0.0-3.0) Basophils (%) (Auto) 1.5 % (0.0-2.0) Prothrombin Time 14.3 SEC (9.30-11.50) H Prothromb Time International Ratio 1.4 (0.9-1.1) H Activated Partial Thromboplast Time 35 SEC (23-33) H Urine Color Yellow Urine Appearance Cloudy Urine pH 6 (4.5-8.0) Urine Specific Edison 1.010 (1.005-1.035) Urine Protein 2+ (NEGATIVE) H Urine Glucose (UA) Negative (NEGATIVE) Urine Ketones Negative (NEGATIVE) Urine Occult Blood 3+ (NEGATIVE) H Urine Nitrite Negative (NEGATIVE) Urine Bilirubin 2+ (NEGATIVE) H Urine Ictotest Positive Urine Urobilinogen 4 MG/DL (0.0-1.0) H Urine Leukocyte Esterase 1+ (NEGATIVE) H Urine RBC 2-4 /HPF (0 - 0) H Urine WBC 15-20 /HPF (0 - 0) H Urine Squamous Epithelial Cells Many /LPF (NONE/OCC) H Urine Bacteria Moderate /HPF (NONE) H Urine Yeast Few /HPF (NONE) H Sodium Level 139 MMOL/L (136-145) Potassium Level 3.4 MMOL/L (3.5-5.1) L Chloride Level 106 MMOL/L (98-107) Carbon Dioxide Level 24 MMOL/L (21-32) Anion Gap 9 mmol/L (5-15) Blood Urea Nitrogen 21 mg/dL (7-18) H Creatinine 1.4 MG/DL (0.55-1.30) H Estimat Glomerular Filtration Rate 54.6 mL/min (>60) Glucose Level 113 MG/DL (74-106) H Calcium Level 7.4 MG/DL (8.5-10.1) L Total Bilirubin 3.6 MG/DL (0.2-1.0) H Direct Bilirubin 3.1 MG/DL (0.0-0.3) H Aspartate Amino Transf (AST/SGOT) 179 U/L (15-37) H Alanine Aminotransferase (ALT/SGPT) 75 U/L (12-78) Alkaline Phosphatase 196 U/L (46-116) H Total Protein 7.6 G/DL (6.4-8.2) Albumin 1.6 G/DL (3.4-5.0) L Globulin 6.0 g/dL Albumin/Globulin Ratio 0.3 (1.0-2.7) L Lipase 195 U/L (73-393) General Appearance: well appearing, no apparent distress, alert Head: normocephalic EENT: PERRL/EOMI, normal ENT inspection Neck: supple Respiratory: normal breath sounds, no respiratory distress Cardiovascular: normal rate Gastrointestinal: normal inspection, non tender, soft, normal bowel sounds, non -distended, distended, ascites Rectal: deferred Genitourinary: deferred Musculoskeletal: normal inspection, back normal Neurologic: normal inspection, alert, oriented x3, responsive Psychiatric: normal inspection, judgement/insight normal, memory normal Skin: normal inspection, normal color, no rash, warm/dry, palpation normal, well hydrated Lymphatic: normal inspection, no adenopathy Current Medications Current Medications Medications (Trade) Dose Ordered Sig/Nikhil Route PRN Reason Start Time Stop Time Status Last Admin Dose Admin Iron Sucrose 100 mg/Sodium Chloride 60 ml @ 240 mls/hr BEDTIME IV 08/29/17 21:00 09/02/17 21:14 Morphine Sulfate (Morphine Sulfate) 2 mg Q4H PRN IVP For Pain 08/29/17 01:00 09/05/17 00:59 08/29/17 08:14 Sodium Chloride 1,000 ml @ 40 mls/hr Q24H IV 08/29/17 00:45 09/28/17 00:44 08/29/17 01:17 GI: Plan Problems: (1) Ascites (2) Esophageal varices determined by endoscopy (3) GI bleed (4) Cirrhosis (5) Anemia (6) ETOH abuse Plan Jan 2017 - EGD SUMMARY OF FINDINGS: 1. Prior history of esophageal banding with scar tissue in the distal esophagus without any significant large varices at this time. 2. Gastritis, status post biopsy. 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 paracentesis done yielding 5L of fluid >> replace albumin low sodium diet zofran ppi prn transfusions ppi fu labs Discussed with Dr. Weber. Thank you for this patient referral, we will follow. The patient was seen and examined at bedside and all new and available data was reviewed in the patients chart. I agree with the above findings, impression and plan. (Patient seen earlier today. Signature stamp does not reflect patient encounter time.). - MD Keyana Perkins AnhJeimyInocencio LASHONDA Aug 29, 2017 10:15
[2017-08-29] MEDS ORDERED: Lidocaine 1% MPF 10mg/ml 5ml INJ PRN (10:45)
--- NOTE | 2017-08-29 12:28 | Diagnostic Imaging Report ---
Indications: Ascites Technique: Ultrasound used to localize optimal puncture site. Sterile prepping and draping right lower quadrant. Local anesthesia with 1% lidocaine. Under real-time ultrasound guidance, puncture peritoneal space using paracentesis needle. Stylet removed. Catheter placed to vacuum bottle suction. Total 5 liters of fluid aspirated. Patient tolerated procedure well, without immediate complication. Findings: Followup sonography demonstrates complete resolution of peritoneal fluid. Impression: Successful ultrasound-guided paracentesis, yielding 5 liters of fluid
[2017-08-29 12:53] LABS: HEMATOCRIT 32.2 % (42.0-52.0); HEMOGLOBIN 9.7 G/DL (14.2-18.0); MEAN CORPUSCULAR VOLUME 80 FL (80-99); PLATELET COUNT 95 K/UL (150-450); RED BLOOD COUNT 4.05 M/UL (4.70-6.10); RED CELL DISTRIBUTION WIDTH 23.2 % (11.6-14.8); WHITE BLOOD COUNT 4.3 K/UL (4.8-10.8)
[2017-08-29 13:21] LABS: ALANINE AMINOTRANSFERASE 74 U/L (12-78); ALBUMIN 1.6 G/DL (3.4-5.0); ALBUMIN/GLOBULIN RATIO 0.3 (1.0-2.7); ALKALINE PHOSPHATASE 165 U/L (46-116); ANION GAP 7 mmol/L (5-15); ASPARTATE AMINO TRANSFERASE 241 U/L (15-37); BILIRUBIN,TOTAL 4.7 MG/DL (0.2-1.0); BLOOD UREA NITROGEN 18 mg/dL (7-18); CALCIUM 7.6 MG/DL (8.5-10.1); CARBON DIOXIDE 25 MMOL/L (21-32); CHLORIDE 109 MMOL/L (98-107); CHOLESTEROL 54 MG/DL (< 200); CREATININE 0.9 MG/DL (0.55-1.30); FERRITIN 32 NG/ML (8-388); GAMMA GLUTAMYL TRANSPEPTIDASE 283 U/L (5-85); HDL CHOLESTEROL 10 MG/DL (40-60); PHOSPHORUS 4.6 MG/DL (2.5-4.9); POTASSIUM 3.9 MMOL/L (3.5-5.1); SODIUM 140 MMOL/L (136-145); TRIGLYCERIDES 66 MG/DL (30-150)
[2017-08-29 13:23] LABS: BILIRUBIN,DIRECT 3.5 MG/DL (0.0-0.3)
[2017-08-29 13:45] LABS: % IRON SATURATION 40 % (15-50); IRON 85 ug/dL (50-175); TOTAL IRON BINDING CAPACITY 211 ug/dL (250-450)
[2017-08-29] MEDS ORDERED: NS 500ML ONE (15:36)
[2017-08-29] MEDS ORDERED: Tubing IV Blood Pump IV ONE (15:36)
[2017-08-29] MEDS ORDERED: 1/2 NS 1000ml IV ONE (15:36)
[2017-08-29] MEDS ORDERED: Iron Sucrose 100 MG in NS 55 ML IV SCH (21:00)
[2017-08-30] VITALS: BP 142/78
[2017-08-30] MEDS: Morphine Sulfate 4mg/ml Inj IVP PRN ×4 (03:22→19:55)
[2017-08-30 04:00] VITALS: BP 126/72
[2017-08-30 06:57] LABS: HEMOGLOBIN 9.4 G/DL (14.2-18.0); MEAN CORPUSCULAR VOLUME 79 FL (80-99); PLATELET COUNT 93 K/UL (150-450); RED BLOOD COUNT 3.78 M/UL (4.70-6.10); RED CELL DISTRIBUTION WIDTH 22.6 % (11.6-14.8); WHITE BLOOD COUNT 4.5 K/UL (4.8-10.8)
[2017-08-30 07:15] LABS: ALANINE AMINOTRANSFERASE 83 U/L (12-78); ALBUMIN 1.7 G/DL (3.4-5.0); ALBUMIN/GLOBULIN RATIO 0.3 (1.0-2.7); ALKALINE PHOSPHATASE 158 U/L (46-116); ANION GAP 8 mmol/L (5-15); ASPARTATE AMINO TRANSFERASE 215 U/L (15-37); BILIRUBIN,TOTAL 4.1 MG/DL (0.2-1.0); BLOOD UREA NITROGEN 15 mg/dL (7-18); CALCIUM 7.7 MG/DL (8.5-10.1); CARBON DIOXIDE 23 MMOL/L (21-32); CHLORIDE 105 MMOL/L (98-107); CREATININE 0.8 MG/DL (0.55-1.30); POTASSIUM 3.7 MMOL/L (3.5-5.1); SODIUM 136 MMOL/L (136-145)
--- NOTE | 2017-08-30 07:54 | General Progress Note ---
Assessment/Plan Assessment/Plan ASSESSMENT AND PLAN: #. Pancytopenia. Related to history of cirrhosis, may have iron deficiency component, current wbc is wnl, but usually is low and has a history of pancytopenia related to cirrhosis, portal HTN, splenomegaly --> anemia w/u has been ordered, shows evidence of iron deficiency --> does NOT require a bone marrow biopsy --> reviewed historical labs --> recommend alcohol cessation --> Gi to consult in regards to lactulose/rafaximin #. Anemia of iron deficiency - on ferrous sulfate tid, ferritin was ONLY 18 and now 32 --> begin on 4 doses of iv iron (can also consider PO iron if necessary) #. Anemia of Gi bleed --> gi eval, has had endoscopy in the past #. Lower gastrointestinal bleed, occult blood is pending at this time. --> anemia eval completed #. Coagulopathy, likely secondary to underlying cirrhosis as well. Continue to closely monitor and administer vitamin K if the patient is bleeding. --> vitK prn basis #. Esophageal varices, status post banding on prior admission in 2017 Subjective Constitutional: Denies: no symptoms, chills, diaphoresis, fever, malaise, weakness, other HEENT: Denies: no symptoms, eye pain, blurred vision, tearing, double vision, ear pain, ear discharge, nose pain, nose congestion, throat pain, throat swelling, mouth pain, mouth swelling, other Cardiovascular: Denies: no symptoms, chest pain, edema, irregular heart rate, lightheadedness, palpitations, syncope, other Respiratory: Denies: no symptoms, cough, orthopnea, shortness of breath, SOB with excertion, SOB at rest, sputum, stridor, wheezing, other Gastrointestinal/Abdominal: Denies: no symptoms, abdomen distended, abdominal pain, black stools, tarry stools, blood in stool, constipated, diarrhea, difficulty swallowing, nausea, poor appetite, poor fluid intake, rectal bleeding , vomiting, other Genitourinary: Denies: no symptoms, burning, discharge, frequency, flank pain, hematuria, incontinence, pain, urgency, other Neurologic/Psychiatric: Denies: no symptoms, anxiety, depressed, emotional problems, headache, numbness, paresthesia, pre-existing deficit, seizure, tingling, tremors, weakness, other Endocrine: Denies: no symptoms, excessive sweating, flushing, intolerance to cold, intolerance to heat, increased hunger, increased thirst, increased urine, unexplained weight gain, unexplained weight loss, other Hematologic/Lymphatic: Denies: no symptoms, anemia, easy bleeding, easy bruising, other Allergies: Coded Allergies: NO KNOWN ALLERGIES (Verified Allergy, Unknown, 01/25/17) Subjective no events reported, no fevers or chills Objective Last 24 Hour Vital Signs Date Time Temp Pulse Resp B/P (MAP) Pulse Ox O2 Delivery O2 Flow Rate FiO2 08/30/17 04:00 92 08/30/17 04:00 100.9 66 18 126/72 96 Room Air 100.9 08/30/17 00:00 102 08/30/17 00:00 100.0 68 20 142/78 92 Room Air 100.0 08/29/17 20:00 99.3 68 18 139/71 97 Room Air 99.3 08/29/17 20:00 110 08/29/17 17:13 97.7 08/29/17 16:00 97.7 80 18 116/74 95 Room Air 97.7 08/29/17 16:00 84 08/29/17 13:36 97.8 08/29/17 13:06 97.8 08/29/17 12:00 97.8 79 20 124/81 96 Room Air 97.8 08/29/17 12:00 86 08/29/17 08:00 76 08/29/17 08:00 97.2 78 20 113/72 96 Room Air 97.2 Intake and Output 08/29/17 08/30/17 19:00 07:00 Intake Total 120 ml 700 ml Output Total 800 ml 500 ml Balance -680 ml 200 ml Intake Oral 120 ml 340 ml IV Total 360 ml Output Urine Total 800 ml 500 ml Laboratory Tests 08/29/17 12:40: White Blood Count 4.3L, Red Blood Count 4.05L, Hemoglobin 9.7L, Hematocrit 32.2L , Mean Corpuscular Volume 80, Mean Corpuscular Hemoglobin 23.9L, Mean Corpuscular Hemoglobin Concent 30.0L, Red Cell Distribution Width 23.2H, Platelet Count 95L, Mean Platelet Volume 8.1, Neutrophils (%) (Auto) , Lymphocytes (%) (Auto) , Monocytes (%) (Auto) , Eosinophils (%) (Auto) , Basophils (%) (Auto) , Differential Total Cells Counted 100, Neutrophils % ( Manual) 74, Lymphocytes % (Manual) 19L, Monocytes % (Manual) 5, Eosinophils % ( Manual) 2, Basophils % (Manual) 0, Band Neutrophils 0, Platelet Estimate DecreasedL, Platelet Morphology Normal, Hypochromasia 2+, Anisocytosis 2+, Target Cells 1+, Helmet Cells , Sodium Level 140, Potassium Level 3.9, Chloride Level 109H, Carbon Dioxide Level 25, Anion Gap 7, Blood Urea Nitrogen 18, Creatinine 0.9, Estimat Glomerular Filtration Rate > 60, Glucose Level 96, Hemoglobin A1c 4.1L, Uric Acid 5.2, Calcium Level 7.6L, Phosphorus Level 4.6, Magnesium Level 2.0, Iron Level 85, Total Iron Binding Capacity 211L, Percent Iron Saturation 40, Unsaturated Iron Binding 126, Ferritin 32, Total Bilirubin 4.7H, Direct Bilirubin 3.5H, Gamma Glutamyl Transpeptidase 283H, Aspartate Amino Transf (AST/SGOT) 241H, Alanine Aminotransferase (ALT/SGPT) 74, Alkaline Phosphatase 165H, Total Protein 7.5, Albumin 1.6L, Globulin 5.9, Albumin/ Globulin Ratio 0.3L, Triglycerides Level 66, Cholesterol Level 54, LDL Cholesterol 46, HDL Cholesterol 10L, Cholesterol/HDL Ratio 5.4H, Vitamin B12 Level 1664H, Folate 11.8, Thyroid Stimulating Hormone (TSH) 1.141 08/30/17 05:50: White Blood Count 4.5L, Red Blood Count 3.78L, Hemoglobin 9.4L, Hematocrit 30.0L , Mean Corpuscular Volume 79L, Mean Corpuscular Hemoglobin 24.9L, Mean Corpuscular Hemoglobin Concent 31.3L, Red Cell Distribution Width 22.6H, Platelet Count 93L, Mean Platelet Volume 7.6, Neutrophils (%) (Auto) , Lymphocytes (%) (Auto) , Monocytes (%) (Auto) , Eosinophils (%) (Auto) , Basophils (%) (Auto) , Differential Total Cells Counted 100, Neutrophils % ( Manual) 75, Lymphocytes % (Manual) 10L, Monocytes % (Manual) 13H, Eosinophils % (Manual) 1, Basophils % (Manual) 1, Band Neutrophils 0, Platelet Estimate DecreasedL, Platelet Morphology Normal, Hypochromasia 2+, Anisocytosis 3+, Sodium Level 136, Potassium Level 3.7, Chloride Level 105, Carbon Dioxide Level 23, Anion Gap 8, Blood Urea Nitrogen 15, Creatinine 0.8, Estimat Glomerular Filtration Rate > 60, Glucose Level 100, Calcium Level 7.7L, Total Bilirubin 4.1H, Direct Bilirubin 3.0H, Aspartate Amino Transf (AST/SGOT) 215H, Alanine Aminotransferase (ALT/SGPT) 83H, Alkaline Phosphatase 158H, Total Protein 7.3, Albumin 1.7L, Globulin 5.6, Albumin/Globulin Ratio 0.3L, Microcytosis 1+ Height (Feet): 5 Height (Inches): 7.00 Weight (Pounds): 270 General Appearance: alert EENT: TMs normal Neck: supple Cardiovascular: regular rhythm Respiratory/Chest: normal breath sounds Abdomen: non tender Extremities: normal inspection Edema: 1+ Leg (L), 1+ Leg (R) Edema: mild edema Neurologic: alert Skin: warm/dry Clark Cooper MD Aug 30, 2017 07:54
[2017-08-30 08:00] VITALS: BP_SYST 119; BP_SYST 135; BP_DIAS 72; BP_DIAS 73
--- NOTE | 2017-08-30 10:59 | GI Progress Note ---
Assessment/Plan Problems: (1) Ascites ICD Codes: R18.8 - Other ascites SNOMED: 977907803 Qualifiers: Qualified Codes: K70.11 - Alcoholic hepatitis with ascites (2) GI bleed ICD Codes: K92.2 - Gastrointestinal hemorrhage, unspecified SNOMED: 44947729 Qualifiers: Qualified Codes: K92.2 - Gastrointestinal hemorrhage, unspecified (3) Esophageal varices determined by endoscopy ICD Codes: I85.00 - Esophageal varices without bleeding SNOMED: 78616656, 566422884 (4) Cirrhosis ICD Codes: K74.60 - Unspecified cirrhosis of liver SNOMED: 54747793 Qualifiers: Qualified Codes: K70.31 - Alcoholic cirrhosis of liver with ascites (5) Anemia ICD Codes: D64.9 - Anemia, unspecified SNOMED: 735908681 Qualifiers: Qualified Codes: D64.9 - Anemia, unspecified (6) ETOH abuse ICD Codes: F10.10 - Alcohol abuse, uncomplicated SNOMED: 26034264 Status: stable Status Narrative Discussed with Dr. Weber. Assessment/Plan Jan 2017 - EGD SUMMARY OF FINDINGS: 1. Prior history of esophageal banding with scar tissue in the distal esophagus without any significant large varices at this time. 2. Gastritis, status post biopsy. 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 paracentesis done yielding 5L of fluid adv to low sodium diet ambulate patient simethicone prn zofran ppi prn transfusions ppi fu labs The patient was seen and examined at bedside and all new and available data was reviewed in the patients chart. I agree with the above findings, impression and plan. (Patient seen earlier today. Signature stamp does not reflect patient encounter time.). - Ricardo Weber MD Subjective Gastrointestinal/Abdominal: Reports: abdomen distended, abdominal pain Subjective still has abdominal tenderness Objective Last 24 Hour Vital Signs Date Time Temp Pulse Resp B/P (MAP) Pulse Ox O2 Delivery O2 Flow Rate FiO2 08/30/17 04:00 92 08/30/17 04:00 100.9 66 18 126/72 96 Room Air 100.9 08/30/17 00:00 102 08/30/17 00:00 100.0 68 20 142/78 92 Room Air 100.0 08/29/17 20:00 99.3 68 18 139/71 97 Room Air 99.3 08/29/17 20:00 110 08/29/17 17:13 97.7 08/29/17 16:00 97.7 80 18 116/74 95 Room Air 97.7 08/29/17 16:00 84 08/29/17 13:36 97.8 08/29/17 13:06 97.8 08/29/17 12:00 97.8 79 20 124/81 96 Room Air 97.8 08/29/17 12:00 86 Intake and Output 08/29/17 08/30/17 19:00 07:00 Intake Total 120 ml 700 ml Output Total 800 ml 500 ml Balance -680 ml 200 ml Intake Oral 120 ml 340 ml IV Total 360 ml Output Urine Total 800 ml 500 ml Laboratory Tests Test 08/29/17 12:40 08/30/17 05:50 White Blood Count 4.3 K/UL (4.8-10.8) L 4.5 K/UL (4.8-10.8) L Red Blood Count 4.05 M/UL (4.70-6.10) L 3.78 M/UL (4.70-6.10) L Hemoglobin 9.7 G/DL (14.2-18.0) L 9.4 G/DL (14.2-18.0) L Hematocrit 32.2 % (42.0-52.0) L 30.0 % (42.0-52.0) L Mean Corpuscular Volume 80 FL (80-99) 79 FL (80-99) L Mean Corpuscular Hemoglobin 23.9 PG (27.0-31.0) L 24.9 PG (27.0-31.0) L Mean Corpuscular Hemoglobin Concent 30.0 G/DL (32.0-36.0) L 31.3 G/DL (32.0-36.0) L Red Cell Distribution Width 23.2 % (11.6-14.8) H 22.6 % (11.6-14.8) H Platelet Count 95 K/UL (150-450) L 93 K/UL (150-450) L Mean Platelet Volume 8.1 FL (6.5-10.1) 7.6 FL (6.5-10.1) Neutrophils (%) (Auto) % (45.0-75.0) % (45.0-75.0) Lymphocytes (%) (Auto) % (20.0-45.0) % (20.0-45.0) Monocytes (%) (Auto) % (1.0-10.0) % (1.0-10.0) Eosinophils (%) (Auto) % (0.0-3.0) % (0.0-3.0) Basophils (%) (Auto) % (0.0-2.0) % (0.0-2.0) Differential Total Cells Counted 100 100 Neutrophils % (Manual) 74 % (45-75) 75 % (45-75) Lymphocytes % (Manual) 19 % (20-45) L 10 % (20-45) L Monocytes % (Manual) 5 % (1-10) 13 % (1-10) H Eosinophils % (Manual) 2 % (0-3) 1 % (0-3) Basophils % (Manual) 0 % (0-2) 1 % (0-2) Band Neutrophils 0 % (0-8) 0 % (0-8) Platelet Estimate Decreased L Decreased L Platelet Morphology Normal Normal Hypochromasia 2+ 2+ Anisocytosis 2+ 3+ Target Cells 1+ Helmet Cells Sodium Level 140 MMOL/L (136-145) 136 MMOL/L (136-145) Potassium Level 3.9 MMOL/L (3.5-5.1) 3.7 MMOL/L (3.5-5.1) Chloride Level 109 MMOL/L (98-107) H 105 MMOL/L (98-107) Carbon Dioxide Level 25 MMOL/L (21-32) 23 MMOL/L (21-32) Anion Gap 7 mmol/L (5-15) 8 mmol/L (5-15) Blood Urea Nitrogen 18 mg/dL (7-18) 15 mg/dL (7-18) Creatinine 0.9 MG/DL (0.55-1.30) 0.8 MG/DL (0.55-1.30) Estimat Glomerular Filtration Rate > 60 mL/min (>60) > 60 mL/min (>60) Glucose Level 96 MG/DL (74-106) 100 MG/DL (74-106) Hemoglobin A1c 4.1 % (4.3-6.0) L Uric Acid 5.2 MG/DL (2.6-7.2) Calcium Level 7.6 MG/DL (8.5-10.1) L 7.7 MG/DL (8.5-10.1) L Phosphorus Level 4.6 MG/DL (2.5-4.9) Magnesium Level 2.0 MG/DL (1.8-2.4) Iron Level 85 ug/dL (50-175) Total Iron Binding Capacity 211 ug/dL (250-450) L Percent Iron Saturation 40 % (15-50) Unsaturated Iron Binding 126 ug/dL (112-346) Ferritin 32 NG/ML (8-388) Total Bilirubin 4.7 MG/DL (0.2-1.0) H 4.1 MG/DL (0.2-1.0) H Direct Bilirubin 3.5 MG/DL (0.0-0.3) H 3.0 MG/DL (0.0-0.3) H Gamma Glutamyl Transpeptidase 283 U/L (5-85) H Aspartate Amino Transf (AST/SGOT) 241 U/L (15-37) H 215 U/L (15-37) H Alanine Aminotransferase (ALT/SGPT) 74 U/L (12-78) 83 U/L (12-78) H Alkaline Phosphatase 165 U/L (46-116) H 158 U/L (46-116) H Total Protein 7.5 G/DL (6.4-8.2) 7.3 G/DL (6.4-8.2) Albumin 1.6 G/DL (3.4-5.0) L 1.7 G/DL (3.4-5.0) L Globulin 5.9 g/dL 5.6 g/dL Albumin/Globulin Ratio 0.3 (1.0-2.7) L 0.3 (1.0-2.7) L Triglycerides Level 66 MG/DL (30-150) Cholesterol Level 54 MG/DL (< 200) LDL Cholesterol 46 mg/dL (<100) HDL Cholesterol 10 MG/DL (40-60) L Cholesterol/HDL Ratio 5.4 (3.3-4.4) H Vitamin B12 Level 1664 PG/ML (193-986) H Folate 11.8 NG/ML (8.6-58.9) Thyroid Stimulating Hormone (TSH) 1.141 uiU/mL (0.358-3.740) Microcytosis 1+ Height (Feet): 5 Height (Inches): 7.00 Weight (Pounds): 270 General Appearance: WD/WN, no apparent distress, alert Cardiovascular: normal rate Respiratory/Chest: normal breath sounds, no respiratory distress Abdominal Exam: normal bowel sounds, non tender, soft Extremities: normal range of motion, non-tender Aj Ridley NP Aug 30, 2017 10:59
[2017-08-30] MEDS ORDERED: Simethicone 80mg tab ORAL PRN (11:30)
[2017-08-30 12:00] VITALS: BP 130/82
[2017-08-30 16:00] VITALS: BP 127/79
--- NOTE | 2017-08-30 16:15 | History and Physical Report ---
DATE OF ADMISSION: 08/28/2017 HISTORY: The patient comes in for abdominal pain, distended abdomen, and blood in the stool, status post esophageal banding. The patient has alcoholic cirrhosis with ascites, getting worse, may need paracentesis. The patient also has pancytopenia, anemia, and possible UTI. ascites. The patient to the hospital. PAST MEDICAL HISTORY: History of GI bleed, history of alcoholic cirrhosis, GERD, and previous history of anemia. PAST SURGICAL HISTORY: Status post esophageal banding. MEDICATIONS: Protonix and propranolol. ALLERGIES: No known allergies. FAMILY HISTORY: Noncontributory. SOCIAL HISTORY: Has alcohol abuse. Denies history of drug abuse. Denies history of smoking. REVIEW OF SYSTEMS: HEENT: Denies headaches. RESPIRATORY: Denies shortness of breath. Denies cough. CARDIOVASCULAR: Denies chest pain. Denies orthopnea. GASTROINTESTINAL: Reports worsening abdominal pain. Denies diarrhea. Does have rectal bleeding, which is bright red and mild. EXTREMITIES: No pain in lower extremities. NEUROLOGIC: Denies change in vision or speech pattern. Denies wheezing. PHYSICAL EXAMINATION: VITAL SIGNS: Temperature is degrees, pulse is 80, and blood pressure is 116/74. HEENT: PERRLA. NECK: Supple. No lymphadenopathy. CHEST: Clear to auscultation. CARDIOVASCULAR: Regular rate and rhythm. GASTROINTESTINAL: Distended. Positive for the ascites. Otherwise, bowel sounds present. EXTREMITIES: A 1+ edema. NEUROLOGIC: Reflexes on both sides. He has generalized weakness. Moves all four extremities. Oriented x2. LABORATORY AND DIAGNOSTIC DATA: WBC of 5.7, hemoglobin 8, and platelets of 91. Sodium 139, potassium 3.4, , ALT of 75, alkaline phosphatase of 196. . ASSESSMENT AND PLAN: Alcoholic cirrhosis. May need paracentesis. We will defer this to GI status post esophageal banding. The patient admitted for gastrointestinal bleed and ascites. I have called in consult by Dr. Arvizu, Dr. Modi, and Dr. Clark Cooper for management of anemia, abdominal pain, cirrhosis, pancytopenia, and dehydration. Etta Fang M.D. DR: AIDEN JOB#: [id number] CC:
[2017-08-30 20:00] VITALS: BP 147/83
--- NOTE | 2017-08-30 21:29 | General Progress Note ---
Assessment/Plan Problem List: (1) Anemia ICD Codes: D64.9 - Anemia, unspecified SNOMED: 234327596 Qualifiers: Qualified Codes: D64.9 - Anemia, unspecified (2) Cirrhosis ICD Codes: K74.60 - Unspecified cirrhosis of liver SNOMED: 14563240 Qualifiers: Qualified Codes: K70.31 - Alcoholic cirrhosis of liver with ascites (3) GI bleed ICD Codes: K92.2 - Gastrointestinal hemorrhage, unspecified SNOMED: 28566448 Qualifiers: Qualified Codes: K92.2 - Gastrointestinal hemorrhage, unspecified (4) Esophageal varices determined by endoscopy ICD Codes: I85.00 - Esophageal varices without bleeding SNOMED: 24146147, 680440065 (5) Ascites ICD Codes: R18.8 - Other ascites SNOMED: 463140909 Qualifiers: Qualified Codes: K70.11 - Alcoholic hepatitis with ascites (6) ETOH abuse ICD Codes: F10.10 - Alcohol abuse, uncomplicated SNOMED: 32667476 Status: progressing Assessment/Plan ascites cirrhosis gi bleed endoscopy per gi moniter for bleeding etoh abuse Subjective Gastrointestinal/Abdominal: Reports: abdominal pain Allergies: Coded Allergies: NO KNOWN ALLERGIES (Verified Allergy, Unknown, 01/25/17) Objective Last 24 Hour Vital Signs Date Time Temp Pulse Resp B/P (MAP) Pulse Ox O2 Delivery O2 Flow Rate FiO2 08/30/17 16:00 98.1 97 18 127/79 96 Room Air 98.1 08/30/17 16:00 109 08/30/17 12:00 100 08/30/17 12:00 98.1 102 18 130/82 95 Room Air 98.1 08/30/17 08:00 105 08/30/17 08:00 98.9 101 20 135/73 95 Room Air 98.9 08/30/17 04:00 92 08/30/17 04:00 100.9 66 18 126/72 96 Room Air 100.9 08/30/17 00:00 102 08/30/17 00:00 100.0 68 20 142/78 92 Room Air 100.0 Intake and Output 08/29/17 08/30/17 19:00 07:00 Intake Total 120 ml 700 ml Output Total 800 ml 500 ml Balance -680 ml 200 ml Intake Oral 120 ml 340 ml IV Total 360 ml Output Urine Total 800 ml 500 ml Laboratory Tests 08/30/17 05:50: White Blood Count 4.5L, Red Blood Count 3.78L, Hemoglobin 9.4L, Hematocrit 30.0L , Mean Corpuscular Volume 79L, Mean Corpuscular Hemoglobin 24.9L, Mean Corpuscular Hemoglobin Concent 31.3L, Red Cell Distribution Width 22.6H, Platelet Count 93L, Mean Platelet Volume 7.6, Neutrophils (%) (Auto) , Lymphocytes (%) (Auto) , Monocytes (%) (Auto) , Eosinophils (%) (Auto) , Basophils (%) (Auto) , Differential Total Cells Counted 100, Neutrophils % ( Manual) 75, Lymphocytes % (Manual) 10L, Monocytes % (Manual) 13H, Eosinophils % (Manual) 1, Basophils % (Manual) 1, Band Neutrophils 0, Platelet Estimate DecreasedL, Platelet Morphology Normal, Hypochromasia 2+, Anisocytosis 3+, Microcytosis 1+, Sodium Level 136, Potassium Level 3.7, Chloride Level 105, Carbon Dioxide Level 23, Anion Gap 8, Blood Urea Nitrogen 15, Creatinine 0.8, Estimat Glomerular Filtration Rate > 60, Glucose Level 100, Calcium Level 7.7L, Total Bilirubin 4.1H, Direct Bilirubin 3.0H, Aspartate Amino Transf (AST/SGOT) 215H, Alanine Aminotransferase (ALT/SGPT) 83H, Alkaline Phosphatase 158H, Total Protein 7.3, Albumin 1.7L, Globulin 5.6, Albumin/Globulin Ratio 0.3L Height (Feet): 5 Height (Inches): 7.00 Weight (Pounds): 270 Cardiovascular: normal rate Abdomen: tender Etta Fang MD Aug 30, 2017 21:29
[2017-08-31] VITALS: BP 123/79
[2017-08-31] MEDS: Morphine Sulfate 4mg/ml Inj IVP PRN ×2 (00:15→06:26)
[2017-08-31 04:00] VITALS: BP 134/81
[2017-08-31 07:53] LABS: HEMATOCRIT 28.1 % (42.0-52.0); HEMOGLOBIN 8.7 G/DL (14.2-18.0); MEAN CORPUSCULAR VOLUME 80 FL (80-99); PLATELET COUNT 89 K/UL (150-450); RED BLOOD COUNT 3.52 M/UL (4.70-6.10); RED CELL DISTRIBUTION WIDTH 22.8 % (11.6-14.8); WHITE BLOOD COUNT 4.8 K/UL (4.8-10.8)
[2017-08-31 07:56] LABS: ALANINE AMINOTRANSFERASE 78 U/L (12-78); ALBUMIN 1.6 G/DL (3.4-5.0); ALBUMIN/GLOBULIN RATIO 0.3 (1.0-2.7); ALKALINE PHOSPHATASE 160 U/L (46-116); ANION GAP 6 mmol/L (5-15); ASPARTATE AMINO TRANSFERASE 176 U/L (15-37); BILIRUBIN,DIRECT 2.7 MG/DL (0.0-0.3); BILIRUBIN,TOTAL 3.4 MG/DL (0.2-1.0); BLOOD UREA NITROGEN 11 mg/dL (7-18); CALCIUM 7.5 MG/DL (8.5-10.1); CARBON DIOXIDE 24 MMOL/L (21-32); CHLORIDE 105 MMOL/L (98-107); CREATININE 0.7 MG/DL (0.55-1.30); POTASSIUM 4.1 MMOL/L (3.5-5.1); SODIUM 135 MMOL/L (136-145)
[2017-08-31 08:00] VITALS: BP 136/82
[2017-08-31] MEDS ORDERED: NS 500ML ONE (09:49)
[2017-08-31] MEDS ORDERED: Tubing IV Secondary IV ONE (09:49)
--- NOTE | 2017-08-31 10:28 | GI Progress Note ---
Assessment/Plan Problems: (1) Ascites ICD Codes: R18.8 - Other ascites SNOMED: 184627246 Qualifiers: Qualified Codes: K70.11 - Alcoholic hepatitis with ascites (2) GI bleed ICD Codes: K92.2 - Gastrointestinal hemorrhage, unspecified SNOMED: 64758561 Qualifiers: Qualified Codes: K92.2 - Gastrointestinal hemorrhage, unspecified (3) Esophageal varices determined by endoscopy ICD Codes: I85.00 - Esophageal varices without bleeding SNOMED: 92084365, 633672418 (4) Cirrhosis ICD Codes: K74.60 - Unspecified cirrhosis of liver SNOMED: 93533758 Qualifiers: Qualified Codes: K70.31 - Alcoholic cirrhosis of liver with ascites (5) Anemia ICD Codes: D64.9 - Anemia, unspecified SNOMED: 571464890 Qualifiers: Qualified Codes: D64.9 - Anemia, unspecified (6) ETOH abuse ICD Codes: F10.10 - Alcohol abuse, uncomplicated SNOMED: 62991876 Status: unchanged Status Narrative Discussed with Dr. Weber. Assessment/Plan Jan 2017 - EGD SUMMARY OF FINDINGS: 1. Prior history of esophageal banding with scar tissue in the distal esophagus without any significant large varices at this time. 2. Gastritis, status post biopsy. 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 paracentesis done yielding 5L of fluid adv to low sodium diet dc IVFs diuresis ambulate patient simethicone prn zofran ppi prn transfusions ppi fu labs will consider additional paracentesis The patient was seen and examined at bedside and all new and available data was reviewed in the patients chart. I agree with the above findings, impression and plan. (Patient seen earlier today. Signature stamp does not reflect patient encounter time.). - Ricardo Weber MD Subjective Subjective still has abdominal tenderness Objective Last 24 Hour Vital Signs Date Time Temp Pulse Resp B/P (MAP) Pulse Ox O2 Delivery O2 Flow Rate FiO2 08/31/17 08:00 93 08/31/17 08:00 97.7 92 19 136/82 97 Room Air 97.7 08/31/17 04:00 101 08/31/17 04:00 98.4 95 20 134/81 97 Room Air 98.4 08/31/17 00:00 99.0 96 20 123/79 96 Room Air 99.0 08/31/17 00:00 99 08/30/17 20:00 97 08/30/17 20:00 99.9 93 18 147/83 96 Room Air 99.9 08/30/17 16:00 98.1 97 18 127/79 96 Room Air 98.1 08/30/17 16:00 109 08/30/17 12:00 100 08/30/17 12:00 98.1 102 18 130/82 95 Room Air 98.1 Intake and Output 08/30/17 08/31/17 19:00 07:00 Intake Total 360 ml 300 ml Output Total 250 ml Balance 110 ml 300 ml Intake Oral 360 ml 300 ml Output Urine Total 250 ml # Voids 4 1 # Bowel Movements 1 Laboratory Tests Test 08/31/17 06:30 White Blood Count 4.8 K/UL (4.8-10.8) Red Blood Count 3.52 M/UL (4.70-6.10) L Hemoglobin 8.7 G/DL (14.2-18.0) L Hematocrit 28.1 % (42.0-52.0) L Mean Corpuscular Volume 80 FL (80-99) Mean Corpuscular Hemoglobin 24.7 PG (27.0-31.0) L Mean Corpuscular Hemoglobin Concent 31.1 G/DL (32.0-36.0) L Red Cell Distribution Width 22.8 % (11.6-14.8) H Platelet Count 89 K/UL (150-450) L Mean Platelet Volume 7.6 FL (6.5-10.1) Neutrophils (%) (Auto) % (45.0-75.0) Lymphocytes (%) (Auto) % (20.0-45.0) Monocytes (%) (Auto) % (1.0-10.0) Eosinophils (%) (Auto) % (0.0-3.0) Basophils (%) (Auto) % (0.0-2.0) Differential Total Cells Counted 100 Neutrophils % (Manual) 77 % (45-75) H Lymphocytes % (Manual) 16 % (20-45) L Monocytes % (Manual) 6 % (1-10) Eosinophils % (Manual) 1 % (0-3) Basophils % (Manual) 0 % (0-2) Band Neutrophils 0 % (0-8) Platelet Estimate Decreased L Platelet Morphology Normal Hypochromasia 2+ Anisocytosis 3+ Sodium Level 135 MMOL/L (136-145) L Potassium Level 4.1 MMOL/L (3.5-5.1) Chloride Level 105 MMOL/L (98-107) Carbon Dioxide Level 24 MMOL/L (21-32) Anion Gap 6 mmol/L (5-15) Blood Urea Nitrogen 11 mg/dL (7-18) Creatinine 0.7 MG/DL (0.55-1.30) Estimat Glomerular Filtration Rate > 60 mL/min (>60) Glucose Level 91 MG/DL (74-106) Calcium Level 7.5 MG/DL (8.5-10.1) L Total Bilirubin 3.4 MG/DL (0.2-1.0) H Direct Bilirubin 2.7 MG/DL (0.0-0.3) H Aspartate Amino Transf (AST/SGOT) 176 U/L (15-37) H Alanine Aminotransferase (ALT/SGPT) 78 U/L (12-78) Alkaline Phosphatase 160 U/L (46-116) H Total Protein 7.0 G/DL (6.4-8.2) Albumin 1.6 G/DL (3.4-5.0) L Globulin 5.4 g/dL Albumin/Globulin Ratio 0.3 (1.0-2.7) L Height (Feet): 5 Height (Inches): 7.00 Weight (Pounds): 270 General Appearance: WD/WN, no apparent distress, alert Cardiovascular: normal rate Respiratory/Chest: normal breath sounds, no respiratory distress Abdominal Exam: normal bowel sounds, non tender, soft, distended, ascites Extremities: normal range of motion, non-tender Aj Ridley ADMINISTRATIVE SUPERVISOR Aug 31, 2017 10:28
[2017-08-31] MEDS ORDERED: Morphine Sulfate 4mg/ml Inj IVP PRN ×2 (11:18→13:00)
--- NOTE | 2017-08-31 11:28 | General Progress Note ---
Assessment/Plan Status: stable Assessment/Plan ASSESSMENT AND PLAN: #. Pancytopenia. Related to history of cirrhosis, may have iron deficiency component, current wbc is wnl, but usually is low and has a history of pancytopenia related to cirrhosis, portal HTN, splenomegaly --> anemia w/u has been ordered, shows evidence of iron deficiency --> does NOT require a bone marrow biopsy --> reviewed historical labs --> recommend alcohol cessation --> Gi to consult in regards to lactulose/rafaximin #. Anemia of iron deficiency - on ferrous sulfate tid, ferritin was ONLY 18 and now 32 --> begin on 4 doses of iv iron (can also consider PO iron if necessary) #. Anemia of Gi bleed --> gi eval, has had endoscopy in the past #. Lower gastrointestinal bleed, occult blood is pending at this time. --> anemia eval completed #. Coagulopathy, likely secondary to underlying cirrhosis as well. Continue to closely monitor and administer vitamin K if the patient is bleeding. --> vitK prn basis #. Esophageal varices, status post banding on prior admission in 2017 Subjective Date patient seen: Aug 31, 2017 Allergies: Coded Allergies: NO KNOWN ALLERGIES (Verified Allergy, Unknown, 01/25/17) All Systems: reviewed and negative except above Subjective Pt c/o abd tenderness, seen by GI. No signs of acute medical distress. Objective Last 24 Hour Vital Signs Date Time Temp Pulse Resp B/P (MAP) Pulse Ox O2 Delivery O2 Flow Rate FiO2 08/31/17 08:00 93 08/31/17 08:00 97.7 92 19 136/82 97 Room Air 97.7 08/31/17 04:00 101 08/31/17 04:00 98.4 95 20 134/81 97 Room Air 98.4 08/31/17 00:00 99.0 96 20 123/79 96 Room Air 99.0 08/31/17 00:00 99 08/30/17 20:00 97 08/30/17 20:00 99.9 93 18 147/83 96 Room Air 99.9 08/30/17 16:00 98.1 97 18 127/79 96 Room Air 98.1 08/30/17 16:00 109 08/30/17 12:00 100 08/30/17 12:00 98.1 102 18 130/82 95 Room Air 98.1 Intake and Output 08/30/17 08/31/17 19:00 07:00 Intake Total 360 ml 300 ml Output Total 250 ml Balance 110 ml 300 ml Intake Oral 360 ml 300 ml Output Urine Total 250 ml # Voids 4 1 # Bowel Movements 1 Laboratory Tests 08/31/17 06:30: White Blood Count 4.8, Red Blood Count 3.52L, Hemoglobin 8.7L, Hematocrit 28.1L , Mean Corpuscular Volume 80, Mean Corpuscular Hemoglobin 24.7L, Mean Corpuscular Hemoglobin Concent 31.1L, Red Cell Distribution Width 22.8H, Platelet Count 89L, Mean Platelet Volume 7.6, Neutrophils (%) (Auto) , Lymphocytes (%) (Auto) , Monocytes (%) (Auto) , Eosinophils (%) (Auto) , Basophils (%) (Auto) , Differential Total Cells Counted 100, Neutrophils % ( Manual) 77H, Lymphocytes % (Manual) 16L, Monocytes % (Manual) 6, Eosinophils % ( Manual) 1, Basophils % (Manual) 0, Band Neutrophils 0, Platelet Estimate DecreasedL, Platelet Morphology Normal, Hypochromasia 2+, Anisocytosis 3+, Sodium Level 135L, Potassium Level 4.1, Chloride Level 105, Carbon Dioxide Level 24, Anion Gap 6, Blood Urea Nitrogen 11, Creatinine 0.7, Estimat Glomerular Filtration Rate > 60, Glucose Level 91, Calcium Level 7.5L, Total Bilirubin 3.4H, Direct Bilirubin 2.7H, Aspartate Amino Transf (AST/SGOT) 176H, Alanine Aminotransferase (ALT/SGPT) 78, Alkaline Phosphatase 160H, Total Protein 7.0, Albumin 1.6L, Globulin 5.4, Albumin/Globulin Ratio 0.3L Height (Feet): 5 Height (Inches): 7.00 Weight (Pounds): 270 General Appearance: no apparent distress EENT: PERRL/EOMI Neck: supple Cardiovascular: regular rhythm Respiratory/Chest: normal breath sounds Abdomen: normal bowel sounds Clark Cooper MD Aug 31, 2017 11:28
[2017-08-31 12:00] VITALS: BP 136/81
--- NOTE | 2017-08-31 19:45 | Cardiology Report ---
APPROVED REPORT EKG Measurement Heart [id number] Normal sinus rhythm Prolonged QT Abnormal ECG
--- NOTE | 2017-09-01 14:47 | Discharge Summary ---
Discharge Summary Discharge Summary _ DATE OF ADMISSION: 08/28/2017 DATE OF DISCHARGE: 08/31/2017 REASON FOR ADMISSION: 47 years old male with history of alcoholic cirrhosis and esophageal varices, presented to emergency department , complaining of abdominal pain and distention. Patient reported having paracentesis on August 18 ind [facility]. Patient stated that distention returned. He reported abdominal pain 10 out of 10 , nonradiating. He also reported blood in stool for the last few days. He denied taking any blood thinners. Upon evaluation in emergency room, vital signs were stable. No Hypotension. Pulse oximetry was stable on room air. Laboratory workup workup revealed no leukocytosis. Hemoglobin 8.0. Electrolytes stable. LFT markedly elevated. INR 1.4. EKG showed normal sinus rhythm, no acute ischemic changes. Patient received Protonix and octreotide drip at the emergency department. Patient was typed and crossed for possible transfusion. Patient was admitted for further management with diagnosis of ascites, cirrhosis, esophageal varices, GI bleeding, anemia. CONSULTANTS: GI specialist Dr. Weber scheduling administrator/oncologist Dr. Cooper [facility] COURSE: Patient admitted to telemetry floor. EGD, which was done on January 2017, revealed prior history of esophageal varices with banding, with a scar tissue in the distal esophagus without any significant large varices at that time. Gastritis status,. 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 Patient undergone ultrasound-guided paracentesis which yielded 5 liters of ascitic fluid. Albumin was replaced. Low-sodium diet provided. Antiemetics were provided as needed. Pain management was addressed . Hemoglobin and hematocrit were closely monitored with the goal to keep hemoglobin above 7. Hemoglobin and hematocrit remained on the baseline, no need for transfusion. Patient was on PPI. Spindle Carver closely followed. A nemia workup revealed evidence of iron deficiency anemia with ferritin of only 32. Patient also had anemia of GI bleeding . Patient received intravenous Venofer. Abdominal pain resolved. Patient was able to tolerate diet. Patient was consult on abstinence from ETOH. Patient was stable for discharge home. FINAL DIAGNOSES: Ascites Esophageal varices, as determined by endoscopy GI bleeding Alcoholic cirrhosis Status post paracentesis with history of recurrent paracentesis Iron deficiency anemia Anemia of GI bleeding Alcohol abuse Abdominal pain-resolved DISCHARGE MEDICATIONS: See Medication Reconciliation list. Continue ferrous sulfate, Trerntal and propranolol. DISCHARGE INSTRUCTIONS: Patient was discharged home. Follow up with primary care provider. I have been assigned to dictate discharge summary for this account. I was not involved in the patient's management. Merna Zamudio NP Sep 01, 2017 14:47
== END 2017-08-31 16:00 | disposition home or self-care (01) | DRG 280 ==
LOC: EDBEDREQ 20:15 → EMR 20:24 → 2E 20:30 → EDBEDREQ 20:52 → EDBEDREQSVC 20:52 → EDBEDREQ 22:40
PROC: 0W9G3ZZ Drainage of Peritoneal Cavity, Percutaneous Approach (ICD-10-PCS; principal; 2017-08-29)
PROC: 30233N1 Transfusion of Nonautologous Red Blood Cells into Peripheral Vein, Percutaneous Approach (ICD-10-PCS; 2017-08-29)
DX: K70.31 Alcoholic cirrhosis of liver with ascites (principal); I85.11 Secondary esophageal varices with bleeding; D61.818 Other pancytopenia; D68.4 Acquired coagulation factor deficiency; D50.0 Iron deficiency anemia secondary to blood loss (chronic); F10.10 Alcohol abuse, uncomplicated
CPT/HCPCS: 36415; 76942; 80053; 80061; 81003; 82248; 82607; 82728; 82746; 82977; 83036; 83540; 83550; 83690; 83735; 84100; 84443; 84550; 85007; 85025; 85610; 85730; 86850; 86900; 86901; 86920; 87086; 93005; 99285

== ENCOUNTER 2017-09-03 23:48 | Inpatient (IN) | payer MEDICAID ==
[~2017-09-03] VITALS: Ht 170.2 cm; Wt 116.6 kg
[~2017-09-03 23:48] MED LIST changes: +FUROSEMIDE20 M1 ORAL
[2017-09-04] VITALS (8 sets, daily range): BP systolic 96–141; BP diastolic 55–90
[2017-09-04 01:31] LABS: BASOPHILS % (AUTO) 0.8 % (0.0-2.0); EOSINOPHILS % (AUTO) 2.3 % (0.0-3.0); HEMATOCRIT 30.9 % (42.0-52.0); HEMOGLOBIN 9.5 G/DL (14.2-18.0); LYMPHOCYTES % (AUTO) 16.8 % (20.0-45.0); MEAN CORPUSCULAR VOLUME 80 FL (80-99); MONOCYTES % (AUTO) 8.6 % (1.0-10.0); NEUTROPHILS % (AUTO) 71.5 % (45.0-75.0); PLATELET COUNT 111 K/UL (150-450); RED BLOOD COUNT 3.86 M/UL (4.70-6.10); RED CELL DISTRIBUTION WIDTH 23.3 % (11.6-14.8)
[2017-09-04 01:46] LABS: ANION GAP 7 mmol/L (5-15); BLOOD UREA NITROGEN 18 mg/dL (7-18); CALCIUM 7.9 MG/DL (8.5-10.1); CARBON DIOXIDE 25 MMOL/L (21-32); CHLORIDE 105 MMOL/L (98-107); POTASSIUM 3.8 MMOL/L (3.5-5.1); SODIUM 137 MMOL/L (136-145)
[2017-09-04 01:47] LABS: INR 1.4 (0.9-1.1)
[2017-09-04 01:58] LABS: ALANINE AMINOTRANSFERASE 75 U/L (12-78); ALBUMIN 1.7 G/DL (3.4-5.0); ALBUMIN/GLOBULIN RATIO 0.3 (1.0-2.7); ALKALINE PHOSPHATASE 200 U/L (46-116); ASPARTATE AMINO TRANSFERASE 170 U/L (15-37); BILIRUBIN,TOTAL 3.5 MG/DL (0.2-1.0)
[2017-09-04 02:01] LABS: BILIRUBIN,DIRECT 2.9 MG/DL (0.0-0.3)
[2017-09-04 02:17] LABS: BILIRUBIN, URINE 2+ (NEGATIVE); GLUCOSE, URINE (UA) NEGATIVE (NEGATIVE); KETONES,URINE 1+ (NEGATIVE); LEUKOCYTE ESTERASE ,URINE 1+ (NEGATIVE); NITRITE,URINE NEGATIVE (NEGATIVE); PH,URINE 6 (4.5-8.0); PROTEIN,URINE 2+ (NEGATIVE); UROBILINOGEN,URINE 8 MG/DL (0.0-1.0)
[2017-09-04 02:30] LABS: APPEARANCE,URINE SLIGHTLY CLOUDY; COLOR,URINE AMBER
--- NOTE | 2017-09-04 04:54 | Emergency Room Report ---
History of Present Illness General Chief Complaint: Male Urogenital Problems Source: Patient, Medical Record Present Illness HPI 47-year-old male presents ED with abdominal pain and distention 3 days. Patient has history of ascites and cirrhosis. Patient was recently admitted here for paracentesis. Patient states that the fluid built up very fast. Pain is a sharp, 10 out of 10, nonradiating. Denies fevers or chills. Denies chest pain or shortness of breath. Denies nausea or vomiting. No other aggravating relieving factors. Denies any other associated symptoms Allergies: Coded Allergies: NO KNOWN ALLERGIES (Verified Allergy, Unknown, 01/25/17) Patient History Past Medical History: HTN, GERD, other - ascites Past Surgical History: none Pertinent Family History: none Social History: Denies: smoking, alcohol use, drug use Immunizations: UTD Reviewed Nursing Documentation: PMH: Agreed; PSxH: Agreed Nursing Documentation-PMH Hx Cardiac Problems: Yes - Anemia Hx Hypertension: Yes Hx Asthma: No - blood clot rt lung 2005/anemia Hx Diabetes: Yes Hx Cancer: No Hx Gastrointestinal Problems: Yes - GI bleed Hx Neurological Problems: No Review of Systems All Other Systems: negative except mentioned in HPI Physical Exam Vital Signs Date Time Temp Pulse Resp B/P (MAP) Pulse Ox O2 Delivery O2 Flow Rate FiO2 09/03/17 23:52 97.8 83 18 141/79 98 Room Air 97.9 Sp02 EP Interpretation: reviewed, normal General Appearance: no apparent distress, alert, GCS 15, non-toxic Head: normocephalic, atraumatic Eyes: bilateral eye normal inspection, bilateral eye PERRL ENT: hearing grossly normal, normal pharynx, no angioedema, normal voice Neck: full range of motion, supple/symm/no masses Respiratory: chest non-tender, lungs clear, normal breath sounds, speaking full sentences Cardiovascular #1: regular rate, rhythm, no edema Cardiovascular #2: 2+ carotid (R), 2+ carotid (L), 2+ radial (R), 2+ radial (L) , 2+ dorsalis pedis (R), 2+ dorsalis pedis (L) Gastrointestinal: distended Rectal: deferred Genitourinary: normal inspection, no CVA tenderness Musculoskeletal: back normal, gait/station normal, normal range of motion, non- tender Neurologic: alert, oriented x3, responsive, motor strength/tone normal, sensory intact, speech normal Psychiatric: judgement/insight normal, memory normal, mood/affect normal, no suicidal/homicidal ideation Reflexes: 3+ bicep (R), 3+ bicep (L), 3+ tricep (R), 3+ tricep (L), 3+ knee (R) , 3+ knee (L) Skin: normal color, no rash, warm/dry, well hydrated Lymphatic: no adenopathy Medical Decision Making Diagnostic Impression: Primary Impression: Ascites Qualified Codes: K70.31 - Alcoholic cirrhosis of liver with ascites Additional Impression: Cirrhosis Qualified Codes: K70.31 - Alcoholic cirrhosis of liver with ascites ER Course 47-year-old male presents ED with abdominal distention, history of cirrhosis Differentialcoagulopathy, cirrhosis, SBP Patient placed on stretcher. After initial history physical exam reveals male in no acute distress. There is profound abdominal distention. However there is no guarding. No tenderness. i ordered labs, ivfs labs - no leukocytosis, hb/hct stable, electrolytes ok, LFTS elevated Patient will require paracentesis. No emergent indication for paracentesis as vital stable and patient is not short of breath. On previous admission patient was anemic with rectal bleeding. No rectal bleeding at this time and hemoglobin is improved. Patient will be admitted to Dr. Fang Diagnosisascites, cirrhosis Patient admitted to floor in serious condition Labs Test 09/04/17 01:20 09/04/17 01:59 White Blood Count 7.0 K/UL (4.8-10.8) Red Blood Count 3.86 M/UL (4.70-6.10) Hemoglobin 9.5 G/DL (14.2-18.0) Hematocrit 30.9 % (42.0-52.0) Mean Corpuscular Volume 80 FL (80-99) Mean Corpuscular Hemoglobin 24.6 PG (27.0-31.0) Mean Corpuscular Hemoglobin Concent 30.6 G/DL (32.0-36.0) Red Cell Distribution Width 23.3 % (11.6-14.8) Platelet Count 111 K/UL (150-450) Mean Platelet Volume 8.2 FL (6.5-10.1) Neutrophils (%) (Auto) 71.5 % (45.0-75.0) Lymphocytes (%) (Auto) 16.8 % (20.0-45.0) Monocytes (%) (Auto) 8.6 % (1.0-10.0) Eosinophils (%) (Auto) 2.3 % (0.0-3.0) Basophils (%) (Auto) 0.8 % (0.0-2.0) Prothrombin Time 14.6 SEC (9.30-11.50) Prothromb Time International Ratio 1.4 (0.9-1.1) Activated Partial Thromboplast Time 34 SEC (23-33) Sodium Level 137 MMOL/L (136-145) Potassium Level 3.8 MMOL/L (3.5-5.1) Chloride Level 105 MMOL/L (98-107) Carbon Dioxide Level 25 MMOL/L (21-32) Anion Gap 7 mmol/L (5-15) Blood Urea Nitrogen 18 mg/dL (7-18) Creatinine 1.0 MG/DL (0.55-1.30) Estimat Glomerular Filtration Rate > 60 mL/min (>60) Glucose Level 101 MG/DL (74-106) Calcium Level 7.9 MG/DL (8.5-10.1) Total Bilirubin 3.5 MG/DL (0.2-1.0) Direct Bilirubin 2.9 MG/DL (0.0-0.3) Aspartate Amino Transf (AST/SGOT) 170 U/L (15-37) Alanine Aminotransferase (ALT/SGPT) 75 U/L (12-78) Alkaline Phosphatase 200 U/L (46-116) Total Protein 7.7 G/DL (6.4-8.2) Albumin 1.7 G/DL (3.4-5.0) Globulin 6.0 g/dL Albumin/Globulin Ratio 0.3 (1.0-2.7) Lipase 153 U/L (73-393) Urine Color Kelsie Urine Appearance Slightly cloudy Urine pH 6 (4.5-8.0) Urine Specific [place] 1.020 (1.005-1.035) Urine Protein 2+ (NEGATIVE) Urine Glucose (UA) Negative (NEGATIVE) Urine Ketones 1+ (NEGATIVE) Urine Occult Blood 1+ (NEGATIVE) Urine Nitrite Negative (NEGATIVE) Urine Bilirubin 2+ (NEGATIVE) Urine Ictotest Positive Urine Urobilinogen 8 MG/DL (0.0-1.0) Urine Leukocyte Esterase 1+ (NEGATIVE) Urine RBC 0-2 /HPF (0 - 0) Urine WBC 2-4 /HPF (0 - 0) Urine Squamous Epithelial Cells Moderate /LPF (NONE/OCC) Urine Calcium Oxalate Crystals Moderate /LPF (NONE) Urine Bacteria Few /HPF (NONE) Last Vital Signs Date Time Temp Pulse Resp B/P (MAP) Pulse Ox O2 Delivery O2 Flow Rate FiO2 09/04/17 02:35 97.0 88 16 125/71 98 Room Air 97.0 Status: improved Disposition: ADMITTED INPATIENT Condition: Serious Referrals: NOT CHOSEN IPA/,REFERRING (PCP) Sergio Vogel MD Sep 04, 2017 04:54
[2017-09-04 06:35] LABS: HEMOGLOBIN 8.8 G/DL (14.2-18.0); MEAN CORPUSCULAR VOLUME 80 FL (80-99); PLATELET COUNT 94 K/UL (150-450); RED BLOOD COUNT 3.64 M/UL (4.70-6.10); RED CELL DISTRIBUTION WIDTH 23.3 % (11.6-14.8); WHITE BLOOD COUNT 5.1 K/UL (4.8-10.8)
[2017-09-04] MEDS ORDERED: traMADol 50mg tab ORAL PRN ×2 (06:45→12:45)
[2017-09-04 07:17] LABS: ANION GAP 5 mmol/L (5-15); BLOOD UREA NITROGEN 18 mg/dL (7-18); CALCIUM 7.7 MG/DL (8.5-10.1); CARBON DIOXIDE 25 MMOL/L (21-32); CHLORIDE 107 MMOL/L (98-107); CREATININE 0.9 MG/DL (0.55-1.30); POTASSIUM 3.6 MMOL/L (3.5-5.1); SODIUM 137 MMOL/L (136-145)
[2017-09-04] MEDS: Pantoprazole Inj IVP SCH (08:33)
[2017-09-04] MEDS: Thiamine 100mg tab ORAL SCH (08:34)
[2017-09-04] MEDS: Propranolol 10mg tab ORAL SCH ×4 (08:36→21:00)
--- NOTE | 2017-09-04 08:57 | Consultation ---
History of Present Illness General Date patient seen: Sep 04, 2017 Chief Complaint: Present Illness Allergies: Coded Allergies: NO KNOWN ALLERGIES (Verified Allergy, Unknown, 01/25/17) Medication History Scheduled Ferrous Sulfate* (Ferrous Sulfate*), 325 MG ORAL THREE TIMES A DAY, (Reported) Furosemide* (Lasix*), 20 MG ORAL DAILY, (Reported) Ibuprofen* (Motrin*), 600 MG ORAL THREE TIMES A DAY Levofloxacin* (Levaquin*), 500 MG ORAL DAILY Pantoprazole* (Protonix*), 40 MG ORAL DAILY, (Reported) Pentoxifylline* (Trental*), 400 MG ORAL THREE TIMES A DAY, (Reported) Propranolol Hcl* (Inderal*), 20 MG ORAL QID Silver Sulfadiazine (Silvadene), 20 GM TP BID Thiamine Hcl* (Vitamin B-1*), 100 MG ORAL DAILY Scheduled PRN Tramadol Hcl* (Ultram*), 50 MG ORAL Q6H PRN for For Pain Discontinued Medications No Known Medications* (NKM - No Known Medications*), 0 ., (Reported) Discontinued Reason: Therapy completed Unable to Obtain Medications (Unable To Obtain Meds), (Reported) Discontinued Reason: Therapy completed Patient History Healthcare decision maker Resuscitation status Advanced Directive on File Physical Exam Last 24 Hour Vital Signs Date Time Temp Pulse Resp B/P (MAP) Pulse Ox O2 Delivery O2 Flow Rate FiO2 09/04/17 08:44 97.7 91 20 134/72 98 Room Air 97.7 09/04/17 08:36 91 134/72 09/04/17 08:34 134/72 09/04/17 06:00 98.3 90 20 141/90 97 Room Air 98.3 09/04/17 04:45 97.5 81 21 131/73 95 Room Air 97.5 09/04/17 04:41 97.0 73 19 125/78 100 Room Air 97.0 09/04/17 04:00 73 19 125/78 100 Room Air 09/04/17 02:35 97.0 88 16 125/71 98 Room Air 97.0 09/03/17 23:52 97.8 83 18 141/79 98 Room Air 97.9 Intake and Output 09/03/17 09/04/17 19:00 07:00 Intake Total 200 ml Output Total 150 ml Balance 50 ml Intake Oral 200 ml Output Urine Total 150 ml Laboratory Tests Test 09/04/17 01:20 09/04/17 01:59 09/04/17 06:18 White Blood Count 7.0 K/UL (4.8-10.8) 5.1 K/UL (4.8-10.8) Red Blood Count 3.86 M/UL (4.70-6.10) L 3.64 M/UL (4.70-6.10) L Hemoglobin 9.5 G/DL (14.2-18.0) L 8.8 G/DL (14.2-18.0) L Hematocrit 30.9 % (42.0-52.0) L 29.0 % (42.0-52.0) L Mean Corpuscular Volume 80 FL (80-99) 80 FL (80-99) Mean Corpuscular Hemoglobin 24.6 PG (27.0-31.0) L 24.2 PG (27.0-31.0) L Mean Corpuscular Hemoglobin Concent 30.6 G/DL (32.0-36.0) L 30.4 G/DL (32.0-36.0) L Red Cell Distribution Width 23.3 % (11.6-14.8) H 23.3 % (11.6-14.8) H Platelet Count 111 K/UL (150-450) L 94 K/UL (150-450) L Mean Platelet Volume 8.2 FL (6.5-10.1) 8.2 FL (6.5-10.1) Neutrophils (%) (Auto) 71.5 % (45.0-75.0) % (45.0-75.0) Lymphocytes (%) (Auto) 16.8 % (20.0-45.0) L % (20.0-45.0) Monocytes (%) (Auto) 8.6 % (1.0-10.0) % (1.0-10.0) Eosinophils (%) (Auto) 2.3 % (0.0-3.0) % (0.0-3.0) Basophils (%) (Auto) 0.8 % (0.0-2.0) % (0.0-2.0) Prothrombin Time 14.6 SEC (9.30-11.50) H Prothromb Time International Ratio 1.4 (0.9-1.1) H Activated Partial Thromboplast Time 34 SEC (23-33) H Sodium Level 137 MMOL/L (136-145) 137 MMOL/L (136-145) Potassium Level 3.8 MMOL/L (3.5-5.1) 3.6 MMOL/L (3.5-5.1) Chloride Level 105 MMOL/L (98-107) 107 MMOL/L (98-107) Carbon Dioxide Level 25 MMOL/L (21-32) 25 MMOL/L (21-32) Anion Gap 7 mmol/L (5-15) 5 mmol/L (5-15) Blood Urea Nitrogen 18 mg/dL (7-18) 18 mg/dL (7-18) Creatinine 1.0 MG/DL (0.55-1.30) 0.9 MG/DL (0.55-1.30) Estimat Glomerular Filtration Rate > 60 mL/min (>60) > 60 mL/min (>60) Glucose Level 101 MG/DL (74-106) 95 MG/DL (74-106) Calcium Level 7.9 MG/DL (8.5-10.1) L 7.7 MG/DL (8.5-10.1) L Total Bilirubin 3.5 MG/DL (0.2-1.0) H Direct Bilirubin 2.9 MG/DL (0.0-0.3) H Aspartate Amino Transf (AST/SGOT) 170 U/L (15-37) H Alanine Aminotransferase (ALT/SGPT) 75 U/L (12-78) Alkaline Phosphatase 200 U/L (46-116) H Total Protein 7.7 G/DL (6.4-8.2) Albumin 1.7 G/DL (3.4-5.0) L Globulin 6.0 g/dL Albumin/Globulin Ratio 0.3 (1.0-2.7) L Lipase 153 U/L (73-393) Urine Color Kelsie Urine Appearance Slightly cloudy Urine pH 6 (4.5-8.0) Urine Specific [place] 1.020 (1.005-1.035) Urine Protein 2+ (NEGATIVE) H Urine Glucose (UA) Negative (NEGATIVE) Urine Ketones 1+ (NEGATIVE) H Urine Occult Blood 1+ (NEGATIVE) H Urine Nitrite Negative (NEGATIVE) Urine Bilirubin 2+ (NEGATIVE) H Urine Ictotest Positive Urine Urobilinogen 8 MG/DL (0.0-1.0) H Urine Leukocyte Esterase 1+ (NEGATIVE) H Urine RBC 0-2 /HPF (0 - 0) H Urine WBC 2-4 /HPF (0 - 0) Urine Squamous Epithelial Cells Moderate /LPF (NONE/OCC) H Urine Calcium Oxalate Crystals Moderate /LPF (NONE) Urine Bacteria Few /HPF (NONE) Height (Feet): 5 Height (Inches): 7.00 Weight (Pounds): 250 Medications Current Medications Medications (Trade) Dose Ordered Sig/Nikhil Route PRN Reason Start Time Stop Time Status Last Admin Dose Admin Ferrous Sulfate (Feosol) 325 mg THREE TIMES A DAY ORAL 09/04/17 09:00 10/04/17 08:59 09/04/17 08:36 Furosemide (Lasix) 20 mg DAILY ORAL 09/04/17 09:00 10/04/17 08:59 09/04/17 08:36 Ibuprofen (Motrin) 600 mg THREE TIMES A DAY ORAL 09/04/17 09:00 10/04/17 08:59 09/04/17 08:35 Levofloxacin (Levaquin) 500 mg DAILY ORAL 09/04/17 09:00 09/11/17 08:59 UNV Ondansetron HCl (Zofran) 4 mg Q4H PRN IVP Nausea & Vomiting 09/04/17 06:00 10/04/17 05:59 Pantoprazole (Protonix) 80 mg DAILY IVP 09/04/17 09:00 10/04/17 08:59 09/04/17 08:33 Pentoxifylline (TRENtal) 400 mg THREE TIMES A DAY ORAL 09/04/17 09:00 10/04/17 08:59 09/04/17 08:34 Propranolol HCl (Inderal) 20 mg QID ORAL 09/04/17 09:00 10/04/17 08:59 09/04/17 08:36 Thiamine HCl (Vitamin B1) 100 mg DAILY ORAL 09/04/17 09:00 10/04/17 08:59 09/04/17 08:34 Tramadol HCl (Ultram) 50 mg Q6H PRN ORAL For Pain 09/04/17 06:45 09/11/17 06:44 Assessment/Plan Assessment/Plan (1) Liver cirrhosis (2) Abdominal pain (3) Ascites seen dictated. Anton Vang Sep 04, 2017 08:57
[2017-09-04] MEDS ORDERED: Levofloxacin 500mg tab ORAL SCH (09:00)
[2017-09-04] MEDS: Morphine Sulfate 4mg/ml Inj IVP PRN ×2 (09:19→13:17)
--- NOTE | 2017-09-04 11:45 | Consultation ---
DATE OF CONSULTATION: 09/04/2017 PAIN MANAGEMENT CONSULTATION CONSULTING PHYSICIAN: Pat Pacheco M.D. REFERRING PHYSICIAN: Etta Fang M.D. PHYSICIAN PLASTER WHITTLER: Desi Kirby CHIEF COMPLAINT: Abdominal pain. HISTORY OF PRESENT ILLNESS: The patient is a 47-year-old male who is being seen on the Med/Surg floor of [facility] for initial comprehensive pain management consultation. The patient was admitted under the care of Dr. Fang, due to liver cirrhosis causing ascites with severe pressure pain. Reporting that he has been having for the past four days. It is a constant, chronic pain, rating at 9/10 at this time and was admitted again for paracentesis. At this time, we were consulted so that the patient would have adequate pain control while here in the hospital. PAST MEDICAL HISTORY: Anemia, hypertension, diabetes, and history of GI bleed. PAST SURGICAL HISTORY: Denies. SOCIAL HISTORY: He has a history of drinking alcohol. Denies smoking tobacco and IV drug abuse. ALLERGIES: No known drug allergies. MEDICATIONS: Ferrous sulfate, Lasix, Motrin, Levaquin, Protonix , Silvadene, vitamin C, and Ultram. REVIEW OF SYSTEMS: Denies rash, fever, chills, sweating, dizziness, drowsiness, blurred vision, sore throat, or change in his weight. No shortness of breath or chest pain. No nausea, vomiting, diarrhea, or blood in the stool or urine. No bowel or bladder incontinence. No dysuria. He is complaining of abdominal pain. PHYSICAL EXAMINATION: GENERAL: Alert, awake, and oriented. VITAL SIGNS: Blood pressure 134/72, heart rate 91, oxygen saturation 98%, respiratory rate is 20, and temperature is 97.7 degrees Fahrenheit. HEENT: PERRLA. NECK: Range of motion is full in all directions. No tenderness to paracervical muscles. No adenopathy. LUNGS: Decreased breath sounds bilaterally. ABDOMEN: Obese with distention noted. BACK: Range of motion is decreased on flexion and extension. EXTREMITIES: Upper and lower extremity motion is decreased. No cyanosis. No clubbing. No edema. Sensory is intact. Reflexes are not obtainable. No adenopathy. ASSESSMENT AND PLAN: This is a 47-year-old male with abdominal pain, liver cirrhosis, ascites . The patient has been started on morphine 1 mg IV every 4 hours as needed for pain. Continued on the tramadol 50 mg tablet every 6 hours as needed for moderate pain. The patient was discussed with Dr. Pacheco and Dr. Pacheco concurred. We will follow the patient. Thank you very much for the courtesy of this consultation. Pat Pacheco M.D. DIPAK Kirby DR: KARYN JOB#: [id number] CC: KEVIN
--- NOTE | 2017-09-04 12:59 | GI Initial Consult Note ---
History of Present Illness General Date patient seen: Sep 04, 2017 Time patient seen: 15:09 Reason for Hospitalization: Male Urogenital Problems Referring physician: LOI Reason for Consultation: CIRRHOSIS Present Illness HPI 47-year-old male presents to ED for evaluation. Patient complaining of abdominal pain and distention. History of ascites and cirrhosis. States that on 08/18 he had paracentesis done at [facility]. States that the swelling has since returned. Pain is sharp, 10 out of 10, nonradiating. Also complaining of blood in stool for the last few days. States he was admitted here last month for GI bleed. denies take blood thinners. No other aggravating relieving factors. Denies any other associated symptoms. GI consulted for history of varices/cirrhosis. This is a patient known to us with multiple re admissions within the last year, most recent here at [facility] last week s/p paracentesis yielding 5L of fluid. The patient has a history of ETOH abuse, s/p EGD back in january of 2017 noted with small varices that did not require banding at the time. Pt seen, awake A&Ox4 NAD with no active s/sx of N/V/D. He did not have any hematemesis. Patient states he has not drank any alcohol since his last admission. Jan 2017 - EGD SUMMARY OF FINDINGS: 1. Prior history of esophageal banding with scar tissue in the distal esophagus without any significant large varices at this time. 2. Gastritis, status post biopsy. 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 Home Meds Active Scripts Tramadol Hcl* (ULTRAM*) 50 Mg Tablet, 50 MG ORAL Q6H PRN for For Pain, #20 TAB 0 Refills Prov:ARA NAM M.D. 08/14/17 Levofloxacin* (LEVAQUIN*) 500 Mg Tablet, 500 MG ORAL DAILY, #7 TAB Prov:ARA NAM M.D. 08/14/17 Ibuprofen* (MOTRIN*) 600 Mg Tablet, 600 MG ORAL THREE TIMES A DAY, #30 TAB 0 Refills Prov:ARA NAM M.D. 01/25/17 Silver Sulfadiazine (SILVADENE) 20 Gm Cream..g., 20 GM TP BID, #20 GM Prov:ARA NAM M.D. 01/25/17 Thiamine Hcl* (VITAMIN B-1*) 100 Mg Tablet, 100 MG ORAL DAILY, #30 TAB 0 Refills Prov:Merna Zamudio VACUUM CASTER 12/05/16 Propranolol Hcl* (INDERAL*) 20 Mg Tablet, 20 MG ORAL QID, #120 TAB 0 Refills Prov:Merna Zamudio VACUUM CASTER 12/05/16 Reported Medications Furosemide* (LASIX*) 20 Mg Tablet, 20 MG ORAL DAILY, TAB 08/28/17 Ferrous Sulfate* (FERROUS SULFATE*) 325 Mg Tablet, 325 MG ORAL THREE TIMES A DAY , #90 TAB 0 Refills 09/06/16 Pentoxifylline* (TRENTAL*) 400 Mg Tablet.er, 400 MG ORAL THREE TIMES A DAY, #90 TAB 0 Refills 09/06/16 Pantoprazole* (PROTONIX*) 40 Mg Tablet.dr, 40 MG ORAL DAILY, #90 TAB 09/06/16 Discontinued Reported Medications No Known Medications* (NKM - No Known Medications*) ., 0 ., 0 Refills 07/30/17 Unable to Obtain Medications (UNABLE TO OBTAIN MEDS) 1 Ea Ea 04/01/17 Med list reviewed/reconciled: Yes Allergies: Coded Allergies: NO KNOWN ALLERGIES (Verified Allergy, Unknown, 01/25/17) Patient History History Provided By: Patient, Medical Record Social History: Reports: alcohol use Review of Systems All Other Systems: negative except mentioned in HPI Physical Exam Vital Signs Date Time Temp Pulse Resp B/P (MAP) Pulse Ox O2 Delivery O2 Flow Rate FiO2 09/03/17 23:52 97.8 83 18 141/79 98 Room Air 97.9 Sp02 EP Interpretation: reviewed, normal Labs Laboratory Tests Test 09/04/17 01:20 09/04/17 01:59 09/04/17 06:18 White Blood Count 7.0 K/UL (4.8-10.8) 5.1 K/UL (4.8-10.8) Red Blood Count 3.86 M/UL (4.70-6.10) L 3.64 M/UL (4.70-6.10) L Hemoglobin 9.5 G/DL (14.2-18.0) L 8.8 G/DL (14.2-18.0) L Hematocrit 30.9 % (42.0-52.0) L 29.0 % (42.0-52.0) L Mean Corpuscular Volume 80 FL (80-99) 80 FL (80-99) Mean Corpuscular Hemoglobin 24.6 PG (27.0-31.0) L 24.2 PG (27.0-31.0) L Mean Corpuscular Hemoglobin Concent 30.6 G/DL (32.0-36.0) L 30.4 G/DL (32.0-36.0) L Red Cell Distribution Width 23.3 % (11.6-14.8) H 23.3 % (11.6-14.8) H Platelet Count 111 K/UL (150-450) L 94 K/UL (150-450) L Mean Platelet Volume 8.2 FL (6.5-10.1) 8.2 FL (6.5-10.1) Neutrophils (%) (Auto) 71.5 % (45.0-75.0) % (45.0-75.0) Lymphocytes (%) (Auto) 16.8 % (20.0-45.0) L % (20.0-45.0) Monocytes (%) (Auto) 8.6 % (1.0-10.0) % (1.0-10.0) Eosinophils (%) (Auto) 2.3 % (0.0-3.0) % (0.0-3.0) Basophils (%) (Auto) 0.8 % (0.0-2.0) % (0.0-2.0) Prothrombin Time 14.6 SEC (9.30-11.50) H Prothromb Time International Ratio 1.4 (0.9-1.1) H Activated Partial Thromboplast Time 34 SEC (23-33) H Sodium Level 137 MMOL/L (136-145) 137 MMOL/L (136-145) Potassium Level 3.8 MMOL/L (3.5-5.1) 3.6 MMOL/L (3.5-5.1) Chloride Level 105 MMOL/L (98-107) 107 MMOL/L (98-107) Carbon Dioxide Level 25 MMOL/L (21-32) 25 MMOL/L (21-32) Anion Gap 7 mmol/L (5-15) 5 mmol/L (5-15) Blood Urea Nitrogen 18 mg/dL (7-18) 18 mg/dL (7-18) Creatinine 1.0 MG/DL (0.55-1.30) 0.9 MG/DL (0.55-1.30) Estimat Glomerular Filtration Rate > 60 mL/min (>60) > 60 mL/min (>60) Glucose Level 101 MG/DL (74-106) 95 MG/DL (74-106) Calcium Level 7.9 MG/DL (8.5-10.1) L 7.7 MG/DL (8.5-10.1) L Total Bilirubin 3.5 MG/DL (0.2-1.0) H Direct Bilirubin 2.9 MG/DL (0.0-0.3) H Aspartate Amino Transf (AST/SGOT) 170 U/L (15-37) H Alanine Aminotransferase (ALT/SGPT) 75 U/L (12-78) Alkaline Phosphatase 200 U/L (46-116) H Total Protein 7.7 G/DL (6.4-8.2) Albumin 1.7 G/DL (3.4-5.0) L Globulin 6.0 g/dL Albumin/Globulin Ratio 0.3 (1.0-2.7) L Lipase 153 U/L (73-393) Urine Color Kelsie Urine Appearance Slightly cloudy Urine pH 6 (4.5-8.0) Urine Specific [place] 1.020 (1.005-1.035) Urine Protein 2+ (NEGATIVE) H Urine Glucose (UA) Negative (NEGATIVE) Urine Ketones 1+ (NEGATIVE) H Urine Occult Blood 1+ (NEGATIVE) H Urine Nitrite Negative (NEGATIVE) Urine Bilirubin 2+ (NEGATIVE) H Urine Ictotest Positive Urine Urobilinogen 8 MG/DL (0.0-1.0) H Urine Leukocyte Esterase 1+ (NEGATIVE) H Urine RBC 0-2 /HPF (0 - 0) H Urine WBC 2-4 /HPF (0 - 0) Urine Squamous Epithelial Cells Moderate /LPF (NONE/OCC) H Urine Calcium Oxalate Crystals Moderate /LPF (NONE) Urine Bacteria Few /HPF (NONE) General Appearance: well appearing, no apparent distress, alert Head: normocephalic EENT: PERRL/EOMI, normal ENT inspection Neck: supple Respiratory: normal breath sounds, no respiratory distress Cardiovascular: normal rate Gastrointestinal: normal inspection, non tender, soft, normal bowel sounds, non -distended, distended, ascites Rectal: deferred Genitourinary: deferred Musculoskeletal: normal inspection, back normal Neurologic: normal inspection, alert, oriented x3, responsive Psychiatric: normal inspection, judgement/insight normal, memory normal Skin: normal inspection, normal color, no rash, warm/dry, palpation normal, well hydrated Lymphatic: normal inspection, no adenopathy Current Medications Current Medications Medications (Trade) Dose Ordered Sig/Nikhil Route PRN Reason Start Time Stop Time Status Last Admin Dose Admin Ferrous Sulfate (Feosol) 325 mg THREE TIMES A DAY ORAL 09/04/17 09:00 10/04/17 08:59 09/04/17 08:36 Furosemide (Lasix) 20 mg DAILY ORAL 09/04/17 09:00 10/04/17 08:59 09/04/17 08:36 Ibuprofen (Motrin) 600 mg THREE TIMES A DAY ORAL 09/04/17 09:00 10/04/17 08:59 09/04/17 08:35 Levofloxacin (Levaquin) 500 mg DAILY ORAL 09/04/17 09:00 09/11/17 08:59 UNV Lidocaine (Xylocaine 1% MPF 5ml) 20 ml ONCE ONCE INJ 09/04/17 13:00 09/04/17 13:01 Morphine Sulfate (Morphine Sulfate) 1 mg Q4H PRN IVP severe pain 09/04/17 09:00 09/11/17 08:59 09/04/17 09:19 Ondansetron HCl (Zofran) 4 mg Q4H PRN IVP Nausea & Vomiting 09/04/17 06:00 10/04/17 05:59 Pantoprazole (Protonix) 80 mg DAILY IVP 09/04/17 09:00 10/04/17 08:59 09/04/17 08:33 Pentoxifylline (TRENtal) 400 mg THREE TIMES A DAY ORAL 09/04/17 09:00 10/04/17 08:59 09/04/17 08:34 Propranolol HCl (Inderal) 20 mg QID ORAL 09/04/17 09:00 10/04/17 08:59 09/04/17 08:36 Thiamine HCl (Vitamin B1) 100 mg DAILY ORAL 09/04/17 09:00 10/04/17 08:59 09/04/17 08:34 Tramadol HCl (Ultram) 50 mg Q6H PRN ORAL moderate pain 09/04/17 12:45 09/11/17 06:44 GI: Plan Problems: (1) Cirrhosis (2) Pain (3) Ascites (4) ETOH abuse (5) Esophageal varices determined by endoscopy (6) GI bleed (7) Anemia Plan 1. Prior history of esophageal banding with scar tissue in the distal esophagus without any significant large varices at this time. 2. Gastritis, status post biopsy. 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 s/p paracentesis yielding 5L of fluid paracentesis low sodium diet dc iron supplements Aldactone, Lasix MVI/folate prn transfusions ppi fu labs Discussed with Dr. Weber. Thank you for this patient referral, we will follow. The patient was seen and examined at bedside and all new and available data was reviewed in the patients chart. I agree with the above findings, impression and plan. (Patient seen earlier today. Signature stamp does not reflect patient encounter time.). - MD [facility]May[facility]Sneha VACUUM CASTER Sep 04, 2017 12:59
[2017-09-04] MEDS ORDERED: Lidocaine 1% MPF 10mg/ml 5ml INJ ONE (13:00)
[2017-09-04] MEDS ORDERED: Lidocaine 1% Plain 30 ml INJ ONE (16:15)
[2017-09-05 00:36] VITALS: BP 102/54
[2017-09-05] MEDS: Morphine Sulfate 4mg/ml Inj IVP PRN ×2 (02:12→08:01)
--- NOTE | 2017-09-05 04:15 | History and Physical Report ---
DATE OF ADMISSION: 09/04/2017 HISTORY OF PRESENT ILLNESS: The patient is admitted for ascites. The patient may need paracentesis. In the past he has had recurrent hospitalizations for the same issue. The patient noted to have increased abdominal distention. The patient also has had blood in the stool. The patient also has pitting edema of the lower extremity. The patient also has elevated LFTs, malnutrition, has cirrhosis and may need paracentesis. GI has been consulted. PAST MEDICAL HISTORY: Iron-deficiency anemia. The patient also has past medical history significant for cirrhosis, GERD, esophageal varices, and anemia. PAST SURGICAL HISTORY: Positive for esophageal banding in the past, uncertain. ALLERGIES: No known allergies. MEDICATIONS: Protonix, Inderal and Lasix. FAMILY HISTORY: Noncontributory. SOCIAL HISTORY: Denies history of drug abuse. No history of smoking. Does have history of alcohol abuse. REVIEW OF SYSTEMS: HEENT: Denies headaches. RESPIRATORY: Denies shortness of breath. Denies cough. CARDIOVASCULAR: Denies chest pain. GASTROINTESTINAL: Denies nausea, vomiting, or diarrhea. He does have abdominal pain . EXTREMITIES: Right leg edema. CENTRAL NERVOUS SYSTEM: Denies change in vision or speech pattern. PHYSICAL EXAMINATION: VITAL SIGNS: Temperature 97.1 degrees, pulse is 72, and blood pressure 96/55. HEENT: PERRLA. NECK: Supple. No lymphadenopathy. CHEST: Clear to auscultation. CARDIOVASCULAR: Regular rate and rhythm. ABDOMEN: With ascites fluid, distended and . The patient denies shortness of breath. Denies any acute distress at this point. Positive bowel sounds. EXTREMITIES: 2+ edema. NEUROLOGIC: Reflexes equal on both sides. There is generalized weakness. Cranial nerves II through XII intact. LABORATORY AND DIAGNOSTIC DATA: WBC of 7, hemoglobin 9.5 and platelets of 111. Sodium 137, potassium of 3.8, BUN of 18, creatinine of 0.1 and glucose of 101. ASSESSMENT AND PLAN: Abdominal pain associated with ascites, distended abdomen, cirrhosis. Dr. Weber, Dr. Modi, and Dr. Pacheco has been consulted for pain management and for further management of cirrhosis as well as for the fluid balance. Dr. Modi will be in-charge of the fluid management for this patient and cirrhosis. Ali Naseem Fang DR: AIDEN JOB#: [id number] CC:
[2017-09-05 04:25] VITALS: BP 109/65
--- NOTE | 2017-09-05 06:54 | General Progress Note ---
Assessment/Plan Problem List: (1) Ascites ICD Codes: R18.8 - Other ascites SNOMED: 209314659 Qualifiers: Qualified Codes: K70.31 - Alcoholic cirrhosis of liver with ascites (2) Cirrhosis ICD Codes: K74.60 - Unspecified cirrhosis of liver SNOMED: 53876320 Qualifiers: Qualified Codes: K70.31 - Alcoholic cirrhosis of liver with ascites (3) ETOH abuse ICD Codes: F10.10 - Alcohol abuse, uncomplicated SNOMED: 71654960 (4) GI bleed ICD Codes: K92.2 - Gastrointestinal hemorrhage, unspecified SNOMED: 76816350 (5) Esophageal varices determined by endoscopy ICD Codes: I85.00 - Esophageal varices without bleeding SNOMED: 71666048, 004511914 (6) Pain Status: progressing Assessment/Plan abdominal pain cirrhosis ascites paracentesis per gi gi bleed moniter for gi bleeding etoh abuse Subjective Allergies: Coded Allergies: NO KNOWN ALLERGIES (Verified Allergy, Unknown, 01/25/17) Subjective adominal pain Objective Last 24 Hour Vital Signs Date Time Temp Pulse Resp B/P (MAP) Pulse Ox O2 Delivery O2 Flow Rate FiO2 09/05/17 04:25 98.4 77 18 109/65 95 98.4 09/05/17 00:36 97.5 66 17 102/54 94 97.5 09/04/17 21:00 69 106/56 09/04/17 20:12 97.8 69 15 106/56 95 97.8 09/04/17 17:29 96/55 09/04/17 17:28 72 96/55 09/04/17 17:27 97.1 72 96/55 95 Room Air 97.1 09/04/17 13:20 110/66 09/04/17 13:16 59 110/66 09/04/17 12:00 97.2 59 18 110/66 97 Room Air 97.2 09/04/17 08:44 97.7 91 20 134/72 98 Room Air 97.7 09/04/17 08:36 91 134/72 09/04/17 08:34 134/72 Intake and Output 09/04/17 09/05/17 19:00 07:00 Intake Total 480 ml 360 ml Balance 480 ml 360 ml Intake Oral 480 ml 360 ml # Voids 2 2 Height (Feet): 5 Height (Inches): 7.00 Weight (Pounds): 257 Cardiovascular: normal rate Abdomen: tender Etta Fang MD Sep 05, 2017 06:54
[2017-09-05 08:00] VITALS: BP 116/63
--- NOTE | 2017-09-05 08:26 | Diagnostic Imaging Report ---
Indications: Ascites Technique: Ultrasound used to localize optimal puncture site. Sterile prepping and draping right lower quadrant. Local anesthesia with 1% lidocaine. Under real-time ultrasound guidance, puncture peritoneal space using paracentesis needle. Stylet removed. Catheter placed to vacuum bottle suction. Total 5200 liters of fluid aspirated. Patient tolerated procedure well, without immediate complication. Findings: Followup sonography demonstrates complete resolution of peritoneal fluid. Impression: Successful ultrasound-guided paracentesis, yielding 5200 liters of fluid
[2017-09-05] MEDS: Pantoprazole Inj IVP SCH (08:32)
[2017-09-05] MEDS: Propranolol 10mg tab ORAL SCH ×3 (08:32→18:00)
[2017-09-05] MEDS: Thiamine 100mg tab ORAL SCH (08:33)
[2017-09-05] MEDS ORDERED: Spironolactone 25mg tab ORAL SCH (09:00)
[2017-09-05 09:41] LABS: ALANINE AMINOTRANSFERASE 73 U/L (12-78); ALBUMIN 1.8 G/DL (3.4-5.0); ALBUMIN/GLOBULIN RATIO 0.3 (1.0-2.7); ALKALINE PHOSPHATASE 164 U/L (46-116); ANION GAP 7 mmol/L (5-15); ASPARTATE AMINO TRANSFERASE 176 U/L (15-37); BLOOD UREA NITROGEN 20 mg/dL (7-18); CALCIUM 7.6 MG/DL (8.5-10.1); CARBON DIOXIDE 25 MMOL/L (21-32); CHLORIDE 104 MMOL/L (98-107); CREATININE 0.9 MG/DL (0.55-1.30); POTASSIUM 3.9 MMOL/L (3.5-5.1); SODIUM 136 MMOL/L (136-145)
[2017-09-05 09:53] LABS: BASOPHILS % (AUTO) 0.6 % (0.0-2.0); HEMATOCRIT 33.3 % (42.0-52.0); HEMOGLOBIN 9.5 G/DL (14.2-18.0); LYMPHOCYTES % (AUTO) 13.2 % (20.0-45.0); MEAN CORPUSCULAR VOLUME 80 FL (80-99); MONOCYTES % (AUTO) 7.5 % (1.0-10.0); NEUTROPHILS % (AUTO) 75.8 % (45.0-75.0); PLATELET COUNT 123 K/UL (150-450); RED BLOOD COUNT 4.14 M/UL (4.70-6.10); RED CELL DISTRIBUTION WIDTH 22.7 % (11.6-14.8); WHITE BLOOD COUNT 6.9 K/UL (4.8-10.8)
[2017-09-05 10:15] LABS: BILIRUBIN,DIRECT 2.9 MG/DL (0.0-0.3)
--- NOTE | 2017-09-05 10:51 | GI Progress Note ---
Assessment/Plan Problems: (1) Pain (2) Esophageal varices determined by endoscopy ICD Codes: I85.00 - Esophageal varices without bleeding SNOMED: 44289396, 698417461 (3) ETOH abuse ICD Codes: F10.10 - Alcohol abuse, uncomplicated SNOMED: 05290446 (4) Cirrhosis ICD Codes: K74.60 - Unspecified cirrhosis of liver SNOMED: 79125241 Qualifiers: Qualified Codes: K70.31 - Alcoholic cirrhosis of liver with ascites (5) Ascites ICD Codes: R18.8 - Other ascites SNOMED: 532960989 Qualifiers: Qualified Codes: K70.31 - Alcoholic cirrhosis of liver with ascites (6) Anemia ICD Codes: D64.9 - Anemia, unspecified SNOMED: 372077049 (7) GI bleed ICD Codes: K92.2 - Gastrointestinal hemorrhage, unspecified SNOMED: 27815014 Status: stable Status Narrative Discussed with Dr. Weber. Assessment/Plan 1. Prior history of esophageal banding with scar tissue in the distal esophagus without any significant large varices at this time. 2. Gastritis, status post biopsy. 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 s/p paracentesis yielding 5.2L of fluid yesterday okay for DC per GI standpoint low sodium diet dc iron supplements Aldactone, Lasix MVI/folate prn transfusions ppi fu labs patient will need GI referral to manage his cirrhosis The patient was seen and examined at bedside and all new and available data was reviewed in the patients chart. I agree with the above findings, impression and plan. (Patient seen earlier today. Signature stamp does not reflect patient encounter time.). - Ricardo Weber MD Subjective Gastrointestinal/Abdominal: Reports: abdomen distended, abdominal pain Objective Last 24 Hour Vital Signs Date Time Temp Pulse Resp B/P (MAP) Pulse Ox O2 Delivery O2 Flow Rate FiO2 09/05/17 08:32 77 116/63 09/05/17 08:32 116/63 09/05/17 08:00 99.3 77 18 116/63 96 99.3 09/05/17 04:25 98.4 77 18 109/65 95 98.4 09/05/17 00:36 97.5 66 17 102/54 94 97.5 09/04/17 21:00 69 106/56 09/04/17 20:12 97.8 69 15 106/56 95 97.8 09/04/17 17:29 96/55 09/04/17 17:28 72 96/55 09/04/17 17:27 97.1 72 96/55 95 Room Air 97.1 09/04/17 13:20 110/66 09/04/17 13:16 59 110/66 09/04/17 12:00 97.2 59 18 110/66 97 Room Air 97.2 Intake and Output 09/04/17 09/05/17 19:00 07:00 Intake Total 480 ml 360 ml Balance 480 ml 360 ml Intake Oral 480 ml 360 ml # Voids 2 2 Laboratory Tests Test 09/05/17 09:05 White Blood Count 6.9 K/UL (4.8-10.8) Red Blood Count 4.14 M/UL (4.70-6.10) L Hemoglobin 9.5 G/DL (14.2-18.0) L Hematocrit 33.3 % (42.0-52.0) L Mean Corpuscular Volume 80 FL (80-99) Mean Corpuscular Hemoglobin 23.0 PG (27.0-31.0) L Mean Corpuscular Hemoglobin Concent 28.6 G/DL (32.0-36.0) L Red Cell Distribution Width 22.7 % (11.6-14.8) H Platelet Count 123 K/UL (150-450) L Mean Platelet Volume 8.3 FL (6.5-10.1) Neutrophils (%) (Auto) 75.8 % (45.0-75.0) H Lymphocytes (%) (Auto) 13.2 % (20.0-45.0) L Monocytes (%) (Auto) 7.5 % (1.0-10.0) Eosinophils (%) (Auto) 3.0 % (0.0-3.0) Basophils (%) (Auto) 0.6 % (0.0-2.0) Sodium Level 136 MMOL/L (136-145) Potassium Level 3.9 MMOL/L (3.5-5.1) Chloride Level 104 MMOL/L (98-107) Carbon Dioxide Level 25 MMOL/L (21-32) Anion Gap 7 mmol/L (5-15) Blood Urea Nitrogen 20 mg/dL (7-18) H Creatinine 0.9 MG/DL (0.55-1.30) Estimat Glomerular Filtration Rate > 60 mL/min (>60) Glucose Level 105 MG/DL (74-106) Calcium Level 7.6 MG/DL (8.5-10.1) L Total Bilirubin 4.0 MG/DL (0.2-1.0) H Direct Bilirubin 2.9 MG/DL (0.0-0.3) H Aspartate Amino Transf (AST/SGOT) 176 U/L (15-37) H Alanine Aminotransferase (ALT/SGPT) 73 U/L (12-78) Alkaline Phosphatase 164 U/L (46-116) H Total Protein 7.2 G/DL (6.4-8.2) Albumin 1.8 G/DL (3.4-5.0) L Globulin 5.4 g/dL Albumin/Globulin Ratio 0.3 (1.0-2.7) L Height (Feet): 5 Height (Inches): 7.00 Weight (Pounds): 257 General Appearance: WD/WN, no apparent distress, alert Cardiovascular: normal rate Respiratory/Chest: normal breath sounds, no respiratory distress Abdominal Exam: normal bowel sounds, non tender, soft Extremities: normal range of motion, non-tender Aj Ridley NP Sep 05, 2017 10:51
[2017-09-05 11:49] VITALS: BP 94/51
[2017-09-05 16:00] VITALS: BP 98/52
[2017-09-05 18:00] VITALS: BP 98/52
--- NOTE | 2017-09-06 09:29 | Discharge Summary ---
Discharge Summary Discharge Summary _ DATE OF ADMISSION: 09/04/2017 DATE OF DISCHARGE: 09/05/2017. Patient signed AGAINST MEDICAL ADVICE REASON FOR ADMISSION: 47 years old male with past medical history significant for recurrent ascites, requiring paracentesis, cirrhosis, GI bleeding, esophageal varices , anemia, ETOH abuse, hypertension, presented to emergency department complaining of abdominal pain and distention for 3 days. Patient reported that fluid was building up fast. He also reported abdominal pain ,sharp ,nonradiating ,10 out of 10 on a scale 1-10. He denied fever and chills. He denied chest pain or shortness of breath. He denied nausea and vomiting. Upon evaluation in emergency department, hemoglobin 9.5, hematocrit 30.9, no leukocytosis, platelets 111 ,stable renal parameters and electrolytes. Total bili 3.5, direct bili 2.9 ,AST 170, albumin 1.7 ,INR 1.4 . Patient admitted with diagnosis of ascites, cirrhosis, transaminitis, abdominal pain. CONSULTANTS: GI specialist Dr Weber Pain specialist Dr. Pacheco [facility] COURSE: Patient admitted to Med Surg floor. GI consult was requested. Patient undergone paracentesis , which yielded 5.2 L of ascitic fluid. Patient with a prior history of esophageal banding with a scar tissue in the distal esophagus without any significant large varices at that time. He also had evidence of gastritis on previous endoscopy. Patient was on low-sodium diet. Patient was started on Aldactone and Lasix. Patient was continued with multivitamin and folate. Hemoglobin and hematocrit were closely monitored with goal to keep hemoglobin above 7. Patient was on PPI. Per GI specialist, patient will need a GI referral from primary care provider to manage cirrhosis. GI specialist cleared patient for discharge. Pain specialist closely followed . Patient was addressed and controlled. Patient clinically improved .abdominal pain resolved Patient wanted to go home. Call was placed to the primary care provider. Patient decided to sign AGAINST MEDICAL ADVICE. The risks and consequences of signing AGAINST MEDICAL ADVICE were discussed with the patient. Patient verbalized understanding, signed consent and left. FINAL DIAGNOSES: Ascites Status post paracentesis ( yielding 5.2 L fluid of ascitic fluid) Cirrhosis Transaminitis Abdominal pain Esophageal varices , as determined by endoscopy ETOH abuse Anemia History fo GI bleeding I have been assigned to dictate discharge summary for this account. I was not involved in the patient's management. Merna Zamudio NP Sep 06, 2017 09:29
== END 2017-09-05 23:08 | disposition left against medical advice (07) | DRG 280 ==
LOC: EMR 09-04 00:19 → 3E 09-04 00:42 → EDBEDREQ 09-04 00:54
PROC: 0W9G3ZZ Drainage of Peritoneal Cavity, Percutaneous Approach (ICD-10-PCS; principal; 2017-09-04)
DX: K70.31 Alcoholic cirrhosis of liver with ascites (principal); E46 Unspecified protein-calorie malnutrition; I85.10 Secondary esophageal varices without bleeding; D64.9 Anemia, unspecified; R74.0 Nonspecific elevation of levels of transaminase and lactic acid dehydrogenase [LDH]; R10.9 Unspecified abdominal pain; I10 Essential (primary) hypertension; K21.9 Gastro-esophageal reflux disease without esophagitis; F10.10 Alcohol abuse, uncomplicated
CPT/HCPCS: 36415; 76942; 80048; 80053; 81003; 82248; 83690; 85025; 85610; 85730; 87081; 99285

== ENCOUNTER 2017-10-31 20:46 | Inpatient (IN) | payer MEDICAID ==
[~2017-10-31] VITALS: Ht 175.3 cm; Wt 137.0 kg
[2017-10-31 22:00] VITALS: BP 137/78
[2017-10-31 22:32] LABS: HEMATOCRIT 24.2 % (42.0-52.0); HEMOGLOBIN 7.5 G/DL (14.2-18.0); MEAN CORPUSCULAR VOLUME 90 FL (80-99); PLATELET COUNT 120 K/UL (150-450); RED CELL DISTRIBUTION WIDTH 23.4 % (11.6-14.8); WHITE BLOOD COUNT 6.5 K/UL (4.8-10.8)
[2017-10-31 22:36] LABS: APPEARANCE,URINE SLIGHTLY CLOUDY; BILIRUBIN, URINE 3+ (NEGATIVE); COLOR,URINE BROWN; GLUCOSE, URINE (UA) NEGATIVE (NEGATIVE); KETONES,URINE 1+ (NEGATIVE); LEUKOCYTE ESTERASE ,URINE 3+ (NEGATIVE); NITRITE,URINE POSITIVE (NEGATIVE); PH,URINE 6.5 (4.5-8.0); PROTEIN,URINE 2+ (NEGATIVE); UROBILINOGEN,URINE 12 MG/DL (0.0-1.0)
[2017-10-31 22:38] LABS: ANION GAP 12 mmol/L (5-15); BLOOD UREA NITROGEN 18 mg/dL (7-18); CALCIUM 7.2 MG/DL (8.5-10.1); CARBON DIOXIDE 17 MMOL/L (21-32); CHLORIDE 103 MMOL/L (98-107); CREATININE 0.8 MG/DL (0.55-1.30); POTASSIUM 3.4 MMOL/L (3.5-5.1); SODIUM 132 MMOL/L (136-145)
[2017-10-31 22:57] LABS: ALANINE AMINOTRANSFERASE 45 U/L (12-78); ALBUMIN/GLOBULIN RATIO 0.4 (1.0-2.7); ALKALINE PHOSPHATASE 215 U/L (46-116); ASPARTATE AMINO TRANSFERASE 114 U/L (15-37); BILIRUBIN,TOTAL 21.8 MG/DL (0.2-1.0)
[2017-10-31 22:59] LABS: BILIRUBIN,DIRECT 15.2 MG/DL (0.0-0.3)
[2017-10-31] MEDS ORDERED: cefTRIAXone 1 GM in NS 55 ML IVPB ONE (23:00)
[2017-11-01] VITALS (9 sets, daily range): BP systolic 119–138; BP diastolic 53–83
[2017-11-01] MEDS ORDERED: UNOBMED (03:08)
[2017-11-01] MEDS ORDERED: D5 1/2NS 1,000 ML IV SCH (06:30)
[2017-11-01] MEDS ORDERED: Mylanta II UD 30ml ORAL PRN (07:30)
[2017-11-01] MEDS ORDERED: Nitroglycerin Subl 0.4mg tab SL PRN (07:30)
[2017-11-01 07:35] LABS: HEMATOCRIT 23.7 % (42.0-52.0); HEMOGLOBIN 7.1 G/DL (14.2-18.0); MEAN CORPUSCULAR VOLUME 88 FL (80-99); PLATELET COUNT 95 K/UL (150-450); RED BLOOD COUNT 2.71 M/UL (4.70-6.10); RED CELL DISTRIBUTION WIDTH 23.7 % (11.6-14.8); WHITE BLOOD COUNT 4.6 K/UL (4.8-10.8)
[2017-11-01] MEDS: D5 1/2NS 1,000 ML IV SCH ×2 (07:42→20:46)
[2017-11-01 07:46] LABS: ANION GAP 9 mmol/L (5-15); BLOOD UREA NITROGEN 18 mg/dL (7-18); CALCIUM 7.9 MG/DL (8.5-10.1); CARBON DIOXIDE 18 MMOL/L (21-32); CHLORIDE 105 MMOL/L (98-107); CREATININE 0.7 MG/DL (0.55-1.30); POTASSIUM 3.8 MMOL/L (3.5-5.1); SODIUM 132 MMOL/L (136-145)
[2017-11-01] MEDS ORDERED: Lidocaine 1% Plain 30 ml INJ SCH (09:00)
[2017-11-01] MEDS ORDERED: Phytonadione 10 MG in D5W 55 ML IVPB SCH (09:00)
[2017-11-01] MEDS: Morphine Sulfate 2mg/ml Inj(IV/IM USE ONLY) IVP PRN ×2 (09:21→20:45)
--- NOTE | 2017-11-01 10:37 | General Progress Note ---
Assessment/Plan Problem List: (1) Coagulopathy ICD Codes: D68.9 - Coagulation defect, unspecified SNOMED: 39840728 (2) Ascites ICD Codes: R18.8 - Other ascites SNOMED: 907478210 (3) ETOH abuse ICD Codes: F10.10 - Alcohol abuse, uncomplicated SNOMED: 44713474 (4) Esophageal varices determined by endoscopy ICD Codes: I85.00 - Esophageal varices without bleeding SNOMED: 93228750, 225217119 (5) Anemia ICD Codes: D64.9 - Anemia, unspecified SNOMED: 670088264 (6) Cirrhosis ICD Codes: K74.60 - Unspecified cirrhosis of liver SNOMED: 17104950 Assessment/Plan vit K fu labs one unit of PRBC pending paracentesis diuretics Subjective ROS Limited/Unobtainable: Yes Allergies: Coded Allergies: NO KNOWN ALLERGIES (Verified Allergy, Unknown, 01/25/17) Objective Last 24 Hour Vital Signs Date Time Temp Pulse Resp B/P (MAP) Pulse Ox O2 Delivery O2 Flow Rate FiO2 11/01/17 09:00 Room Air 11/01/17 08:00 98.1 89 20 130/82 (98) 98 98.1 11/01/17 04:33 Room Air 11/01/17 03:30 97.3 95 20 130/78 (95) 100 97.3 11/01/17 03:25 98.4 92 16 138/53 96 Room Air 98.4 11/01/17 02:00 98.4 92 16 138/53 96 Room Air 98.4 11/01/17 00:00 98.4 92 16 126/53 96 Room Air 98.4 10/31/17 22:00 98.4 92 16 137/78 96 Room Air 98.4 10/31/17 21:11 98.5 115 16 134/64 95 Room Air 98.4 Laboratory Tests 10/31/17 22:00: White Blood Count 6.5, Red Blood Count 2.70L, Hemoglobin 7.5L, Hematocrit 24.2L , Mean Corpuscular Volume 90, Mean Corpuscular Hemoglobin 27.6, Mean Corpuscular Hemoglobin Concent 30.8L, Red Cell Distribution Width 23.4H, Platelet Count 120L, Mean Platelet Volume 8.3, Neutrophils (%) (Auto) , Lymphocytes (%) (Auto) , Monocytes (%) (Auto) , Eosinophils (%) (Auto) , Basophils (%) (Auto) , Differential Total Cells Counted 100, Neutrophils % ( Manual) 72, Lymphocytes % (Manual) 16L, Monocytes % (Manual) 9, Eosinophils % ( Manual) 2, Basophils % (Manual) 1, Band Neutrophils 0, Platelet Estimate DecreasedL, Platelet Morphology Normal, Hypochromasia 1+, Anisocytosis 1+, Prothrombin Time 20.4H, Prothromb Time International Ratio 2.0H, Activated Partial Thromboplast Time 50H, Urine Color Brown, Urine Appearance Slightly cloudy, Urine pH 6.5, Urine Specific [place] 1.015, Urine Protein 2+H, Urine Glucose (UA) Negative, Urine Ketones 1+H, Urine Occult Blood 1+H, Urine Nitrite PositiveH, Urine Bilirubin 3+H, Urine Ictotest Positive, Urine Urobilinogen 12H , Urine Leukocyte Esterase 3+H, Urine RBC 2-4H, Urine WBC 5-10H, Urine Squamous Epithelial Cells None, Urine Amorphous Sediment ModerateH, Urine Bacteria ManyH , Urine Yeast FewH, Sodium Level 132L, Potassium Level 3.4L, Chloride Level 103 , Carbon Dioxide Level 17L, Anion Gap 12, Blood Urea Nitrogen 18, Creatinine 0.8 , Estimat Glomerular Filtration Rate > 60, Glucose Level 132H, Calcium Level 7.2L, Total Bilirubin 21.8H, Direct Bilirubin 15.2H, Aspartate Amino Transf (AST /SGOT) 114H, Alanine Aminotransferase (ALT/SGPT) 45, Alkaline Phosphatase 215H, Troponin I 0.005, Total Protein 7.3, Albumin 2.0L, Globulin 5.3, Albumin/ Globulin Ratio 0.4L, Lipase 413H 11/01/17 06:35: White Blood Count 4.6L, Red Blood Count 2.71L, Hemoglobin 7.1L, Hematocrit 23.7L , Mean Corpuscular Volume 88, Mean Corpuscular Hemoglobin 26.3L, Mean Corpuscular Hemoglobin Concent 30.0L, Red Cell Distribution Width 23.7H, Platelet Count 95L, Mean Platelet Volume 6.3L, Neutrophils (%) (Auto) , Lymphocytes (%) (Auto) , Monocytes (%) (Auto) , Eosinophils (%) (Auto) , Basophils (%) (Auto) , Differential Total Cells Counted 100, Neutrophils % ( Manual) 66, Lymphocytes % (Manual) 16L, Monocytes % (Manual) 14H, Eosinophils % (Manual) 4H, Basophils % (Manual) 0, Band Neutrophils 0, Platelet Estimate DecreasedL, Platelet Morphology Normal, Hypochromasia 2+, Anisocytosis 2+, Sodium Level 132L, Potassium Level 3.8, Chloride Level 105, Carbon Dioxide Level 18L, Anion Gap 9, Blood Urea Nitrogen 18, Creatinine 0.7, Estimat Glomerular Filtration Rate > 60, Glucose Level 112H, Calcium Level 7.9L, Polychromasia 1+ Height (Feet): 5 Height (Inches): 9.00 Weight (Pounds): 302 General Appearance: no apparent distress EENT: normal ENT inspection Neck: supple Cardiovascular: normal rate Respiratory/Chest: decreased breath sounds Abdomen: normal bowel sounds, non tender, soft, distended Extremities: non-tender Ricardo Weber MD Nov 01, 2017 10:37
[2017-11-01] MEDS ORDERED: Phytonadione 1 MG in D5W 55 ML IVPB SCH (11:30)
--- NOTE | 2017-11-01 13:06 | Consultation ---
History of Present Illness General Date patient seen: Nov 01, 2017 Chief Complaint: Abdominal Pain Present Illness HPI 47 year old male with hx of ETOH, chronic liver disease admitted for distended abdomen. Allergies: Coded Allergies: NO KNOWN ALLERGIES (Verified Allergy, Unknown, 01/25/17) Medication History Scheduled Ferrous Sulfate* (Ferrous Sulfate*), 325 MG ORAL THREE TIMES A DAY, (Reported) Furosemide* (Lasix*), 20 MG ORAL DAILY, (Reported) Ibuprofen* (Motrin*), 600 MG ORAL THREE TIMES A DAY Levofloxacin* (Levaquin*), 500 MG ORAL DAILY Pantoprazole* (Protonix*), 40 MG ORAL DAILY, (Reported) Pentoxifylline* (Trental*), 400 MG ORAL THREE TIMES A DAY, (Reported) Propranolol Hcl* (Inderal*), 20 MG ORAL QID Silver Sulfadiazine (Silvadene), 20 GM TP BID Thiamine Hcl* (Vitamin B-1*), 100 MG ORAL DAILY Scheduled PRN Tramadol Hcl* (Ultram*), 50 MG ORAL Q6H PRN for For Pain Miscellaneous Medications Unable to Obtain Medications (Unable To Obtain Meds), (Reported) Patient History Healthcare decision maker Resuscitation status Advanced Directive on File Past Medical/Surgical History Past Medical/Surgical History: (1) ETOH abuse (2) Coagulopathy (3) Ascites (4) Cirrhosis Review of Systems All Other Systems: negative except mentioned in HPI Physical Exam General Appearance: WD/WN Lines, tubes and drains: peripheral HEENT: normocephalic Neck: non-tender, normal alignment Respiratory/Chest: chest wall non-tender, lungs clear Breasts: no masses Cardiovascular/Chest: normal peripheral pulses Abdomen: normal bowel sounds Last 24 Hour Vital Signs Date Time Temp Pulse Resp B/P (MAP) Pulse Ox O2 Delivery O2 Flow Rate FiO2 11/01/17 12:15 97.5 91 20 121/73 (89) 98 97.5 11/01/17 12:00 97.6 95 19 119/76 (90) 99 97.6 11/01/17 09:00 Room Air 11/01/17 08:00 98.1 89 20 130/82 (98) 98 98.1 11/01/17 04:33 Room Air 11/01/17 03:30 97.3 95 20 130/78 (95) 100 97.3 11/01/17 03:25 98.4 92 16 138/53 96 Room Air 98.4 11/01/17 02:00 98.4 92 16 138/53 96 Room Air 98.4 11/01/17 00:00 98.4 92 16 126/53 96 Room Air 98.4 10/31/17 22:00 98.4 92 16 137/78 96 Room Air 98.4 10/31/17 21:11 98.5 115 16 134/64 95 Room Air 98.4 Laboratory Tests Test 10/31/17 22:00 11/01/17 06:35 White Blood Count 6.5 K/UL (4.8-10.8) 4.6 K/UL (4.8-10.8) L Red Blood Count 2.70 M/UL (4.70-6.10) L 2.71 M/UL (4.70-6.10) L Hemoglobin 7.5 G/DL (14.2-18.0) L 7.1 G/DL (14.2-18.0) L Hematocrit 24.2 % (42.0-52.0) L 23.7 % (42.0-52.0) L Mean Corpuscular Volume 90 FL (80-99) 88 FL (80-99) Mean Corpuscular Hemoglobin 27.6 PG (27.0-31.0) 26.3 PG (27.0-31.0) L Mean Corpuscular Hemoglobin Concent 30.8 G/DL (32.0-36.0) L 30.0 G/DL (32.0-36.0) L Red Cell Distribution Width 23.4 % (11.6-14.8) H 23.7 % (11.6-14.8) H Platelet Count 120 K/UL (150-450) L 95 K/UL (150-450) L Mean Platelet Volume 8.3 FL (6.5-10.1) 6.3 FL (6.5-10.1) L Neutrophils (%) (Auto) % (45.0-75.0) % (45.0-75.0) Lymphocytes (%) (Auto) % (20.0-45.0) % (20.0-45.0) Monocytes (%) (Auto) % (1.0-10.0) % (1.0-10.0) Eosinophils (%) (Auto) % (0.0-3.0) % (0.0-3.0) Basophils (%) (Auto) % (0.0-2.0) % (0.0-2.0) Differential Total Cells Counted 100 100 Neutrophils % (Manual) 72 % (45-75) 66 % (45-75) Lymphocytes % (Manual) 16 % (20-45) L 16 % (20-45) L Monocytes % (Manual) 9 % (1-10) 14 % (1-10) H Eosinophils % (Manual) 2 % (0-3) 4 % (0-3) H Basophils % (Manual) 1 % (0-2) 0 % (0-2) Band Neutrophils 0 % (0-8) 0 % (0-8) Platelet Estimate Decreased L Decreased L Platelet Morphology Normal Normal Hypochromasia 1+ 2+ Anisocytosis 1+ 2+ Prothrombin Time 20.4 SEC (9.30-11.50) H Prothromb Time International Ratio 2.0 (0.9-1.1) H Activated Partial Thromboplast Time 50 SEC (23-33) H Urine Color Brown Urine Appearance Slightly cloudy Urine pH 6.5 (4.5-8.0) Urine Specific [place] 1.015 (1.005-1.035) Urine Protein 2+ (NEGATIVE) H Urine Glucose (UA) Negative (NEGATIVE) Urine Ketones 1+ (NEGATIVE) H Urine Occult Blood 1+ (NEGATIVE) H Urine Nitrite Positive (NEGATIVE) H Urine Bilirubin 3+ (NEGATIVE) H Urine Ictotest Positive (NEGATIVE) Urine Urobilinogen 12 MG/DL (0.0-1.0) H Urine Leukocyte Esterase 3+ (NEGATIVE) H Urine RBC 2-4 /HPF (0 - 0) H Urine WBC 5-10 /HPF (0 - 0) H Urine Squamous Epithelial Cells None /LPF (NONE/OCC) Urine Amorphous Sediment Moderate /LPF (NONE) H Urine Bacteria Many /HPF (NONE) H Urine Yeast Few /HPF (NONE) H Sodium Level 132 MMOL/L (136-145) L 132 MMOL/L (136-145) L Potassium Level 3.4 MMOL/L (3.5-5.1) L 3.8 MMOL/L (3.5-5.1) Chloride Level 103 MMOL/L (98-107) 105 MMOL/L (98-107) Carbon Dioxide Level 17 MMOL/L (21-32) L 18 MMOL/L (21-32) L Anion Gap 12 mmol/L (5-15) 9 mmol/L (5-15) Blood Urea Nitrogen 18 mg/dL (7-18) 18 mg/dL (7-18) Creatinine 0.8 MG/DL (0.55-1.30) 0.7 MG/DL (0.55-1.30) Estimat Glomerular Filtration Rate > 60 mL/min (>60) > 60 mL/min (>60) Glucose Level 132 MG/DL (74-106) H 112 MG/DL (74-106) H Calcium Level 7.2 MG/DL (8.5-10.1) L 7.9 MG/DL (8.5-10.1) L Total Bilirubin 21.8 MG/DL (0.2-1.0) H Direct Bilirubin 15.2 MG/DL (0.0-0.3) H Aspartate Amino Transf (AST/SGOT) 114 U/L (15-37) H Alanine Aminotransferase (ALT/SGPT) 45 U/L (12-78) Alkaline Phosphatase 215 U/L (46-116) H Troponin I 0.005 ng/mL (0.000-0.056) Total Protein 7.3 G/DL (6.4-8.2) Albumin 2.0 G/DL (3.4-5.0) L Globulin 5.3 g/dL Albumin/Globulin Ratio 0.4 (1.0-2.7) L Lipase 413 U/L (73-393) H Polychromasia 1+ Height (Feet): 5 Height (Inches): 9.00 Weight (Pounds): 302 Medications Current Medications Medications (Trade) Dose Ordered Sig/Nikhil Route PRN Reason Start Time Stop Time Status Last Admin Dose Admin Acetaminophen (Tylenol) 650 mg Q4H PRN ORAL fever 11/01/17 07:30 12/01/17 07:29 Al Hydroxide/Mg Hydroxide (Mylanta II) 30 ml Q6H PRN ORAL dyspepsia 11/01/17 07:30 12/01/17 07:29 Dextrose (Dextrose 50%) 25 ml STAT PRN IV Hypoglycemia 11/01/17 07:45 12/01/17 07:44 Dextrose (Dextrose 50%) 50 ml STAT PRN IV Hypoglycemia 11/01/17 07:45 12/01/17 07:44 Dextrose/Sodium Chloride 1,000 ml @ 75 mls/hr [id number] IV 11/01/17 07:30 12/01/17 07:29 11/01/17 07:42 Diphenhydramine HCl (Benadryl) 25 mg Q6H PRN ORAL Itching/Pruritis 11/01/17 07:30 12/01/17 07:29 Furosemide (Lasix) 20 mg DAILY IV 11/02/17 10:51 12/02/17 10:50 Morphine Sulfate (Morphine Sulfate) 2 mg Q4H PRN IVP severe Pain (Pain Scale 7-10) 11/01/17 07:30 11/08/17 07:29 11/01/17 09:21 Nitroglycerin (Ntg) 0.4 mg Q5M X 3 DOSES PRN SL Prn Chest Pain 11/01/17 07:30 12/01/17 07:29 Ondansetron HCl (Zofran) 4 mg Q6H PRN IVP Nausea & Vomiting 11/01/17 07:30 12/01/17 07:29 Polyethylene Glycol (Miralax) 17 gm HSPRN PRN ORAL Constipation 11/01/17 21:00 12/01/17 20:59 Spironolactone (Aldactone) 50 mg DAILY ORAL 11/02/17 10:52 12/02/17 10:51 Temazepam (Restoril) 15 mg HSPRN PRN ORAL Insomnia 11/01/17 21:00 11/08/17 20:59 Assessment/Plan Problem List: (1) Coagulopathy ICD Codes: D68.9 - Coagulation defect, unspecified SNOMED: 32656562 (2) Ascites ICD Codes: R18.8 - Other ascites SNOMED: 484581388 (3) Cirrhosis ICD Codes: K74.60 - Unspecified cirrhosis of liver SNOMED: 10108693 (4) Anemia ICD Codes: D64.9 - Anemia, unspecified SNOMED: 971124825 Assessment/Plan vitamin K paracentesis prbc GI evaluation for liver transplant Clara Ortega MD Nov 01, 2017 13:06
--- NOTE | 2017-11-01 18:45 | History and Physical Report ---
DATE OF ADMISSION: 10/31/2017 TIME: 1 p.m. CONSULTANTS: 1. Clara Ortega M.D 2. Ricardo Weber M.D. 3. Saroj Haas M.D. CHIEF COMPLAINT: Abdominal pain, distention, cirrhosis, and edema. BRIEF HISTORY: This is a 47-year-old male, who lives at home with history of cirrhosis, abdominal distention and pain, and edema came into [facility]. He did have a paracentesis 10 days ago, but apparently became swollen again. Currently, calm in bed, slight short of breath. No complaint. PAST MEDICAL HISTORY: Hypertension, cirrhosis, and edema. PAST SURGICAL HISTORY: None. MEDICATIONS: Include Aldactone, Lasix, MiraLAX, Restoril, morphine, Zofran, and ceftriaxone x1. ALLERGIES: Denies. SOCIAL HISTORY: No smoking. Occasional alcohol. No intravenous drug abuse. FAMILY HISTORY: Noncontributory. REVIEW OF SYSTEMS: No chest pain. Slight short of breath. No nausea, vomiting, or diarrhea. PHYSICAL EXAMINATION: GENERAL: Calm in bed, oriented x3, slight short of breath. VITAL SIGNS: Show temperature is 97 degrees, pulse 91, respiratory rate 20, and blood pressure 121/73. CARDIOVASCULAR: No murmur. LUNGS: Poor air exchange. ABDOMEN: Bowel sounds distant. Abdomen is distended and soft. No guarding or rebound. EXTREMITIES: Show no cyanosis or clubbing. A 1+ edema. NEUROLOGIC: The patient moves all extremities, slightly weak. LABORATORY AND DIAGNOSTIC DATA: White count 4.6, H and H are 7.1 and 23, and platelets 95,000. BMP shows sodium 132, CO2 18, and glucose 112. Otherwise, BMP is normal. INR is 2.0. PTT is 30. Urinalysis, 3+ leukocyte esterase. ASSESSMENT: 1. Abdominal pain. 2. Cirrhosis. 3. Distention. 4. Edema. 5. Anemia. 6. Urinary tract infection. 7. Pancytopenia. PLAN: 1. Continue premeds. 2. Transfuse p.r.n. 3. Antibiotic per Infectious Disease. 4. Blood pressure control. 5. Dietary followup. 6. OT, PT, and dietary evaluation. 7. CBC and BMP in the morning. 8. needs paracentesis. 9. We will continue to follow the patient. Moises Ojeda D.O. DR: MARKOS JOB#: [id number] CC:
--- NOTE | 2017-11-01 20:11 | Consultation ---
Consult Note Consult Note DATE OF CONSULTATION: 11/01/17 HEMATOLOGY/ONCOLOGY CONSULTATION CONSULTING PHYSICIAN: Clark Cooper M.D. REQUESTING PHYSICIAN: Rusty De Leon M.D. REASON FOR CONSULTATION: Evaluation of pancytopenia as well as coagulopathy. IDENTIFICATION DATA: Dear Dr. Etta Fang, The patient is a pleasant 47-year-old male with past medical history (I have seen him before) significant for history of alcohol-induced cirrhosis, anemia, esophageal varices, has been here before as well. Here 2 mo ago, the patient's records from before in the past noted to have thrombocytopenia as well as anemia , has been heavily drinking ofr past 3 weeks, has been admitted before and had gi w/u which showed esophageal varices, had EGD with banding performed in prior , has had multiple paracentesis performed as well Hematology service was consulted for further evaluation and treatment. He now has a lower gi bleed, gi has been consulted, NOW Presents with abd pain PAST MEDICAL HISTORY: Cirrhosis, alcohol abuse, and anemia. PAST SURGICAL HISTORY: None noted. MEDICATIONS: Ferrous sulfate, pantoprazole, and Trental. ALLERGIES: No known drug allergies. REVIEW OF SYSTEMS: Constitutional: No fever, chills, or night sweats. Skin: No rashes, bumps, or itching. HEENT: No headache, hearing or vision changes. Breasts: No lumps, pain, or discharge. Pulmonary: No cough, sputum, or shortness of breath. Gastrointestinal: Some GERD symptoms. Genitourinary: No dysuria, frequency, or urgency. Musculoskeletal: No joint swelling, muscle pain , or trauma. PHYSICAL EXAMINATION: GENERAL: The patient is in no acute distress. VITAL SIGNS: reviewed PULMONARY: Decreased breath sounds. CARDIOVASCULAR: Regular rate. No S3 or S4. ABDOMEN: Soft, nontender, and nondistended. EXTREMITIES: There is 1+ edema. LABORATORY DATA: hgb 8, plt 91k, inr 1.4 ASSESSMENT AND PLAN: #. Pancytopenia. Related to history of cirrhosis, may have iron deficiency component, current wbc is wnl, but usually is low and has a history of pancytopenia related to cirrhosis, portal HTN, splenomegaly --> anemia w/u has been ordered --> transfuse to hgb >7 --> reviewed historical labs --> recommend alcohol cessation --> Gi to consult in regards to lactulose/rafaximin #. Anemia of iron deficiency - on ferrous sulfate tid, ferritin was ONLY 18 --> begin on 4 doses of iv iron #. Anemia of Gi bleed ==> gi eval #. Lower gastrointestinal bleed, occult blood is pending at this time #. Coagulopathy, likely secondary to underlying cirrhosis as well. Continue to closely monitor and administer vitamin K if the patient is bleeding. #. Esophageal varices, status post banding on prior admission --> appreciate gi recs Clark Cooper MD Nov 01, 2017 20:11
[2017-11-01] MEDS ORDERED: Miralax 17gm pkt ORAL PRN (21:00)
[2017-11-02] VITALS: BP 138/81
[2017-11-02 06:26] VITALS: BP 129/80
[2017-11-02] MEDS: Morphine Sulfate 2mg/ml Inj(IV/IM USE ONLY) IVP PRN ×2 (06:30→11:56)
[2017-11-02 07:52] LABS: HEMOGLOBIN 7.8 G/DL (14.2-18.0); MEAN CORPUSCULAR VOLUME 88 FL (80-99); PLATELET COUNT 97 K/UL (150-450); RED BLOOD COUNT 2.94 M/UL (4.70-6.10); RED CELL DISTRIBUTION WIDTH 22.2 % (11.6-14.8); WHITE BLOOD COUNT 4.7 K/UL (4.8-10.8)
[2017-11-02 07:53] LABS: INR 1.8 (0.9-1.1)
[2017-11-02 08:06] LABS: ALANINE AMINOTRANSFERASE 49 U/L (12-78); ALBUMIN 1.9 G/DL (3.4-5.0); ALBUMIN/GLOBULIN RATIO 0.4 (1.0-2.7); ALKALINE PHOSPHATASE 241 U/L (46-116); ANION GAP 7 mmol/L (5-15); ASPARTATE AMINO TRANSFERASE 128 U/L (15-37); BILIRUBIN,TOTAL 24.7 MG/DL (0.2-1.0); BLOOD UREA NITROGEN 16 mg/dL (7-18); CALCIUM 7.9 MG/DL (8.5-10.1); CARBON DIOXIDE 20 MMOL/L (21-32); CHLORIDE 104 MMOL/L (98-107); CREATININE 0.7 MG/DL (0.55-1.30); POTASSIUM 3.7 MMOL/L (3.5-5.1); SODIUM 131 MMOL/L (136-145)
[2017-11-02 08:12] VITALS: BP 131/80
--- NOTE | 2017-11-02 08:18 | General Progress Note ---
Assessment/Plan Status: stable Assessment/Plan #. Pancytopenia. Related to history of cirrhosis, may have iron deficiency component, current wbc is wnl, but usually is low and has a history of pancytopenia related to cirrhosis, portal HTN, splenomegaly. --> anemia w/u has been reviewed, will trend as needed. --> hgb goal >7, transfuse prn --> reviewed historical labs --> recommend alcohol cessation --> Gi to consult in regards to lactulose/rafaximin #. Anemia of iron deficiency - on ferrous sulfate tid, ferritin was ONLY 18 --> 11/01: begin on 4 doses of iv iron --> 11/01: 1 unit blood tx, #. Anemia of GI bleed ==> GI eval #. Lower gastrointestinal bleed, occult blood is pending at this time #. Coagulopathy, likely secondary to underlying cirrhosis as well. Continue to closely monitor and administer vitamin K if the patient is bleeding. #. Esophageal varices, status post banding on prior admission --> appreciate gi recs. The time the note was entered does not necessarily correspond to the time the patient was seen. Subjective Date patient seen: Nov 02, 2017 ROS Limited/Unobtainable: Yes Hematologic/Lymphatic: Reports: anemia Allergies: Coded Allergies: NO KNOWN ALLERGIES (Verified Allergy, Unknown, 01/25/17) All Systems: reviewed and negative except above Subjective Pt awake and alert. S/P 1 unit blood tx, tolerated well. Hgb improved to 7.8 Objective Last 24 Hour Vital Signs Date Time Temp Pulse Resp B/P (MAP) Pulse Ox O2 Delivery O2 Flow Rate FiO2 11/02/17 06:26 97.4 107 18 129/80 (96) 98 97.4 11/02/17 00:00 97.4 97 18 138/81 (100) 97 97.4 11/01/17 21:00 Room Air 11/01/17 20:00 97.6 99 18 126/83 (97) 97 97.6 11/01/17 16:00 97.9 98 20 123/76 (92) 98 97.9 11/01/17 14:30 97.4 94 20 121/75 (90) 98 97.4 11/01/17 12:15 97.5 91 20 121/73 (89) 98 97.5 11/01/17 12:00 97.6 95 19 119/76 (90) 99 97.6 11/01/17 09:00 Room Air Intake and Output 11/01/17 11/02/17 19:00 07:00 Intake Total 75 ml 1700 ml Output Total 250 ml Balance 75 ml 1450 ml Intake Oral 800 ml IV Total 75 ml 900 ml Output Urine Total 250 ml # Voids 3 1 # Bowel Movements 1 Laboratory Tests 11/01/17 15:55: Stool Occult Blood [Pending] 11/01/17 16:30: HIV (1&2) Antibody Rapid Negative 11/02/17 06:25: White Blood Count 4.7L, Red Blood Count 2.94L, Hemoglobin 7.8L, Hematocrit 26.0L , Mean Corpuscular Volume 88, Mean Corpuscular Hemoglobin 26.7L, Mean Corpuscular Hemoglobin Concent 30.2L, Red Cell Distribution Width 22.2H, Platelet Count 97L, Mean Platelet Volume 7.3, Neutrophils (%) (Auto) , Lymphocytes (%) (Auto) , Monocytes (%) (Auto) , Eosinophils (%) (Auto) , Basophils (%) (Auto) , Neutrophils % (Manual) [Pending], Lymphocytes % (Manual) [Pending], Platelet Estimate [Pending], Platelet Morphology [Pending], Prothrombin Time 18.8H, Prothromb Time International Ratio 1.8H, Activated Partial Thromboplast Time 52H, Sodium Level 131L, Potassium Level 3.7, Chloride Level 104, Carbon Dioxide Level 20L, Anion Gap 7, Blood Urea Nitrogen 16, Creatinine 0.7, Estimat Glomerular Filtration Rate > 60, Glucose Level 102, Calcium Level 7.9L, Total Bilirubin 24.7H, Direct Bilirubin [Pending], Aspartate Amino Transf (AST/SGOT) 128H, Alanine Aminotransferase (ALT/SGPT) 49, Alkaline Phosphatase 241H, Ammonia 57H, Total Protein 7.2, Albumin 1.9L, Globulin 5.3, Albumin/Globulin Ratio 0.4L Height (Feet): 5 Height (Inches): 9.00 Weight (Pounds): 302 General Appearance: no apparent distress EENT: PERRL/EOMI Neck: normal alignment Cardiovascular: tachycardia Respiratory/Chest: no respiratory distress Abdomen: soft Clark Cooper MD Nov 02, 2017 08:18
[2017-11-02 08:23] LABS: BILIRUBIN,DIRECT 17.3 MG/DL (0.0-0.3)
[2017-11-02] MEDS ORDERED: Lidocaine 1% Plain 30 ml INJ SCH (09:00)
--- NOTE | 2017-11-02 10:03 | General Progress Note ---
Assessment/Plan Problem List: (1) Coagulopathy ICD Codes: D68.9 - Coagulation defect, unspecified SNOMED: 33085433 (2) Ascites ICD Codes: R18.8 - Other ascites SNOMED: 113407893 (3) ETOH abuse ICD Codes: F10.10 - Alcohol abuse, uncomplicated SNOMED: 12534777 (4) Esophageal varices determined by endoscopy ICD Codes: I85.00 - Esophageal varices without bleeding SNOMED: 08944241, 952999162 (5) Anemia ICD Codes: D64.9 - Anemia, unspecified SNOMED: 589421016 (6) Cirrhosis ICD Codes: K74.60 - Unspecified cirrhosis of liver SNOMED: 02027196 Assessment/Plan fu labs pending paracentesis for today add prednisone 40 mg daily diuretics poor prognosis Subjective ROS Limited/Unobtainable: Yes Allergies: Coded Allergies: NO KNOWN ALLERGIES (Verified Allergy, Unknown, 01/25/17) Objective Last 24 Hour Vital Signs Date Time Temp Pulse Resp B/P (MAP) Pulse Ox O2 Delivery O2 Flow Rate FiO2 11/02/17 09:00 Room Air 11/02/17 08:12 97.8 99 18 131/80 (97) 99 97.8 11/02/17 06:26 97.4 107 18 129/80 (96) 98 97.4 11/02/17 00:00 97.4 97 18 138/81 (100) 97 97.4 11/01/17 21:00 Room Air 11/01/17 20:00 97.6 99 18 126/83 (97) 97 97.6 11/01/17 16:00 97.9 98 20 123/76 (92) 98 97.9 11/01/17 14:30 97.4 94 20 121/75 (90) 98 97.4 11/01/17 12:15 97.5 91 20 121/73 (89) 98 97.5 11/01/17 12:00 97.6 95 19 119/76 (90) 99 97.6 Intake and Output 11/01/17 11/02/17 19:00 07:00 Intake Total 75 ml 1700 ml Output Total 250 ml Balance 75 ml 1450 ml Intake Oral 800 ml IV Total 75 ml 900 ml Output Urine Total 250 ml # Voids 3 1 # Bowel Movements 1 Laboratory Tests 11/01/17 15:55: Stool Occult Blood [Pending] 11/01/17 16:30: HIV (1&2) Antibody Rapid Negative 11/02/17 06:25: White Blood Count 4.7L, Red Blood Count 2.94L, Hemoglobin 7.8L, Hematocrit 26.0L , Mean Corpuscular Volume 88, Mean Corpuscular Hemoglobin 26.7L, Mean Corpuscular Hemoglobin Concent 30.2L, Red Cell Distribution Width 22.2H, Platelet Count 97L, Mean Platelet Volume 7.3, Neutrophils (%) (Auto) , Lymphocytes (%) (Auto) , Monocytes (%) (Auto) , Eosinophils (%) (Auto) , Basophils (%) (Auto) , Differential Total Cells Counted 100, Neutrophils % ( Manual) 70, Lymphocytes % (Manual) 16L, Monocytes % (Manual) 10, Eosinophils % ( Manual) 4H, Basophils % (Manual) 0, Band Neutrophils 0, Nucleated Red Blood Cells 1, Platelet Estimate DecreasedL, Platelet Morphology Normal, Hypochromasia 1+, Anisocytosis 2+, Target Cells 1+, Schistocytes 1+, Prothrombin Time 18.8H, Prothromb Time International Ratio 1.8H, Activated Partial Thromboplast Time 52H, Sodium Level 131L, Potassium Level 3.7, Chloride Level 104, Carbon Dioxide Level 20L, Anion Gap 7, Blood Urea Nitrogen 16, Creatinine 0.7, Estimat Glomerular Filtration Rate > 60, Glucose Level 102, Calcium Level 7.9L, Total Bilirubin 24.7H, Direct Bilirubin 17.3H, Aspartate Amino Transf (AST/SGOT) 128H, Alanine Aminotransferase (ALT/SGPT) 49, Alkaline Phosphatase 241H, Ammonia 57H, Total Protein 7.2, Albumin 1.9L, Globulin 5.3, Albumin/Globulin Ratio 0.4L Height (Feet): 5 Height (Inches): 9.00 Weight (Pounds): 302 General Appearance: no apparent distress EENT: scleral icterus, pale conjunctivae Neck: supple Cardiovascular: normal rate Respiratory/Chest: decreased breath sounds Abdomen: soft, decreased bowel sounds, distended Extremities: non-tender Ricardo Weber MD Nov 02, 2017 10:03
--- NOTE | 2017-11-02 10:18 | Consultation ---
History of Present Illness General Date patient seen: Nov 02, 2017 Chief Complaint: Abdominal Pain Reason for Consultation: Ascities/Abdominal pain Present Illness HPI Mr. Gleason is a 47 yo male with PMHx of Cirrhosis with GI bleed and HTN who is presenting with recurrent ascites. His paracentesis was 10 days ago but the fluid has reaccumulated already. The patient also reports abdominal pain when his belly is full of fluid. Had paracentesis today and no his has no more abdominal pain or SOB. He denies fever chill or bleeding. PMHx\ EtOH abuse Cirrhosis GI bleed HTN PSHx EDG with banding SocHx EtOH No C/D FamHx Review not contributory Allergies: Coded Allergies: NO KNOWN ALLERGIES (Verified Allergy, Unknown, 01/25/17) Medication History Scheduled Ferrous Sulfate* (Ferrous Sulfate*), 325 MG ORAL THREE TIMES A DAY, (Reported) Furosemide* (Lasix*), 20 MG ORAL DAILY, (Reported) Ibuprofen* (Motrin*), 600 MG ORAL THREE TIMES A DAY Levofloxacin* (Levaquin*), 500 MG ORAL DAILY Pantoprazole* (Protonix*), 40 MG ORAL DAILY, (Reported) Pentoxifylline* (Trental*), 400 MG ORAL THREE TIMES A DAY, (Reported) Propranolol Hcl* (Inderal*), 20 MG ORAL QID Silver Sulfadiazine (Silvadene), 20 GM TP BID Thiamine Hcl* (Vitamin B-1*), 100 MG ORAL DAILY Scheduled PRN Tramadol Hcl* (Ultram*), 50 MG ORAL Q6H PRN for For Pain Miscellaneous Medications Unable to Obtain Medications (Unable To Obtain Meds), (Reported) Patient History Healthcare decision maker Resuscitation status Advanced Directive on File Review of Systems All Other Systems: negative except mentioned in HPI Physical Exam Last 24 Hour Vital Signs Date Time Temp Pulse Resp B/P (MAP) Pulse Ox O2 Delivery O2 Flow Rate FiO2 11/02/17 09:00 Room Air 11/02/17 08:12 97.8 99 18 131/80 (97) 99 97.8 11/02/17 06:26 97.4 107 18 129/80 (96) 98 97.4 11/02/17 00:00 97.4 97 18 138/81 (100) 97 97.4 11/01/17 21:00 Room Air 11/01/17 20:00 97.6 99 18 126/83 (97) 97 97.6 11/01/17 16:00 97.9 98 20 123/76 (92) 98 97.9 11/01/17 14:30 97.4 94 20 121/75 (90) 98 97.4 11/01/17 12:15 97.5 91 20 121/73 (89) 98 97.5 11/01/17 12:00 97.6 95 19 119/76 (90) 99 97.6 Intake and Output 11/01/17 11/02/17 19:00 07:00 Intake Total 75 ml 1700 ml Output Total 250 ml Balance 75 ml 1450 ml Intake Oral 800 ml IV Total 75 ml 900 ml Output Urine Total 250 ml # Voids 3 1 # Bowel Movements 1 Laboratory Tests Test 11/01/17 15:55 11/01/17 16:30 11/02/17 06:25 Stool Occult Blood Pending HIV (1&2) Antibody Rapid Negative (NEGATIVE) White Blood Count 4.7 K/UL (4.8-10.8) L Red Blood Count 2.94 M/UL (4.70-6.10) L Hemoglobin 7.8 G/DL (14.2-18.0) L Hematocrit 26.0 % (42.0-52.0) L Mean Corpuscular Volume 88 FL (80-99) Mean Corpuscular Hemoglobin 26.7 PG (27.0-31.0) L Mean Corpuscular Hemoglobin Concent 30.2 G/DL (32.0-36.0) L Red Cell Distribution Width 22.2 % (11.6-14.8) H Platelet Count 97 K/UL (150-450) L Mean Platelet Volume 7.3 FL (6.5-10.1) Neutrophils (%) (Auto) % (45.0-75.0) Lymphocytes (%) (Auto) % (20.0-45.0) Monocytes (%) (Auto) % (1.0-10.0) Eosinophils (%) (Auto) % (0.0-3.0) Basophils (%) (Auto) % (0.0-2.0) Differential Total Cells Counted 100 Neutrophils % (Manual) 70 % (45-75) Lymphocytes % (Manual) 16 % (20-45) L Monocytes % (Manual) 10 % (1-10) Eosinophils % (Manual) 4 % (0-3) H Basophils % (Manual) 0 % (0-2) Band Neutrophils 0 % (0-8) Nucleated Red Blood Cells 1 /100 WBC Platelet Estimate Decreased L Platelet Morphology Normal Hypochromasia 1+ Anisocytosis 2+ Target Cells 1+ Schistocytes 1+ Prothrombin Time 18.8 SEC (9.30-11.50) H Prothromb Time International Ratio 1.8 (0.9-1.1) H Activated Partial Thromboplast Time 52 SEC (23-33) H Sodium Level 131 MMOL/L (136-145) L Potassium Level 3.7 MMOL/L (3.5-5.1) Chloride Level 104 MMOL/L (98-107) Carbon Dioxide Level 20 MMOL/L (21-32) L Anion Gap 7 mmol/L (5-15) Blood Urea Nitrogen 16 mg/dL (7-18) Creatinine 0.7 MG/DL (0.55-1.30) Estimat Glomerular Filtration Rate > 60 mL/min (>60) Glucose Level 102 MG/DL (74-106) Calcium Level 7.9 MG/DL (8.5-10.1) L Total Bilirubin 24.7 MG/DL (0.2-1.0) H Direct Bilirubin 17.3 MG/DL (0.0-0.3) H Aspartate Amino Transf (AST/SGOT) 128 U/L (15-37) H Alanine Aminotransferase (ALT/SGPT) 49 U/L (12-78) Alkaline Phosphatase 241 U/L (46-116) H Ammonia 57 umol/L (11-32) H Total Protein 7.2 G/DL (6.4-8.2) Albumin 1.9 G/DL (3.4-5.0) L Globulin 5.3 g/dL Albumin/Globulin Ratio 0.4 (1.0-2.7) L Height (Feet): 5 Height (Inches): 9.00 Weight (Pounds): 302 Medications Current Medications Medications (Trade) Dose Ordered Sig/Nikhil Route PRN Reason Start Time Stop Time Status Last Admin Dose Admin Acetaminophen (Tylenol) 650 mg Q4H PRN ORAL fever 11/01/17 07:30 12/01/17 07:29 Al Hydroxide/Mg Hydroxide (Mylanta II) 30 ml Q6H PRN ORAL dyspepsia 11/01/17 07:30 12/01/17 07:29 Dextrose (Dextrose 50%) 25 ml STAT PRN IV Hypoglycemia 11/01/17 07:45 12/01/17 07:44 Dextrose (Dextrose 50%) 50 ml STAT PRN IV Hypoglycemia 11/01/17 07:45 12/01/17 07:44 Dextrose/Sodium Chloride 1,000 ml @ 75 mls/hr [id number] IV 11/01/17 07:30 12/01/17 07:29 11/01/17 20:46 Diphenhydramine HCl (Benadryl) 25 mg Q6H PRN ORAL Itching/Pruritis 11/01/17 07:30 12/01/17 07:29 Furosemide (Lasix) 20 mg DAILY IV 11/02/17 10:51 12/02/17 10:50 Lidocaine HCl (Xylocaine 1% 30ml) 30 ml ONCE INJ 11/02/17 09:00 11/02/17 23:59 Morphine Sulfate (Morphine Sulfate) 2 mg Q4H PRN IVP severe Pain (Pain Scale 7-10) 11/01/17 07:30 11/08/17 07:29 11/02/17 06:30 Nitroglycerin (Ntg) 0.4 mg Q5M X 3 DOSES PRN SL Prn Chest Pain 11/01/17 07:30 12/01/17 07:29 Ondansetron HCl (Zofran) 4 mg Q6H PRN IVP Nausea & Vomiting 11/01/17 07:30 12/01/17 07:29 11/02/17 09:05 Polyethylene Glycol (Miralax) 17 gm HSPRN PRN ORAL Constipation 11/01/17 21:00 12/01/17 20:59 Prednisone (predniSONE) 40 mg DAILY ORAL 11/03/17 09:00 12/03/17 08:59 UNV Spironolactone (Aldactone) 50 mg DAILY ORAL 11/02/17 10:52 12/02/17 10:51 Temazepam (Restoril) 15 mg HSPRN PRN ORAL Insomnia 11/01/17 21:00 11/08/17 20:59 Objective Narrative Gen: NAD, HEENT: NCAT, MMM, EOMI, PERRL, No Oral lesion, no scleral icterus NECK: full range of motion, supple, no meningismus, No LAD, No JVD LUNGS: CTAB, No W/C, No Accessory muscle use CARDS: RRR, S1, S2, No M/R/G, ABD: Soft, Obese, Distended, Mildly TTP, No R/G, + BS Ext: C/C/E, Pulses 2+ B/L (DP, Rad), No joint pain or erythema : Deferred NEURO: A/O x 4, Strength and Sensation Grossly intact PSYCH: mood/affect normal SKIN: warm/dry, No rashes Assessment/Plan Assessment/Plan 47 yo male with PMHx of Cirrhosis with GI bleed and HTN who is presenting with recurrent ascites. # Ascites - No sign of active peritonitis - Paracentesis only 4 PMNs - Hold Abx as not currently bleeding or febrile #EtOH abuse #Cirrhosis #GI bleed #Anemia #EDG with banding PLAN: - Monitor clinically for sign of infection. - Supportive care Thank you for consulting us for the care of this patient. We will continue to follow with you. Derrick Groves M.D. Nov 02, 2017 10:18
[2017-11-02] MEDS ORDERED: Spironolactone 25mg tab ORAL SCH (10:52)
--- NOTE | 2017-11-02 11:43 | General Progress Note ---
Assessment/Plan Problem List: (1) Anemia ICD Codes: D64.9 - Anemia, unspecified SNOMED: 860362469 (2) Cirrhosis ICD Codes: K74.60 - Unspecified cirrhosis of liver SNOMED: 16480716 (3) Ascites ICD Codes: R18.8 - Other ascites SNOMED: 908863343 (4) Pain Status: unchanged Assessment/Plan ot pt diet abx transfuse prn pericentesis cbc bmp am Subjective Constitutional: Reports: weakness Allergies: Coded Allergies: NO KNOWN ALLERGIES (Verified Allergy, Unknown, 01/25/17) All Systems: reviewed and negative except above Subjective calm awaiting pericentesis Objective Last 24 Hour Vital Signs Date Time Temp Pulse Resp B/P (MAP) Pulse Ox O2 Delivery O2 Flow Rate FiO2 11/02/17 09:00 Room Air 11/02/17 08:12 97.8 99 18 131/80 (97) 99 97.8 11/02/17 06:26 97.4 107 18 129/80 (96) 98 97.4 11/02/17 00:00 97.4 97 18 138/81 (100) 97 97.4 11/01/17 21:00 Room Air 11/01/17 20:00 97.6 99 18 126/83 (97) 97 97.6 11/01/17 16:00 97.9 98 20 123/76 (92) 98 97.9 11/01/17 14:30 97.4 94 20 121/75 (90) 98 97.4 11/01/17 12:15 97.5 91 20 121/73 (89) 98 97.5 11/01/17 12:00 97.6 95 19 119/76 (90) 99 97.6 Intake and Output 11/01/17 11/02/17 19:00 07:00 Intake Total 75 ml 1700 ml Output Total 250 ml Balance 75 ml 1450 ml Intake Oral 800 ml IV Total 75 ml 900 ml Output Urine Total 250 ml # Voids 3 1 # Bowel Movements 1 Laboratory Tests 11/01/17 15:55: Stool Occult Blood Positive 11/01/17 16:30: HIV (1&2) Antibody Rapid Negative 11/02/17 06:25: White Blood Count 4.7L, Red Blood Count 2.94L, Hemoglobin 7.8L, Hematocrit 26.0L , Mean Corpuscular Volume 88, Mean Corpuscular Hemoglobin 26.7L, Mean Corpuscular Hemoglobin Concent 30.2L, Red Cell Distribution Width 22.2H, Platelet Count 97L, Mean Platelet Volume 7.3, Neutrophils (%) (Auto) , Lymphocytes (%) (Auto) , Monocytes (%) (Auto) , Eosinophils (%) (Auto) , Basophils (%) (Auto) , Differential Total Cells Counted 100, Neutrophils % ( Manual) 70, Lymphocytes % (Manual) 16L, Monocytes % (Manual) 10, Eosinophils % ( Manual) 4H, Basophils % (Manual) 0, Band Neutrophils 0, Nucleated Red Blood Cells 1, Platelet Estimate DecreasedL, Platelet Morphology Normal, Hypochromasia 1+, Anisocytosis 2+, Target Cells 1+, Schistocytes 1+, Prothrombin Time 18.8H, Prothromb Time International Ratio 1.8H, Activated Partial Thromboplast Time 52H, Sodium Level 131L, Potassium Level 3.7, Chloride Level 104, Carbon Dioxide Level 20L, Anion Gap 7, Blood Urea Nitrogen 16, Creatinine 0.7, Estimat Glomerular Filtration Rate > 60, Glucose Level 102, Calcium Level 7.9L, Total Bilirubin 24.7H, Direct Bilirubin 17.3H, Aspartate Amino Transf (AST/SGOT) 128H, Alanine Aminotransferase (ALT/SGPT) 49, Alkaline Phosphatase 241H, Ammonia 57H, Total Protein 7.2, Albumin 1.9L, Globulin 5.3, Albumin/Globulin Ratio 0.4L Height (Feet): 5 Height (Inches): 9.00 Weight (Pounds): 302 General Appearance: lethargic EENT: normal ENT inspection Neck: normal alignment Cardiovascular: normal peripheral pulses, normal rate, regular rhythm Respiratory/Chest: chest wall non-tender, lungs clear, normal breath sounds Abdomen: normal bowel sounds, non tender, soft Extremities: normal inspection Edema: no edema noted Arm (L), no edema noted Arm (R), no edema noted Leg (L), no edema noted Leg (R), no edema noted Pedal (L), no edema noted Pedal (R), no edema noted Generalized Neurologic: motor weakness Skin: normal pigmentation, warm/dry Moises Ojeda DO Nov 02, 2017 11:43
[2017-11-02] MEDS: D5 1/2NS 1,000 ML IV SCH (11:56)
[2017-11-02 12:00] VITALS: BP 117/70
--- NOTE | 2017-11-02 12:06 | Pre-Procedure Note/Attestation ---
Pre-Procedure Note/Attestation Complete Prior to Procedure Planned Procedure: not applicable Procedure Narrative: US guided paracentesis Indications for Procedure Pre-Operative Diagnosis: ascites Attestation I attest that I discussed the nature of the procedure; its benefits; risks and complications; and alternatives (and the risks and benefits of such alternatives ), prior to the procedure, with the patient (or the patient's legal sales representative door to door). I attest that, if there was a reasonable possibility of needing a blood transfusion, the patient (or the patient's legal sales representative door to door) was given the [facility] standardized written summary, pursuant to the [place] Blood Safety Act ([place] Health and Safety Code # 1645, as amended). I attest that I re-evaluated the patient just prior to the surgery and that there has been no change in the patient's H&P, except as documented below: Basilio Moses MD Nov 02, 2017 12:06
--- NOTE | 2017-11-02 12:11 | Brief Operative Note ---
Immediate Post Operative Note Operative Note Chief Complaint: distention Pre-op Diagnosis: ascites Procedure: US guided paracentesis Post-op Diagnosis: same as pre-op Findings: consistent w/pre-op dx studies Surgeon: Indy MOSES Anesthesia: local Specimen: yes - fluid sent to lab Complications: none Fluids: none Implant(s) used?: No Basilio Moses MD Nov 02, 2017 12:11
--- NOTE | 2017-11-02 12:21 | Diagnostic Imaging Report ---
Indication: Abnormal liver function tests Technique: Irch-scale and duplex images of the upper abdomen were obtained Comparison: 08/12/2017 Findings: Exam is limited due to body habitus and bowel gas Gallbladder demonstrates no stones. However, the wall is thickened, measuring 5 mm thick. Sonographic Schaffer's sign is negative. Common bile duct measures 6 mm in diameter. No intrahepatic biliary ductal dilatation. Liver demonstrates coarsened echogenicity and hepatic surface nodularity., Atrophy and abnormal contour Portal vein and hepatic veins are patent. Recannulized paraumbilical vein varices are demonstrated. Ascites is noted Pancreas is obscured by bowel gas. The spleen is enlarged, measuring 18.3 cm long axis dimension Left kidney measures 10.9 cm in length. Right kidney measures 11.8 cm length. Both kidneys demonstrate normal echogenicity. There is no hydronephrosis. No focal abnormality . Abdominal aorta is partially obscured by bowel gas, visualized portions are non-aneurysmal . Impression: Evidence of hepatic cirrhosis, with surface nodularity, contour abnormality Evidence of portal hypertension, with varices, splenomegaly, and ascites Negative for gallstones. Thickened gallbladder wall is probably due to the hemodynamic abnormality related to the liver disease Negative for dilated ducts Limited exam, as described. Note inability to visualize pancreas and portions of the abdominal aorta
--- NOTE | 2017-11-02 12:22 | Diagnostic Imaging Report ---
Indications: Ascites Technique: Ultrasound used to localize optimal puncture site. Sterile prepping and draping right lower quadrant. Local anesthesia with 1% lidocaine. Under real-time ultrasound guidance, puncture peritoneal space using paracentesis needle. Stylet removed. Catheter placed to vacuum bottle suction. Total 5.1 liters of fluid aspirated. Note that fluid at this point was incompletely evacuated, but procedure was halted per patient request Patient tolerated procedure well, without immediate complication. Findings: Followup sonography demonstrates some residual peritoneal fluid Impression: Successful ultrasound-guided paracentesis, yielding 5.1 liters of fluid
--- NOTE | 2017-11-02 13:39 | Pulmonology Progress Note ---
Assessment/Plan Problems: (1) Coagulopathy (2) Ascites (3) Cirrhosis (4) Anemia Assessment/Plan 5 liters removed s/p prbc one liter dc planning Subjective ROS Limited/Unobtainable: No Interval Events: paracenthesis done, 5 liters removed Constitutional: Reports: no symptoms Allergies: Coded Allergies: NO KNOWN ALLERGIES (Verified Allergy, Unknown, 01/25/17) Objective Last 24 Hour Vital Signs Date Time Temp Pulse Resp B/P (MAP) Pulse Ox O2 Delivery O2 Flow Rate FiO2 11/02/17 12:00 97.2 95 18 117/70 (86) 99 97.2 11/02/17 09:00 Room Air 11/02/17 08:12 97.8 99 18 131/80 (97) 99 97.8 11/02/17 06:26 97.4 107 18 129/80 (96) 98 97.4 11/02/17 00:00 97.4 97 18 138/81 (100) 97 97.4 11/01/17 21:00 Room Air 11/01/17 20:00 97.6 99 18 126/83 (97) 97 97.6 11/01/17 16:00 97.9 98 20 123/76 (92) 98 97.9 11/01/17 14:30 97.4 94 20 121/75 (90) 98 97.4 Intake and Output 11/01/17 11/02/17 19:00 07:00 Intake Total 75 ml 1700 ml Output Total 250 ml Balance 75 ml 1450 ml Intake Oral 800 ml IV Total 75 ml 900 ml Output Urine Total 250 ml # Voids 3 1 # Bowel Movements 1 General Appearance: WD/WN HEENT: normocephalic Respiratory/Chest: chest wall non-tender, lungs clear, normal breath sounds Cardiovascular: normal peripheral pulses, normal rate Abdomen: normal bowel sounds Genitourinary: normal external genitalia Skin: no rash Neurologic/Psychiatric: combine inspector II-XII grossly normal Microbiology Date/Time Source Procedure Growth Status 10/31/17 22:00 Urine,Clean Catch Urine Culture - Preliminary Mixed Gram Positive Organism Resulted Laboratory Tests 11/01/17 15:55: Stool Occult Blood Positive 11/01/17 16:30: HIV (1&2) Antibody Rapid Negative 11/02/17 06:25: White Blood Count 4.7L, Red Blood Count 2.94L, Hemoglobin 7.8L, Hematocrit 26.0L , Mean Corpuscular Volume 88, Mean Corpuscular Hemoglobin 26.7L, Mean Corpuscular Hemoglobin Concent 30.2L, Red Cell Distribution Width 22.2H, Platelet Count 97L, Mean Platelet Volume 7.3, Neutrophils (%) (Auto) , Lymphocytes (%) (Auto) , Monocytes (%) (Auto) , Eosinophils (%) (Auto) , Basophils (%) (Auto) , Differential Total Cells Counted 100, Neutrophils % ( Manual) 70, Lymphocytes % (Manual) 16L, Monocytes % (Manual) 10, Eosinophils % ( Manual) 4H, Basophils % (Manual) 0, Band Neutrophils 0, Nucleated Red Blood Cells 1, Platelet Estimate DecreasedL, Platelet Morphology Normal, Hypochromasia 1+, Anisocytosis 2+, Target Cells 1+, Schistocytes 1+, Prothrombin Time 18.8H, Prothromb Time International Ratio 1.8H, Activated Partial Thromboplast Time 52H, Sodium Level 131L, Potassium Level 3.7, Chloride Level 104, Carbon Dioxide Level 20L, Anion Gap 7, Blood Urea Nitrogen 16, Creatinine 0.7, Estimat Glomerular Filtration Rate > 60, Glucose Level 102, Calcium Level 7.9L, Total Bilirubin 24.7H, Direct Bilirubin 17.3H, Aspartate Amino Transf (AST/SGOT) 128H, Alanine Aminotransferase (ALT/SGPT) 49, Alkaline Phosphatase 241H, Ammonia 57H, Total Protein 7.2, Albumin 1.9L, Globulin 5.3, Albumin/Globulin Ratio 0.4L 11/02/17 09:58: Body Fluid Source Paracentesis, Body Fluid Volume 24, Body Fluid Appearance Clear, Body Fluid RBC 373, Body Fluid Total Nucleated Cells 10, Body Fluid Polynuclear WBCs (%) 4, Body Fluid Mononuclear WBCs (%) 88, Body Fluid Mesothelial Cells (%) 8, Body Fluid Glucose [Pending], Body Fluid Total Protein [Pending], Body Fluid Albumin [Pending] Current Medications Medications (Trade) Dose Ordered Sig/Nikhil Route PRN Reason Start Time Stop Time Status Last Admin Dose Admin Al Hydroxide/Mg Hydroxide (Mylanta II) 30 ml Q6H PRN ORAL dyspepsia 11/01/17 07:30 12/01/17 07:29 Dextrose (Dextrose 50%) 25 ml STAT PRN IV Hypoglycemia 8/9/18 07:45 12/01/17 07:44 Dextrose (Dextrose 50%) 50 ml STAT PRN IV Hypoglycemia 11/01/17 07:45 12/01/17 07:44 Diphenhydramine HCl (Benadryl) 25 mg Q6H PRN ORAL Itching/Pruritis 11/01/17 07:30 12/01/17 07:29 Furosemide (Lasix) 20 mg DAILY IV 11/02/17 10:51 12/02/17 10:50 Lidocaine HCl (Xylocaine 1% 30ml) 30 ml ONCE INJ 11/02/17 09:00 11/02/17 23:59 Morphine Sulfate (Morphine Sulfate) 2 mg Q4H PRN IVP severe Pain (Pain Scale 7-10) 11/01/17 07:30 11/08/17 07:29 11/02/17 11:56 Nitroglycerin (Ntg) 0.4 mg Q5M X 3 DOSES PRN SL Prn Chest Pain 11/01/17 07:30 12/01/17 07:29 Ondansetron HCl (Zofran) 4 mg Q6H PRN IVP Nausea & Vomiting 11/01/17 07:30 12/01/17 07:29 11/02/17 09:05 Polyethylene Glycol (Miralax) 17 gm HSPRN PRN ORAL Constipation 11/01/17 21:00 12/01/17 20:59 Prednisone (predniSONE) 40 mg DAILY ORAL 11/03/17 09:00 12/03/17 08:59 Propranolol HCl (Inderal) 10 mg Q8HR ORAL 11/02/17 14:00 12/02/17 13:59 UNV Spironolactone (Aldactone) 50 mg DAILY ORAL 11/02/17 10:52 12/02/17 10:51 Temazepam (Restoril) 15 mg HSPRN PRN ORAL Insomnia 11/01/17 21:00 11/08/17 20:59 Clara Ortega MD Nov 02, 2017 13:39
--- NOTE | 2017-11-02 13:43 | Cardiology Report ---
APPROVED REPORT EKG Measurement Heart [id number] Sinus tachycardia Cannot rule out Inferior infarct, age undetermined Abnormal ECG
[2017-11-02] MEDS ORDERED: Propranolol 10mg tab ORAL SCH (14:00)
[2017-11-02 16:00] VITALS: BP 120/73
--- NOTE | 2017-11-02 16:47 | Diagnostic Imaging Report ---
APPROVED REPORT CPT Code: 99440 Present Symptoms Lower Extremity Edema: Bilateral BILATERAL: Imaging reveals a patent deep venous system bilaterally. There is no evidence of thrombus within the femoral, popliteal or tibial segments. The greater saphenous veins are also within normal limits. Doppler indicates normal spontaneous flow within these segments.
[2017-11-02] MEDS ORDERED: D5 1/2NS 1000ml IV ONE (17:29)
--- NOTE | 2017-11-03 10:29 | Emergency Room Report ---
History of Present Illness General Chief Complaint: Abdominal Pain Source: Patient, Medical Record Present Illness HPI Patient is a 47-year-old male who presented after increased abdominal discomfort as well as abdominal distention. Patient gradual onset of symptoms. He had prior history of cirrhosis. Patient was noted to have increased jaundice. He reports having increased difficulty breathing secondary to distention. The patient reports having been taking diuretics. I reportedly having increased abdominal distention. Allergies: Coded Allergies: NO KNOWN ALLERGIES (Verified Allergy, Unknown, 01/25/17) Patient History Past Medical History: see triage record Reviewed Nursing Documentation: PMH: Agreed; PSxH: Agreed Nursing Documentation-PMH Past Medical History: No History, Except For Hx Cardiac Problems: Yes Hx Hypertension: Yes Hx Asthma: Yes Hx Diabetes: Yes Hx Cancer: No Hx Gastrointestinal Problems: Yes - GI bleed, ascites Hx Neurological Problems: No Review of Systems All Other Systems: negative except mentioned in HPI Physical Exam Vital Signs Date Time Temp Pulse Resp B/P (MAP) Pulse Ox O2 Delivery O2 Flow Rate FiO2 10/31/17 21:11 98.5 115 16 134/64 95 Room Air 98.4 Sp02 EP Interpretation: reviewed, normal General Appearance: normal inspection, alert, GCS 15 Head: atraumatic Eyes: bilateral eye other - scleral icterus ENT: normal ENT inspection, hearing grossly normal, normal voice Neck: normal inspection, full range of motion, supple, no bony tend Respiratory: normal inspection, lungs clear, normal breath sounds, no respiratory distress, no retraction, no wheezing Cardiovascular #1: regular rate, rhythm, no edema Gastrointestinal: no guarding, no hernia, distended Genitourinary: no CVA tenderness Musculoskeletal: normal inspection, back normal, normal range of motion Neurologic: normal inspection, alert, oriented x3, responsive, interface developer III-XII nml as tested, speech normal Psychiatric: normal inspection, judgement/insight normal, mood/affect normal Skin: no rash, jaundice Medical Decision Making Diagnostic Impression: Primary Impression: Cirrhosis Additional Impression: Anemia ER Course Patient presented for abdominal pain. Differential diagnoses included spontaneous bacterial peritonitis, tense ascites, ischemic bowel, appendicitis, perforated viscus, abdominal aortic aneurysm, inferior myocardial infarction, viral gastroenteritis. Because of complexity of patient's case laboratory testing and imaging studies were ordered. The patient was noted to have evidence of anemia on laboratory testing. The patient is also noted to have prior history of esophageal varices. The patient was discussed with Dr. Moises Ojeda for inpatient management due to panel physician. Labs Test 10/31/17 22:00 11/01/17 06:35 11/01/17 15:55 11/01/17 16:30 Urine Color Brown Urine Appearance Slightly cloudy Urine pH 6.5 (4.5-8.0) Urine Specific Thornton 1.015 (1.005-1.035) Urine Protein 2+ (NEGATIVE) Urine Glucose (UA) Negative (NEGATIVE) Urine Ketones 1+ (NEGATIVE) Urine Occult Blood 1+ (NEGATIVE) Urine Nitrite Positive (NEGATIVE) Urine Bilirubin 3+ (NEGATIVE) Urine Ictotest Positive (NEGATIVE) Urine Urobilinogen 12 MG/DL (0.0-1.0) Urine Leukocyte Esterase 3+ (NEGATIVE) Urine RBC 2-4 /HPF (0 - 0) Urine WBC 5-10 /HPF (0 - 0) Urine Squamous Epithelial Cells None /LPF (NONE/OCC) Urine Amorphous Sediment Moderate /LPF (NONE) Urine Bacteria Many /HPF (NONE) Urine Yeast Few /HPF (NONE) Troponin I 0.005 ng/mL (0.000-0.056) Lipase 413 U/L (73-393) Polychromasia 1+ Stool Occult Blood Positive (NEGATIVE) HIV (1&2) Antibody Rapid Negative (NEGATIVE) Test 11/02/17 06:25 11/02/17 09:58 White Blood Count 4.7 K/UL (4.8-10.8) Red Blood Count 2.94 M/UL (4.70-6.10) Hemoglobin 7.8 G/DL (14.2-18.0) Hematocrit 26.0 % (42.0-52.0) Mean Corpuscular Volume 88 FL (80-99) Mean Corpuscular Hemoglobin 26.7 PG (27.0-31.0) Mean Corpuscular Hemoglobin Concent 30.2 G/DL (32.0-36.0) Red Cell Distribution Width 22.2 % (11.6-14.8) Platelet Count 97 K/UL (150-450) Mean Platelet Volume 7.3 FL (6.5-10.1) Neutrophils (%) (Auto) % (45.0-75.0) Lymphocytes (%) (Auto) % (20.0-45.0) Monocytes (%) (Auto) % (1.0-10.0) Eosinophils (%) (Auto) % (0.0-3.0) Basophils (%) (Auto) % (0.0-2.0) Differential Total Cells Counted 100 Neutrophils % (Manual) 70 % (45-75) Lymphocytes % (Manual) 16 % (20-45) Monocytes % (Manual) 10 % (1-10) Eosinophils % (Manual) 4 % (0-3) Basophils % (Manual) 0 % (0-2) Band Neutrophils 0 % (0-8) Nucleated Red Blood Cells 1 /100 WBC Platelet Estimate Decreased Platelet Morphology Normal Hypochromasia 1+ Anisocytosis 2+ Target Cells 1+ Schistocytes 1+ Prothrombin Time 18.8 SEC (9.30-11.50) Prothromb Time International Ratio 1.8 (0.9-1.1) Activated Partial Thromboplast Time 52 SEC (23-33) Sodium Level 131 MMOL/L (136-145) Potassium Level 3.7 MMOL/L (3.5-5.1) Chloride Level 104 MMOL/L (98-107) Carbon Dioxide Level 20 MMOL/L (21-32) Anion Gap 7 mmol/L (5-15) Blood Urea Nitrogen 16 mg/dL (7-18) Creatinine 0.7 MG/DL (0.55-1.30) Estimat Glomerular Filtration Rate > 60 mL/min (>60) Glucose Level 102 MG/DL (74-106) Calcium Level 7.9 MG/DL (8.5-10.1) Total Bilirubin 24.7 MG/DL (0.2-1.0) Direct Bilirubin 17.3 MG/DL (0.0-0.3) Aspartate Amino Transf (AST/SGOT) 128 U/L (15-37) Alanine Aminotransferase (ALT/SGPT) 49 U/L (12-78) Alkaline Phosphatase 241 U/L (46-116) Ammonia 57 umol/L (11-32) Total Protein 7.2 G/DL (6.4-8.2) Albumin 1.9 G/DL (3.4-5.0) Globulin 5.3 g/dL Albumin/Globulin Ratio 0.4 (1.0-2.7) Body Fluid Source Paracentesis Body Fluid Volume 24 mL Body Fluid Appearance Clear Body Fluid RBC 373 /CUMM Body Fluid Total Nucleated Cells 10 /CUMM Body Fluid Polynuclear WBCs (%) 4 % Body Fluid Mononuclear WBCs (%) 88 % Body Fluid Mesothelial Cells (%) 8 % Last Vital Signs Date Time Temp Pulse Resp B/P (MAP) Pulse Ox O2 Delivery O2 Flow Rate FiO2 11/02/17 16:00 97.7 94 18 120/73 (89) 98 97.7 11/02/17 09:00 Room Air Status: unchanged Disposition: ADMITTED INPATIENT Condition: Serious Referrals: NON PHYSICIAN (PCP) Patient Instructions: Anemia, Nonspecific, Cirrhosis Jason Guevara MD Nov 03, 2017 10:29
--- NOTE | 2017-11-04 12:04 | Discharge Summary ---
Discharge Summary Discharge Summary _ DATE OF ADMISSION: 10/31/2017 DATE OF DISCHARGE: 11/02/2017 REASON FOR ADMISSION: 47 years old male with past medical history of liver cirrhosis, esophageal varices, status post banding, ascites, hypertension, diabetes, asthma, presented with increased abdominal discomfort and abdominal distention. Patient reported gradual onset of symptoms. He reported increased difficulty breathing secondary to abdominal distention. Patient was on diuretic at home. Patient reported to be compliant with medications. Upon evaluation vital signs revealed tachycardia with heart rate 115 . Patient was afebrile. Pulse oximetry was stable on room air. Laboratory workup revealed no leukocytosis, hemoglobin 7.5, hematocrit 24.2. Platelets 120. Total bili 21.8. Direct bili 15.2. AST 114, ALT 45 Troponin negative, lipase 413. Potassium 3.4 ,sodium 132. Urinalysis revealed pyuria, positive nitrate , many bacteria, positive leukocytes esterase. Patient admitted with diagnoses of cirrhosis, anemia ,probably UTI, abdominal distention. CONSULTANTS: pulmonary Dr. Ortega ID specialist Dr. Andrews GI specialist Dr. Weber gamb cutter/oncologist Dr. Cooper [facility] COURSE: Patient admitted. GI consult was requested. Patient was continued on propranolol and diuretics with Lasix and Aldactone. Vitamin K 1 given , INR 1.8 next day. Patient was transfused with 1 unit of packed red blood cells for hemoglobin 7.1. GI specialist closely followed. LFT and bilirubin were closely monitored, no trend down. Abdominal ultrasound revealed evidence of hepatic cirrhosis and portal hypertension but no evidence of gallstones or dilated ducts. Patient undergone paracentesis by interventional radiology which yielded 5.1 L of fluid. GI prophylaxis provided. Pain management was addressed. Infectious disease doctor closely followed. Urine culture revealed mixed gram-positive organisms. Ascitic fluid revealed no evidence of infection. Per infectious disease specialist no signs of acute peritonitis. No evidence of spontaneous bacterial peritonitis. Patient was not bleeding and was afebrile . Infectious disease specialist recommended to monitor patient clinically for signs of infection, provide support supportive care and keep patient off antibiotics. Venous duplex bilateral lower extremity was negative. Patient exhibited evidence of anemia along with thrombocytopenia and leukopenia WBC 4.6 and 4.7 on 2 consecutive days. HIV test was negative. [employer] closely followed. According to gamb cutter , pancytopenia was secondary to cirrhosis. Coagulopathy was likely secondary to cirrhosis as well. Vitamin K administered ( as mentioned above), without significant change in INR. No bleeding. Anemia workup, done on previous admission, was consistent with anemia due to GI bleeding as well as component of iron deficiency anemia noted with low ferritin. Patient started on iron supplement. Stool for occult blood was positive. Hemoglobin and hematocrit were closely monitored with goal to keep hemoglobin above 7. Prior to discharge hemoglobin 7.8 hematocrit 26. Platelets 97. Patient symptomatically improved and 3s stable for discharge. Patient was counseled to continue abstinence from alcohol. Overall prognosis poor. FINAL DIAGNOSES: Liver cirrhosis Ascites Status post ultrasound-guided paracentesis ETOH abuse Anemia of GI bleeding Iron deficiency anemia Pancytopenia Esophageal varices (status post banding on previous admission) Coagulopathy DISCHARGE MEDICATIONS: See Medication Reconciliation list. DISCHARGE INSTRUCTIONS: Patient was discharged home. Follow up with primary care provider. ED precautions provided. Overall prognosis poor. I have been assigned to dictate discharge summary for this account. I was not involved in the patient's management. Merna Zamudio NP Nov 04, 2017 12:04
== END 2017-11-02 17:30 | disposition home or self-care (01) | DRG 280 ==
LOC: EMR 21:34 → 3E 23:44 → EDBEDREQ 11-01 00:16
PROC: 30233N1 Transfusion of Nonautologous Red Blood Cells into Peripheral Vein, Percutaneous Approach (ICD-10-PCS; principal; 2017-11-01)
PROC: 0W9G3ZZ Drainage of Peritoneal Cavity, Percutaneous Approach (ICD-10-PCS; 2017-11-01)
DX: K70.31 Alcoholic cirrhosis of liver with ascites (principal); D61.818 Other pancytopenia; D68.4 Acquired coagulation factor deficiency; I85.10 Secondary esophageal varices without bleeding; D50.0 Iron deficiency anemia secondary to blood loss (chronic); E11.9 Type 2 diabetes mellitus without complications; F10.10 Alcohol abuse, uncomplicated; I10 Essential (primary) hypertension
CPT/HCPCS: 36415; 76700; 76942; 80048; 80053; 81003; 82140; 82248; 82270; 83690; 84484; 85007; 85025; 85610; 85730; 86703; 86850; 86900; 86901; 86920; 87070; 87086; 87205; 88104; 89051; 93005; 93970; J2405; J3430

== ENCOUNTER 2017-11-05 00:05 | Emergency (ER) | payer MEDICAID ==
[~2017-11-05] VITALS: Ht 172.7 cm; Wt 108.9 kg
[2017-11-05 00:59] VITALS: BP 133/82
[2017-11-05 01:05] VITALS: BP 133/82
--- NOTE | 2017-11-05 03:04 | Emergency Room Report ---
History of Present Illness General Chief Complaint: Dyspnea/Respdistress Source: Patient, Medical Record Present Illness HPI Patient presents with son who reports the patient had some increased confusion And appears nauseated He reports that he has decreased lack of understanding of his father's diagnoses He reports that his father has been the hospital several times however when he is discharged there are no medications Patient had become somewhat nauseated this evening And was brought by the son to the emergency room patient himself denies any chest pain He had complained of some shortness of breath which have been present over the past 2 months denies any focal weakness Allergies: Coded Allergies: NO KNOWN ALLERGIES (Verified Allergy, Unknown, 01/25/17) Patient History Past Medical History: see triage record Pertinent Family History: none Reviewed Nursing Documentation: PMH: Agreed; PSxH: Agreed Nursing Documentation-PMH Hx Cardiac Problems: Yes Hx Hypertension: Yes Hx Asthma: Yes Hx Diabetes: Yes Hx Cancer: No Hx Gastrointestinal Problems: Yes - GI bleed, ascites Hx Neurological Problems: No Review of Systems All Other Systems: negative except mentioned in HPI Physical Exam Vital Signs Date Time Temp Pulse Resp B/P (MAP) Pulse Ox O2 Delivery O2 Flow Rate FiO2 11/05/17 00:25 97.5 105 20 133/82 94 Room Air 97.5 Sp02 EP Interpretation: reviewed, normal General Appearance: other - acutely nauseated Head: normocephalic, atraumatic Eyes: bilateral eye scleral icterus ENT: normal pharynx, no angioedema Neck: supple Respiratory: no retraction, no accessory muscle use, crackles - In both lower lobes Cardiovascular #1: regular rate, rhythm Gastrointestinal: other - Distended abdomen with ascites Genitourinary: no CVA tenderness Musculoskeletal: swelling - Both lower extremities Neurologic: alert, responsive Skin: other - Jaundice appearance edema diffusely Lymphatic: no adenopathy Medical Decision Making Diagnostic Impression: Primary Impression: Cirrhosis Additional Impressions: Esophageal varices determined by endoscopy Ascites ER Course Patient is complex with multiple differentials and consideration Review of records reveals recent admission to the hospital with paracentesis Multispecialty consultation In discussion with the son he reports that his father was recently at [facility] However it appears that the patient was actually here The son reports that the patient has multiple follow-ups at [facility] I had discussion with the patient's son regarding the diagnoses and the severity of the findings patient has critical findings At this time initial blood work and ammonia level were being initiated however the son is requesting to go to follow-up at [facility], he was initially under the impression that he had just left [facility] however after discovering that the patient was dispositioned from here he would like to follow-up at the facility. Patient remains hemodynamically stable at this time and the son has taken the patient by private auto Last Vital Signs Date Time Temp Pulse Resp B/P (MAP) Pulse Ox O2 Delivery O2 Flow Rate FiO2 11/05/17 01:05 97.5 105 20 133/82 97 Room Air 97.5 Status: unchanged Disposition: AGAINST MEDICAL ADVICE Condition: Serious Referrals: NON PHYSICIAN (PCP) Etta Emmanuel DO Nov 05, 2017 03:04
== END 2017-11-05 01:10 | disposition left against medical advice (07) ==
LOC: EMR 00:29
DX: K74.60 Unspecified cirrhosis of liver (principal); R18.8 Other ascites; I85.00 Esophageal varices without bleeding; I10 Essential (primary) hypertension; J45.909 Unspecified asthma, uncomplicated; E11.9 Type 2 diabetes mellitus without complications
CPT/HCPCS: 99283